=== PATIENT | male | born 1955 | race Caucasian/White ===

== ENCOUNTER 2022-10-25 23:47 | Emergency (ER) | payer OTHER, SELFPAY ==
[2022-10-25 23:49] VITALS: BP 166/94; PULSE 112; RESP 8; TEMP 36.4; O2SAT 92; BMI 21.1
--- NOTE | 2022-10-25 23:52 | XRR_ITS ---
PROCEDURE INFORMATION: Exam: XR Left Shoulder Exam date and time: 10/26/2022 12:02 AM Age: 66 years old Clinical indication: Injury or trauma; Fall; Blunt trauma (contusions or hematomas); Shoulder; Left; Additional info: Fall shoulder pain and deform TECHNIQUE: Imaging protocol: Radiologic exam of the Left shoulder. Views: 2 or more views. COMPARISON: No relevant prior studies available. FINDINGS: Bones/joints: Anterior left shoulder dislocation with the humeral head below the glenoid. Soft tissues: Normal. XR/XR shoulder LT min 2V* [id number] IMPRESSION: Anterior left shoulder dislocation with the humeral head below the glenoid.
[2022-10-25] MEDS: fentaNYL 50 mcg/mL INJ 2mL 100 MCG IVP (23:54)
[2022-10-26] MEDS: fentaNYL 50 mcg/mL INJ 2mL 100 MCG IVP (00:11)
--- NOTE | 2022-10-26 00:30 | W.ED.FALL ---
HPI - Fall General: Chief Complaint: Fall Stated Complaint: FALL Time Seen by Provider: 10/25/22 23:48 Source: patient History of Present Illness: 66-year-old male who slipped at home and fell striking his left shoulder. This happened about an hour prior to arrival. He complains of intense left shoulder pain, and has a deformity. He does have feeling to his hand. He denies any other injury. He did not hit his head. He does not appear to be on anticoagulants. Onset (ago): minute(s) Fall from: standing Fall witnessed: no Place fall occurred: home Loss of consciousness: None Prolonged down time: no Symptoms prior to fall: none Context: tripped/slipped Location of injury - extremities: Left: shoulder Quality: sharp and stabbing Associated symptoms-after fall: Denies abdominal pain, chest pain, confusion, difficulty walking, headache(s), lightheadedness, neck pain, short of breath or weakness Review of Systems Const: Denies: fever(s) Eyes: Denies: change in vision ENMT: Denies: throat pain Card: Denies: chest pain or lightheadedness Resp: Denies: dyspnea GI: Denies: abdominal pain Musc: Denies: neck pain Skin/Breast: Denies: rash Neuro: Denies: headache(s), difficulty walking or confusion PFSH ED PFSH: Social History Smoking and tobacco status: current every day smoker Physical Exam Const: GENERAL APPEARANCE: cooperative HENMT: COMMON NORMALS: normocephalic, atraumatic and Normal external nose present HEAD & SCALP: normocephalic and atraumatic FACE & SINUS: normal facial exam NOSE: Normal external nose present Eye: COMMON NORMALS: Equal, round and reactive pupils present and EOMs intact bilaterally PUPIL: Yes Equal, round and reactive pupils present Neck/C-Spine: CERVICAL SPINE: Yes cervical ROM normal, No pain with cervical ROM and No Cervical spine tenderness Chest: COMMONS NORMALS: normal inspection of the chest CHEST: Yes Symmetrical chest wall rise Resp: COMMON NORMALS: normal respiratory effort, No use of accessory muscles and clear to auscultation bilaterally AUSCULTATION: clear to auscultation bilaterally Cardio: COMMON NORMALS: regular rate and regular rhythm RATE: regular rate RHYTHM: regular rhythm GI: COMMON NORMALS: Normal to inspection, nondistended, normoactive bowel sounds present, Soft to palpation and non-tender PALPATION: Yes Soft to palpation Extremity: NARRATIVE EXTREMITY EXAM: Examination of the left upper extremity reveals a deformity to left shoulder. There is significant tenderness along left shoulder. No humeral tenderness. No elbow tenderness. Pulses slightly decreased distally. They are present Procedures Orthopedic Joint Reduction Joint #1: Time Out Performed: Yes Side: left Joint Reduction Location: shoulder Analgesia: procedural sedation Shoulder Technique Used (if applicable): scapula manipulation Post-reduction neuro exam: intact Post-reduction vascular: intact Post Reduction X-Ray Obtained: Yes Post Reduction X-Ray Results: reduced Splint Applied: Yes Patient Tolerated Procedure: well and no complications Procedural Sedation Indication: fracture/dislocation reduction ASA Class: II Preparation: threat monitoring analyst applied, pulse oximeter, supplemental O2 applied, reversal agents at bedside, suction/airway equipment at bedside and IV secured Ketamine: IV Ketamine dose (mg): 40 IV Propofol dose (mg): 20 Course Vital Signs: Vital signs: Vital Signs Temperature 97.5 F L 10/25/22 23:49 Pulse Rate 112 H 10/25/22 23:49 Respiratory Rate 17 10/26/22 02:43 Blood Pressure 145/78 10/26/22 02:43 Pulse Oximetry 97 10/26/22 02:43 Oxygen Delivery Me thod 10/25/22 23:49 MDM - Fall Medical Decision Making Shoulder reduction accomplished without complication. Patient was on oxygen prior to, and during, as he is on oxygen at home. X-ray reveals successful reduction. The patient does have some mild mental status changes, and may be intoxicated with alcohol. Because of this, and because of distracting injury, CTs of the head and C-spine are ordered. Labs are benign. CTs of the head and C-spine show no acute findings. He does have an alcohol level 72 which is likely responsible for his somewhat odd behavior. He will be discharged to the custody of a sober adult when 1 is available to get him. Lab Data 10/26/22 01:07 10/26/22 01:07 Radiology Impressions Shoulder X-Ray 10/26/22 00:42 IMPRESSION: Interval reduction of left shoulder dislocation. Cervical Spine CT 10/26/22 01:00 IMPRESSION: No acute findings. Head CT 10/26/22 01:00 IMPRESSION: Negative for acute intracranial abnormality. Laboratory Results WBC 12.0 10^3/uL (4.0-10.0) H 10/26/22 01:07 RBC 4.71 10^6/uL (4.1-5.3) 10/26/22 01:07 Hgb 15.2 g/dL (11.7-16.6) 10/26/22 01:07 Hct 45.7 % (42.0-52.0) 10/26/22 01:07 MCV 97.0 fl (80-94) H 10/26/22 01:07 MCH 32.3 pg (28.0-34.0) 10/26/22 01:07 MCHC 33.3 g/dL (30.0-36.0) 10/26/22 01:07 RDW 12.8 % (12.1-15.1) 10/26/22 01:07 Plt Count 351 10^3/cmm (130-400) 10/26/22 01:07 MPV 9.5 fL (7.4-10.4) 10/26/22 01:07 Neut % (Auto) 66.7 % 10/26/22 01:07 Lymph % (Auto) 24.6 % 10/26/22 01:07 Kingfisher % (Auto) 6.7 % 10/26/22 01:07 Eos % (Auto) 1.1 % 10/26/22 01:07 Baso % (Auto) 0.4 % 10/26/22 01:07 Neut # (Auto) 7.99 10^3/uL (1.8-7.7) H 10/26/22 01:07 Lymph # (Auto) 3.0 10^3/uL (0.8-4.8) 10/26/22 01:07 [place]isher # (Auto) 0.8 10^3/uL (0.2-0.9) 10/26/22 01:07 Eos # (Auto) 0.1 10^3/uL (0.0-0.8) 10/26/22 01:07 Baso # (Auto) 0.1 10^3/uL (0.0-0.1) 10/26/22 01:07 Nucleated RBC % (auto) 0 % 10/26/22 01:07 Nucleated RBCs # 0.0 /100WBC 10/26/22 01:07 PT 14.00 SECONDS (12.1-14.9) 10/26/22 01:07 INR 1.05 (0.8-1.2) 10/26/22 01:07 Sodium 135 mmol/L (136-145) L 10/26/22 01:07 Potassium 4.1 mmol/L (3.5-5.1) 10/26/22 01:07 Chloride 99 mmol/L (98-107) 10/26/22 01:07 Carbon Dioxide 27 mmol/L (22-29) 10/26/22 01:07 Anion Gap 13.1 (5-19) 10/26/22 01:07 BUN 12 mg/dL (8-23) 10/26/22 01:07 Creatinine 0.5 mg/dL (0.7-1.2) L 10/26/22 01:07 GFR Calculation 167.4 mL/min (90-130) H 10/26/22 01:07 Glucose 108 mg/dL (65-115) 10/26/22 01:07 Calculated Osmolality 280 mOsm/kg (285-295) L 10/26/22 01:07 Calcium 8.9 mg/dL (8.5-10.5) 10/26/22 01:07 Total Bilirubin 0.2 mg/dL (0.15-1.2) 10/26/22 01:07 AST 33 U/L (0-40) 10/26/22 01:07 ALT 26 U/L (0-41) 10/26/22 01:07 Alkaline Phosphatase 110 U/L (40-130) 10/26/22 01:07 Total Protein 7.0 g/dL (6.6-8.7) 10/26/22 01:07 Albumin 4.0 g/dL (3.5-5.2) 10/26/22 01:07 Globulin 3.0 g/dL (1.3-4.6) 10/26/22 01:07 Ethyl Alcohol 72 mg/dL (0-10) H 10/26/22 01:07 Discharge Plan Discharge Patient Disposition: Home Clinical Impression: Alcohol intoxication Dislocation of shoulder region Qualifiers: Encounter type: initial encounter Laterality: left Qualified Code(s): S43.005A - Unspecified dislocation of left shoulder joint, initial encounter Condition: Stable Prescriptions: New hydrocodone-acetaminophen 5-325 mg tablet 1 tab PO Q8H PRN (Reason: pain) Qty: 7 0RF No Action multivitamin [Multiple Vitamins] Tablet 1 tab PO DAILY Alison-Ariel 0.8 mg tablet 1 tab PO DAILY aspirin [Aspirin Childrens] 81 mg tablet,chewable 81 mg PO DAILY folic acid 1 mg tablet 1 mg PO DAILY cholecalciferol (vitamin D3) 50 mcg (2,000 unit) capsule 50 mcg PO DAILY Spiriva Respimat 2.5 mcg/actuation mist 2 puff inhalation DAILY loratadine [Claritin] 10 mg tablet 10 mg PO DAILY 90 Days Qty: 90 1RF ciprofloxacin HCl [Cipro] 500 mg tablet 500 mg PO BID 7 Days Qty: 14 0RF ketorolac 10 mg tablet 10 mg PO TID 5 Days Qty: 15 0RF tamsulosin 0.4 mg capsule 0.4 mg PO DAILY Qty: 90 0RF albuterol sulfate 90 mcg/actuation HFA aerosol inhaler 2 puff inhalation Q6H PRN (Reason: shortness of breath or wheezing) Qty: 8.5 1RF atorvastatin 10 mg tablet 10 mg PO BID Qty: 180 0RF duloxetine 60 mg capsule,delayed release(DR/EC) 60 mg PO DAILY Qty: 90 0RF fluticasone propionate [Flonase Allergy Relief] 50 mcg/actuation spray,suspension 1 spray intranasal BID Qty: 16 1RF Rx Instructions: administer into each nostril gabapentin 300 mg capsule 300 mg PO .COMPLEX Qty: 360 0RF Rx Instructions: 300 mg orally 2 IN AM, 2 AT NOON, 3 AT 6PM; levetiracetam 1,000 mg tablet 1,000 mg PO BID Qty: 180 0RF prazosin 2 mg capsule 2 mg PO DAILY Qty: 90 0RF phenytoin sodium extended 100 mg capsule 200 mg PO .HS Qty: 180 0RF lacosamide [Vimpat] 100 mg tablet 100 mg PO BID Qty: 180 0RF Discharge Orders: Discharge ED (Routine); Ordered 10/26/22 Ordered By: Bon Sanchez Referrals: Kourtney Almaguer MD [Primary Care Provider] - 4-7 days Patient Instructions: Opioid Safety, Pain Management Activity Restrictions/Additional Instructions: Sling your shoulder until seen by your doctor in follow-up. Ice can help with pain. Avoid alcohol use while on pain medication. Return for concerning symptoms. Coding Level of Care Code ED Motor Power Connector for Chava Cavanaugh Exam Comprehensive
--- NOTE | 2022-10-26 00:42 | XRR_ITS ---
PROCEDURE INFORMATION: Exam: XR Left Shoulder Exam date and time: 10/26/2022 12:47 AM Age: 66 years old Clinical indication: Injury or trauma; Fall; Blunt trauma (contusions or hematomas); Shoulder; Left; Injury details: Post reduction; Additional info: Dislocation TECHNIQUE: Imaging protocol: Radiologic exam of the Left shoulder. Views: 2 or more views. COMPARISON: CR (CHEST, ) 10/26/2022 12:02 AM FINDINGS: Bones/joints: Normal. Soft tissues: Normal. XR/XR shoulder LT min 2V* [id number] IMPRESSION: Interval reduction of left shoulder dislocation.
[2022-10-26] MEDS: propofol 10 mg/mL SDV 20 mL 100 MG IVP (00:57)
--- NOTE | 2022-10-26 01:00 | CTR_ITS ---
PROCEDURE INFORMATION: Exam: CT Cervical Spine Without Contrast Exam date and time: 10/26/2022 1:32 AM Age: 66 years old Clinical indication: Injury or trauma; Fall; Blunt trauma; Additional info: AMS fall TECHNIQUE: Imaging protocol: Computed tomography of the cervical spine without contrast. Radiation optimization: All CT scans at this facility use at least one of these dose optimization techniques: automated exposure control; mA and/or kV adjustment per patient size (includes targeted exams where dose is matched to clinical indication); or iterative reconstruction. COMPARISON: CT head wo con* [id number] 10/26/2022 1:29 AM RADIATION DOSE METRICS: Total DLP (mGy-cm): 175.17 FINDINGS: Bones/joints: No acute fracture. Normal alignment. No significant disc protrusion. No severe spinal canal stenosis. The cervical spine demonstrates marked degenerative changes at multiple levels. Lungs: Lung apices are normal. Soft tissues: Unremarkable. CT/CT cervical spin wo con* [id number] IMPRESSION: No acute findings.
--- NOTE | 2022-10-26 01:00 | CTR_ITS ---
PROCEDURE INFORMATION: Exam: CT Head Without Contrast Exam date and time: 10/26/2022 1:29 AM Age: 66 years old Clinical indication: Injury or trauma; Fall; Blunt trauma (contusions or hematomas); Altered mental status/memory loss; Additional info: AMS fall TECHNIQUE: Imaging protocol: Computed tomography of the head without contrast. Radiation optimization: All CT scans at this facility use at least one of these dose optimization techniques: automated exposure control; mA and/or kV adjustment per patient size (includes targeted exams where dose is matched to clinical indication); or iterative reconstruction. COMPARISON: No relevant prior studies available. RADIATION DOSE METRICS: Total DLP (mGy-cm): 1295.18 FINDINGS: Brain: There is moderate cerebral atrophy. No significant white matter disease. Negative for intracranial hemorrhage. Negative for mass effect on the brain. Negative for midline shift of the brain. Cerebral ventricles: No ventriculomegaly. Paranasal sinuses: Visualized sinuses are unremarkable. No fluid levels. Mastoid air cells: Visualized mastoid air cells are well aerated. Bones/joints: Unremarkable. No acute fracture. Soft tissues: Unremarkable. CT/CT head wo con* [id number] IMPRESSION: Negative for acute intracranial abnormality.
[2022-10-26 01:14] LABS: Basophils # 0.1 10^3/uL (0.0-0.1); Basophils % 0.4 %; Eosinophils # 0.1 10^3/uL (0.0-0.8); Eosinophils % 1.1 %; Hematocrit 45.7 % (42.0-52.0); Hemoglobin 15.2 g/dL (11.7-16.6); Lymphocytes % 24.6 %; Mean Corpuscular HGB Conc 33.3 g/dL (30.0-36.0); Mean Corpuscular Hemoglobin 32.3 pg (28.0-34.0); Mean Platelet Volume 9.5 fL (7.4-10.4); Monocytes # 0.8 10^3/uL (0.2-0.9); Monocytes % 6.7 %; Neutrophils # 7.99 10^3/uL (1.8-7.7); Neutrophils % 66.7 %; Nucleated Red Blood Cells % 0 %; Platelet Count 351 10^3/cmm (130-400); Red Blood Count 4.71 10^6/uL (4.1-5.3); Red Cell Distribution Width 12.8 % (12.1-15.1)
[2022-10-26 01:24] LABS: INR 1.05 (0.8-1.2)
[2022-10-26 01:30] LABS: Alanine Aminotransferase 26 U/L (0-41); Alcohol Level 72 mg/dL (0-10); Alkaline Phosphatase 110 U/L (40-130); Aspartate Amino Transferase 33 U/L (0-40); Blood Urea Nitrogen 12 mg/dL (8-23); Calcium 8.9 mg/dL (8.5-10.5); Carbon Dioxide 27 mmol/L (22-29); Chloride 99 mmol/L (98-107); Glomerular Filtration Rate 167.4 mL/min (90-130); Glucose 108 mg/dL (65-115); Osmolality Calculated 280 mOsm/kg (285-295); Sodium 135 mmol/L (136-145); Total Bilirubin 0.2 mg/dL (0.15-1.2)
[2022-10-26 01:41] LABS: Anion Gap 13.1 (5-19); Creatinine Clr Calc Pharmacy 148.7725; Potassium 4.1 mmol/L (3.5-5.1)
[2022-10-26] MEDS: morphine 4 mg/mL SDV 1 mL IVP (02:03)
[2022-10-26] MEDS: ondansetron 2 mg/ML SDV 2 mL 4 MG IVP (02:03)
--- NOTE | 2022-10-26 02:13 | ECG_ITS ---
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
[2022-10-26 02:43] VITALS: BP 145/78; RESP 17; O2SAT 97
[2022-10-26 03:14] LABS: Bilirubin Urine Neg (Negative); Blood Urine 2+ (Negative); Glucose Urine UA Norm (Normal); Ketones Urine Negative (Negative); Leukocyte Esterase Urine Negative (Negative); Nitrate Urine Negative (Negative); Protein Urine Neg (Negative); Urine Appearance Clear (CLEAR); Urine Color Yellow (Yellow); Urobilinogen Urine Neg (Negative); pH Urine 5 (5-7)
[2022-10-26 03:15] LABS: Add Urine Microscopic? YES
[2022-10-26 03:16] LABS: Add Urine Culture? No; WBC Urine 0-4 /hpf (0-5)
== END 2022-10-26 02:45 | disposition home or self-care (01) ==
PROVIDERS: Emergency Provider Emergency Medicine; PCP Family Medicine
DX: S43.005A Unspecified dislocation of left shoulder joint, initial encounter (principal); F10.129 Alcohol abuse with intoxication, unspecified; Y90.3 Blood alcohol level of 60-79 mg/100 ml; F17.210 Nicotine dependence, cigarettes, uncomplicated; W01.0XXA Fall on same level from slipping, tripping and stumbling without subsequent striking against object, initial encounter
CPT/HCPCS: 23650; 70450; 72125; 73030; 80053; 80307; 81001; 85025; 85610; 93005; 94762; 94799; 96374; 96375; 96376; 99285; J2270; J2405; J2704; J3010; J3490

== ENCOUNTER 2022-10-29 10:53 | Emergency (ER) | payer OTHER, SELFPAY ==
[2022-10-29] VITALS (10 sets, daily range): BP systolic 129–133; BP diastolic 74–83; PULSE 85–104; RESP 17; TEMP 36.7; O2SAT 92–97
--- NOTE | 2022-10-29 12:23 | ECG_ITS ---
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 Measurements Intervals [place] Rate: 101 P: 81 MA: 132 QRS: 73 QRSD: 87 T: 65 QT: 350 QTc: 455 Interpretive Statements SINUS TACHYCARDIA POSSIBLE RIGHT ATRIAL ENLARGEMENT Compared to ECG 10/26/2022 02:13:26 Sinus rhythm no longer present Electronically Signed On 10-30-2022 9:12:00 ECLECTIC DOCTOR by Ashlyn Dumont M.D. [id number]
--- NOTE | 2022-10-29 12:23 | XR_ITS ---
WS: [id number] Exam: XR chest 1V portable [id number] Date/Time of Exam: 10/29/2022 12:23 PM Reason For Exam: chest pain No priors. The lungs are clear and hyperinflated. Changes of bullous emphysema noted. Normal cardiomediastinal s ilhouette. Surgical sutures seen in the medial right pulmonary apex. Bony structures are intact. XR/XR chest 1V portable [id number] IMPRESSION: 1. Pulmonary hyperinflation with the changes of bullous emphysema. 2. No acute cardiopulmonary process.
--- NOTE | 2022-10-29 12:24 | ED_ITS ---
HPI - General Adult General: Chief complaint: General Medical Stated complaint: Rosina sent for possible blood clot in lung Time Seen by Provider: 10/29/22 12:12 Source: patient Mode of arrival: ambulatory Limitations: no limitations History of Present Illness: This patient called his physician this morning because he was concerned about fluctuating oxygen levels on a pulse oximetry at home. He was referred to the emergency department. He states that they told that he could have a blood clot and therefore he needed to be here. He denies any history of clotting disorders prior thromboembolic events etc. He did have a fall 3+ days ago and landed on his left shoulder resulting in a glenohumeral dislocation that was reduced in this emergency department. He states he still has soreness in his left chest. He does have a history of COPD and is currently a tobacco user. He states he has not had any fever chills productive cough etc. He denies any leg swelling leg pain. He does admit to having multiple pneumothorax in the past requiring chest tube thoracostomy. Does wear oxygen on an as-needed basis at home. Associated symptoms: Deny chest pain, headache(s), nausea, rash, palpitations or vomiting Review of Systems Const: Denies: fever(s) or chills Eyes: Denies: change in vision ENMT: Denies: throat pain, odynophagia, nasal discharge or nasal congestion Card: Denies: chest pain, palpitations, irregular heart rhythm or edema Resp: Reports: wheezing (Chronic); Denies: productive cough, non-productive cough or stridor GI: Denies: abdominal pain, nausea or vomiting : Denies: flank pain Musc: Reports: extremity pain (Left shoulder); Denies: neck pain, back pain or extremity swelling Skin/Breast: Denies: rash Neuro: Denies: headache(s), numbness in extremities or weakness in extremities Yariel/Lymph: Denies: easy bruising PFSH ED PFSH: Social History Smoking and tobacco status: current every day smoker Physical Exam Narrative: EXAM NARRATIVE: He appears to be in no acute distress. He makes good eye contact answers questions readily. He is sitting in a comfortable position. He has his left upper extremity in a sling. Const: COMMON NORMALS: no acute distress, average body habitus and patient oriented x3 GENERAL APPEARANCE: cooperative and comfortable ORIENTATION/CONSCIOUSNESS: Yes awake HENMT: COMMON NORMALS: normocephalic, atraumatic, Normal nasal mucous membranes and turbinates present, moist oral mucous membranes and oropharynx normal HEAD & SCALP: normocephalic and atraumatic NOSE: Normal nasal mucous membranes and turbinates present Eye: COMMON NORMALS: Equal, round and reactive pupils present and EOMs intact bilaterally PUPIL: Yes Equal, round and reactive pupils present Neck/C-Spine: COMMON NORMALS: full ROM and no lymphadenopathy CERVICAL SPINE: No pain with cervical ROM, No step off deformity and Yes Trapezius muscle tenderness left Chest: COMMONS NORMALS: normal inspection of the chest and normal palpation of entire chest wall CHEST: No crepitus, No localized rib tenderness with anteroposterior compression, No Ecchymosis present and Yes Surgical scars present (Chest) (Right lateral chest) Resp: COMMON NORMALS: normal respiratory effort, No retractions and No use of accessory muscles AUSCULTATION: rhonchi Cardio: COMMON NORMALS: regular rate, regular rhythm, No murmurs present (Cardio) and Peripheral pulses 2+ throughout RATE: regular rate RHYTHM: regular rhythm PERIPHERAL PULSES: Peripheral pulses 2+ throughout GI: COMMON NORMALS: Normal to inspection, nondistended, normoactive bowel sounds present and Soft to palpation PALPATION: Yes Soft to palpation : COMMON NORMALS: Yes no CVA tenderness BLADDER/KIDNEY EXAM: Yes no CVA tenderness Back/Pelvis: COMMON NORMALS: no CVA tenderness, thoracic and lumbar spine normal to inspection, no thoracic nor lumbar tenderness and thoraco-lumbar ROM normal Extremity: COMMON NORMALS: capillary refill normal, no calf tenderness and no pedal edema NARRATIVE EXTREMITY EXAM: Left upper extremity is held in a position of comfort in the sling. There is no deformity noted at this time. Has good capillary refill. Has normal range of motion at the wrist elbow. Limited range of motion due to guarding at the left shoulder. Neuro: COMMON NORMALS: patient oriented x3, moves all extremities, no focal motor deficits and no sensory deficits noted Psych: COMMON NORMALS: mental status grossly normal Skin: COMMON NORMALS: no rashes or lesions noted and turgor normal GENERAL SKIN EXAM: no rashes or lesions noted and turgor normal Course Reevaluation(s): Reevaluation #1: Stable at this time without any new or focal findings. He is suitable to be discharged without any evidence that suggest thromboembolic issues to include PE, pneumothorax, other concerning findings at this time. He did request a couple more days of pain medicine and muscle relaxant as he is not going to be seeing his doctor until next week. Time: 13:33 Vital Signs: Vital signs: Vital Signs Temperature 98.1 F 10/29/22 11:42 Pulse Rate 86 10/29/22 13:12 Respiratory Rate 17 10/29/22 11:42 Blood Pressure 129/74 10/29/22 13:12 Pulse Oximetry 93 10/29/22 13:12 Oxygen Delivery Me thod 10/29/22 11:42 MDM - General Adult Medical Decision Making Patient with known emphysema and COPD who is wears oxygen on a as needed basis at home is an active tobacco user was referred here because there was some concerns raised on a telephone call to his primary care office that he could have a pulmonary embolus. He has a history of pneumothoraxes in the past likely related to his bullous emphysema. He did have a fall 3 days ago with a dislocated shoulder and is still convalescing from that injury. His evaluation today did not reveal any clinical findings of concern his pulse oximetry on room air was in the 97% range during our evaluation interview. His D-dimer is below the previous Dmitriy use cutoff and well below age-related cutoff. His chest x-ray is reassuring without any evidence of rib fractures, pneumothorax etc. EKG is reassuring as well. He is clinically stable and suitable for continued outpatient management of his shoulder dislocation. We discussed all findings and their implications. He was appreciative of care and stable at this time. Turn precautions reviewed. Medical Records I reviewed the patient's medical records. Lab Data I reviewed the patient's lab results. Radiology Impressions Chest X-Ray 10/29/22 12:23 IMPRESSION: 1. Pulmonary hyperinflation with the changes of bullous emphysema. 2. No acute cardiopulmonary process. Laboratory Results D-Dimer 0.43 ug/mIFEU (0-0.59) 10/29/22 12:50 EKG Data EKG 1: I personally reviewed and interpreted this EKG as follows: Interpretation: Contemporaneous review of the EKG revealed a ventricular rate of 101 bpm. System with borderline sinus tachycardia. ME interval, QRS duration, QTc interval are normal. Normal axes. No acute ST-T wave changes noted. Does have findings suggesting of right atrial enlargement with a prolonged P wave in limb lead II Computer generated interpretation: Chest X-Ray 10/29/22 12:23 IMPRESSION: 1. Pulmonary hyperinflation with the changes of bullous emphysema. 2. No acute cardiopulmonary process. Discharge Plan Discharge Patient Disposition: Home Clinical Impression: COPD (chronic obstructive pulmonary disease), Left shoulder pain, Tobacco use Condition: Stable Prescriptions: New hydrocodone-acetaminophen 5-325 mg tablet 1 tab PO BID PRN (Reason: pain) Qty: 7 0RF Soma 350 mg tablet 350 mg PO BID PRN (Reason: muscle pain) Qty: 10 0RF No Action multivitamin [Multiple Vitamins] Tablet 1 tab PO DAILY Alison-Ariel 0.8 mg tablet 1 tab PO DAILY aspirin [Aspirin Childrens] 81 mg tablet,chewable 81 mg PO DAILY folic acid 1 mg tablet 1 mg PO DAILY cholecalciferol (vitamin D3) 50 mcg (2,000 unit) capsule 50 mcg PO DAILY Spiriva Respimat 2.5 mcg/actuation mist 2 puff inhalation DAILY loratadine [Claritin] 10 mg tablet 10 mg PO DAILY 90 Days Qty: 90 1RF ciprofloxacin HCl [Cipro] 500 mg tablet 500 mg PO BID 7 Days Qty: 14 0RF ketorolac 10 mg tablet 10 mg PO TID 5 Days Qty: 15 0RF tamsulosin 0.4 mg capsule 0.4 mg PO DAILY Qty: 90 0RF albuterol sulfate 90 mcg/actuation HFA aerosol inhaler 2 puff inhalation Q6H PRN (Reason: shortness of breath or wheezing) Qty: 8.5 1RF atorvastatin 10 mg tablet 10 mg PO BID Qty: 180 0RF duloxetine 60 mg capsule,delayed release(DR/EC) 60 mg PO DAILY Qty: 90 0RF fluticasone propionate [Flonase Allergy Relief] 50 mcg/actuation spray,suspension 1 spray intranasal BID Qty: 16 1RF Rx Instructions: administer into each nostril gabapentin 300 mg capsule 300 mg PO .COMPLEX Qty: 360 0RF Rx Instructions: 300 mg orally 2 IN AM, 2 AT NOON, 3 AT 6PM; levetiracetam 1,000 mg tablet 1,000 mg PO BID Qty: 180 0RF prazosin 2 mg capsule 2 mg PO DAILY Qty: 90 0RF phenytoin sodium extended 100 mg capsule 200 mg PO .HS Qty: 180 0RF lacosamide [Vimpat] 100 mg tablet 100 mg PO BID Qty: 180 0RF hydrocodone-acetaminophen 5-325 mg tablet 1 tab PO Q8H PRN (Reason: pain) Qty: 7 0RF Discharge Orders: Discharge ED (Routine); Ordered 10/29/22 Ordered By: Rubén Garcias Referrals: Kourtney Almaguer MD [Primary Care Provider] - Discharge Diet: Usual diet Discharge Activity: Resume usual activity Patient Instructions: Opioid Safety, Pain Management Activity Restrictions/Additional Instructions: Do not smoke cigarettes. Continue all your usual medications. We have provided some additional medication to help with your shoulder pain and muscle spasm. Continue to use your sling for comfort and remove your arm out of the sling 2-3 times daily and do gentle range of motion exercises. See your regular physician this coming week for reevaluation and additional treatment as indicated. If you develop any new or worsening symptoms return to this or the nearest emergency department. Coding Level of Care Code ED Guest Relations Receptionist for Chava Cavanaugh Exam Comprehensive
[2022-10-29 13:20] LABS: D Dimer 0.43 ug/mIFEU (0-0.59)
== END 2022-10-29 14:05 | disposition home or self-care (01) ==
PROVIDERS: Emergency Provider Emergency Medicine; PCP Family Medicine
DX: J44.9 Chronic obstructive pulmonary disease, unspecified (principal); M25.512 Pain in left shoulder; Z79.82 Long term (current) use of aspirin; F17.210 Nicotine dependence, cigarettes, uncomplicated
CPT/HCPCS: 71045; 85378; 93005; 99284

== ENCOUNTER 2022-11-16 19:55 | Emergency (ER) | payer OTHER, SELFPAY ==
[2022-11-16 19:57] VITALS: BP 148/81; PULSE 86; RESP 16; TEMP 36.4; O2SAT 96
--- NOTE | 2022-11-16 20:22 | XRR_ITS ---
PROCEDURE INFORMATION: Exam: XR Chest Exam date and time: 11/16/2022 9:44 PM Age: 66 years old Clinical indication: Pain; Chest pressure; Additional info: Chest pain TECHNIQUE: Imaging protocol: Radiologic exam of the chest. Views: 1 view. COMPARISON: CR XR chest 1V portable [id number] 10/29/2022 12:28 PM FINDINGS: Lungs: There is a background of emphysema and pulmonary fibrosis. There is some pleural thickening present in the right hemithorax that appears stable compared with 10/29/2022. Pleural spaces: See Lungs finding. Heart/Mediastinum: Unremarkable. No cardiomegaly. Bones/joints: Unremarkable. XR/XR chest 1V portable [id number] IMPRESSION: 1. Stable findings of emphysema and pulmonary fibrosis. 2. Mild pleural thickening seen in the right hemithorax.
[2022-11-17 00:18] LABS: Basophils # 0.1 10^3/uL (0.0-0.1); Basophils % 0.7 %; Eosinophils # 0.4 10^3/uL (0.0-0.8); Eosinophils % 3.3 %; Hematocrit 48.6 % (42.0-52.0); Lymphocytes # 3.9 10^3/uL (0.8-4.8); Lymphocytes % 37.6 %; Mean Corpuscular HGB Conc 32.9 g/dL (30.0-36.0); Mean Corpuscular Hemoglobin 33.2 pg (28.0-34.0); Mean Corpuscular Volume 100.8 fl (80-94); Mean Platelet Volume 9.4 fL (7.4-10.4); Monocytes # 0.8 10^3/uL (0.2-0.9); Monocytes % 7.9 %; Neutrophils # 5.25 10^3/uL (1.8-7.7); Neutrophils % 50.1 %; Nucleated Red Blood Cells % 0 %; Platelet Count 383 10^3/cmm (130-400); Red Blood Count 4.82 10^6/uL (4.1-5.3); Red Cell Distribution Width 14.5 % (12.1-15.1); White Blood Count 10.5 10^3/uL (4.0-10.0)
[2022-11-17 00:44] LABS: Alanine Aminotransferase 39 U/L (0-41); Albumin Level 4.3 g/dL (3.5-5.2); Alkaline Phosphatase 96 U/L (40-130); Anion Gap 14.4 (5-19); Aspartate Amino Transferase 39 U/L (0-40); Blood Urea Nitrogen 5 mg/dL (8-23); Calcium 8.9 mg/dL (8.5-10.5); Carbon Dioxide 28 mmol/L (22-29); Chloride 101 mmol/L (98-107); Glomerular Filtration Rate 167.4 mL/min (90-130); Glucose 97 mg/dL (65-115); Osmolality Calculated 285 mOsm/kg (285-295); Potassium 4.4 mmol/L (3.5-5.1); Sodium 139 mmol/L (136-145); Total Bilirubin 0.2 mg/dL (0.15-1.2); Total Protein 7.3 g/dL (6.6-8.7)
[2022-11-17 00:46] LABS: Troponin(5th) Baseline 15 ng/L (0-15)
[2022-11-17 02:29] VITALS: BP 150/84; PULSE 63; RESP 20; O2SAT 96
[2022-11-17 02:51] LABS: Troponin 5 2HR 14.15 ng/L (0-15)
[2022-11-17 02:52] LABS: Troponin 5 2HR Delta -0.85 ABS# (0-10)
--- NOTE | 2022-11-17 03:01 | CTR_ITS ---
PROCEDURE INFORMATION: Exam: CT Head Without Contrast Exam date and time: 11/17/2022 3:12 AM Age: 66 years old Clinical indication: Dizziness and walking, difficulty and weakness, extremity; Right; Additional info: Dizzy, right leg weakness TECHNIQUE: Imaging protocol: Computed tomography of the head without contrast. Radiation optimization: All CT scans at this facility use at least one of these dose optimization techniques: automated exposure control; mA and/or kV adjustment per patient size (includes targeted exams where dose is matched to clinical indication); or iterative reconstruction. COMPARISON: CT head wo con* [id number] 10/26/2022 1:29 AM RADIATION DOSE METRICS: Total DLP (mGy-cm): 909.08 FINDINGS: Brain: There is mild diffuse cerebral atrophy. Patchy areas of hypoattenuation are seen in the deep white matter of the cerebral hemispheres bilaterally compatible with mild deep white matter microvascular disease. Punctate hyperdensity seen at the apex of the right basal ganglia likely representing a vascular calcification. Cerebral ventricles: No ventriculomegaly. Paranasal sinuses: Visualized sinuses are unremarkable. No fluid levels. Mastoid air cells: Visualized mastoid air cells are well aerated. Bones/joints: Unremarkable. No acute fracture. Soft tissues: Unremarkable. CT/CT head wo con* [id number] IMPRESSION: There are no acute intracranial findings.
[2022-11-17 03:54] VITALS: BP 139/73; PULSE 68; RESP 22; O2SAT 94
[2022-11-17 04:21] LABS: Add Urine Culture? Yes; Add Urine Microscopic? YES; Bacteria Urine 1+ /hpf; Bilirubin Urine Neg (Negative); Blood Urine 2+ (Negative); Glucose Urine UA Norm (Normal); Ketones Urine 1+ (Negative); Leukocyte Esterase Urine 2+ (Negative); Nitrate Urine Negative (Negative); Protein Urine Trace (Negative); RBC Urine 0-4 /hpf (0-2); Specific Gravity, Urine 1.015 (1.005-1.030); Squamous Epithelial Cell Urine 0-4 /hpf (0-5); Urine Appearance SL Hazy (CLEAR); Urine Color Yellow (Yellow); Urobilinogen Urine Norm (Negative); WBC Urine 25-40 /hpf (0-5); pH Urine 5 (5-7)
[2022-11-17] MEDS: cefTRIAXone 1,000 MG in sodium chloride 0.9% (plus) 50 ML 100 MG IV (04:47)
[2022-11-17 05:22] VITALS: BP 143/79; PULSE 62; RESP 18; O2SAT 96
[2022-11-17 05:42] VITALS: BP 134/76; PULSE 61; RESP 16; O2SAT 97
--- NOTE | 2022-11-18 12:02 | W.ED.CHESTPA ---
HPI - Chest Pain General: Chief Complaint: Chest Pain Stated Complaint: CHEST PAIN Time Seen by Provider: 11/17/22 02:23 Source: patient History of Present Illness: 66 year old gentleman with no prior history of coronary disease presents with chest discomfort. He also now is complaining of generalized weakness. He had a stroke previously he says, and was left with some residual weakness to the right side of his body. He has been generally weak today, most of the day. He complaints of dizziness as well. It is not a vertiginous type dizziness. He has not vomited. He is not short of breath. He notes feeling tired. The chest discomfort is now gone. It started last evening. MD complaint: chest pain Pertinent past history: other Onset (ago): hour(s) Timing of current episode: now resolved Prior episodes: Yes Pain location: substernal Pain radiation: none Severity: mild Quality: aching Relieving factors: nothing Exacerbating factors: nothing Associated symptoms: Deny abdominal pain, diaphoresis, dyspnea, fever(s), palpitations, syncope or vomiting Review of Systems Const: Denies: fever(s) or diaphoresis Eyes: Denies: change in vision Card: Denies: palpitations or syncope Resp: Denies: dyspnea GI: Denies: abdominal pain or vomiting Skin/Breast: Denies: rash Neuro: Reports: weakness in extremities (right lower greater than left); Denies: headache(s), dizziness or confusion PFS ED PFSH: Social History Smoking and tobacco status: current every day smoker Physical Exam Const: COMMON NORMALS: no acute distress and alert GENERAL APPEARANCE: cooperative; not ill appearing and not frail appearing HENMT: COMMON NORMALS: normocephalic, atraumatic and Normal external nose present HEAD & SCALP: normocephalic and atraumatic FACE & SINUS: normal facial exam and face symmetric NOSE: Normal external nose present Eye: COMMON NORMALS: Equal, round and reactive pupils present and EOMs intact bilaterally PUPIL: Yes Equal, round and reactive pupils present Neck/C-Spine: GENERAL: Yes trachea midline Chest: CHEST: Yes Symmetrical chest wall rise Resp: COMMON NORMALS: normal respiratory effort, No retractions, No use of accessory muscles and clear to auscultation bilaterally AUSCULTATION: clear to auscultation bilaterally Cardio: COMMON NORMALS: regular rate and regular rhythm RATE: regular rate RHYTHM: regular rhythm GI: COMMON NORMALS: Normal to inspection, nondistended, normoactive bowel sounds present Extremity: COMMON NORMALS: no pedal edema Neuro: NAVEEN COMA SCALE: document GCS findings Naveen coma scale eye opening: Spontaneous Naveen coma scale verbal response: Orientated [place] coma scale motor response: Obey commands Naveen coma scale total score: 15 SENSORIUM/ORIENTATION: Yes alert CRANIAL NERVES: Yes CN normal except as noted COORDINATION/BALANCE: [id number] test normal SPEECH: speech normal SENSORY EXAM: Yes extremities (intact) MOTOR EXAM: Pronator motor function not present COORDINATION: [id number] test normal Psych: COMMON NORMALS: speech normal SPEECH: Yes normal speech Skin: COMMON NORMALS: no rashes or lesions noted GENERAL SKIN EXAM: no rashes or lesions noted Course Vital Signs: Vital signs: Vital Signs Temperature 97.5 F L 11/16/22 19:57 Pulse Rate 61 11/17/22 05:42 Respiratory Rate 16 11/17/22 05:42 Blood Pressure 134/76 11/17/22 05:42 Pulse Oximetry 97 11/17/22 05:42 Oxygen Delivery Me thod 11/17/22 05:22 MDM - Chest Pain Medical Decision Making The patient's chest discomfort has resolved. His EKG shows a sinus rhythm without acute St wave changes. His laboratory is not remarkable including troponins that remained normal at two hours with no delta. He does have a significant urinary tract infection, for which he was given IV antibiotics. Chest X-ray shows pulmonary fibrosis with some pleural thickening on the right. As for the weakness, the right lower extremity is mildly greater on the left, but this is his only neurologic finding. There are no changes in sensation, no language problems, vision problems, mental status problems, etcetera. The uti maybe a source of his weakness. You'll be given antibiotics, and allowed discharge. Lab Data 11/16/22 00:02 11/16/22 00:02 Radiology Impressions Chest X-Ray 11/16/22 20:22 IMPRESSION: 1. Stable findings of emphysema and pulmonary fibrosis. 2. Mild pleural thickening seen in the right hemithorax. Head CT 11/17/22 03:01 IMPRESSION: There are no acute intracranial findings. Laboratory Results WBC 10.5 10^3/uL (4.0-10.0) H 11/16/22 00:02 RBC 4.82 10^6/uL (4.1-5.3) 11/16/22 00:02 Hgb 16.0 g/dL (11.7-16.6) 11/16/22 00:02 Hct 48.6 % (42.0-52.0) 11/16/22 00:02 MCV 100.8 fl (80-94) H 11/16/22 00:02 MCH 33.2 pg (28.0-34.0) 11/16/22 00:02 MCHC 32.9 g/dL (30.0-36.0) 11/16/22 00:02 RDW 14.5 % (12.1-15.1) 11/16/22 00:02 Plt Count 383 10^3/cmm (130-400) 11/16/22 00:02 MPV 9.4 fL (7.4-10.4) 11/16/22 00:02 Neut % (Auto) 50.1 % 11/16/22 00:02 Lymph % (Auto) 37.6 % 11/16/22 00:02 [place] % (Auto) 7.9 % 11/16/22 00:02 Eos % (Auto) 3.3 % 11/16/22 00:02 Baso % (Auto) 0.7 % 11/16/22 00:02 Neut # (Auto) 5.25 10^3/uL (1.8-7.7) 11/16/22 00:02 Lymph # (Auto) 3.9 10^3/uL (0.8-4.8) 11/16/22 00:02 [place] # (Auto) 0.8 10^3/uL (0.2-0.9) 11/16/22 00:02 Eos # (Auto) 0.4 10^3/uL (0.0-0.8) 11/16/22 00:02 Baso # (Auto) 0.1 10^3/uL (0.0-0.1) 11/16/22 00:02 Nucleated RBC % (auto) 0 % 11/16/22 00:02 Nucleated RBCs # 0.0 /100WBC 11/16/22 00:02 Sodium 139 mmol/L (136-145) 11/16/22 00:02 Potassium 4.4 mmol/L (3.5-5.1) 11/16/22 00:02 Chloride 101 mmol/L (98-107) 11/16/22 00:02 Carbon Dioxide 28 mmol/L (22-29) 11/16/22 00:02 Anion Gap 14.4 (5-19) 11/16/22 00:02 BUN 5 mg/dL (8-23) L 11/16/22 00:02 Creatinine 0.5 mg/dL (0.7-1.2) L 11/16/22 00:02 GFR Calculation 167.4 mL/min (90-130) H 11/16/22 00:02 Glucose 97 mg/dL (65-115) 11/16/22 00:02 Calculated Osmolality 285 mOsm/kg (285-295) 11/16/22 00:02 Calcium 8.9 mg/dL (8.5-10.5) 11/16/22 00:02 Total Bilirubin 0.2 mg/dL (0.15-1.2) 11/16/22 00:02 AST 39 U/L (0-40) 11/16/22 00:02 ALT 39 U/L (0-41) 11/16/22 00:02 Alkaline Phosphatase 96 U/L (40-130) 11/16/22 00:02 Troponin T Baseline 15 ng/L (0-15) 11/16/22 00:02 Troponin T 120 Minute 14.15 ng/L (0-15) 11/17/22 02:27 Delta Troponin T -0.85 ABS# (0-10) L 11/17/22 02:27 Total Protein 7.3 g/dL (6.6-8.7) 11/16/22 00:02 Albumin 4.3 g/dL (3.5-5.2) 11/16/22 00:02 Globulin 3.0 g/dL (1.3-4.6) 11/16/22 00:02 Urine Color Yellow (Yellow) 11/17/22 03:40 Urine Appearance Sl hazy (CLEAR) A 11/17/22 03:40 Urine pH 5 (5-7) 11/17/22 03:40 Ur Specific [place] 1.015 (1.005-1.030) 11/17/22 03:40 Urine Protein Trace (Negative) 11/17/22 03:40 Urine Glucose (UA) Norm (Normal) 11/17/22 03:40 Urine Ketones 1+ (Negative) H 11/17/22 03:40 Urine Blood 2+ (Negative) H 11/17/22 03:40 Urine Nitrate Negative (Negative) 11/17/22 03:40 Urine Bilirubin Neg (Negative) 11/17/22 03:40 Urine Urobilinogen Norm mg/dL (Negative) 11/17/22 03:40 Ur Leukocyte Esterase 2+ (Negative) H 11/17/22 03:40 Urine RBC 0-4 /hpf (0-2) H 11/17/22 03:40 Urine WBC 25-40 /hpf (0-5) H 11/17/22 03:40 Ur Squamous Epith Cells 0-4 /hpf (0-5) H 11/17/22 03:40 Amorphous Sediment Not Reportable 11/17/22 03:40 Urine Bacteria 1+ /hpf (NONE) H 11/17/22 03:40 Discharge Plan Discharge Patient Disposition: Home Clinical Impression: Dizziness, Urinary tract infection, Weakness Condition: Stable Prescriptions: New cefdinir 300 mg capsule 300 mg PO BID 10 Days Qty: 20 0RF No Action multivitamin [Multiple Vitamins] Tablet 1 tab PO DAILY Alison-Ariel 0.8 mg tablet 1 tab PO DAILY aspirin [Aspirin Childrens] 81 mg tablet,chewable 81 mg PO DAILY folic acid 1 mg tablet 1 mg PO DAILY cholecalciferol (vitamin D3) 50 mcg (2,000 unit) capsule 50 mcg PO DAILY Spiriva Respimat 2.5 mcg/actuation mist 2 puff inhalation DAILY loratadine [Claritin] 10 mg tablet 10 mg PO DAILY 90 Days Qty: 90 1RF ciprofloxacin HCl [Cipro] 500 mg tablet 500 mg PO BID 7 Days Qty: 14 0RF ketorolac 10 mg tablet 10 mg PO TID 5 Days Qty: 15 0RF tamsulosin 0.4 mg capsule 0.4 mg PO DAILY Qty: 90 0RF albuterol sulfate 90 mcg/actuation HFA aerosol inhaler 2 puff inhalation Q6H PRN (Reason: shortness of breath or wheezing) Qty: 8.5 1RF atorvastatin 10 mg tablet 10 mg PO BID Qty: 180 0RF duloxetine 60 mg capsule,delayed release(DR/EC) 60 mg PO DAILY Qty: 90 0RF fluticasone propionate [Flonase Allergy Relief] 50 mcg/actuation spray,suspension 1 spray intranasal BID Qty: 16 1RF Rx Instructions: administer into each nostril gabapentin 300 mg capsule 300 mg PO .COMPLEX Qty: 360 0RF Rx Instructions: 300 mg orally 2 IN AM, 2 AT NOON, 3 AT 6PM; levetiracetam 1,000 mg tablet 1,000 mg PO BID Qty: 180 0RF prazosin 2 mg capsule 2 mg PO DAILY Qty: 90 0RF phenytoin sodium extended 100 mg capsule 200 mg PO .HS Qty: 180 0RF lacosamide [Vimpat] 100 mg tablet 100 mg PO BID Qty: 180 0RF hydrocodone-acetaminophen 5-325 mg tablet 1 tab PO Q8H PRN (Reason: pain) Qty: 7 0RF hydrocodone-acetaminophen 5-325 mg tablet 1 tab PO BID PRN (Reason: pain) Qty: 7 0RF Soma 350 mg tablet 350 mg PO BID PRN (Reason: muscle pain) Qty: 10 0RF Discharge Orders: Discharge ED (Routine); Ordered 11/17/22 Ordered By: Bon Sanchez Referrals: Kourtney Almaguer MD [Primary Care Provider] - Patient Instructions: Urinary Tract Infection in Older Adults (ED) Activity Restrictions/Additional Instructions: Laboratory testing shows that you have a significant urinary tract infection, which is likely worsening your baseline weakness. It did not show evidence of heart attack or stroke. Return for worsening weakness despite treatment, fever, worsening mental status, any other concerning symptoms. Coding Level of Care Code ED Architecture Internship for Chava Cavanaugh
== END 2022-11-17 05:51 | disposition home or self-care (01) ==
PROVIDERS: Physician Assistant; Emergency Provider Emergency Medicine; PCP Family Medicine
DX: N39.0 Urinary tract infection, site not specified (principal); R53.1 Weakness; R42 Dizziness and giddiness; Z79.82 Long term (current) use of aspirin; F17.210 Nicotine dependence, cigarettes, uncomplicated
CPT/HCPCS: 36415; 70450; 71045; 80053; 81001; 84484; 85025; 87086; 96365; 99285; J0696

== ENCOUNTER 2022-11-20 18:41 | Emergency (ER) | payer OTHER, SELFPAY ==
--- NOTE | 2022-11-20 18:48 | ECG_ITS ---
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 Measurements Intervals [place] Rate: 90 P: 81 WA: 147 QRS: 83 QRSD: 77 T: 81 QT: 349 QTc: 428 Interpretive Statements SINUS RHYTHM Compared to ECG 10/29/2022 12:40:26 Sinus tachycardia no longer present Electronically Signed On 11-21-2022 16:48:53 HANDLE TURNER by Ashlyn Dumont M.D. [id number] f
[2022-11-20 18:49] VITALS: BP 145/80; PULSE 91; RESP 16; TEMP 37.1; O2SAT 93
--- NOTE | 2022-11-20 19:00 | ECG_ITS ---
[facility] Test Date: 2022-11-20 Pat Name: Wang Tate Department: Room: Gender: Male Meal Attendant: : 1955 Requested By: Keegan Davis Order Number: [id number] Juan MD: Ara Walsh M.D. Measurements Intervals [place] Rate: 90 P: 81 IA: 147 QRS: 83 QRSD: 77 T: 81 QT: 349 QTc: 428 Interpretive Statements SINUS RHYTHM Compared to ECG 10/29/2022 12:40:26 Sinus tachycardia no longer present Electronically Signed On 11-20-2022 20:47:41 SUPERVISOR MILL by Ara Walsh M.D. [id number]
--- NOTE | 2022-11-20 19:00 | XRR_ITS ---
PROCEDURE INFORMATION: Exam: XR Chest Exam date and time: 11/20/2022 7:17 PM Age: 66 years old Clinical indication: Angina; Additional info: Cp TECHNIQUE: Imaging protocol: Radiologic exam of the chest. Views: 1 view. COMPARISON: CR (CHEST, ) 11/16/2022 9:44 PM FINDINGS: Lungs: Stable mild hyperinflation of the lungs. There is linear scarring in the right lower lobe. No focal consolidation. No pulmonary edema. Pleural spaces: No pleural effusion. No pneumothorax. Heart/Mediastinum: The cardiac silhouette and mediastinal contours are unremarkable. Vasculature: Stable vascular calcifications in the aorta. Bones/joints: Unremarkable for age. XR/XR chest 1V portable [id number] IMPRESSION: 1. No acute cardiopulmonary process. 2. Incidental/nonacute findings are listed in the report.
--- NOTE | 2022-11-20 19:09 | ED_ITS ---
HPI - Chest Pain General: Chief Complaint: Chest Pain Stated Complaint: CHEST PAIN Time Seen by Provider: 11/20/22 18:52 History of Present Illness: Mr. Tate is a 66-year-old gentleman with history of tobaccoism, seizure disorder, dyslipidemia presenting to the emergency department due to chest discomfort. Onset of symptoms was shortly before calling 911 and presented to the emergency department. Describes a tight band radiating from the left anterior chest across the chest and also some tingling sensation in the left arm. Moderate in intensity and was improved with nitrogl ycerin though currently is recurring. Denies associated infectious symptoms. Denies frequent similar episodes in the past. No other specific changes in health, exacerbating, or alleviating factors identified. Onset (ago): hour(s) Timing of current episode: constant Prior episodes: No Onset: during rest Pain location: substernal, left chest and right chest Pain radiation: left arm Severity: moderate Quality: tightness Relieving factors: nitroglycerin Exacerbating factors: nothing Context: recent illness Associated symptoms: Reports diaphoresis Review of Systems General: Reports: 10 or more systems reviewed and unremarkable except in HPI and below Const: Reports: diaphoresis [facility] ED PFSH: Medical History (Updated 11/28/22 @ 00:00 by DIPTI Conrad) Dyslipidemia Seizure disorder Social History Smoking and tobacco status: current every day smoker Physical Exam Const: COMMON NORMALS: alert GENERAL APPEARANCE: cooperative and well developed HENMT: COMMON NORMALS: normocephalic and atraumatic HEAD & SCALP: no rmocephalic and atraumatic Eye: COMMON NORMALS: conjunctivae normal CONJUNCTIVA: Yes conjunctivae normal SCLERA: sclerae normal Neck/C-Spine: COMMON NORMALS: supple GENERAL: Yes trachea midline Resp: EFFORT & INSPECTION: Yes able to speak in complete sentences AUSCULTATION: diminished lung sounds Cardio: COMMON NORMALS: regular rate and regular rhythm RATE: regular rate RHYTHM: regular rhythm GI: COMMON NORMALS: Soft to palpation PALPATION: Yes Soft to palpation and No Tenderness to palpation present (GI) PERCUSSION: normal to percussion Extremity: GENERAL: Yes normal exam except as noted and No edema Neuro: COMMON NORMALS: moves all extremities SENSORIUM/ORIENTATION: Yes alert and No Orientation impaired Psych: COMMON NORMALS: mental status grossly normal and Normal thought process present THOUGHT PROCESS: Normal thought process present Course Vital Signs: Vital signs: Vital Signs Temperature 98.7 F 11/20/22 18:49 Pulse Rate 85 11/20/22 21:42 Respiratory Rate 17 11/20/22 21:42 Blood Pressure 164/80 11/20/22 21:42 Pulse Oximetry 95 11/20/22 21:42 Oxygen Delivery Ut thod 11/20/22 20:30 Oxygen Flow Rate 3 11/20/22 20:30 MDM - Chest Pain Medical Decision Making - Patient was seen and evaluated by me at bedside - Patient placed on cardiac monitors, IV access obtained - Initial evaluation notable for exam as above - Labs and xrays personally interpreted by me - During ED course patient treated with treatment for COPD exacerbation including antibiotic, steroid, RT treatment. He received aspirin prior to arrival. - Labs interpreted by me and notable for no leukocytosis, normal hemoglobin, mild thrombocytosis on hematologic panel. Metabolic panel without significant derangement requiring intervention. Negative range 2-hour delta troponin. D- dimer is normal. Rapid viral testing is negative. - Imaging interpreted by me notable for no pneumothorax, no lobar consolidation. Confirmed by radiology read. - Upon serial reexamination after treatment the patient was improved - Based on patient history, evaluation, and testing as interpreted the most likely cause of the patient's condition is chest pain and exacerbation of COPD - I personally reviewed prior chest x-rays and recent CT imaging. I reviewed and interpreted multiple recent laboratory studies. I reviewed recent prior ED visit notes. - I consider disposition options. I discussed these options with the patient and recommended the safest option of admission for further cardiac testing as t he patient is not low risk by heart score. - The results of ED evaluation were discussed with the patient including possible disposition options. I discussed risk stratification by heart score and estimated risk of major adverse cardiac events. The patient wishes to proceed with outpatient management. I discussed prescriptions and/or symptomatic cares (if applicable) including appropriate and responsible use, followup plan, and return precautions. I will plan to treat for COPD exacerbation with instructions for more frequent use of albuterol, antibiotics, and steroid course. Plan to refer for outpatient cardiac testing. The patient verbalized understanding and felt safe for discharge. - Patient discharged in satisfactory condition. - A broad range of differentials were considered in this case and ED evaluation tailored to likely and clinically significant etiologies as appropriate. - Medical complexity is increased by patient's significant pertinent comorbidities including COPD, hyperlipidemia. - Based on my interaction with the patient and their medical understanding/literacy I believe that the presentation to the emergency department is reasonable as they could not differentiate and/or assess for potentially emergent conditions without my evaluation. Medical Records I reviewed the patient's medical records. Lab Data I reviewed the patient's lab results. 11/20/22 19:29 11/20/22 19: Radiology Impressions Chest X-Ray 11/20/22 19:00 IMPRESSION: 1. No acute cardiopulmonary process. 2. Incidental/nonacute findings are listed in the report. Laboratory Results WBC 9.8 10^3/uL (4.0-10.0) 11/20/22 19: RBC 4.77 10^6/uL (4.1-5.3) 11/20/22: Hgb 15.7 g/dL (11.7-16.6) 11/20/22: Hct 47.5 % (42.0-52.0) 11/20/22: MCV 99.6 fl (80-94) H 11/20/22 19: MCH 32.9 pg (28.0-34.0) 11/20/22: MCHC 33.1 g/dL (30.0-36.0) 11/20/22 19: RDW 14.3 % (12.1-15.1) 11/20/22: Plt Count 411 10^3/cmm (130-400) H 11/20/22: MPV 9.5 fL (7.4-10.4) 11/20/22: Neut % (Auto) 57.6 % 11/20/22: Lymph % (Auto) 32.1 % 11/20/22: Stearns % (Auto) 7.2 % 11/20/22: Eos % (Auto) 2.3 % 11/20/22 19: Baso % (Auto) 0.5 % 11/20/22: Neut # (Auto) 5.63 10^3/uL (1.8-7.7) 11/20/22: Lymph # (Auto) 3.1 10^3/uL (0.8-4.8) 11/20/22 19: Stearns # (Auto) 0.7 10^3/uL (0.2-0.9) 11/20/22 19: Eos # (Auto) 0.2 10^3/uL (0.0-0.8) 11/20/22 19: Baso # (Auto) 0.1 10^3/uL (0.0-0.1) 11/20/22: Nucleated RBC % (auto) 0 % 11/20/22 Nucleated RBCs # 0.0 /100WBC 11/20/22: D-Dimer 0.38 ug/mIFEU (0-0.59) 11/20/22 19: Sodium 136 mmol/L (136-145) 11/20/22 19: Potassium 4.2 mmol/L (3.5-5.1) 11/20/22: Chloride 99 mmol/L (98-107) 11/20/22: Carbon Dioxide 29 mmol/L (22-29) 11/20/22: Anion Gap 12.2 (5-19) 11/20/22 19: BUN 11 mg/dL (8-23) 11/20/22 19: Creatinine 0.5 mg/dL (0.7-1.2) L 11/20/22 19: GFR Calculation 167.4 mL/min (90-130) H 11/20/22: Glucose 109 mg/dL (65-115) 11/20/22: Calculated Osmolality 282 mOsm/kg (285-295) L 11/20/22 19: Calcium 9.0 mg/dL (8.5-10.5) 11/20/22: Total Bilirubin 0.2 mg/dL (0.15-1.2) 11/20/22 19: AST 38 U/L (0-40) 11/20/22 19: ALT 39 U/L (0-41) 11/20/22 19: Alkaline Phosphatase 91 U/L (40-130) 11/20/22 19: Troponin T Baseline 18 ng/L (0-15) H 01/12/23 19:29 Troponin T 120 Minute 17.69 ng/L (0-15) H 11/20/22 20:46 Delta Troponin T -0.31 ABS# (0-10) L 11/20/22 20:46 NT-Pro-B Natriuret Pep 28 pg/mL (0-125) 11/20/22 19:29 Total Protein 6.8 g/dL (6.6-8.7) 11/20/22 19:29 Albumin 4.0 g/dL (3.5-5.2) 11/20/22 19:29 Globulin 2.8 g/dL (1.3-4.6) 11/20/22 19:29 Lipase 25 U/L (13-60) 11/20/22 19:29 Influenza Type A Ag negative (Negative) 11/20/22 19:12 Influenza Type B Ag negative (Negative) 11/20/22 19:12 SARS-CoV-2 Ag (Rapid) negative (Negative) 11/20/22 19:12 Discharge Plan Discharge Patient Disposition: Home Clinical Impression: Chest pain, Acute exacerbation of chronic obstructive pulmonary disease Condition: Stable Prescriptions: New albuterol sulfate 90 mcg/actuation HFA aerosol inhaler 2 inh inhalation Q4H PRN (Reason: shortness of breath or wheezing) Qty: 8.5 2RF Rx Instructions: until breathing returns to target peak flow/parameters No Action multivitamin [Multiple Vitamins] Tablet 1 tab PO DAILY Alison-Ariel 0.8 mg tablet 1 tab PO DAILY aspirin [Aspirin Childrens] 81 mg tablet,chewable 81 mg PO DAILY folic acid 1 mg tablet 1 mg PO DAILY cholecalciferol (vitamin D3) 50 mcg (2,000 unit) capsule 50 mcg PO DAILY Spiriva Respimat 2.5 mcg/actuation mist 2 puff inhalation DAILY loratadine [Claritin] 10 mg tablet 10 mg PO DAILY 90 Days Qty: 90 1RF ciprofloxacin HCl [Cipro] 500 mg tablet 500 mg PO BID 7 Days Qty: 14 0RF ketorolac 10 mg tablet 10 mg PO TID 5 Days Qty: 15 0RF tamsulosin 0.4 mg capsule 0.4 mg PO DAILY Qty: 90 0RF albuterol sulfate 90 mcg/actuation HFA aerosol inhaler 2 puff inhalation Q6H PRN (Reason: shortness of breath or wheezing) Qty: 8.5 1RF atorvastatin 10 mg tablet 10 mg PO BID Qty: 180 0RF duloxetine 60 mg capsule,delayed release(DR/EC) 60 mg PO DAILY Qty: 90 0RF fluticasone propionate [Flonase Allergy Relief] 50 mcg/actuation spray,suspension 1 spray intranasal BID Qty: 16 1RF Rx Instructions: administer into each nostril gabapentin 300 mg capsule 300 mg PO .COMPLEX Qty: 360 0RF Rx Instructions: 300 mg orally 2 IN AM, 2 AT NOON, 3 AT 6PM; levetiracetam 1,000 mg tablet 1,000 mg PO BID Qty: 180 0RF prazosin 2 mg capsule 2 mg PO DAILY Qty: 90 0RF phenytoin sodium extended 100 mg capsule 200 mg PO .HS Qty: 180 0RF lacosamide [Vimpat] 100 mg tablet 100 mg PO BID Qty: 180 0RF hydrocodone-acetaminophen 5-325 mg tablet 1 tab PO Q8H PRN (Reason: pain) Qty: 7 0RF hydrocodone-acetaminophen 5-325 mg tablet 1 tab PO BID PRN (Reason: pain) Qty: 7 0RF Soma 350 mg tablet 350 mg PO BID PRN (Reason: muscle pain) Qty: 10 0RF Discharge Orders: Discharge ED (Routine); Ordered 11/20/22 Ordered By: Jewel Crawford Referrals: Kourtney Almaguer MD [Primary Care Provider] - Discharge Diet: Usual diet Discharge Activity: Increase activity as tolerated Patient Instructions: Chest Pain (ED), COPD (Chronic Obstructive Pulmonary Disease) (ED) Activity Restrictions/Additional Instructions: Thank you for visiting the emergency department. You were seen and evaluated for chest pain. The exact cause of your chest pain is unclear however does require further evaluation. You are electing to have this done in the outpatient setting. I will message case management for cardiology follow-up. Please also follow-up with your primary care provider. Some of your symptoms may be related to exacerbation of underlying lung disease. I will prescribe steroids and antibiotics. Please also use your albuterol metered-dose inhaler 2 puffs every 4 hours for 24 hours followed by 2 puffs every 6 hours for 24 hours followed by 2 puffs every 8 hours for 24 hours and then return to the normal schedule. Return to the emergency department for anything that you are concerned about a feel needs emergency department evaluation. Coding Level of Care Code ED Air Quality Chemist for Chg Fwd Exam Comprehensive
[2022-11-20 19:22] VITALS: BP 138/81; PULSE 88; RESP 17; O2SAT 91
[2022-11-20 19:41] LABS: Influenza A by IFA negative (Negative); Influenza B by IFA negative (Negative); SARS Covid-2 Antigen negative (Negative)
[2022-11-20 20:11] LABS: Basophils # 0.1 10^3/uL (0.0-0.1); Basophils % 0.5 %; Eosinophils # 0.2 10^3/uL (0.0-0.8); Eosinophils % 2.3 %; Hematocrit 47.5 % (42.0-52.0); Hemoglobin 15.7 g/dL (11.7-16.6); Lymphocytes # 3.1 10^3/uL (0.8-4.8); Lymphocytes % 32.1 %; Mean Corpuscular HGB Conc 33.1 g/dL (30.0-36.0); Mean Corpuscular Hemoglobin 32.9 pg (28.0-34.0); Mean Corpuscular Volume 99.6 fl (80-94); Mean Platelet Volume 9.5 fL (7.4-10.4); Monocytes # 0.7 10^3/uL (0.2-0.9); Monocytes % 7.2 %; Neutrophils # 5.63 10^3/uL (1.8-7.7); Neutrophils % 57.6 %; Nucleated Red Blood Cells % 0 %; Platelet Count 411 10^3/cmm (130-400); Red Blood Count 4.77 10^6/uL (4.1-5.3); Red Cell Distribution Width 14.3 % (12.1-15.1); White Blood Count 9.8 10^3/uL (4.0-10.0)
[2022-11-20 20:19] LABS: D Dimer 0.38 ug/mIFEU (0-0.59)
[2022-11-20] MEDS: ipratropium-albuterol 3 mL Neb INHALATION (20:24)
[2022-11-20 20:26] LABS: Troponin(5th) Baseline 18 ng/L (0-15)
[2022-11-20 20:28] VITALS: PULSE 84; RESP 20; O2SAT 92
[2022-11-20 20:30] VITALS: BP 134/78; PULSE 86; RESP 17; O2SAT 89
[2022-11-20 20:33] LABS: Alanine Aminotransferase 39 U/L (0-41); Alkaline Phosphatase 91 U/L (40-130); Anion Gap 12.2 (5-19); Aspartate Amino Transferase 38 U/L (0-40); Blood Urea Nitrogen 11 mg/dL (8-23); Carbon Dioxide 29 mmol/L (22-29); Chloride 99 mmol/L (98-107); Globulin 2.8 g/dL (1.3-4.6); Glomerular Filtration Rate 167.4 mL/min (90-130); Glucose 109 mg/dL (65-115); Lipase 25 U/L (13-60); NT Pro B Type Natriuretic Pept 28 pg/mL (0-125); Osmolality Calculated 282 mOsm/kg (285-295); Potassium 4.2 mmol/L (3.5-5.1); Sodium 136 mmol/L (136-145); Total Bilirubin 0.2 mg/dL (0.15-1.2); Total Protein 6.8 g/dL (6.6-8.7)
[2022-11-20 21:00] VITALS: BP 155/84; PULSE 89; RESP 20; O2SAT 95
[2022-11-20 21:17] LABS: Troponin 5 2HR 17.69 ng/L (0-15)
[2022-11-20 21:21] LABS: Troponin 5 2HR Delta -0.31 ABS# (0-10)
[2022-11-20 21:42] VITALS: BP 164/80; PULSE 85; RESP 17; O2SAT 95
== END 2022-11-20 21:47 | disposition home or self-care (01) ==
PROVIDERS: Family Medicine; Emergency Provider Emergency Medicine; PCP Family Medicine
DX: R07.9 Chest pain, unspecified (principal); J44.1 Chronic obstructive pulmonary disease with (acute) exacerbation; Z79.82 Long term (current) use of aspirin; Z20.822 Contact with and (suspected) exposure to COVID-19; E78.5 Hyperlipidemia, unspecified; F17.210 Nicotine dependence, cigarettes, uncomplicated
CPT/HCPCS: 71045; 80053; 83690; 83880; 84484; 85025; 85378; 87426; 87804; 93005; 94640; 99283

== ENCOUNTER 2023-01-13 15:50 | Emergency (ER) | payer OTHER, SELFPAY ==
[2023-01-13 15:59] VITALS: BP 177/103; PULSE 105; RESP 22; TEMP 37.4; O2SAT 98; BMI 21.1
[2023-01-13 16:06] VITALS: O2SAT 97
--- NOTE | 2023-01-13 16:29 | XRR_ITS ---
PROCEDURE INFORMATION: Exam: XR Chest Exam date and time: 01/13/2023 4:33 PM Age: 67 years old Clinical indication: Cough and dyspnea; Additional info: Dyspnea/cough TECHNIQUE: Imaging protocol: Radiologic exam of the chest. Views: 1 view. COMPARISON: CR XR chest 1V portable [id number] 11/20/2022 7:17 PM FINDINGS: Lungs: Hyperinflation or COPD change with mild chronic lung markings noted with prior exam, including linear scarring right lower lung. No focal infiltrate or consolidation. Pleural spaces: No pneumothorax or significant pleural effusion. Heart/Mediastinum: Unremarkable. No cardiomegaly. Vasculature: Mild arteriosclerosis of the thoracic aorta. Bones/joints: Unremarkable. XR/XR chest 1V portable [id number] IMPRESSION: Hyperinflation or COPD with mild chronic lung markings, particularly right lung base, with prior exam. No interval new acute findings.
--- NOTE | 2023-01-13 16:39 | W.ED.COVID ---
HPI - COVID General: Chief Complaint: COVID symptoms Stated Complaint: covid +, cough, SOB Time Seen by Provider: 01/13/23 16:29 Source: patient Mode of arrival: ambulatory Triage information: Has fever, cough or shortness of breath. Exposure to COVID + person last 14 days History of Present Illness: 67-year-old male presents to the emergency room with complaint of shortness of breath and cough. This been going on for the last week and seems to be getting progressively worse. Patient has a history of COPD he is on Advair and Spiriva. He uses albuterol as needed had a moderately productive cough low-grade fever no diarrhea no anosmia complaint: has COVID symptoms Prior covid testing: no COVID 19 common symptoms: positive fever(s), chills, cough, productive cough, dyspnea, fatigue and body aches; negative throat pain, nasal congestion, nausea, vomiting or diarrhea COVID 19 other sytmptoms: negative chest pain or requiring oxygen Onset (ago): week(s) (1) Severity: moderate Treatment prior to arrival: none COVID Results: SARS-CoV-2 Antigen (Rapid) negative (Negative) 11/20/22 19:12 SARS-CoV-2 (PCR) Not detected (NOT DETECT) 01/13/23 16:40 Coronavirus Type 229E (PCR) Not detected (NOT DETECT) 01/13/23 16:40 Review of Systems Const: Reports: fever(s), chills, body aches and fatigue ENMT: Denies: throat pain, ear or mastoid pain, nasal discharge or nasal congestion Card: Denies: chest pain, palpitations, irregular heart rhythm, edema, dyspnea on exertion or orthopnea Resp: Reports: dyspnea, productive cough and wheezing GI: Denies: abdominal pain, nausea, vomiting, hematemesis, coffee ground emesis, diarrhea, constipation, bloating, hematochezia or melena : Denies: flank pain, dysuria, urinary frequency or urinary urgency Skin/Breast: Denies: rash or pruritus PFS ED PFSH: Medical History (Updated 01/13/23 @ 17:05 by Keegan Solis DO) BPH (benign prostatic hyperplasia) COPD (chronic obstructive pulmonary disease) Dyslipidemia Seizure disorder Social History Smoking and tobacco status: current every day smoker Physical Exam Const: COMMON NORMALS: no acute distress GENERAL APPEARANCE: cooperative and comfortable ORIENTATION/CONSCIOUSNESS: Yes awake, Yes oriented to person, Yes oriented to place and Yes oriented to time HENMT: COMMON NORMALS: normocephalic, atraumatic and hearing grossly normal bilaterally HEAD & SCALP: normocephalic and atraumatic Resp: COMMON NORMALS: normal respiratory effort, No retractions and No use of accessory muscles AUSCULTATION: rhonchi and wheezes Cardio: COMMON NORMALS: regular rate, regular rhythm and No murmurs present (Cardio) RATE: regular rate RHYTHM: regular rhythm GI: COMMON NORMALS: Soft to palpation and No hepatosplenomegaly present AUSCULTATION: Yes normoactive bowel sounds PALPATION: Yes Soft to palpation, No Tenderness to palpation present (GI), No Guarding due to palpation present (GI) and Yes No hepatosplenomegaly present Extremity: COMMON NORMALS: normal to inspection, capillary refill normal, no clubbing, cyanosis or edema, no calf tenderness and no pedal edema Neuro: SENSORIUM/ORIENTATION: Yes oriented to person, Yes oriented to place and Yes oriented to time Skin: COMMON NORMALS: no rashes or lesions noted GENERAL SKIN EXAM: no rashes or lesions noted Course Vital Signs: Vital signs: Vital Signs Temperature 99.4 F 01/13/23 15:59 Pulse Rate 94 01/13/23 19:11 Respiratory Rate 16 01/13/23 19:11 Blood Pressure 179/95 01/13/23 17:29 Pulse Oximetry 91 01/13/23 19:11 Oxygen Delivery Me thod 01/13/23 19:11 Oxygen Flow Rate 2 01/13/23 17:15 MDM - COVID Medical Decision Making Chest x-ray unremarkable. Suspect patient may have COVID he has several other people that he was around that have all been sick with similar symptoms has been progressively worse for a week now. Chest x-ray does not show any infiltrates pneumothorax widening mediastinum or effusions. His oxygen sats are stable. Discharge patient home on steroid taper aggressive use of albuterol he was swabbed for COVID we will contact him with the result Medical Records I reviewed the patient's medical records. Lab Data I reviewed the patient's lab results. Radiology Impressions Chest X-Ray 01/13/23 16:29 IMPRESSION: Hyperinflation or COPD with mild chronic lung markings, particularly right lung base, with prior exam. No interval new acute findings. Laboratory Results Coronavirus 229E (PCR) Not detected (NOT DETECT) 01/13/23 16:40 Influenza Type A Ag negative (Negative) 01/13/23 16:40 Influenza Type B Ag negative (Negative) 01/13/23 16:40 SARS-CoV-2 (PCR) Not detected (NOT DETECT) 01/13/23 16:40 SARS-CoV-2 Antigen (Rapid) negative (Negative) 11/20/22 19:12 SARS-CoV-2 (PCR) Not detected (NOT DETECT) 01/13/23 16:40 Coronavirus Type 229E (PCR) Not detected (NOT DETECT) 01/13/23 16:40 Discharge Plan Discharge Patient Disposition: Home Clinical Impression: Viral URI with cough, Acute exacerbation of chronic obstructive pulmonary disease Condition: Stable Prescriptions: New prednisone 20 mg tablet 20 mg PO TID Qty: 15 0RF Rx Instructions: 1 p.o. 3 times daily x3 days, 1 p.o. twice daily x2 days, 1 p.o. daily x2 days albuterol sulfate 90 mcg/actuation HFA aerosol inhaler 2 inh INHALATION Q4H PRN (Reason: shortness of breath or wheezing) Qty: 18 0RF No Action multivitamin [Multiple Vitamins] Tablet 1 tab PO DAILY Alison-Ariel 0.8 mg tablet 1 tab PO DAILY aspirin [Aspirin Childrens] 81 mg tablet,chewable 81 mg PO DAILY folic acid 1 mg tablet 1 mg PO DAILY cholecalciferol (vitamin D3) 50 mcg (2,000 unit) capsule 50 mcg PO DAILY Spiriva Respimat 2.5 mcg/actuation mist 2 puff inhalation DAILY loratadine [Claritin] 10 mg tablet 10 mg PO DAILY 90 Days Qty: 90 1RF ciprofloxacin HCl [Cipro] 500 mg tablet 500 mg PO BID 7 Days Qty: 14 0RF ketorolac 10 mg tablet 10 mg PO TID 5 Days Qty: 15 0RF tamsulosin 0.4 mg capsule 0.4 mg PO DAILY Qty: 90 0RF albuterol sulfate 90 mcg/actuation HFA aerosol inhaler 2 puff inhalation Q6H PRN (Reason: shortness of breath or wheezing) Qty: 8.5 1RF atorvastatin 10 mg tablet 10 mg PO BID Qty: 180 0RF duloxetine 60 mg capsule,delayed release(DR/EC) 60 mg PO DAILY Qty: 90 0RF fluticasone propionate [Flonase Allergy Relief] 50 mcg/actuation spray,suspension 1 spray intranasal BID Qty: 16 1RF Rx Instructions: administer into each nostril gabapentin 300 mg capsule 300 mg PO .COMPLEX Qty: 360 0RF Rx Instructions: 300 mg orally 2 IN AM, 2 AT NOON, 3 AT 6PM; levetiracetam 1,000 mg tablet 1,000 mg PO BID Qty: 180 0RF prazosin 2 mg capsule 2 mg PO DAILY Qty: 90 0RF phenytoin sodium extended 100 mg capsule 200 mg PO .HS Qty: 180 0RF lacosamide [Vimpat] 100 mg tablet 100 mg PO BID Qty: 180 0RF hydrocodone-acetaminophen 5-325 mg tablet 1 tab PO Q8H PRN (Reason: pain) Qty: 7 0RF hydrocodone-acetaminophen 5-325 mg tablet 1 tab PO BID PRN (Reason: pain) Qty: 7 0RF Soma 350 mg tablet 350 mg PO BID PRN (Reason: muscle pain) Qty: 10 0RF albuterol sulfate 90 mcg/actuation HFA aerosol inhaler 2 inh inhalation Q4H PRN (Reason: shortness of breath or wheezing) Qty: 8.5 2RF Rx Instructions: until breathing returns to target peak flow/parameters Discharge Orders: Discharge ED (Routine); Ordered 01/13/23 Ordered By: Keegan Solis Other Ambulatory Orders: DME: Oxygen (Order) Location: None Selected Ordered By: Keegan Solis Referrals: Kourtney Almaguer MD [Primary Care Provider] - Discharge Diet: Usual diet Discharge Activity: Increase activity as tolerated Patient Instructions: Opioid Safety, Pain Management Activity Restrictions/Additional Instructions: You were seen today for cough. Suspect you may have COVID. You were tested for COVID and we will contact you with results when they become available. Recommend that you start the prednisone taper tonight and also use albuterol every 4 hours while awake. You did qualify for home oxygen. Recommend that you follow-up with your doctor within the next week. Coding Level of Care Code ED Returned Materials Inspector for Chava Cavanaugh
[2023-01-13 16:59] VITALS: BP 162/90; PULSE 90; O2SAT 94
[2023-01-13 17:15] VITALS: O2SAT 87; O2SAT 93
[2023-01-13] MEDS: dexamethasone 10 mg/mL INJ IM (17:28)
[2023-01-13 17:29] VITALS: BP 179/95; PULSE 86; RESP 16; O2SAT 97
[2023-01-13 17:34] LABS: Influenza A by IFA negative (Negative); Influenza B by IFA negative (Negative)
--- NOTE | 2023-01-13 18:52 | DCPLANNER ---
[facility]. Each time I call I get hung up on.
--- NOTE | 2023-01-13 18:58 | DCPLANNER ---
I called [facility] [phone]. still unable to talk to a customer response representative.Got placed on hold and then it clicked off.
[2023-01-13 19:11] VITALS: PULSE 94; RESP 16; O2SAT 91
[2023-01-13 19:14] LABS: Adenovirus Not Detected (NOT DETECT); Chlamydia Pneumoniae Not Detected (NOT DETECT); Coronavirus 229E,HKU1,NL63,OC4 Not Detected (NOT DETECT); Human Metapneumovirus Not Detected (NOT DETECT); Human Rhinovirus/Enterovirus Not Detected (NOT DETECT); Influenza A Not Detected (NOT DETECT); Influenza A H1 Not Detected (NOT DETECT); Influenza A H1-2009 Not Detected (NOT DETECT); Influenza A H3 Not Detected (NOT DETECT); Influenza B Not Detected (NOT DETECT); Mycoplasma Pneumoniae Not Detected (NOT DETECT); Parainfluenza Virus Type 1 Not Detected (NOT DETECT); Parainfluenza Virus Type 2 Not Detected (NOT DETECT); Parainfluenza Virus Type 3 Not Detected (NOT DETECT); Parainfluenza Virus Type 4 Not Detected (NOT DETECT); Respiratory Syncytial Virus A Not Detected (NOT DETECT); Respiratory Syncytial Virus B Not Detected (NOT DETECT); SARS-COV-2 Not Detected (NOT DETECT)
--- NOTE | 2023-01-13 20:06 | PC.NURSE ---
SPOKE WITH PROVIDER ABOUT HOME O2 AND RE[facility]ING OUT TO [facility]. PROVIDER STATED THAT IT WAS OK TO DISCHARGE PATIENT IF HE WAS GOING TO CALL [facility] IN THE MORNING TO SET UP APPOINTMENT. SPOKE TO PATIENT IN REGARDS TO HOME OXYGEN. NURSE TOLD PATIENT PROVIDER INSTRUCTIONS AND VERBALIZED UNDERSTANDING. PATIENT DISCHARGED WITHOUT HOME O2.
== END 2023-01-13 20:13 | disposition home or self-care (01) ==
PROVIDERS: Emergency Provider Family Medicine; PCP Family Medicine
DX: J06.9 Acute upper respiratory infection, unspecified (principal); J44.1 Chronic obstructive pulmonary disease with (acute) exacerbation; Z20.822 Contact with and (suspected) exposure to COVID-19; Z79.82 Long term (current) use of aspirin; E78.5 Hyperlipidemia, unspecified; F17.210 Nicotine dependence, cigarettes, uncomplicated
CPT/HCPCS: 71045; 87635; 87804; 96372; 99284; J1100

== ENCOUNTER 2023-01-22 13:28 | Emergency (ER) | payer OTHER, SELFPAY ==
[2023-01-22 13:32] VITALS: BP 132/74; PULSE 107; RESP 15; TEMP 36.9; O2SAT 93
--- NOTE | 2023-01-22 13:38 | ECG_ITS ---
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
--- NOTE | 2023-01-22 13:38 | XRR_ITS ---
PROCEDURE INFORMATION: Exam: XR Chest Exam date and time: 01/22/2023 1:55 PM Age: 67 years old Clinical indication: Other: Chest pain. TECHNIQUE: Imaging protocol: Radiologic exam of the chest. Views: 1 view. COMPARISON: CR XR chest 1V portable [id number] 01/13/2023 4:33 PM FINDINGS: Lungs: The lungs are diffusely hyperlucent with relatively prominent interstitial markings in the central lower lungs. There is a 10 mm nodule projecting over the left lung apex. Pleural spaces: There is no pneumothorax. The right lateral costophrenic sulcus is blunted. Heart/Mediastinum: Cardiomediastinal contours are unremarkable. Bones/joints: Bones are unremarkable. XR/XR chest 1V portable [id number] IMPRESSION: 1. No acute findings. 2. Emphysema. 3. 10 mm left apical pulmonary nodule was not visible on the prior chest radiograph. Recommend nonemergent chest CT without contrast. 4. Blunted right lateral costophrenic sulcus suggests pleuroparenchymal scarring and is stable since 11/16/2022.
--- NOTE | 2023-01-22 13:38 | ED_ITS ---
HPI - Chest Pain General: Chief Complaint: Chest Pain Stated Complaint: CHEST PAIN Time Seen by Provider: 01/22/23 13:32 Source: patient Mode of arrival: EMS History of Present Illness: 67-year-old male presents to the emergency room with complaint of chest pain. He had chest discomfort and what he reported as a episode of bradycardia at home he was walking back from his porch to the bathroom he got lightheaded dizzy felt weak he sat down the symptoms had completely resolved by the time he arrived here he is not on any beta-blockers. He denies any known history of coronary artery disease. MD complaint: chest pain Onset (ago): minute(s) Timing of current episode: episodic Prior episodes: No Pain location: left chest Pain radiation: none Severity: mild Relieving factors: nothing Exacerbating factors: nothing Associated symptoms: Deny abdominal pain, dyspnea, fever(s), nausea or vomiting Review of Systems Const: Denies: fever(s), chills, body aches, change in appetite, fatigue or malaise ENMT: Denies: throat pain, ear or mastoid pain, nasal discharge or nasal congestion Card: Denies: chest pain, edema, dyspnea on exertion or orthopnea Resp: Denies: dyspnea, productive cough or non-productive cough GI: Denies: abdominal pain, nausea, vomiting, hematemesis, coffee ground emesis, diarrhea, constipation, bloating, hematochezia or melena : Denies: flank pain, dysuria, urinary frequency or urinary urgency Skin/Breast: Denies: rash or pruritus [facility] ED PFSH: Medical History BPH (benign prostatic hyperplasia) COPD (chronic obstructive pulmonary disease) Dyslipidemia Seizure disorder Social History Smoking and tobacco status: current every day smoker Physical Exam Const: COMMON NORMALS: no acute distress GENERAL APPEARANCE: cooperative and comfortable ORIENTATION/CONSCIOUSNESS: Yes awake, Yes oriented to person, Yes oriented to place and Yes oriented to time HENMT: COMMON NORMALS: normocephalic, atraumatic and hearing grossly normal bilaterally HEAD & SCALP: normocephalic and atraumatic Resp: COMMON NORMALS: normal respiratory effort, No retractions, No use of accessory muscles and clear to auscultation bilaterally AUSCULTATION: clear to auscultation bilaterally Cardio: COMMON NORMALS: regular rate, regular rhythm and No murmurs present (Cardio) RATE: regular rate RHYTHM: regular rhythm GI: COMMON NORMALS: Soft to palpation and No hepatosplenomegaly present AUSCULTATION: Yes normoactive bowel sounds PALPATION: Yes Soft to palpation, No Tenderness to palpation present (GI), No Guarding due to palpation present (GI) and Yes No hepatosplenomegaly present Extremity: COMMON NORMALS: normal to inspection, capillary refill normal, no clubbing, cyanosis or edema, no calf tenderness and no pedal edema Neuro: SENSORIUM/ORIENTATION: Yes oriented to person, Yes oriented to place and Yes oriented to time Skin: COMMON NORMALS: no rashes or lesions noted GENERAL SKIN EXAM: no rashes or lesions noted Course Vital Signs: Vital signs: Vital Signs Temperature 98.4 F 01/22/23 13:32 Pulse Rate 107 H 01/22/23 13:32 Respiratory Rate 15 01/22/23 13:32 Blood Pressure 132/74 01/22/23 13:32 Pulse Oximetry 93 01/22/23 13:32 Oxygen Delivery Me thod 01/22/23 13:32 MDM - Chest Pain Medical Decision Making Patient had episode of chest pain as well as bradycardia. EKG and cardiac enzymes were negative. We will set the patient up for outpatient 48-hour Holter monitor as well as Lexiscan sestamibi stress test. Patient has severe COPD and is chronically on oxygen will not be able to participate in a graded exercise stress test. Medical Records I reviewed the patient's medical records. Lab Data I reviewed the patient's lab results. 01/22/23 13:36 01/22/23 13:36 Radiology Impressions Chest X-Ray 01/22/23 13:38 IMPRESSION: 1. No acute findings. 2. Emphysema. 3. 10 mm left apical pulmonary nodule was not visible on the prior chest radiograph. Recommend nonemergent chest CT without contrast. 4. Blunted right lateral costophrenic sulcus suggests pleuroparenchymal scarring and is stable since 11/16/2022. Laboratory Results WBC 16.4 10^3/uL (4.0-10.0) H 01/22/23 13:36 RBC 4.90 10^6/uL (4.1-5.3) 01/22/23 13:36 Hgb 15.8 g/dL (11.7-16.6) 01/22/23 13:36 Hct 48.0 % (42.0-52.0) 01/22/23 13:36 MCV 98.0 fl (80-94) H 01/22/23 13:36 MCH 32.2 pg (28.0-34.0) 01/22/23 13:36 MCHC 32.9 g/dL (30.0-36.0) 01/22/23 13:36 RDW 12.5 % (12.1-15.1) 01/22/23 13:36 Plt Count 464 10^3/cmm (130-400) H 01/22/23 13:36 MPV 9.4 fL (7.4-10.4) 01/22/23 13:36 Neut % (Auto) 75.4 % 01/22/23 13:36 Lymph % (Auto) 17.2 % 01/22/23 13:36 [place] % (Auto) 5.4 % 01/22/23 13:36 Eos % (Auto) 1.1 % 01/22/23 13:36 Baso % (Auto) 0.4 % 01/22/23 13:36 Neut # (Auto) 12.33 10^3/uL (1.8-7.7) H 01/22/23 13:36 Lymph # (Auto) 2.8 10^3/uL (0.8-4.8) 01/22/23 13:36 [place] # (Auto) 0.9 10^3/uL (0.2-0.9) 01/22/23 13:36 Eos # (Auto) 0.2 10^3/uL (0.0-0.8) 01/22/23 13:36 Baso # (Auto) 0.1 10^3/uL (0.0-0.1) 01/22/23 13:36 Nucleated RBC % (auto) 0 % 01/22/23 13:36 Nucleated RBCs # 0.0 /100WBC 01/22/23 13:36 Sodium 140 mmol/L (136-145) 01/22/23 13:36 Potassium 4.0 mmol/L (3.5-5.1) 01/22/23 13:36 Chloride 97 mmol/L (98-107) L 01/22/23 13:36 Carbon Dioxide 29 mmol/L (22-29) 01/22/23 13:36 Anion Gap 18.0 (5-19) 01/22/23 13:36 BUN 10 mg/dL (8-23) 01/22/23 13:36 Creatinine 0.8 mg/dL (0.7-1.2) 01/22/23 13:36 GFR Calculation 97.0 mL/min (90-130) 01/22/23 13:36 Glucose 71 mg/dL (65-115) 01/22/23 13:36 Calculated Osmolality 288 mOsm/kg (285-295) 01/22/23 13:36 Calcium 9.6 mg/dL (8.5-10.5) 01/22/23 13:36 Total Bilirubin 0.2 mg/dL (0.15-1.2) 01/22/23 13:36 AST 20 U/L (0-40) 01/22/23 13:36 ALT 17 U/L (0-41) 01/22/23 13:36 Alkaline Phosphatase 113 U/L (40-130) 01/22/23 13:36 Troponin T Baseline 16 ng/L (0-15) H 01/22/23 13:36 Troponin T 120 Minute 13.97 ng/L (0-15) 01/22/23 15:26 Delta Troponin T -2.03 ABS# (0-10) L 01/22/23 15:26 Total Protein 7.9 g/dL (6.6-8.7) 01/22/23 13:36 Albumin 4.4 g/dL (3.5-5.2) 01/22/23 13:36 Globulin 3.5 g/dL (1.3-4.6) 01/22/23 13:36 Phenytoin 3.1 ug/mL (10-20) L 01/22/23 13:36 Discharge Plan Discharge Patient Disposition: Home Clinical Impression: Chest pain, Bradycardia Condition: Stable Prescriptions: No Action multivitamin [Multiple Vitamins] Tablet 1 tab PO DAILY aspirin [Aspirin Childrens] 81 mg tablet,chewable 81 mg PO DAILY folic acid 1 mg tablet 1 mg PO DAILY cholecalciferol (vitamin D3) 50 mcg (2,000 unit) capsule 50 mcg PO DAILY Spiriva Respimat 2.5 mcg/actuation mist 2 puff inhalation DAILY loratadine [Claritin] 10 mg tablet 10 mg PO DAILY 90 Days Qty: 90 1RF albuterol sulfate 90 mcg/actuation HFA aerosol inhaler 2 puff inhalation Q6H PRN (Reason: shortness of breath or wheezing) Qty: 8.5 1RF duloxetine 60 mg capsule,delayed release(DR/EC) 60 mg PO DAILY Qty: 90 0RF fluticasone propionate [Flonase Allergy Relief] 50 mcg/actuation spray,suspension 1 spray intranasal BID Qty: 16 1RF Rx Instructions: administer into each nostril gabapentin 300 mg capsule 300 mg PO .COMPLEX Qty: 360 0RF Rx Instructions: 300 mg orally 3 IN AM, 2 AT NOON, 3 AT 6PM; levetiracetam 1,000 mg tablet 1,000 mg PO BID Qty: 180 0RF lacosamide [Vimpat] 100 mg tablet 100 mg PO BID Qty: 180 0RF prednisone 20 mg tablet 20 mg PO TID Qty: 15 0RF Rx Instructions: 1 p.o. 3 times daily x3 days, 1 p.o. twice daily x2 days, 1 p.o. daily x2 days albuterol sulfate 90 mcg/actuation HFA aerosol inhaler 2 inh INHALATION Q4H PRN (Reason: shortness of breath or wheezing) Qty: 18 0RF albuterol sulfate 90 mcg/actuation HFA aerosol inhaler 2 inh inhalation Q4H PRN (Reason: shortness of breath or wheezing) Qty: 8.5 2RF Rx Instructions: until breathing returns to target peak flow/parameters atorvastatin 40 mg Tablet 20 mg PO QPM quetiapine 25 mg Tablet 12.5 mg PO BID fluticasone propion-salmeterol 250-50 mcg/dose Blister With Device 1 inh INHALATION BID phenytoin sodium extended 100 mg capsule 200 mg PO QPM tamsulosin 0.4 mg capsule 0.4 mg PO QPM prazosin 2 mg capsule 2 mg PO BEDTIME Discharge Orders: Discharge ED (Routine); Ordered 01/22/23 Ordered By: Keegan Solis Referrals: Kourtney Almaguer MD [Primary Care Provider] - Discharge Diet: Usual diet Discharge Activity: Limit activity as instructed Patient Instructions: Opioid Safety, Pain Management Activity Restrictions/Additional Instructions: You were seen today for chest pain. Your cardiac enzymes and EKG were unremarkable. Will be discharged home recommend you take a baby aspirin daily. We will set you up for an outpatient stress test and a 48-hour Holter monitor. Coding Level of Care Code ED Clinical Informatics Specialist for Chava Cavanaugh
--- NOTE | 2023-01-22 13:40 | NUR.SHIFT ---
PT PLACED ON CONTINUOUS SPO2, NIBP, AND CM.
[2023-01-22] MEDS: aspirin 81 mg Chew Tablet 324 MG PO (13:45)
[2023-01-22 13:50] LABS: Basophils # 0.1 10^3/uL (0.0-0.1); Basophils % 0.4 %; Eosinophils # 0.2 10^3/uL (0.0-0.8); Eosinophils % 1.1 %; Hemoglobin 15.8 g/dL (11.7-16.6); Lymphocytes # 2.8 10^3/uL (0.8-4.8); Lymphocytes % 17.2 %; Mean Corpuscular HGB Conc 32.9 g/dL (30.0-36.0); Mean Corpuscular Hemoglobin 32.2 pg (28.0-34.0); Mean Platelet Volume 9.4 fL (7.4-10.4); Monocytes # 0.9 10^3/uL (0.2-0.9); Monocytes % 5.4 %; Neutrophils # 12.33 10^3/uL (1.8-7.7); Neutrophils % 75.4 %; Nucleated Red Blood Cells % 0 %; Platelet Count 464 10^3/cmm (130-400); Red Cell Distribution Width 12.5 % (12.1-15.1); White Blood Count 16.4 10^3/uL (4.0-10.0)
[2023-01-22 14:09] LABS: Troponin(5th) Baseline 16 ng/L (0-15)
[2023-01-22 14:20] LABS: Alanine Aminotransferase 17 U/L (0-41); Albumin Level 4.4 g/dL (3.5-5.2); Alkaline Phosphatase 113 U/L (40-130); Aspartate Amino Transferase 20 U/L (0-40); Blood Urea Nitrogen 10 mg/dL (8-23); Calcium 9.6 mg/dL (8.5-10.5); Carbon Dioxide 29 mmol/L (22-29); Chloride 97 mmol/L (98-107); Globulin 3.5 g/dL (1.3-4.6); Glucose 71 mg/dL (65-115); Osmolality Calculated 288 mOsm/kg (285-295); Sodium 140 mmol/L (136-145); Total Bilirubin 0.2 mg/dL (0.15-1.2); Total Protein 7.9 g/dL (6.6-8.7)
[2023-01-22 15:01] LABS: Phenytoin Dilantin 3.1 ug/mL (10-20)
[2023-01-22 15:17] VITALS: BP 140/87; PULSE 89; RESP 15
[2023-01-22 15:30] VITALS: BP 140/87; PULSE 101; RESP 19; O2SAT 91
--- NOTE | 2023-01-22 15:38 | ECG_ITS ---
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
[2023-01-22 15:45] VITALS: BP 151/87; PULSE 82; RESP 14; O2SAT 93
[2023-01-22 16:00] VITALS: BP 151/87; PULSE 82; RESP 17; O2SAT 93
[2023-01-22 16:00] LABS: Troponin 5 2HR 13.97 ng/L (0-15)
[2023-01-22 16:09] LABS: Troponin 5 2HR Delta -2.03 ABS# (0-10)
[2023-01-22 16:15] VITALS: BP 121/72; PULSE 79; RESP 12; O2SAT 94
--- NOTE | 2023-01-22 17:01 | DCPLANNER ---
Addendum entered by Cookie John 02/03/23 07:47: Patient had a follow up appointment scheduled with [facility] - patient did attend appointment Addendum entered by Cookie John 01/27/23 07:51: Patient has a follow up appointment scheduled for Thursday, February 02, 2023 at 11:[address] Walsh at [facility]. Clinic will call patient with appointment information. Original Note: underwriting support manager had message to schedule an outpatient halter monitor and stress test for patient. The patient has [employer] insurance, patient was referred to cardiology. underwriting support manager sent patients information to the front office staff at [facility]. Patients information will be printed and reviewed. Clinic will call patient with appointment information.
== END 2023-01-22 16:30 | disposition home or self-care (01) ==
PROVIDERS: Emergency Provider Family Medicine; PCP Family Medicine
DX: R07.9 Chest pain, unspecified (principal); R00.0 Tachycardia, unspecified; Z79.82 Long term (current) use of aspirin; J44.9 Chronic obstructive pulmonary disease, unspecified; E78.5 Hyperlipidemia, unspecified; F17.210 Nicotine dependence, cigarettes, uncomplicated
CPT/HCPCS: 36415; 71045; 80053; 80185; 84484; 85025; 93005; 99285

== ENCOUNTER → 2023-02-02 10:53 | Outpatient (BNVA) | payer OTHER, SELFPAY | PROVIDERS: PCP Family Medicine; Visit Provider Internal Medicine Cardiovascular Disease | DX: R07.9 Chest pain, unspecified (principal); Z86.79 Personal history of other diseases of the circulatory system; I65.22 Occlusion and stenosis of left carotid artery; M79.604 Pain in right leg; J44.9 Chronic obstructive pulmonary disease, unspecified; E78.5 Hyperlipidemia, unspecified; Z95.828 Presence of other vascular implants and grafts; G40.909 Epilepsy, unspecified, not intractable, without status epilepticus; F17.200 Nicotine dependence, unspecified, uncomplicated | CPT/HCPCS: 99205 ==

== ENCOUNTER → 2023-02-02 10:54 | Outpatient (BNVA) | payer OTHER, SELFPAY | PROVIDERS: PCP Family Medicine; Visit Provider Internal Medicine Cardiovascular Disease | DX: R07.9 Chest pain, unspecified (principal); I49.1 Atrial premature depolarization; I49.3 Ventricular premature depolarization | CPT/HCPCS: 93225 ==

== ENCOUNTER 2023-02-14 13:24 | Inpatient (IN) | payer OTHER, SELFPAY ==
[2023-02-14] VITALS (8 sets, daily range): BP systolic 116–141; BP diastolic 71–78; PULSE 58–78; RESP 16–18; TEMP 36.6–36.9; O2SAT 90–99
--- NOTE | 2023-02-14 13:32 | ECG_ITS ---
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 Measurements Intervals [place] Rate: 62 P: 140 [place]: 159 QRS: 111 QRSD: 79 T: 132 QT: 392 QTc: 399 Interpretive Statements SINUS RHYTHM ARM LEADS REVERSED [INVERTED P AND QRS IN I] Possible left atrial enlargement Compared to ECG 01/22/2023 15:44:45 No significant changes Need to repeat the study Electronically Signed On 02-14-2023 21:45:24 CDT by Ara Walsh M.D. [id number]
[2023-02-14 13:45] LABS: Basophils # 0.1 10^3/uL (0.0-0.1); Basophils % 0.5 %; Eosinophils # 0.2 10^3/uL (0.0-0.8); Eosinophils % 2.4 %; Hematocrit 48.1 % (42.0-52.0); Hemoglobin 15.9 g/dL (11.7-16.6); Lymphocytes # 3.5 10^3/uL (0.8-4.8); Lymphocytes % 35.2 %; Mean Corpuscular HGB Conc 33.1 g/dL (30.0-36.0); Mean Corpuscular Hemoglobin 32.1 pg (28.0-34.0); Mean Corpuscular Volume 97.2 fl (80-94); Mean Platelet Volume 10.2 fL (7.4-10.4); Monocytes # 0.6 10^3/uL (0.2-0.9); Monocytes % 6.3 %; Neutrophils # 5.52 10^3/uL (1.8-7.7); Neutrophils % 55.5 %; Nucleated Red Blood Cells % 0 %; Platelet Count 294 10^3/cmm (130-400); Red Blood Count 4.95 10^6/uL (4.1-5.3); Red Cell Distribution Width 12.5 % (12.1-15.1)
--- NOTE | 2023-02-14 13:59 | CTR_ITS ---
PROCEDURE INFORMATION: Exam: CTA Head With Contrast, Arteriography Exam date and time: 02/14/2023 2:14 PM Age: 67 years old Clinical indication: Stroke-like symptoms; Dizziness/giddiness; Lt upper extremity weakness; Additional info: CVA TECHNIQUE: Imaging protocol: Computed tomographic angiography of the head with contrast. Exam focused on the arteries. 3D rendering (Not supervised by radiologist): MIP and/or 3D reconstructed images were created by the technologist. Radiation optimization: All CT scans at this facility use at least one of these dose optimization techniques: automated exposure control; mA and/or kV adjustment per patient size (includes targeted exams where dose is matched to clinical indication); or iterative reconstruction. Contrast material: OMNI 350; Contrast volume: 100 ml; Contrast route: INTRAVENOUS (IV); REPORTING DATA: Count of CT and Cardiac NM exams in prior 12 months: This patient has received 3 known CTs and 0 known cardiac nuclear medicine studies in the 12 months prior to the current study. COMPARISON: CT head wo con* [id number] 11/17/2022 3:12 AM RADIATION DOSE METRICS: Total DLP (mGy-cm): 1111.12 FINDINGS: ANTERIOR CIRCULATION: Right internal carotid artery: There is calcified plaque in the right carotid siphon. No stenosis. No aneurysm. Right middle cerebral artery: No occlusion or significant stenosis. No aneurysm. Right anterior cerebral artery: No occlusion or significant stenosis. No aneurysm. Left internal carotid artery: There is calcified plaque in the left carotid siphon. No significant stenosis. No aneurysm. Left middle cerebral artery: No occlusion or significant stenosis. No aneurysm. Left anterior cerebral artery: No occlusion or significant stenosis. No aneurysm. POSTERIOR CIRCULATION: Right vertebral artery: No occlusion or significant stenosis. No aneurysm. Left vertebral artery: No occlusion or significant stenosis. No aneurysm. Basilar artery: No occlusion or significant stenosis. No aneurysm. Right posterior cerebral artery: No occlusion or significant stenosis. No aneurysm. Left posterior cerebral artery: No occlusion or significant stenosis. No aneurysm. Brain: There is volume loss. There are small old cerebellar infarcts bilaterally. No acute infarct is identified. There is no hemorrhage or extra-axial collection. There is no mass. Cerebral ventricles: There is no hydrocephalus. Bones/joints: Unremarkable. No acute fracture. Soft tissues: Unremarkable. PROCEDURE INFORMATION: Exam: CTA Neck With Contrast Exam date and time: 02/14/2023 2:14 PM Age: 67 years old Clinical indication: Stroke-like symptoms; Dizziness/giddiness; Lt upper extremity weakness; Additional info: CVA TECHNIQUE: Imaging protocol: Computed tomographic angiography of the neck with contrast. 3D rendering (Not supervised by radiologist): MIP and/or 3D reconstructed images were created by the technologist. Radiation optimization: All CT scans at this facility use at least one of these dose optimization techniques: automated exposure control; mA and/or kV adjustment per patient size (includes targeted exams where dose is matched to clinical indication); or iterative reconstruction. Contrast material: OMNI 350; Contrast volume: 100 ml; Contrast route: INTRAVENOUS (IV); REPORTING DATA: Count of CT and Cardiac NM exams in prior 12 months: This patient has received 3 known CTs and 0 known cardiac nuclear medicine studies in the 12 months prior to the current study. COMPARISON: CT cervical spin wo con* [id number] 10/26/2022 1:32 AM RADIATION DOSE METRICS: Total DLP (mGy-cm): 1111.12 FINDINGS: Right common carotid artery: No stenosis. No dissection or occlusion. Right internal carotid artery: There is mild calcified plaque in the distal extracranial right internal carotid artery. No significant stenosis. No dissection. Right external carotid artery: No occlusion or stenosis of the origin. Left common carotid artery: No stenosis. No dissection or occlusion. Left internal carotid artery: There is calcified plaque in the proximal left internal carotid artery without stenosis. Left external carotid artery: No occlusion or stenosis of the origin. Right vertebral artery: No stenosis. No dissection or occlusion. Left vertebral artery: Is calcified plaque in the V2 segment of the left vertebral artery. There is mild short segment stenosis. Soft tissues: Normal. No significant soft tissue swelling. Bones/joints: No acute fracture. Lungs: There is extensive centrilobular emphysema. CT/CT angio headneck* [id number] IMPRESSION: 1. 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 2. No acute intracranial lesion or injury. 3. No intracranial large vessel stenosis or occlusion IMPRESSION: 1. No carotid artery stenosis. 2. Mild left vertebral artery stenosis. No right vertebral artery stenosis. REFERENCES: NASCET CRITERIA. The degree of stenosis in the cervical segment of the internal carotid artery is based on NASCET criteria. Normal is no stenosis. Mild is less than 50% stenosis. Moderate is 50-69% stenosis. Severe is 70% to 99% stenosis. Total occlusion is no detectable patent lumen.
--- NOTE | 2023-02-14 14:00 | W.ED.GENADLT ---
HPI - General Adult General: Chief complaint: General Medical Stated complaint: Weakness/Dizzy Time Seen by Provider: 02/14/23 13:26 Source: patient Mode of arrival: EMS History of Present Illness: 67-year-old male presents emergency room with the patient he was complaining of dizziness. He had episode earlier in the week about 2 days ago he called the [place] [facility] where he is usually seen and they told him he should be seen for possibility of a stroke shortly after the phone call his symptoms completely resolved so he did not do anything with that. This morning he suddenly began having significant dizziness with nausea began suddenly around 9:30-10 AM while watching television it still persisting now. He states he has difficulty with vision he feels like everything moving. He describes things as everything is moving around me, accurately describing vertigo without any specific questioning. He has not had this previously no recent falls or injury or head injuries. In the nurses note it states he had an episode of chest pain however when I specifically asked him if he had been having any chest pain recently he denied twice. Patient does have a history of alcohol abuse, as well as COPD. He was seen last month for an episode of bradycardia. After read the nurses notes about the chest pain and went back to the room and asked the patient about what he had told the nurses he admitted he did have some chest pain this morning around 10:00 and now changed his report to that he was still having a little bit of chest pain he tells me he took a sublingual nitro this morning at 10 when he got the chest discomfort and after a few minutes it can had nearly completely resolved. He does not associate anything else besides the nitro was exacerbating or relieving chest discomfort. Onset (ago): hour(s) Severity: mild Relieving factors: none Exacerbating factors: none Associated symptoms: Reports chest pain; Deny confusion, cough, diaphoresis, decreased appetite, dyspnea, fevers/chills, headache(s), malaise, nausea, rash, palpitations, seizures, short of breath, syncope, vomiting or weakness Treatments prior to arrival: none Review of Systems Const: Denies: fever(s), chills, fatigue, malaise or diaphoresis Card: Reports: chest pain; Denies: palpitations or syncope Resp: Denies: dyspnea GI: Denies: abdominal pain, nausea or vomiting : Denies: dysuria, urinary frequency or urinary urgency Musc: Denies: neck pain or back pain Skin/Breast: Denies: rash Neuro: Denies: headache(s) or confusion PFSH ED PFSH: Medical History BPH (benign prostatic hyperplasia) COPD (chronic obstructive pulmonary disease) Dyslipidemia Seizure disorder Social History Smoking and tobacco status: current every day smoker Physical Exam Const: GENERAL APPEARANCE: cooperative and comfortable ORIENTATION/CONSCIOUSNESS: Yes awake, Yes oriented to person, Yes oriented to place and Yes oriented to time HENMT: COMMON NORMALS: normocephalic, atraumatic and hearing grossly normal bilaterally HEAD & SCALP: normocephalic and atraumatic Eye: COMMON NORMALS: Equal, round and reactive pupils present and EOMs intact bilaterally PUPIL: Yes Equal, round and reactive pupils present and Yes Pupil accommodation reflex normal EOM: Yes Nystagmus present Nystagmus Noted: positive rotary, positive with right lateral gaze and positive with left lateral gaze Resp: COMMON NORMALS: normal respiratory effort, No retractions, No use of accessory muscles and clear to auscultation bilaterally AUSCULTATION: clear to auscultation bilaterally Cardio: COMMON NORMALS: regular rate, regular rhythm and No murmurs present (Cardio) RATE: regular rate RHYTHM: regular rhythm GI: COMMON NORMALS: Soft to palpation and No hepatosplenomegaly present AUSCULTATION: Yes normoactive bowel sounds PALPATION: Yes Soft to palpation, No Tenderness to palpation present (GI), No Guarding due to palpation present (GI) and Yes No hepatosplenomegaly present Extremity: COMMON NORMALS: normal to inspection, capillary refill normal, no clubbing, cyanosis or edema, no calf tenderness and no pedal edema Neuro: SENSORIUM/ORIENTATION: Yes oriented to person, Yes oriented to place and Yes oriented to time Skin: COMMON NORMALS: no rashes or lesions noted GENERAL SKIN EXAM: no rashes or lesions noted Course Vital Signs: Vital signs: Vital Signs Temperature 98.0 F 02/16/23 11:55 Pulse Rate 61 02/16/23 11:55 Respiratory Rate 16 02/16/23 11:55 Blood Pressure 110/61 02/16/23 11:55 Pulse Oximetry 96 02/16/23 11:55 Oxygen Delivery Me thod 02/16/23 11:55 Oxygen Flow Rate 2 02/16/23 08:30 MDM - General Adult Medical Decision Making His initial complaint when he came with the nurse was complaining of lightheadedness and weakness dizziness and the chest pain when I went and seen the patient taking his history I became concerned for stroke his NIH score is 4. At the time of presentation he was already approximately 4 hours onto onset of symptoms I did not see the patient immediately upon arrival so he was outside of the window for tPA when I first encountered him. Interestingly his main complaint to the nurse was weakness dizziness and chest pain but when I came in to see him he gave me more of a history of the nausea headache and vertigo and actually skipped over the complaint of chest pain until I had seen in the nurses note and specifically asked him about it. Stroke alert was called once I had seen the patient and reviewed his chart his timeframe and the histories. Medical Records I reviewed the patient's medical records. Lab Data I reviewed the patient's lab results. 02/14/23 13:36 02/14/23 13:36 Radiology Impressions Head/Neck CTA 02/14/23 13:59 IMPRESSION: 1. 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 2. No acute intracranial lesion or injury. 3. No intracranial large vessel stenosis or occlusion IMPRESSION: 1. No carotid artery stenosis. 2. Mild left vertebral artery stenosis. No right vertebral artery stenosis. REFERENCES: NASCET CRITERIA. The degree of stenosis in the cervical segment of the internal carotid artery is based on NASCET criteria. Normal is no stenosis. Mild is less than 50% stenosis. Moderate is 50-69% stenosis. Severe is 70% to 99% stenosis. Total occlusion is no detectable patent lumen. Head MRI 02/16/23 17:07 IMPRESSION: 1. No acute infarct. No hemorrhage. 2. No prior infarct is identified. 3. Very minimal cerebral atrophy. 4. No masses or vascular malformations. Head MRA 02/16/23 17:12 IMPRESSION: 1. Small caliber posterior communicating arteries. Consistent with normal variation. 2. No cerebral artery stenosis or aneurysm. Neck MRA 02/16/23 17:12 IMPRESSION: 1. Limited evaluation of the carotid arteries. 2. There is no high-grade stenosis or occlusion identified. 3. Negative vertebral arteries. Laboratory Results WBC 10.0 10^3/uL (4.0-10.0) 02/14/23 13:36 RBC 4.95 10^6/uL (4.1-5.3) 02/14/23 13:36 Hgb 15.9 g/dL (11.7-16.6) 02/14/23 13:36 Hct 48.1 % (42.0-52.0) 02/14/23 13:36 MCV 97.2 fl (80-94) H 02/14/23 13:36 MCH 32.1 pg (28.0-34.0) 02/14/23 13:36 MCHC 33.1 g/dL (30.0-36.0) 02/14/23 13:36 RDW 12.5 % (12.1-15.1) 02/14/23 13:36 Plt Count 294 10^3/cmm (130-400) 02/14/23 13:36 MPV 10.2 fL (7.4-10.4) 02/14/23 13:36 Neut % (Auto) 55.5 % 02/14/23 13:36 Lymph % (Auto) 35.2 % 02/14/23 13:36 [place] % (Auto) 6.3 % 02/14/23 13:36 Eos % (Auto) 2.4 % 02/14/23 13:36 Baso % (Auto) 0.5 % 02/14/23 13:36 Neut # (Auto) 5.52 10^3/uL (1.8-7.7) 02/14/23 13:36 Lymph # (Auto) 3.5 10^3/uL (0.8-4.8) 02/14/23 13:36 [place] # (Auto) 0.6 10^3/uL (0.2-0.9) 02/14/23 13:36 Eos # (Auto) 0.2 10^3/uL (0.0-0.8) 02/14/23 13:36 Baso # (Auto) 0.1 10^3/uL (0.0-0.1) 02/14/23 13:36 Nucleated RBC % (auto) 0 % 02/14/23 13:36 Nucleated RBCs # 0.0 /100WBC 02/14/23 13:36 PT 13.50 SECONDS (12.1-14.9) 02/14/23 14:05 INR 1.00 (0.8-1.2) 02/14/23 14:05 Sodium 135 mmol/L (136-145) L 02/14/23 13:36 Potassium 4.5 mmol/L (3.5-5.1) 02/14/23 13:36 Chloride 98 mmol/L (98-107) 02/14/23 13:36 Carbon Dioxide 25 mmol/L (22-29) 02/14/23 13:36 Anion Gap 16.5 (5-19) 02/14/23 13:36 BUN 11 mg/dL (8-23) 02/14/23 13:36 Creatinine 0.7 mg/dL (0.7-1.2) 02/14/23 13:36 GFR Calculation 113.2 mL/min (90-130) 02/14/23 13:36 Glucose 93 mg/dL (65-115) 02/14/23 13:36 POC Glucose 104 mg/dL (70-110) 02/14/23 14:37 Calculated Osmolality 279 mOsm/kg (285-295) L 02/14/23 13:36 Calcium 9.1 mg/dL (8.5-10.5) 02/14/23 13:36 Total Bilirubin 0.4 mg/dL (0.15-1.2) 02/14/23 13:36 AST 24 U/L (0-40) 02/14/23 13:36 ALT 18 U/L (0-41) 02/14/23 13:36 Alkaline Phosphatase 73 U/L (40-130) 02/14/23 13:36 Troponin T Baseline 10 ng/L (0-15) 02/14/23 13:36 Troponin T 120 Minute 9.32 ng/L (0-15) 02/14/23 15:22 Delta Troponin T -0.68 ABS# (0-10) L 02/14/23 15:22 Total Protein 7.4 g/dL (6.6-8.7) 02/14/23 13:36 Albumin 4.2 g/dL (3.5-5.2) 02/14/23 13:36 Globulin 3.2 g/dL (1.3-4.6) 02/14/23 13:36 Urine Color Yellow (Yellow) 02/14/23 14:35 Urine Appearance Clear (CLEAR) 02/14/23 14:35 Urine pH 5 (5-7) 02/14/23 14:35 Ur Specific [place] 1.005 (1.005-1.030) 02/14/23 14:35 Urine Protein Neg (Negative) 02/14/23 14:35 Urine Glucose (UA) Norm (Normal) 02/14/23 14:35 Urine Ketones Negative (Negative) 02/14/23 14:35 Urine Blood 2+ (Negative) H 02/14/23 14:35 Urine Nitrate Negative (Negative) 02/14/23 14:35 Urine Bilirubin Neg (Negative) 02/14/23 14:35 Urine Urobilinogen Norm mg/dL (Negative) 02/14/23 14:35 Ur Leukocyte Esterase Negative (Negative) 02/14/23 14:35 Urine RBC 5-10 /hpf (0-2) H 02/14/23 14:35 Urine WBC None /hpf (0-5) 02/14/23 14:35 Ur Squamous Epith Cells None /hpf (0-5) 02/14/23 14:35 Amorphous Sediment Not Reportable 02/14/23 14:35 Urine Bacteria None /hpf (NONE) 02/14/23 14:35 Ethyl Alcohol < 10 mg/dL (0-10) 02/14/23 13:36 Discharge Plan Discharge Patient Disposition: Admitted As Inpatient Admit Provider: Dereje Casanova Clinical Impression: Stroke-like symptoms Condition: Stable Coding Level of Care Code 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
[2023-02-14 14:05] LABS: Alanine Aminotransferase 18 U/L (0-41); Albumin Level 4.2 g/dL (3.5-5.2); Alkaline Phosphatase 73 U/L (40-130); Blood Urea Nitrogen 11 mg/dL (8-23); Calcium 9.1 mg/dL (8.5-10.5); Carbon Dioxide 25 mmol/L (22-29); Chloride 98 mmol/L (98-107); Globulin 3.2 g/dL (1.3-4.6); Glomerular Filtration Rate 113.2 mL/min (90-130); Glucose 93 mg/dL (65-115); Osmolality Calculated 279 mOsm/kg (285-295); Sodium 135 mmol/L (136-145); Total Bilirubin 0.4 mg/dL (0.15-1.2); Total Protein 7.4 g/dL (6.6-8.7)
[2023-02-14 14:10] LABS: Anion Gap 16.5 (5-19); Aspartate Amino Transferase 24 U/L (0-40); Potassium 4.5 mmol/L (3.5-5.1)
[2023-02-14] MEDS: iohexol 350 mg/mL 500 mL Btl (per mL) IV (14:22)
[2023-02-14 14:32] LABS: Troponin(5th) Baseline 10 ng/L (0-15)
[2023-02-14 14:47] LABS: Alcohol Level < 10 mg/dL (0-10)
[2023-02-14 15:18] LABS: Add Urine Microscopic? YES; Bilirubin Urine Neg (Negative); Blood Urine 2+ (Negative); Glucose Urine UA Norm (Normal); Ketones Urine Negative (Negative); Leukocyte Esterase Urine Negative (Negative); Nitrate Urine Negative (Negative); Protein Urine Neg (Negative); Specific Gravity, Urine 1.005 (1.005-1.030); Urine Appearance Clear (CLEAR); Urine Color Yellow (Yellow); Urobilinogen Urine Norm (Negative); pH Urine 5 (5-7)
[2023-02-14 15:20] LABS: Add Urine Culture? No
[2023-02-14 15:53] LABS: Troponin 5 2HR 9.32 ng/L (0-15)
[2023-02-14 15:56] LABS: Troponin 5 2HR Delta -0.68 ABS# (0-10)
--- NOTE | 2023-02-14 16:00 | ECG_ITS ---
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 Measurements Intervals [place] Rate: 56 P: 76 OK: 159 QRS: 71 QRSD: 85 T: 76 QT: 406 QTc: 395 Interpretive Statements SINUS BRADYCARDIA Compared to ECG 02/14/2023 13:41:49 Sinus rhythm no longer present Electronically Signed On 02-14-2023 21:48:49 CDT by Ara Walsh M.D. [id number]
--- NOTE | 2023-02-14 17:38 | PC.NURSE ---
ATTEMPTED REPORT NURSE REFUSED.
--- NOTE | 2023-02-14 18:24 | PC.NURSE ---
WHILE AT BEDSIDE PT IS IN NAD. PT DENIES ANY NEEDS.
--- NOTE | 2023-02-14 18:32 | PC.NURSE ---
ATTEMPTED REPORT NURSE REFUSED REPORT.
[2023-02-14 18:34] LABS: Glucose Point of Care 104 mg/dL (70-110)
--- NOTE | 2023-02-14 18:57 | PC.NURSE ---
REPORT GIVEN TO CM RN ASSUMED CARE.
[2023-02-14 19:52] LABS: Troponin 5 6HR 9.47 ng/L (0-15)
[2023-02-14 19:59] LABS: Troponin 5 6HR Delta -0.53 ng/L (0-12)
--- NOTE | 2023-02-14 20:00 | ECG_ITS ---
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 Measurements Intervals [place] Rate: 55 P: 47 W[place]: 145 QRS: 74 QRSD: 86 T: 8 QT: 424 QTc: 406 Interpretive Statements SINUS BRADYCARDIA LOW QRS VOLTAGE IN EXTREMITY LEADS [QRS DEFLECTION < 0.5 mV IN LIMB LEADS] Compared to ECG 02/15/2023 00:34:36 Atrial fibrillation no longer present Electronically Signed On 02-15-2023 22:14:48 CDT by Ara Walsh M.D. [email or web address]/store/[id number]
[2023-02-14] MEDS: atorvastatin 40 mg Tablet PO (20:15)
[2023-02-14] MEDS: sodium chloride 0.9% 1,000 ML 100 ML IV (20:15)
--- NOTE | 2023-02-14 21:38 | P.HP_ITS ---
Providers/Chief Complaint Admitting Physician: Dereje Casanova DO Primary Care Provider: Kourtney Almaguer MD Chief Complaint: Weakness/Dizzy History of Present Illness Wang Castellon is a 67 year old male with a past medical history of CVA, PVD, COPD, dyslipidemia, epilepsy, who presented to the ER for left lower extremity weakness and loss of balance. Patient reports that on 2 prior occasions earlier this week he had episodes of weakness, loss of balance and visual deficits. St ates that this morning he woke up and was having left upper and lower extremity weakness as well as complaints of vertigo. He does endorse a history of CVA a few years ago. Says that he has been taking all of his medications as they are prescribed. He denies any chest pain recent illness, fever, chills. He does endorse using alcohol 2-3 times a week and he uses cigarettes, approximately 12- 14 a day. This is down from his normal use which was a pack and a half daily. He does say that he has been trying to quit. In the ER, NIHSS scoring was 4. His pressures were little bit elevated, but stable with systolics into the 160-70 range. His labs were unremarkable. Troponins were negative. Alcohol level was drawn and was negative. CTA of the head and neck was performed which did show small, old bilateral cerebellar infarcts with no acute lesions or injuries. EKG showed sinus rhythm. He was not a candidate for tPA as he had exceeded the window. He was admitted for further work-up and monitoring. Review of Systems General: Reports: 10 or more systems reviewed and unremarkable except in HPI and below Const: Denies: fever(s), chills or body aches Eyes: Reports: change in vision ENMT: Denies: throat pain Card: Denies: chest pain or palpitations Resp: Denies: dyspnea GI: Reports: nausea and vomiting; Denies: abdominal pain : Denies: flank pain Musc: Denies: neck pain Skin/Breast: Denies: rash or pruritus Neuro: Reports: weakness in extremities, lack of coordination, difficulty walking, dizziness and vertigo; Denies: headache(s) Psych: Denies: anxiety Medications/Allergies Home Medications Medication Instructions Recorded Confirmed Last Taken Type aspirin 81 mg chewable tablet 81 mg PO DAILY 09/02/22 02/14/23 02/14/23 History (Aspirin Childrens) cholecalciferol (vitamin D3) 50 50 mcg PO DAILY 09/02/22 02/14/23 02/14/23 History mcg (2,000 unit) capsule folic acid 1 mg tablet 1 mg PO DAILY 09/02/22 02/14/23 02/14/23 History loratadine 10 mg tablet (Claritin) 10 mg PO DAILY 90 days #90 tabs 09/02/22 02/14/23 02/14/23 Rx multivitamin (Multiple Vitamins 1 tab PO DAILY 09/02/22 02/14/23 02/14/23 History tablet) tiotropium bromide 2.5 2 puff inhalation DAILY 09/02/22 02/14/23 02/14/23 History mcg/actuation mist for inhalation (Spiriva Respimat) duloxetine 60 mg capsule,delayed 60 mg PO DAILY #90 caps 09/11/22 02/14/23 02/14/23 Rx release fluticasone propionate 50 1 spray intranasal BID #16 grams 09/11/22 02/14/23 01/22/23 Rx mcg/actuation nasal spray,suspension (Flonase Allergy Relief) gabapentin 300 mg capsule 300 mg PO .COMPLEX #360 caps 09/11/22 02/14/23 02/14/23 Rx lacosamide 100 mg tablet (Vimpat) 100 mg PO BID #180 tabs 09/11/22 02/14/23 02/14/23 Rx levetiracetam 1,000 mg tablet 1,000 mg PO BID #180 tabs 09/11/22 02/14/23 02/14/23 Rx albuterol sulfate 90 mcg/actuation 2 inh inhalation Q4H PRN shortness 01/13/23 02/14/23 Unknown Rx aerosol inhaler of breath or wheezing #18 grams atorvastatin 40 mg tablet 20 mg PO QPM 01/22/23 02/14/23 02/13/23 History fluticasone 250 mcg-salmeterol 50 1 inh inhalation BID 01/22/23 02/14/23 02/14/23 History mcg/dose blistr powdr for inhalation phenytoin sodium extended 100 mg 200 mg PO QPM 01/22/23 02/14/23 02/13/23 History capsule prazosin 2 mg capsule 2 mg PO BEDTIME 01/22/23 02/14/2302/13/23 History quetiapine 25 mg tablet 12.5 mg PO BID 01/22/23 02/14/23 02/14/23 History tamsulosin 0.4 mg capsule 0.4 mg PO QPM 01/22/23 02/14/23 02/13/23 History metoprolol tartrate 25 mg tablet 25 mg PO BID #180 tabs 02/04/23 02/14/23 02/14/23 Rx nitroglycerin 0.4 mg sublingual 0.4 mg sublingual Q5M PRN chest 02/04/23 0 02/14/23 Unknown Rx tablet pain #25 tabs Allergies Allergy/AdvReac Type Severity Reaction Status Date / Time adhesive tape Allergy Unknown Verified 02/14/23 13:34 PFSH Acute PFSH: Medical History BPH (benign prostatic hyperplasia) COPD (chronic obstructive pulmonary disease) Dyslipidemia Seizure disorder Social History Smoking and tobacco status: current every day smoker Vitals/I&O/Wt Last Vital Signs Temp 97.8 F 02/14/23 20:27 Pulse 72 02/14/23 20:27 Resp 16 02/14/23 20:27 BP 133/75 02/14/23 20:27 Pulse Ox 90 02/14/23 20:27 O2 Del Method 02/14/23 20:27 Weight last 48 hrs Weight 150 lb Physical Exam Narrative: General: Cooperative patient in no apparent distress. Well developed. HEENT: PERRLA, EOMI. No nystagmus. Normocephalic, Atraumatic. External ears normal. Nasal passages patent without drainage. MMM. Heart: RRR. Resp: LCTA. No respiratory distress, no use of accessory muscles. Abd: Soft, non-tender. Non-distended. Extremities: No edema. Skin: No rash or lesions on exposed areas. Neuro: CN II-XII intact. No focal motor or sensory deficits noted. Reflexes 2/4 patellar. Data 02/14/23 13:36 02/14/23 13:36 A&P Assessment and plan (1) Stroke-like symptoms: (2) S/P AAA repair using bifurcation graft: (3) Left arm weakness: (4) BPPV (benign paroxysmal positional vertigo): (5) Seizure disorder: (6) Dyslipidemia: (7) BPH (benign prostatic hyperplasia): (8) COPD (chronic obstructive pulmonary disease): Plan 67-year-old male admitted for strokelike symptoms. Admit for close inpatient monitoring CTA demonstrated old cerebellar infarcts. No acute infarcts were noted. No other lesions were noted. Plan to obtain MRI of the head, MRA of the head and neck. Phenytoin level was negative. UDS negative for alcohol. Other labs were unremarkable. Patient has not had a previous echocardiogram and we will complete this during the stay. He did have CTA of the neck, doubt ultrasound would be of much benefit at this point. He did have mild left vertebral artery stenosis. No carotid artery stenosis was noted. Check a.m. labs, will include B12, folate, magnesium. PT/OT/INVENTORY SPECIALIST to evaluate and treat. We will continue every 4 vitals, NIHSS scoring. Continue aspirin and statin. Can consult neurology if needed. Cardiac work-up has been negative so far.. Code Status: Full IVF: None DVT PPx: SCDs GI PPx: None ABx: None Diet: Dysphagia diet Discharge plan: Home Attestations Medical Necessity Statement*: Need for hospitalization to continue stroke work-up, neuroimaging, laboratory studies, medication management. Coding Level of Care Code Acute Code for Chg Fwd Moderate MDM includes number and complexity of problems actively addressed during encounter, amount and/or complexity of data reviewed/ordered and described risk of complication, morbidity or mortality of management as documented Diagnoses Stroke-like symptoms R29.90 S/P AAA repair using bifurcation graft Z95.828; Z86.79 Left arm weakness R29.898 BPPV (benign paroxysmal positional vertigo) H81.10 Seizure disorder G40.909 Dyslipidemia E78.5 BPH (benign prostatic hyperplasia) N40.0 COPD (chronic obstructive pulmonary disease) J44.9
[2023-02-14] MEDS: acetaminophen 325 mg Tablet 650 MG PO (23:46)
[2023-02-15] VITALS (10 sets, daily range): BP systolic 105–147; BP diastolic 64–80; PULSE 57–90; RESP 16–18; TEMP 36.5–37; O2SAT 90–98
[2023-02-15 04:01] LABS: Basophils # 0.1 10^3/uL (0.0-0.1); Basophils % 0.6 %; Eosinophils # 0.4 10^3/uL (0.0-0.8); Eosinophils % 3.5 %; Hematocrit 46.4 % (42.0-52.0); Hemoglobin 15.1 g/dL (11.7-16.6); Lymphocytes # 3.5 10^3/uL (0.8-4.8); Lymphocytes % 35.2 %; Mean Corpuscular HGB Conc 32.5 g/dL (30.0-36.0); Mean Corpuscular Hemoglobin 32.3 pg (28.0-34.0); Mean Corpuscular Volume 99.1 fl (80-94); Mean Platelet Volume 9.9 fL (7.4-10.4); Monocytes # 0.8 10^3/uL (0.2-0.9); Monocytes % 8.2 %; Neutrophils # 5.23 10^3/uL (1.8-7.7); Neutrophils % 52.2 %; Nucleated Red Blood Cells % 0 %; Platelet Count 287 10^3/cmm (130-400); Red Blood Count 4.68 10^6/uL (4.1-5.3); Red Cell Distribution Width 12.6 % (12.1-15.1)
[2023-02-15 04:39] LABS: Alanine Aminotransferase 15 U/L (0-41); Albumin Level 3.9 g/dL (3.5-5.2); Alkaline Phosphatase 75 U/L (40-130); Anion Gap 8.8 (5-19); Aspartate Amino Transferase 14 U/L (0-40); Blood Urea Nitrogen 9 mg/dL (8-23); Carbon Dioxide 29 mmol/L (22-29); Chloride 99 mmol/L (98-107); Chol HDL Ratio 2.98 mg/dL (1.0-5.00); Cholesterol 185 mg/dL (0-200); Globulin 2.5 g/dL (1.3-4.6); Glomerular Filtration Rate 113.2 mL/min (90-130); Glucose 91 mg/dL (65-115); HDL Cholesterol 62 mg/dL (60-100); LDL Cholesterol Calculated 79 mg/dL (50-129); LDL HDL Ratio 1.27 RATIO (0.00-3.22); Magnesium 1.7 mg/dL (1.7-2.3); Osmolality Calculated 274 mOsm/kg (285-295); Potassium 3.8 mmol/L (3.5-5.1); Sodium 133 mmol/L (136-145); Thyroid Stimulating Hormone 2.08 uIU/mL (0.27-4.20); Total Bilirubin 0.2 mg/dL (0.15-1.2); Total Protein 6.4 g/dL (6.6-8.7); Triglycerides 221 mg/dL (0-150); Vitamin B12 677 pg/mL (232-1245)
[2023-02-15 04:46] LABS: Estmated Average Glucose 105; Hemoglobin A1C 5.3 % (4.0-6.0)
[2023-02-15] MEDS: sodium chloride 0.9% 1,000 ML 100 ML IV ×2 (05:05→17:09)
[2023-02-15 05:18] LABS: Folate Level > 20.0 ng/mL (4.5-32.2)
[2023-02-15] MEDS: acetaminophen 325 mg Tablet 650 MG PO ×2 (05:54→17:13)
--- NOTE | 2023-02-15 06:00 | USCV_ITS ---
Wang Castellon Age: 67 Gender: M : 1955 Exam Date: 02/15/2023 12:30 Ordering Phys: Dereje Casanova DO Technologist: BERNARD Exam Location: [facility] Indication: cva BP: / HR: 67 Rhythm: Sinus Technical Quality: Adequate MEASUREMENTS (Male / Female) Normal Values 2D ECHO LV Diastolic Diameter PLAX 4.7 cm 4.2 - 5.9 / 3.9 - 5.3 cm LV Systolic Diameter PLAX 3.9 cm IVS Diastolic Thickness 0.8 cm 0.6 - 1.0 / 0.6 - 0.9 cm IVS Systolic Thickness 0.9 cm LVPW Diastolic Thickness 0.7 cm 0.6 - 1.0 / 0.6 - 0.9 cm LVPW Systolic Thickness 1.0 cm LVOT Diameter 2.2 cm LV Ejection Fraction 2D Teich 38.1 % LV Ejection Fraction MOD 2C 47.6 % LV Ejection Fraction 2C AL 47.3 % LA Diameter 2.7 cm IVC Diameter 0.9 cm M-MODE Aortic Annulus Diameter 3.4 cm LA Ao Ratio MM 0.8 MV E Point Septal Separation 0.7 cm DOPPLER AV Peak Velocity 93.0 cm/s LVOT Peak Velocity 94.0 cm/s AV Area Cont Eq vti 3.8 cm squared AV Area Cont Eq pk 3.7 cm squared MV Area PHT 2.8 cm squared Mitral E to A Ratio 0.8 MV E' Velocity 35.5 cm/s Mitral E to MV E' Ratio 8.3 Mitral E to LV E' Lateral Ratio 9.0 Mitral E to LV E' Septal Ratio 7.8 TR Peak Velocity 154.0 cm/s TR Peak Gradient 9.5 mmHg TV Peak E Velocity 49.0 cm/s Right Atrial Pressure 3.0 mmHg Pulmonary Artery Systolic Pressu 12.5 mmHg PV Peak Velocity 72.0 cm/s FINDINGS Left Ventricle Normal left ventricular size and systolic function, EF 55 %. No regional wall motion abnormalities. Grade I/IV diastolic dysfunction (abnormal relaxation filling pattern), normal to mildly elevated filling pressures. Right Ventricle The right ventricle is normal in size and function. Right Atrium The right atrium is normal in size. Left Atrium The left atrium is normal in size. Mitral Valve No gross abnormalities noted Aortic Valve No gross abnormalities noted Tricuspid Valve No gross abnormalities noted Pulmonic Valve Pulmonic valve not well visualized. Pericardium Normal pericardium without effusion. Aorta Normal aortic annulus size. IVC The inferior vena cava appears normal. CONCLUSIONS Normal left ventricular size and systolic function, EF 55 %. No regional wall motion abnormalities. Normal cardiac chamber sizes. No gross valvular abnormalities. There is no pericardial effusion. Technically difficult study because of the poor ultrasonic window. Dr Ara Walsh MD FACC (Electronically Signed) Final Date: 15 February 2023 17:59 S
[2023-02-15] MEDS: ondansetron 2 mg/ML SDV 2 mL 4 MG IVP (07:04)
[2023-02-15] MEDS: lacosamide 50 mg Tablet 100 MG PO ×2 (08:29→17:10)
[2023-02-15] MEDS: cholecalciferol (vitamin D3) 1,000 unit Tablet 2000 UNIT PO (08:29)
[2023-02-15] MEDS: levETIRAcetam 500 mg Tablet 1000 MG PO ×2 (08:29→17:11)
[2023-02-15] MEDS: quetiapine 25 mg Tablet 12.5 MG PO ×2 (08:30→17:10)
[2023-02-15] MEDS: duloxetine 60 mg Capsule PO (08:30)
[2023-02-15] MEDS: metoprolol tartrate 25 mg Tablet PO ×2 (08:30→17:11)
[2023-02-15] MEDS: folic acid 1 mg Tablet PO (08:30)
[2023-02-15] MEDS: aspirin 81 mg EC Tablet PO (08:30)
--- NOTE | 2023-02-15 09:37 | PM.PN ---
Subjective Subjective: States that he had another episode this morning. Reports that the majority of his episodes occur first thing in the morning, after awakening. He says the episode lasted approximately 30 minutes this morning, he did not have any headache or other symptoms. Vitals/I&O/Wt Last Vital Signs Temp 97.7 F 02/15/23 03:57 Pulse 59 L 02/15/23 05:30 Resp 16 02/15/23 03:57 BP 116/64 02/15/23 03:57 Pulse Ox 97 02/15/23 03:57 O2 Del Method 02/15/23 03:57 O2 Flow Rate 2 02/14/23 20:00 02/14/23 02/15/23 02/15/23 22:59 06:59 14:59 Intake Total 600 / 600 883.333 / 1483.333 Output Total 1425 / 1425 200 / 200 Balance 600 / 600 -541.667 / 58.333 -200 / -200 Weight last 48 hrs Weight 150 lb Physical Exam Narrative: General: Cooperative patient in no apparent distress. Well developed. HEENT: PERRLA, EOMI. No nystagmus. Normocephalic, Atraumatic. External ears normal. Nasal passages patent without drainage. MMM. Heart: RRR. Resp: LCTA. No respiratory distress, no use of accessory muscles. Abd: Soft, non-tender. Non-distended. Extremities: No edema. Skin: No rash or lesions on exposed areas. Neuro: CN II-XII intact. No focal motor or sensory deficits noted. Reflexes 2/4 patellar. Data 02/15/23 03:15 02/15/23 03:15 A&P Assessment and plan (1) Stroke-like symptoms: (2) S/P AAA repair using bifurcation graft: (3) Left arm weakness: (4) BPPV (benign paroxysmal positional vertigo): (5) Seizure disorder: (6) Dyslipidemia: (7) BPH (benign prostatic hyperplasia): (8) COPD (chronic obstructive pulmonary disease): Plan 67-year-old male admitted for strokelike symptoms. 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 No acute infarcts were noted. No other lesions were noted. Plan to obtain MRI of the head, MRA of the head and neck. We will order not Will order overnight oximetry testing. Phenytoin level was negative. UDS negative for alcohol. Other labs were unremarkable. Patient has not had a previous echocardiogram and we will complete this during the stay. He did have CTA of the neck, doubt ultrasound would be of much benefit at this point. He did have mild left vertebral artery stenosis. No carotid artery stenosis was noted. Recheck a.m. labs. Today's labs were unremarkable. PT/OT/EMERGENCY TELECOMMUNICATIONS DISPATCHER to evaluate and treat. We will continue every 4 vitals, NIHSS scoring. NIHSS scoring has been negative so far. Continue aspirin and statin. Cardiac work-up negative. Code Status: Full IVF: None DVT PPx: SCDs GI PPx: None ABx: None Diet: Dysphagia diet Discharge plan: Home Attestations Medical Necessity Statement*: Need for hospitalization to continue stroke work-up, neuroimaging, laboratory studies, medication management. Coding Level of Care Code Acute Code for Chg Fwd Moderate MDM includes number and complexity of problems actively addressed during encounter, amount and/or complexity of data reviewed/ordered and described risk of complication, morbidity or mortality of management as documented Diagnoses Stroke-like symptoms R29.90 S/P AAA repair using bifurcation graft Z95.828; Z86.79 Left arm weakness R29.898 BPPV (benign paroxysmal positional vertigo) H81.10 Seizure disorder G40.909 Dyslipidemia E78.5 BPH (benign prostatic hyperplasia) N40.0 COPD (chronic obstructive pulmonary disease) J44.9
[2023-02-15] MEDS: ipratropium-albuterol 3 mL Neb INHALATION ×2 (11:21→19:39)
[2023-02-15] MEDS: gabapentin 300 mg Capsule 600 MG PO (13:49)
--- NOTE | 2023-02-15 14:57 | PC.OT ---
Patient refused OT evaluation this date. Stated, I did not sleep at all last night. I am too exhausted. Can we do this tomorrow? To attempt OT eval on a later date.
[2023-02-15] MEDS: phenytoin ER 100 mg Capsule 200 MG PO (17:10)
[2023-02-15] MEDS: tamsulosin 0.4 mg Capsule PO (17:10)
[2023-02-15] MEDS: gabapentin 300 mg Capsule 900 MG PO (17:14)
[2023-02-15] MEDS: budesonide 0.5 mg/2 mL Neb INHALATION (19:39)
[2023-02-15] MEDS: prazosin 1 mg Capsule 2 MG PO (20:00)
[2023-02-15] MEDS: atorvastatin 40 mg Tablet PO (20:00)
[2023-02-16] VITALS (8 sets, daily range): BP systolic 89–110; BP diastolic 56–62; PULSE 61–67; RESP 16–18; TEMP 36.5–36.8; O2SAT 91–98
[2023-02-16] MEDS: sodium chloride 0.9% 1,000 ML 100 ML IV (01:38)
[2023-02-16 05:14] LABS: Alanine Aminotransferase 12 U/L (0-41); Albumin Level 3.4 g/dL (3.5-5.2); Alkaline Phosphatase 57 U/L (40-130); Blood Urea Nitrogen 8 mg/dL (8-23); Calcium 8.3 mg/dL (8.5-10.5); Carbon Dioxide 26 mmol/L (22-29); Chloride 108 mmol/L (98-107); Globulin 2.6 g/dL (1.3-4.6); Glomerular Filtration Rate 113.2 mL/min (90-130); Glucose 104 mg/dL (65-115); Osmolality Calculated 291 mOsm/kg (285-295); Sodium 141 mmol/L (136-145); Total Bilirubin 0.2 mg/dL (0.15-1.2)
[2023-02-16 05:17] LABS: Anion Gap 11.5 (5-19); Aspartate Amino Transferase 17 U/L (0-40); Potassium 4.5 mmol/L (3.5-5.1)
--- NOTE | 2023-02-16 07:05 | PC.NURSE ---
Bedside report received from Cynthia WILKES at this time.
[2023-02-16] MEDS: budesonide 0.5 mg/2 mL Neb INHALATION (08:01)
[2023-02-16] MEDS: ipratropium-albuterol 3 mL Neb INHALATION ×2 (08:01→11:38)
[2023-02-16] MEDS: gabapentin 300 mg Capsule 900 MG PO (08:32)
[2023-02-16] MEDS: levETIRAcetam 500 mg Tablet 1000 MG PO (08:33)
[2023-02-16] MEDS: cholecalciferol (vitamin D3) 1,000 unit Tablet 2000 UNIT PO (08:33)
[2023-02-16] MEDS: folic acid 1 mg Tablet PO (08:33)
[2023-02-16] MEDS: metoprolol tartrate 25 mg Tablet PO (08:33)
[2023-02-16] MEDS: quetiapine 25 mg Tablet 12.5 MG PO (08:33)
[2023-02-16] MEDS: duloxetine 60 mg Capsule PO (08:33)
[2023-02-16] MEDS: aspirin 81 mg EC Tablet PO (08:33)
[2023-02-16] MEDS: lacosamide 50 mg Tablet 100 MG PO (08:43)
[2023-02-16] MEDS: acetaminophen 325 mg Tablet 650 MG PO (08:43)
--- NOTE | 2023-02-16 10:31 | PC.CHAP ---
Pastoral Care Encounter/Spiritual Assessment Type of Contact [] Declined watch manufacturing supervisor visit [] Patient/Family/Request visit [] Outpatient visit [] Follow-up visit [] Physician referral [] Code/Alert [x] Routine visit [] Staff referral [] Actively dying [] Patient sleeping [] Family support [] [] Out of room [] Palliative care [] [x] Receiving care in room [] Pre-surgical visit [] Trauma [] Long length of stay [] ICU visit [] Other: Relational/Emotional Strength [] Patient feels connected with others/family/visitors/staff [] Distress [] Loneliness/isolation [] Abandonment Spirituality of Patient [] Person of [place] [] Attends Restorationism of their [place] [] Believes in Prayer [] Reads Bible or Quaker materials [] There are Spiritual issues to be addressed Exchange Administrator Interventions [x] Prayer [] Active listening [] Non-anxious presence [] Spiritual/emotional support [] Crisis/trauma care [] Spiritual counseling [] Bereavement support [] Provided bereavement packet [] Provided Bible/devotional materials [] Provided toy/stuffed animal, coloring book to patient or family member [] Provided Communion [] Anointing/[place] [] Salvation [] Completed spiritual assessment [] Other: Impact on Illness or Injury [] Angry [] Fearful [] Anxious [] Often cries [] Exhaustion [] Unable to work [] Unable to attend nondenominational [] Unable to walk/stand [] Unable to read [] Unable to drive [] Unable to eat/drink [] Unable to sleep [] Unable to be with family [] Patient intubated [] Other: Summary Time spent with patient
[2023-02-16] MEDS: gadobenate dimeglumine 20 mL vial IV (11:11)
[2023-02-16] MEDS: gabapentin 300 mg Capsule 600 MG PO (11:55)
--- NOTE | 2023-02-16 12:21 | P.DS_ITS ---
Discharge Providers Date of Admission: 02/14/23 17:37 Date of Discharge: February 16, 2023 Attending Provider at Admission: Dereje Casanova DO Attending Provider at Discharge: Flako Roach MD Primary Care Provider: Kourtney Almaguer MD Diagnoses at Discharge Discharge Diagnosis (1) Stroke-like symptoms: Status: Acute (2) S/P AAA repair using bifurcation graft: Status: Acute (3) Left arm weakness: Status: Acute (4) BPPV (benign paroxysmal positional vertigo): Status: Acute (5) Seizure disorder: Status: Acute (6) Dyslipidemia: Status: Acute (7) BPH (benign prostatic hyperplasia): Status: Acute (8) COPD (chronic obstructive pulmonary disease): Status: Acute Reason for Visit Reason for Visit: Weakness/Dizzy Hospital Course Hospital Course HPI: Dereje Casanova DO Wang Castellon is a 67 year old male with a past medical history of CVA, PVD, COPD, dyslipidemia, epilepsy, who presented to the ER for left lower extremity weakness and loss of balance.? Patient reports that on 2 prior occasions earlier this week he had episodes of weakness, loss of balance and visual deficits.? States that this morning he woke up and was having left upper and lower extremity weakness as well as complaints of vertigo.? He does endorse a history of CVA a few years ago.? Says that he has been taking all of his medications as they are prescribed.? He denies any chest pain recent illness, fever, chills.? He does endorse using alcohol 2-3 times a week and he uses cigarettes, approximately 12-14 a day.? This is down from his normal use which was a pack and a half daily.? ? He does say that he has been trying to quit. In the ER, NIHSS scoring was 4.? His pressures were little bit elevated, but stable with systolics into the 160-70 range.? His labs were unremarkable.? Troponins were negative.? Alcohol level was drawn and was negative.? CTA of the head and neck was performed which did show small, old bilateral cerebellar infarcts with no acute lesions or injuries. EKG showed sinus rhythm.? He was not a candidate for tPA as he had exceeded the window.? He was admitted for further work-up and monitoring. Patient was initially admitted for the management of strokelike symptoms: Underwent 2D echo as well as: MR head wo/w con,?MR angio head wo con?,MR angio neck wo con, in addition to CT head without contrast as well as CTA head and neck: Imaging studies were unremarkable. 2D echo showed: Normal left ventricular size and systolic function, EF 55 %.No regional wall motion abnormalities.Normal cardiac chamber sizes.No gross valvular abnormalities.There is no pericardial effusion. Patient was complaining of what appears to be possible BPPV, he was started on as needed meclizine. At the time of discharge patient had no similar symptoms, no weakness in any body part, worked well with physical therapy, speech and occupational therapy. He was discharged in stable condition to home. Physical Exam Const: COMMON NORMALS: patient oriented x3 HENMT: COMMON NORMALS: normocephalic and atraumatic HEAD & SCALP: normocephalic and atraumatic Resp: COMMON NORMALS: clear to auscultation bilaterally AUSCULTATION: clear to auscultation bilaterally Cardio: COMMON NORMALS: regular rate, regular rhythm, S1 normal heart sound present, S2 normal heart sound present, No gallops present (Cardio), No murmurs present (Cardio), No rub (Cardio) and Peripheral pulses 2+ throughout RATE: regular rate RHYTHM: regular rhythm HEART SOUNDS: S1 normal heart sound present and S2 normal heart sound present PERIPHERAL PULSES: Peripheral pulses 2+ throughout GI: COMMON NORMALS: Normal to inspection, nondistended, normoactive bowel sounds present, Soft to palpation, non-tender, No hepatosplenomegaly present and no masses AUSCULTATION: Yes normoactive bowel sounds PALPATION: Yes Soft to palpation and Yes No hepatosplenomegaly present RECTAL EXAM: Yes deferred Extremity: COMMON NORMALS: no clubbing, cyanosis or edema and no pedal edema Neuro: COMMON NORMALS: patient oriented x3 Discharge Data Studies Completed and Pending Completed Studies During Hospitalization Category Date Time Status CT angio headneck* [id number] Stat Cat Scan 02/14/23 13:59 Completed MR angio neck wo con [id number] Routine MRI 02/16/23 17:12 Completed MR head wo/w con [id number] Routine MRI 02/16/23 17:07 Completed CV. echo complete* [id number] Routine Ultrasound 02/15/23 06:00 Completed Pending at discharge Category Date Time Status MR angio head wo con [id number] Routine MRI 02/16/23 17:12 Taken Radiology Impressions Head/Neck CTA 02/14/23 13:59 IMPRESSION: 1. 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 2. No acute intracranial lesion or injury. 3. No intracranial large vessel stenosis or occlusion IMPRESSION: 1. No carotid artery stenosis. 2. Mild left vertebral artery stenosis. No right vertebral artery stenosis. REFERENCES: NASCET CRITERIA. The degree of stenosis in the cervical segment of the internal carotid artery is based on NASCET criteria. Normal is no stenosis. Mild is less than 50% stenosis. Moderate is 50-69% stenosis. Severe is 70% to 99% stenosis. Total occlusion is no detectable patent lumen. Head MRI 02/16/23 17:07 IMPRESSION: 1. No acute infarct. No hemorrhage. 2. No prior infarct is identified. 3. Very minimal cerebral atrophy. 4. No masses or vascular malformations. Neck MRA 02/16/23 17:12 IMPRESSION: 1. Limited evaluation of the carotid arteries. 2. There is no high-grade stenosis or occlusion identified. 3. Negative vertebral arteries. Laboratory Results WBC 10.0 10^3/uL (4.0-10.0) 02/15/23 03:15 RBC 4.68 10^6/uL (4.1-5.3) 02/15/23 03:15 Hgb 15.1 g/dL (11.7-16.6) 02/15/23 03:15 Hct 46.4 % (42.0-52.0) 02/15/23 03:15 MCV 99.1 fl (80-94) H 02/15/23 03:15 MCH 32.3 pg (28.0-34.0) 02/15/23 03:15 MCHC 32.5 g/dL (30.0-36.0) 02/15/23 03:15 RDW 12.6 % (12.1-15.1) 02/15/23 03:15 Plt Count 287 10^3/cmm (130-400) 02/15/23 03:15 MPV 9.9 fL (7.4-10.4) 02/15/23 03:15 Neut % (Auto) 52.2 % 02/15/23 03:15 Lymph % (Auto) 35.2 % 02/15/23 03:15 [place] % (Auto) 8.2 % 02/15/23 03:15 Eos % (Auto) 3.5 % 02/15/23 03:15 Baso % (Auto) 0.6 % 02/15/23 03:15 Neut # (Auto) 5.23 10^3/uL (1.8-7.7) 02/15/23 03:15 Lymph # (Auto) 3.5 10^3/uL (0.8-4.8) 02/15/23 03:15 [place] # (Auto) 0.8 10^3/uL (0.2-0.9) 02/15/23 03:15 Eos # (Auto) 0.4 10^3/uL (0.0-0.8) 02/15/23 03:15 Baso # (Auto) 0.1 10^3/uL (0.0-0.1) 02/15/23 03:15 Nucleated RBC % (auto) 0 % 02/15/23 03:15 Nucleated RBCs # 0.0 /100WBC 02/15/23 03:15 PT 13.50 SECONDS (12.1-14.9) 02/14/23 14:05 INR 1.00 (0.8-1.2) 02/14/23 14:05 Sodium 141 mmol/L (136-145) 02/16/23 04:31 Potassium 4.5 mmol/L (3.5-5.1) 02/16/23 04:31 Chloride 108 mmol/L (98-107) H 02/16/23 04:31 Carbon Dioxide 26 mmol/L (22-29) 02/16/23 04:31 Anion Gap 11.5 (5-19) 02/16/23 04:31 BUN 8 mg/dL (8-23) 02/16/23 04:31 Creatinine 0.7 mg/dL (0.7-1.2) 02/16/23 04:31 GFR Calculation 113.2 mL/min (90-130) 02/16/23 04:31 Glucose 104 mg/dL (65-115) 02/16/23 04:31 POC Glucose 104 mg/dL (70-110) 02/14/23 14:37 Estimat Average Glucose 105 04/09/23 03:15 Hemoglobin A1c 5.3 % (4.0-6.0) 02/15/23 03:15 Calculated Osmolality 291 mOsm/kg (285-295) 02/16/23 04:31 Calcium 8.3 mg/dL (8.5-10.5) L 02/16/23 04:31 Magnesium 1.7 mg/dL (1.7-2.3) 02/15/23 03:15 Total Bilirubin 0.2 mg/dL (0.15-1.2) 02/16/23 04:31 AST 17 U/L (0-40) 02/16/23 04:31 ALT 12 U/L (0-41) 02/16/23 04:31 Alkaline Phosphatase 57 U/L (40-130) 02/16/23 04:31 Troponin T Baseline 10 ng/L (0-15) 02/14/23 13:36 Troponin T 120 Minute 9.32 ng/L (0-15) 02/14/23 15:22 Delta Troponin T -0.68 ABS# (0-10) L 02/14/23 15:22 Troponin T Hi Sens 6Hr 9.47 ng/L (0-15) 02/14/23 19:19 Troponin T Hi Sens 6Hr Delta -0.53 ng/L (0-12) L 02/14/23 19:19 C-Reactive Protein 3.0 mg/L (0.0-4.9) 02/15/23 03:15 Total Protein 6.0 g/dL (6.6-8.7) L 02/16/23 04:31 Albumin 3.4 g/dL (3.5-5.2) L 02/16/23 04:31 Globulin 2.6 g/dL (1.3-4.6) 02/16/23 04:31 Triglycerides 221 mg/dL (0-150) H 02/15/23 03:15 Cholesterol 185 mg/dL (0-200) 02/15/23 03:15 LDL Cholesterol, Calc 79 mg/dL (50-129) 02/15/23 03:15 HDL Cholesterol 62 mg/dL (60-100) 02/15/23 03:15 LDL/HDL Ratio 1.27 RATIO (0.00-3.22) 02/15/23 03:15 Cholesterol/HDL Ratio 2.98 mg/dL (1.0-5.00) 02/15/23 03:15 Vitamin B12 677 pg/mL (232-1245) 02/15/23 03:15 Folate > 20.0 ng/mL (4.5-32.2) 02/15/23 03:15 TSH 2.08 uIU/mL (0.27-4.20) 02/15/23 03:15 Urine Color Yellow (Yellow) 02/14/23 14:35 Urine Appearance Clear (CLEAR) 02/14/23 14:35 Urine pH 5 (5-7) 02/14/23 14:35 Ur Specific [place] 1.005 (1.005-1.030) 02/14/23 14:35 Urine Protein Neg (Negative) 02/14/23 14:35 Urine Glucose (UA) Norm (Normal) 02/14/23 14:35 Urine Ketones Negative (Negative) 02/14/23 14:35 Urine Blood 2+ (Negative) H 02/14/23 14:35 Urine Nitrate Negative (Negative) 02/14/23 14:35 Urine Bilirubin Neg (Negative) 02/14/23 14:35 Urine Urobilinogen Norm mg/dL (Negative) 02/14/23 14:35 Ur Leukocyte Esterase Negative (Negative) 02/14/23 14:35 Urine RBC 5-10 /hpf (0-2) H 02/14/23 14:35 Urine WBC None /hpf (0-5) 02/14/23 14:35 Ur Squamous Epith Cells None /hpf (0-5) 02/14/23 14:35 Amorphous Sediment Not Reportable 02/14/23 14:35 Urine Bacteria None /hpf (NONE) 02/14/23 14:35 Ethyl Alcohol < 10 mg/dL (0-10) 02/14/23 13:36 Vitals Last Vital Signs Temp 98.0 F 02/16/23 11:55 Pulse 61 02/16/23 11:55 Resp 16 02/16/23 11:55 BP 110/61 02/16/23 11:55 Pulse Ox 96 02/16/23 11:55 O2 Del Method 02/16/23 11:55 O2 Flow Rate 2 02/16/23 08:30 Discharge Plan Discharge Patient Disposition: Home Condition: Stable Prescriptions: New meclizine 25 mg tablet 25 mg PO BID PRN (Reason: dizziness) Qty: 14 0RF Continued multivitamin [Multiple Vitamins] Tablet 1 tab PO DAILY aspirin [Aspirin Childrens] 81 mg tablet,chewable 81 mg PO DAILY folic acid 1 mg tablet 1 mg PO DAILY cholecalciferol (vitamin D3) 50 mcg (2,000 unit) capsule 50 mcg PO DAILY Spiriva Respimat 2.5 mcg/actuation mist 2 puff inhalation DAILY loratadine [Claritin] 10 mg tablet 10 mg PO DAILY 90 Days Qty: 90 1RF duloxetine 60 mg capsule,delayed release(DR/EC) 60 mg PO DAILY Qty: 90 0RF fluticasone propionate [Flonase Allergy Relief] 50 mcg/actuation spray,suspension 1 spray intranasal BID Qty: 16 1RF Rx Instructions: administer into each nostril gabapentin 300 mg capsule 300 mg PO .COMPLEX Qty: 360 0RF Rx Instructions: 900 mg orally in AM, 600 mg AT NOON, 900 mg AT 6PM; levetiracetam 1,000 mg tablet 1,000 mg PO BID Qty: 180 0RF lacosamide [Vimpat] 100 mg tablet 100 mg PO BID Qty: 180 0RF nitroglycerin 0.4 mg tablet, sublingual 0.4 mg sublingual Q5M PRN (Reason: chest pain) Qty: 25 6RF Rx Instructions: until response; do not exceed 3 doses per episode metoprolol tartrate 25 mg tablet 25 mg PO BID Qty: 180 3RF albuterol sulfate 90 mcg/actuation HFA aerosol inhaler 2 inh INHALATION Q4H PRN (Reason: shortness of breath or wheezing) Qty: 18 0RF atorvastatin 40 mg Tablet 20 mg PO QPM quetiapine 25 mg Tablet 12.5 mg PO BID fluticasone propion-salmeterol 250-50 mcg/dose Blister With Device 1 inh INHALATION BID phenytoin sodium extended 100 mg capsule 200 mg PO QPM tamsulosin 0.4 mg capsule 0.4 mg PO QPM prazosin 2 mg capsule 2 mg PO BEDTIME Discharge Orders: Discharge Order (Routine); Ordered 02/16/23 Ordered By: Flako Roach Referrals: Kourtney Almaguer MD [Primary Care Provider] - 1 week ([facility] for 1 week from today. ) Patient Instructions: Meclizine (By mouth), Benign Paroxysmal Positional Vertigo (DC), Opioid Safety Discharge Attestations Time Spent in Discharge Care*: less than 30 min Quality Metrics Clinical Quality Measures [ No reported AMI, CVA or VTE this stay] Coding Level of Care Code Acute Code for Chg Fwd Diagnoses Stroke-like symptoms R29.90 S/P AAA repair using bifurcation graft Z95.828; Z86.79 Left arm weakness R29.898 BPPV (benign paroxysmal positional vertigo) H81.10 Seizure disorder G40.909 Dyslipidemia E78.5 BPH (benign prostatic hyperplasia) N40.0 COPD (chronic obstructive pulmonary disease) J44.9
--- NOTE | 2023-02-16 13:00 | PC.NURSE ---
Patient refused to put Telemetry box back on and requested is IV be taken out at this time as he believes her will be discharged.
--- NOTE | 2023-02-16 16:00 | PC.NURSE ---
Patient is A&Ox3. Respirations even and non-labored on room air. Reviewed discharge instructions with patient at this time. Patient verbalized understanding of discharge instructions. Patient verbalized the need to call the [facility] to schedule [facility]. Patient wheel chaired to private car.
--- NOTE | 2023-02-16 16:09 | PC.SOCIAL ---
[facility]axed the [facility] updated notes on pt.
--- NOTE | 2023-02-16 16:23 | PC.OT ---
OT Eval Not Completed - Patient discharged on this day before time of evaluation.
--- NOTE | 2023-02-16 17:07 | MR_ITS ---
WS: [id number] MRI BRAIN WITH AND WITHOUT CONTRAST HISTORY: CVA COMPARISON: CT head 10/26/2022 TECHNIQUE: Multiplanar imaging performed through the brain with MultiHance 15 ml's IV. No acute infarcts are seen. Glover-white matter differentiation is well preserved. No prior infarct. No significant small vessel ischemic change. There is only very minimal atrophy. No susceptibility artifacts or prior lacunar infarcts. Ventricles and extra-axial spaces are normal. Clivus and pituitary gland are normal. Visualized posterior fossa and brainstem are also normal. Postcontrast images are negative for masses or vascular malformations. Dural venous sinuses are normal. Paranasal sinuses: Well aerated with no significant disease. Mastoid air cells: Normal. Calvarium and scalp: Normal. MR/MR head wo/w con [id number] IMPRESSION: 1. No acute infarct. No hemorrhage. 2. No prior infarct is identified. 3. Very minimal cerebral atrophy. 4. No masses or vascular malformations.
--- NOTE | 2023-02-16 17:12 | MR_ITS ---
WS: [email or web address] MRA CAROTID ARTERIES HISTORY: CVA COMPARISON: None available. TECHNIQUE: MRA carotid arteries, noncontrast. Very limited and nearly nondiagnostic evaluation of the carotid arteries. No occlusions are identifie d. Bilateral defects in the cervical carotid arteries are artifacts. The 2-D axial [id number] megan ging demonstrates no areas of occlusion or significant stenosis. Bifurcations are intact. No beading or thrombus is identified. Vertebral arteries are also contiguous to the skull base. MR/MR angio neck wo con [id number] IMPRESSION: 1. Limited evaluation of the carotid arteries. 2. There is no high-grade stenosis or occlusion identified. 3. Negative vertebral arteries.
--- NOTE | 2023-02-16 17:12 | MR_ITS ---
WS: [email or web address] MRA ANGIOGRAPHY [place] OF [place] HISTORY: CVA COMPARISON: None available. TECHNIQUE: 3-D MR angiography is performed of the [place] of [place]. All images are reviewed including source images. Distal vertebral and basilar arteries are intact with no significant stenosis or plaque. Posterior ce rebral arteries are normal course and caliber. Posterior communicating arteries are small caliber. LE FT may be absent. RIGHT is hypoplastic. Intracranial portion of the internal carotid arteries are normal course and caliber. No significant a therosclerosis, stenosis or aneurysm identified. Middle and anterior cerebral arteries are both paten t with no significant disease. Anterior communicating artery is also normal. MR/MR angio head wo con [id number] IMPRESSION: 1. Small caliber posterior communicating arteries. Consistent with normal vari ation. 2. No cerebral artery stenosis or aneurysm.
== END 2023-02-16 16:18 | disposition home or self-care (01) | DRG 149 ==
LOC: ER 14:06 → MEDSURG 17:37
PROVIDERS: Admitting Provider Family Medicine; Emergency Provider Family Medicine; PCP Family Medicine; Visit Provider Internal Medicine
DX: H81.10 Benign paroxysmal vertigo, unspecified ear (principal); Z86.73 Personal history of transient ischemic attack (TIA), and cerebral infarction without residual deficits; I73.9 Peripheral vascular disease, unspecified; J44.9 Chronic obstructive pulmonary disease, unspecified; E78.5 Hyperlipidemia, unspecified; G40.909 Epilepsy, unspecified, not intractable, without status epilepticus; F17.210 Nicotine dependence, cigarettes, uncomplicated; F10.10 Alcohol abuse, uncomplicated; Z79.82 Long term (current) use of aspirin; Z79.51 Long term (current) use of inhaled steroids; R29.90 Unspecified symptoms and signs involving the nervous system; R53.1 Weakness
CPT/HCPCS: 36415; 36416; 70496; 70498; 70544; 70547; 70553; 80053; 80061; 80307; 81001; 82607; 82746; 82962; 83036; 83735; 84443; 84484; 85025; 85610; 86140; 92523; 92610; 93005; 93306; 94640; 97161; 99285; A9577; J2405; J7030; J7626; Q9967

== ENCOUNTER 2023-02-25 09:45 | Emergency (ER) | payer OTHER, SELFPAY ==
--- NOTE | 2023-02-25 10:03 | XR_ITS ---
WS: [email or web address] Portable AP upright chest, 02/25/2023 Clinical Data: dyspnea/cough Comparison: Portable chest, 01/22/2023 Findings: No nodules, masses or effusions are seen. The heart is normal. The pulmonary vascularity is not increased. No pneumonia or pneumothorax is seen. There are small sutures in the medial apex of t he right lung. There is scarring of the lateral aspect of the right diaphragm. The diaphragms are fla ttened. The aortic arch and descending thoracic aorta show calcification and tortuosity. There are mo nitor leads on the chest wall. XR/XR chest 1V portable [id number] Impression: Atherosclerosis and hyperinflation.
[2023-02-25 10:07] VITALS: BP 115/67; PULSE 65; RESP 19; O2SAT 90
--- NOTE | 2023-02-25 10:15 | ECG_ITS ---
[facility] Test Date: 2023-02-25 Pat Name: Wang Casteloln Department: Room: Gender: Male All Source Intelligence: : 1955 Requested By: Keegan Davis Order Number: [id number] Reading MD: Shyam Chaidez M.D. Measurements Intervals [place] Rate: 63 P: 73 TX: 168 QRS: 70 QRSD: 86 T: 72 QT: 411 QTc: 424 Interpretive Statements SINUS RHYTHM Compared to ECG 02/15/2023 00:35:17 Sinus bradycardia no longer present Electronically Signed On 02-25-2023 14:48:12 CDT by Shyam Chaidez M.D. [id number]
[2023-02-25 10:23] LABS: Basophils # 0.1 10^3/uL (0.0-0.1); Basophils % 0.7 %; Eosinophils # 0.2 10^3/uL (0.0-0.8); Eosinophils % 3.3 %; Hematocrit 46.1 % (42.0-52.0); Hemoglobin 15.3 g/dL (11.7-16.6); Lymphocytes # 1.8 10^3/uL (0.8-4.8); Lymphocytes % 25.6 %; Mean Corpuscular HGB Conc 33.2 g/dL (30.0-36.0); Mean Corpuscular Hemoglobin 32.1 pg (28.0-34.0); Mean Corpuscular Volume 96.6 fl (80-94); Mean Platelet Volume 9.7 fL (7.4-10.4); Monocytes # 0.8 10^3/uL (0.2-0.9); Neutrophils # 4.07 10^3/uL (1.8-7.7); Neutrophils % 58.1 %; Nucleated Red Blood Cells % 0 %; Platelet Count 321 10^3/cmm (130-400); Red Blood Count 4.77 10^6/uL (4.1-5.3); Red Cell Distribution Width 12.7 % (12.1-15.1)
--- NOTE | 2023-02-25 10:37 | W.ED.WEAKNES ---
HPI - Weakness General: Chief complaint: Weakness Stated complaint: Weakness Time Seen by Provider: 02/25/23 10:02 Source: patient Mode of arrival: EMS History of Present Illness: 67-year-old male presents emergency room complaining of generalized weakness. He was seen last week and admitted to the hospital for possible posterior stroke had an extensive work-up including MRI of the head and MRA of the head and neck all of which were negative. He does mention that at times he gets very dizzy he also has some tinnitus and mild hearing loss this has been going on for some time. He denies any chest pain or shortness of breath he has noticed sometimes he has a little discomfort when he takes a deep breath. No hemoptysis. MD Complaint: generalized weakness Onset (ago): hour(s) Duration: constant Location: generalized Relieving factors: none Exacerbating factors: none Associated symptoms: Denies chest pain, chills, confusion, melena, decreased appetite, diaphoresis, dysuria, easy bruising, fever(s), headache(s), myalgias, nausea, rash, short of breath, syncope or vomiting Review of Systems Const: Denies: fever(s), chills, fatigue, malaise or diaphoresis ENMT: Denies: throat pain, ear or mastoid pain, nasal discharge or nasal congestion Card: Denies: chest pain or syncope Resp: Denies: dyspnea, productive cough or non-productive cough GI: Reports: abdominal pain; Denies: nausea, vomiting or melena : Denies: dysuria, urinary frequency or urinary urgency Skin/Breast: Denies: rash or pruritus Neuro: Denies: headache(s) or confusion Yariel/Lymph: Denies: easy bruising PFSH ED PFSH: Medical History BPH (benign prostatic hyperplasia) BPPV (benign paroxysmal positional vertigo) COPD (chronic obstructive pulmonary disease) Dyslipidemia Left arm weakness Seizure disorder Stroke-like symptoms Surgical History S/P AAA repair using bifurcation graft Social History Smoking and tobacco status: current every day smoker Physical Exam Const: GENERAL APPEARANCE: cooperative and comfortable ORIENTATION/CONSCIOUSNESS: Yes awake, Yes oriented to person, Yes oriented to place and Yes oriented to time HENMT: COMMON NORMALS: normocephalic, atraumatic and hearing grossly normal bilaterally HEAD & SCALP: normocephalic and atraumatic Resp: COMMON NORMALS: normal respiratory effort, No retractions, No use of accessory muscles and clear to auscultation bilaterally AUSCULTATION: clear to auscultation bilaterally Cardio: COMMON NORMALS: regular rate, regular rhythm and No murmurs present (Cardio) RATE: regular rate RHYTHM: regular rhythm GI: COMMON NORMALS: Soft to palpation and No hepatosplenomegaly present AUSCULTATION: Yes normoactive bowel sounds PALPATION: Yes Soft to palpation, No Tenderness to palpation present (GI), No Guarding due to palpation present (GI) and Yes No hepatosplenomegaly present Extremity: COMMON NORMALS: normal to inspection, capillary refill normal, no clubbing, cyanosis or edema, no calf tenderness and no pedal edema Neuro: SENSORIUM/ORIENTATION: Yes oriented to person, Yes oriented to place and Yes oriented to time OTHER: Neurologically intact no focal neurologic deficits noted. Skin: COMMON NORMALS: no rashes or lesions noted GENERAL SKIN EXAM: no rashes or lesions noted Course Vital Signs: Vital signs: Vital Signs Pulse Rate 68 02/25/23 13:25 Respiratory Rate 19 H 02/25/23 10:07 Blood Pressure 124/75 02/25/23 13:25 Pulse Oximetry 92 02/25/23 13:25 Oxygen Delivery Me thod Nasal Cannula 02/25/23 10:07 Oxygen Flow Rate 2 02/25/23 10:07 MDM - Weakness Medical Decision Making Labs and imaging reviewed with the patient. He has no focal neurologic deficits at this time. We will discharge patient home and set him up to see ENT suspect he may have M?ni?re's. If they do not have any findings there recommend to him that he follow-up with his primary care doctor he may need to see neurology, he has had complaints of tremor in the past. Medical Records I reviewed the patient's medical records. Lab Data I reviewed the patient's lab results. 02/25/23 10:15 02/25/23 10:15 Radiology Impressions Chest X-Ray 02/25/23 10:03 Impression: Atherosclerosis and hyperinflation. Laboratory Results WBC 7.0 10^3/uL (4.0-10.0) 02/25/23 10:15 RBC 4.77 10^6/uL (4.1-5.3) 02/25/23 10:15 Hgb 15.3 g/dL (11.7-16.6) 02/25/23 10:15 Hct 46.1 % (42.0-52.0) 02/25/23 10:15 MCV 96.6 fl (80-94) H 02/25/23 10:15 MCH 32.1 pg (28.0-34.0) 02/25/23 10:15 MCHC 33.2 g/dL (30.0-36.0) 02/25/23 10:15 RDW 12.7 % (12.1-15.1) 02/25/23 10:15 Plt Count 321 10^3/cmm (130-400) 02/25/23 10:15 MPV 9.7 fL (7.4-10.4) 02/25/23 10:15 Neut % (Auto) 58.1 % 02/25/23 10:15 Lymph % (Auto) 25.6 % 02/25/23 10:15 Lipscomb % (Auto) 12.0 % 02/25/23 10:15 Eos % (Auto) 3.3 % 02/25/23 10:15 Baso % (Auto) 0.7 % 02/25/23 10:15 Neut # (Auto) 4.07 10^3/uL (1.8-7.7) 02/25/23 10:15 Lymph # (Auto) 1.8 10^3/uL (0.8-4.8) 02/25/23 10:15 Lipscomb # (Auto) 0.8 10^3/uL (0.2-0.9) 02/25/23 10:15 Eos # (Auto) 0.2 10^3/uL (0.0-0.8) 02/25/23 10:15 Baso # (Auto) 0.1 10^3/uL (0.0-0.1) 02/25/23 10:15 Nucleated RBC % (auto) 0 % 02/25/23 10:15 Nucleated RBCs # 0.0 /100WBC 02/25/23 10:15 Sodium 138 mmol/L (136-145) 02/25/23 10:15 Potassium 3.9 mmol/L (3.5-5.1) 02/25/23 10:15 Chloride 100 mmol/L (98-107) 02/25/23 10:15 Carbon Dioxide 26 mmol/L (22-29) 02/25/23 10:15 Anion Gap 15.9 (5-19) 02/25/23 10:15 BUN 10 mg/dL (8-23) 02/25/23 10:15 Creatinine 0.8 mg/dL (0.7-1.2) 02/25/23 10:15 GFR Calculation 97.0 mL/min (90-130) 02/25/23 10:15 Glucose 112 mg/dL (65-115) 02/25/23 10:15 Calculated Osmolality 286 mOsm/kg (285-295) 02/25/23 10:15 Calcium 8.9 mg/dL (8.5-10.5) 02/25/23 10:15 Total Bilirubin 0.2 mg/dL (0.15-1.2) 02/25/23 10:15 AST 23 U/L (0-40) 02/25/23 10:15 ALT 19 U/L (0-41) 02/25/23 10:15 Alkaline Phosphatase 94 U/L (40-130) 02/25/23 10:15 Total Protein 7.2 g/dL (6.6-8.7) 02/25/23 10:15 Albumin 4.3 g/dL (3.5-5.2) 02/25/23 10:15 Globulin 2.9 g/dL (1.3-4.6) 02/25/23 10:15 Discharge Plan Discharge Patient Disposition: Home Clinical Impression: Weakness, Tremor Condition: Stable Prescriptions: Changed metoprolol tartrate 25 mg tablet 12.5 mg PO BID Qty: 180 3RF No Action multivitamin [Multiple Vitamins] Tablet 1 tab PO DAILY aspirin [Aspirin Childrens] 81 mg tablet,chewable 81 mg PO DAILY folic acid 1 mg tablet 1 mg PO DAILY cholecalciferol (vitamin D3) 50 mcg (2,000 unit) capsule 50 mcg PO DAILY Spiriva Respimat 2.5 mcg/actuation mist 2 puff inhalation DAILY loratadine [Claritin] 10 mg tablet 10 mg PO DAILY 90 Days Qty: 90 1RF duloxetine 60 mg capsule,delayed release(DR/EC) 60 mg PO DAILY Qty: 90 0RF fluticasone propionate [Flonase Allergy Relief] 50 mcg/actuation spray,suspension 1 spray intranasal BID Qty: 16 1RF Rx Instructions: administer into each nostril gabapentin 300 mg capsule 300 mg PO .COMPLEX Qty: 360 0RF Rx Instructions: 900 mg orally in AM, 600 mg AT NOON, 900 mg AT 6PM; levetiracetam 1,000 mg tablet 1,000 mg PO BID Qty: 180 0RF lacosamide [Vimpat] 100 mg tablet 100 mg PO BID Qty: 180 0RF nitroglycerin 0.4 mg tablet, sublingual 0.4 mg sublingual Q5M PRN (Reason: chest pain) Qty: 25 6RF Rx Instructions: until response; do not exceed 3 doses per episode albuterol sulfate 90 mcg/actuation HFA aerosol inhaler 2 inh INHALATION Q4H PRN (Reason: shortness of breath or wheezing) Qty: 18 0RF meclizine 25 mg tablet 25 mg PO BID PRN (Reason: dizziness) Qty: 14 0RF atorvastatin 40 mg Tablet 20 mg PO QPM quetiapine 25 mg Tablet 12.5 mg PO BID fluticasone propion-salmeterol 250-50 mcg/dose Blister With Device 1 inh INHALATION BID phenytoin sodium extended 100 mg capsule 200 mg PO QPM tamsulosin 0.4 mg capsule 0.4 mg PO QPM prazosin 2 mg capsule 2 mg PO BEDTIME Discharge Orders: Discharge ED (Routine); Ordered 02/25/23 Ordered By: Keegan Solis Referrals: Kourtney Almaguer MD [Primary Care Provider] - Discharge Diet: Usual diet Discharge Activity: Increase activity as tolerated Patient Instructions: Opioid Safety, Pain Management Activity Restrictions/Additional Instructions: You are seen today for generalized weakness your labs are unremarkable. Suspect you may have some M?ni?re's disease based on your symptoms of dizziness tinnitus and hearing loss. We will refer you to ENT. Additionally we will recommend that you decrease your metoprolol to 12 and half milligrams twice daily. 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
[2023-02-25 10:39] VITALS: BP 122/69; PULSE 63; O2SAT 93
[2023-02-25 10:45] LABS: Alanine Aminotransferase 19 U/L (0-41); Albumin Level 4.3 g/dL (3.5-5.2); Alkaline Phosphatase 94 U/L (40-130); Anion Gap 15.9 (5-19); Aspartate Amino Transferase 23 U/L (0-40); Blood Urea Nitrogen 10 mg/dL (8-23); Calcium 8.9 mg/dL (8.5-10.5); Carbon Dioxide 26 mmol/L (22-29); Chloride 100 mmol/L (98-107); Globulin 2.9 g/dL (1.3-4.6); Glucose 112 mg/dL (65-115); Osmolality Calculated 286 mOsm/kg (285-295); Potassium 3.9 mmol/L (3.5-5.1); Sodium 138 mmol/L (136-145); Total Bilirubin 0.2 mg/dL (0.15-1.2); Total Protein 7.2 g/dL (6.6-8.7)
[2023-02-25 12:08] VITALS: BP 117/68; PULSE 61; O2SAT 93
[2023-02-25 13:01] VITALS: BP 124/72; PULSE 61; O2SAT 90
[2023-02-25 13:25] VITALS: BP 124/75; PULSE 68; O2SAT 92
== END 2023-02-25 13:26 | disposition home or self-care (01) ==
PROVIDERS: Emergency Provider Family Medicine; PCP Family Medicine
DX: R53.1 Weakness (principal); R25.1 Tremor, unspecified; Z79.82 Long term (current) use of aspirin; J44.9 Chronic obstructive pulmonary disease, unspecified; E78.5 Hyperlipidemia, unspecified; F17.210 Nicotine dependence, cigarettes, uncomplicated
CPT/HCPCS: 71045; 80053; 85025; 93005; 99285

== ENCOUNTER 2023-03-04 08:19 | Outpatient (CLI) | payer OTHER, SELFPAY ==
--- NOTE | 2023-03-04 08:48 | ECG_ITS ---
[facility] Test Date: 2023-03-04 Pat Name: Wang Castellon Department: Room: Gender: Male [employer] Instructor: Grace Leonard : 1955 Requested By: Ara Walsh Order Number: [id number] Juan MD: Ara Walsh M.D. Interpretive Statements NAME OF STUDY: LEXISCAN SESTAMIBI STRESS TEST INDICATION: Chest Pain, PROCEDURE: At the baseline, the EKG revealed normal sinus rhythm with a normal ST Ts. The baseline heart was 70 bpm with a blood pressue of 122/70 mm of Hg Lexiscan was infused over a period of 20 seconds. A total of 0.4 milligrams of Lexiscan was infused. The stress phase was continued for a total of 5 minutes. Heart rate at the end of the stress phase was 86 bpm with a blood pressure 104/57 mm of Hg. The EKG at the peak infusion revealed no significant changes. Sestamibi was injected 20 seconds after the Lexiscan infusion. Heart rate at the end of the recovery phase was 83 bpm with a blood pressure of 107/62 mm of Hg. CONCLUSION: 1. No significant EKG changes with the LexiScan infusion 2. No LexiScan induced chest pain or cardiac arrhythmia 3. Normal blood pressure and heart rate response 4. Sestamibi/sestamibi perfusion scan pending; see separate report. Electronically Signed On 03-08-2023 22:53:27 CDT by Ara Walsh M.D. [id number]
--- NOTE | 2023-03-04 08:49 | NMCV_ITS ---
NM anup perf SPECT r/s* [id number] Wang Castellon Age: 67 Gender: M : 1955 Exam Date: 03/04/2023 10:05 Ordering Phys: Ara Walhs MD ([email or web address]) Technologist: PAUL Yap Exam Location: [facility] Indications: CORONARY ANGIOPLASTY STATUS STRESS TEST [facility] IMAGE PROTOCOL Rest/Stress 1 Lexiscan Day Radiopharmaceutical Dose (mCi) Administration Site Administered by Rest: Tc-99m 10.6 IV PAUL Kessler Sestamibi Stress:Tc-99m 32.9 IV PAUL Kessler Sestamibi Rest: 04-Mar-2023 60 Discovery 630 Stress: 04-Mar-2023 30 Discovery 630 0.4mg Lexiscan. Images obtained in supine and prone position. SPECT RESULTS Technical Quality: Excellent Raw Data Analysis: Normal Image Corrections: No attenuation or motion correction applied Summed Stress Score: 2 Summed Rest Score: 1 Summed Difference Score: 1 PERFUSION FINDINGS Small area of moderately decreased tracer uptake was noted in the mid inferoseptal region. Some reversibility was noted in this region with the supine imaging. However the prone imaging, no significant perfusion normalities were noted. FUNCTIONAL RESULTS (calculated via Gated SPECT) Stress Image LV EF (%): 61 Stress EDV (mL):84 TID: 1.33 Stress ESV (mL):33 FUNCTIONAL FINDINGS: Segmental wall motion analysis revealing no gross wall motion abnormalities IMPRESSIONS 1. Myocardial perfusion imaging revealing small area of moderately decreased BERTA uptake in the inferoseptal region with some reversibility suggesting myocardial scarring with ischemia in the distribution of the right coronary artery. However because of the inconsistency, the reliability is questionable 2. Normal LV ejection fraction 61%. 3. LV wall motion analysis revealing no gross wall motion abnormalities. 4. Normal LV volume No similar previous studies are available for comparison Dr Ara Walsh MD FAC (Electronically Signed) Final Date: 04 March 2023 14:26 S
[2023-03-04 09:29] VITALS: BMI 21.5
[2023-03-04] MEDS: regadenoson 0.4 Mg/5 ml Syringe IVP (10:35)
[2023-03-04 10:45] VITALS: BP 107/62; PULSE 83
== END 2023-03-04 08:20 | disposition home or self-care (01) ==
LOC: RAD 08:20 → CDL 08:57
PROVIDERS: PCP Family Medicine; Visit Provider Internal Medicine Cardiovascular Disease
DX: R07.9 Chest pain, unspecified (principal); Z98.62 Peripheral vascular angioplasty status
CPT/HCPCS: 36415; 78452; 93017; 96374; A9500; J2785

== ENCOUNTER → 2023-03-09 15:07 | Outpatient (BNVA) | payer OTHER, SELFPAY | PROVIDERS: PCP Family Medicine; Referring Provider Family Medicine; Visit Provider Specialist | DX: G62.9 Polyneuropathy, unspecified (principal); R56.9 Unspecified convulsions; F17.200 Nicotine dependence, unspecified, uncomplicated; H81.10 Benign paroxysmal vertigo, unspecified ear; R26.81 Unsteadiness on feet | CPT/HCPCS: 99205 ==

== ENCOUNTER 2023-03-14 17:43 | Emergency (ER) | payer OTHER, SELFPAY ==
--- NOTE | 2023-03-14 17:46 | ECG_ITS ---
[facility] Test Date: 2023-03-14 Pat Name: Wang Castellon Department: Room: Gender: Male Service [employer] Developer: : 1955 Requested By: Keegan Davis Order Number: [id number] Juan MD: Shyam Chaidez M.D. Measurements Intervals Gonzales Rate: 81 P: 72 AK: 147 QRS: 75 QRSD: 86 T: 76 QT: 363 QTc: 423 Interpretive Statements SINUS RHYTHM Compared to ECG 02/25/2023 10:15:32 No significant changes Electronically Signed On 03-15-2023 10:19:57 CDT by Shyam Chaidez M.D. [id number]
--- NOTE | 2023-03-14 17:51 | XRR_ITS ---
PROCEDURE INFORMATION: Exam: XR Chest Exam date and time: 03/14/2023 6:00 PM Age: 67 years old Clinical indication: Cough and dyspnea; Prior surgery; Surgery type: Part of right lower lung resection; Additional info: Dyspnea/cough TECHNIQUE: Imaging protocol: Radiologic exam of the chest. Views: 1 view. COMPARISON: CR XR chest 1V portable [id number] 02/25/2023 10:19 AM FINDINGS: Tubes, catheters and devices: Right neck sutures/clips. Lungs: Mild COPD. Mild areas of lung scarring again noted, especially in right base. No consolidation. Pleural spaces: Unremarkable. No pleural effusion. No pneumothorax. Heart/Mediastinum: Unremarkable. No cardiomegaly. Vasculature: Advanced diffuse vascular calcification noted. Bones/joints: Unremarkable. XR/XR chest 1V portable [id number] IMPRESSION: No acute findings.
[2023-03-14 17:53] VITALS: BP 96/60; PULSE 91; RESP 20; TEMP 36.9; O2SAT 98; BMI 21.5
--- NOTE | 2023-03-14 17:53 | ED_ITS ---
Documented by User: Keegan Solis DO 03/16/23 11:13 HPI - General Adult General: Chief complaint: Dizziness Stated complaint: DIZZY; HYPOTENSION Time Seen by Provider: 03/14/23 17:46 Source: patient Mode of arrival: ambulatory History of Present Illness: 67-year-old male presents emergency complaining dizziness hypotension tachycardia and hypoxia. On arrival here he is on 2 L by nasal cannula and satting at 96% he is mildly hypotension but he is not tachycardic. No fever sweats or chills he has been short of breath. He did take his antihypertensives earlier this afternoon which seem to exacerbate things. He denies any chest pain. Onset (ago): minute(s) Severity: mild Relieving factors: none Exacerbating factors: none Associated symptoms: Deny chest pain, confusion, cough, diaphoresis, decreased appetite, dyspnea, fevers/chills, headache(s), malaise, nausea, rash, palpitations, seizures, short of breath, syncope, vomiting or weakness Review of Systems Const: Denies: malaise or diaphoresis ENMT: Denies: throat pain, ear or mastoid pain, nasal discharge or nasal congestion Card: Denies: chest pain, palpitations or syncope Resp: Denies: dyspnea GI: Denies: nausea or vomiting : Denies: flank pain, dysuria, urinary frequency or urinary urgency Skin/Breast: Denies: rash Neuro: Denies: headache(s) or confusion [facility] ED PFSH: Medical History BPH (benign prostatic hyperplasia) BPPV (benign paroxysmal positional vertigo) COPD (chronic obstructive pulmonary disease) Dyslipidemia Left arm weakness Seizure disorder Stroke-like symptoms Surgical History S/P AAA repair using bifurcation graft Social History Smoking and tobacco status: current every day smoker Alcohol intake: never Substance/Drug Use: never Physical Exam Const: GENERAL APPEARANCE: cooperative and comfortable ORIENTATION/CONSCIOUSNESS: Yes awake, Yes oriented to person, Yes oriented to place and Yes oriented to time HENMT: COMMON NORMALS: normocephalic, atraumatic and hearing grossly normal bilaterally HEAD & SCALP: normocephalic and atraumatic Resp: AUSCULTATION: rhonchi and wheezes Cardio: COMMON NORMALS: regular rate, regular rhythm and No murmurs present (Cardio) RATE: regular rate RHYTHM: regular rhythm GI: COMMON NORMALS: Soft to palpation and No hepatosplenomegaly present AUSCULTATION: Yes normoactive bowel sounds PALPATION: Yes Soft to palpation, No Tenderness to palpation present (GI), No Guarding due to palpation present (G I) and Yes No hepatosplenomegaly present Extremity: COMMON NORMALS: normal to inspection, capillary refill normal, no clubbing, cyanosis or edema, no calf tenderness and no pedal edema Neuro: SENSORIUM/ORIENTATION: Yes oriented to person, Yes oriented to place and Yes oriented to time Skin: COMMON NORMALS: no rashes or lesions noted GENERAL SKIN EXAM: no rashes or lesions noted Course Vital Signs: Vital signs: Vital Signs Temperature 98.5 F 03/14/23 17:53 Pulse Rate 91 03/14/23 17:53 Respiratory Rate 20 H 03/14/23 17:53 Blood Pressure 96/60 03/14/23 17:53 Pulse Oximetry 98 03/14/23 17:53 Oxygen Delivery Me thod Nasal Cannula 03/14/23 17:53 Oxygen Flow Rate 2 03/14/23 17:53 [facility] - General Adult Medical Decision Making Care signed out to Dr. Sanchez at change of shift. See final notes for diagnosis and disposition. 67-year-old male checked out to me by the previous physician at shift change. This gentleman is feeling dizzy and weak at home. He had a low blood pressure. He had taken his antihypertensives as well. Infusion of a liter bolus of fluid, and improvement in his blood pressure, he feels much better. He wishes to go home. CBC is not remarkable. BMP is not remarkable. Chest x-ray is negative. Urinalysis is not remarkable. Troponin did not rise at [address] changes on EKG. BUN and creatinine are normal. He was encouraged not to take his lisinopril or his prazosin for the next 24 hours, and to check his blood pressure often. He will return to his blood pressure medicine should his blood pressure increase. Close outpatient follow-up. Return for any worsening or new symptoms. Lab Data 03/14/23 17:11 03/14/23 17:11 Radiology Impressions Chest X-Ray 03/14/23 17:51 IMPRESSION: No acute findings. Laboratory Results WBC 7.7 10^3/uL (4.0-10.0) 03/14/23 17:11 RBC 4.83 10^6/uL (4.1-5.3) 03/14/23 17:11 Hgb 15.3 g/dL (11.7-16.6) 03/14/23 17:11 Hct 47.1 % (42.0-52.0) 03/14/23 17:11 MCV 97.5 fl (80-94) H 03/14/23 17:11 MCH 31.7 pg (28.0-34.0) 03/14/23 17:11 MCHC 32.5 g/dL (30.0-36.0) 03/14/23 17:11 RDW 12.8 % (12.1-15.1) 03/14/23 17:11 Plt Count 307 10^3/cmm (130-400) 03/14/23 17:11 MPV 9.7 fL (7.4-10.4) 03/14/23 17:11 Neut % (Auto) 61.8 % 03/14/23 17:11 Lymph % (Auto) 28.5 % 03/14/23 17:11 Emmons % (Auto) 7.8 % 03/14/23 17:11 Eos % (Auto) 1.4 % 03/14/23 17:11 Baso % (Auto) 0.4 % 03/14/23 17:11 Neut # (Auto) 4.74 10^3/uL (1.8-7.7) 03/14/23 17:11 Lymph # (Auto) 2.2 10^3/uL (0.8-4.8) 03/14/23 17:11 Emmons # (Auto) 0.6 10^3/uL (0.2-0.9) 03/14/23 17:11 Eos # (Auto) 0.1 10^3/uL (0.0-0.8) 03/14/23 17:11 Baso # (Auto) 0.0 10^3/uL (0.0-0.1) 03/14/23 17:11 Nucleated RBC % (auto) 0 % 03/14/23 17:11 Nucleated RBCs # 0.0 /100WBC 03/14/23 17:11 Sodium 139 mmol/L (136-145) 03/14/23 17:11 Potassium 3.8 mmol/L (3.5-5.1) 03/14/23 17:11 Chloride 99 mmol/L (98-107) 03/14/23 17:11 Carbon Dioxide 24 mmol/L (22-29) 03/14/23 17:11 Anion Gap 19.8 (5-19) H 03/14/23 17:11 BUN 10 mg/dL (8-23) 03/14/23 17:11 Creatinine 0.8 mg/dL (0.7-1.2) 03/14/23 17:11 GFR Calculation 97.0 mL/min (90-130) 03/14/23 17:11 Glucose 134 mg/dL (65-115) H 03/14/23 17:11 Calculated Osmolality 289 mOsm/kg (285-295) 03/14/23 17:11 Calcium 8.8 mg/dL (8.5-10.5) 03/14/23 17:11 Total Bilirubin 0.2 mg/dL (0.15-1.2) 03/14/23 17:11 AST 20 U/L (0-40) 03/14/23 17:11 ALT 23 U/L (0-41) 03/14/23 17:11 Alkaline Phosphatase 92 U/L (40-130) 03/14/23 17:11 Troponin T Baseline 11 ng/L (0-15) 03/14/23 17:51 Troponin T 120 Minute 9.16 ng/L (0-15) 03/14/23 20:30 Delta Troponin T -1.84 ABS# (0-10) L 03/14/23 20:30 Total Protein 6.9 g/dL (6.6-8.7) 03/14/23 17:11 Albumin 4.2 g/dL (3.5-5.2) 03/14/23 17:11 Globulin 2.7 g/dL (1.3-4.6) 03/14/23 17:11 Urine Color Straw (Yellow) 03/14/23 18:25 Urine Appearance Clear (CLEAR) 03/14/23 18:25 Urine pH 7 (5-7) 03/14/23 18:25 Ur Specific Clemons 1.005 (1.005-1.030) 03/14/23 18:25 Urine Protein Neg (Negative) 03/14/23 18:25 Urine Glucose (UA) Norm (Normal) 03/14/23 18:25 Urine Ketones Negative (Negative) 03/14/23 18:25 Urine Blood 2+ (Negative) H 03/14/23 18:25 Urine Nitrate Negative (Negative) 03/14/23 18:25 Urine Bilirubin Neg (Negative) 03/14/23 18:25 Urine Urobilinogen Norm mg/dL (Negative) 03/14/23 18:25 Ur Leukocyte Esterase Negative (Negative) 03/14/23 18:25 Urine RBC 5-10 /hpf (0-2) H 03/14/23 18:25 Urine WBC None /hpf (0-5) 03/14/23 18:25 Ur Squamous Epith Cells None /hpf (0-5) 03/14/23 18:25 Amorphous Sediment Not Reportable 03/14/23 18:25 Urine Bacteria None /hpf (NONE) 03/14/23 18:25 Discharge Plan Discharge Patient Disposition: Home Clinical Impression: Acute dehydration, Hypotension Condition: Stable Prescriptions: No Action multivitamin [Multiple Vitamins] Tablet 1 tab PO DAILY aspirin [Aspirin Childrens] 81 mg tablet,chewable 81 mg PO DAILY folic acid 1 mg tablet 1 mg PO DAILY cholecalciferol (vitamin D3) 50 mcg (2,000 unit) capsule 50 mcg PO DAILY Spiriva Respimat 2.5 mcg/actuation mist 2 puff inhalation DAILY loratadine [Claritin] 10 mg tablet 10 mg PO DAILY 90 Days Qty: 90 1RF lisinopril 30 mg tablet 30 mg PO DAILY Qty: 30 1RF duloxetine 60 mg capsule,delayed release(DR/EC) 60 mg PO DAILY Qty: 90 0RF fluticasone propionate [Flonase Allergy Relief] 50 mcg/actuation spray,suspension 1 spray intranasal BID Qty: 16 1RF Rx Instructions: administer into each nostril gabapentin 300 mg capsule 300 mg PO .COMPLEX Qty: 360 0RF Rx Instructions: 900 mg orally in AM, 600 mg AT NOON, 900 mg AT 6PM; levetiracetam 1,000 mg tablet 1,000 mg PO BID Qty: 180 0RF lacosamide [Vimpat] 100 mg tablet 100 mg PO BID Qty: 180 0RF nitroglycerin 0.4 mg tablet, sublingual 0.4 mg sublingual Q5M PRN (Reason: chest pain) Qty: 25 6RF Rx Instructions: until response; do not exceed 3 doses per episode albuterol sulfate 90 mcg/actuation HFA aerosol inhaler 2 inh INHALATION Q4H PRN (Reason: shortness of breath or wheezing) Qty: 18 0RF meclizine 25 mg tablet 25 mg PO BID PRN (Reason: dizziness) Qty: 14 0RF atorvastatin 40 mg Tablet 20 mg PO QPM quetiapine 25 mg Tablet 12.5 mg PO BID fluticasone propion-salmeterol 250-50 mcg/dose Blister With Device 1 inh INHALATION BID phenytoin sodium extended 100 mg capsule 200 mg PO QPM tamsulosin 0.4 mg capsule 0.4 mg PO QPM prazosin 2 mg capsule 2 mg PO BEDTIME metoprolol tartrate 25 mg tablet 12.5 mg PO BID Qty: 180 3RF Discharge Orders: Discharge ED (Routine); Ordered 03/14/23 Ordered By: Bon Sanchez Referrals: Kourtney Almaguer MD [Primary Care Provider] - 1-3 days Patient Instructions: Dehydration (ED), Hypotension (ED) Activity Restrictions/Additional Instructions: Hold your lisinopril, and consider holding your prazosin for the next 24 hours. Check your blood pressure often. If blood pressure rises, you may resume these. Drink plenty of liquids for the next 48 hours. See your doctor early this week. Return for any chest discomfort, dizziness, syncope or passing out, mental status changes, any other concerning symptoms. Coding Level of Care Code ED Varnishing Unit Operator for Chg Fwd Documented by User: Bon Sanchez DO 03/15/23 05:19 HPI - General Adult General: Chief complaint: Dizziness Stated complaint: DIZZY; HYPOTENSION Time Seen by Provider: 03/14/23 17:46 [facility] PFSH: Medical History BPH (benign prostatic hyperplasia) BPPV (benign paroxysmal positional vertigo) COPD (chronic obstructive pulmonary disease) Dyslipidemia Left arm weakness Seizure disorder Stroke-like symptoms Surgical History S/P AAA repair using bifurcation graft Social History Smoking and tobacco status: current every day smoker Alcohol intake: never Substance/Drug Use: never Course Vital Signs: Vital signs: Vital Signs Temperature 98.5 F 03/14/23 17:53 Pulse Rate 91 03/14/23 17:53 Respiratory Rate 20 H 03/14/23 17:53 Blood Pressure 96/60 03/14/23 17:53 Pulse Oximetry 98 03/14/23 17:53 Oxygen Delivery Me thod Nasal Cannula 03/14/23 17:53 Oxygen Flow Rate 2 03/14/23 17:53 [facility] - General Adult Medical Decision Making 67-year-old male checked out to me by the previous physician at shift change. This gentleman is feeling dizzy and weak at home. He had a low blood pressure. He had taken his antihypertensives as well. Dr. Infusion of a liter bolus of fluid, and improvement in his blood pressure, he feels much better. He wishes to go home. CBC is not remarkable. BMP is not remarkable. Chest x-ray is negative. Urinalysis is not remarkable. Troponin did not rise at [address] changes on EKG. BUN and creatinine are normal. He was encouraged not to take his lisinopril or his prazosin for the next 24 hours, and to check his blood pressure often. He will return to his blood pressure medicine should his blood pressure increase. Close outpatient follow-up. Return for any worsening or new symptoms. Lab Data 03/14/23 17:11 03/14/23 17:11 Radiology Impressions Chest X-Ray 03/14/23 17:51 IMPRESSION: No acute findings. Laboratory Results WBC 7.7 10^3/uL (4.0-10.0) 03/14/23 17:11 RBC 4.83 10^6/uL (4.1-5.3) 03/14/23 17:11 Hgb 15.3 g/dL (11.7-16.6) 03/14/23 17:11 Hct 47.1 % (42.0-52.0) 03/14/23 17:11 MCV 97.5 fl (80-94) H 03/14/23 17:11 MCH 31.7 pg (28.0-34.0) 03/14/23 17:11 MCHC 32.5 g/dL (30.0-36.0) 03/14/23 17:11 RDW 12.8 % (12.1-15.1) 03/14/23 17:11 Plt Count 307 10^3/cmm (130-400) 03/14/23 17:11 MPV 9.7 fL (7.4-10.4) 03/14/23 17:11 Neut % (Auto) 61.8 % 03/14/23 17:11 Lymph % (Auto) 28.5 % 03/14/23 17:11 Emmons % (Auto) 7.8 % 03/14/23 17:11 Eos % (Auto) 1.4 % 03/14/23 17:11 Baso % (Auto) 0.4 % 03/14/23 17:11 Neut # (Auto) 4.74 10^3/uL (1.8-7.7) 03/14/23 17:11 Lymph # (Auto) 2.2 10^3/uL (0.8-4.8) 03/14/23 17:11 Emmons # (Auto) 0.6 10^3/uL (0.2-0.9) 03/14/23 17:11 Eos # (Auto) 0.1 10^3/uL (0.0-0.8) 03/14/23 17:11 Baso # (Auto) 0.0 10^3/uL (0.0-0.1) 03/14/23 17:11 Nucleated RBC % (auto) 0 % 03/14/23 17:11 Nucleated RBCs # 0.0 /100WBC 03/14/23 17:11 Sodium 139 mmol/L (136-145) 03/14/23 17:11 Potassium 3.8 mmol/L (3.5-5.1) 03/14/23 17:11 Chloride 99 mmol/L (98-107) 03/14/23 17:11 Carbon Dioxide 24 mmol/L (22-29) 03/14/23 17:11 Anion Gap 19.8 (5-19) H 03/14/23 17:11 BUN 10 mg/dL (8-23) 03/14/23 17:11 Creatinine 0.8 mg/dL (0.7-1.2) 03/14/23 17:11 GFR Calculation 97.0 mL/min (90-130) 03/14/23 17:11 Glucose 134 mg/dL (65-115) H 03/14/23 17:11 Calculated Osmolality 289 mOsm/kg (285-295) 03/14/23 17:11 Calcium 8.8 mg/dL (8.5-10.5) 03/14/23 17:11 Total Bilirubin 0.2 mg/dL (0.15-1.2) 03/14/23 17:11 AST 20 U/L (0-40) 03/14/23 17:11 ALT 23 U/L (0-41) 03/14/23 17:11 Alkaline Phosphatase 92 U/L (40-130) 03/14/23 17:11 Troponin T Baseline 11 ng/L (0-15) 03/14/23 17:51 Troponin T 120 Minute 9.16 ng/L (0-15) 03/14/23 20:30 Delta Troponin T -1.84 ABS# (0-10) L 03/14/23 20:30 Total Protein 6.9 g/dL (6.6-8.7) 03/14/23 17:11 Albumin 4.2 g/dL (3.5-5.2) 03/14/23 17:11 Globulin 2.7 g/dL (1.3-4.6) 03/14/23 17:11 Urine Color Straw (Yellow) 03/14/23 18:25 Urine Appearance Clear (CLEAR) 03/14/23 18:25 Urine pH 7 (5-7) 03/14/23 18:25 Ur Specific Clemons 1.005 (1.005-1.030) 03/14/23 18:25 Urine Protein Neg (Negative) 03/14/23 18:25 Urine Glucose (UA) Norm (Normal) 03/14/23 18:25 Urine Ketones Negative (Negative) 03/14/23 18:25 Urine Blood 2+ (Negative) H 03/14/23 18:25 Urine Nitrate Negative (Negative) 03/14/23 18:25 Urine Bilirubin Neg (Negative) 03/14/23 18:25 Urine Urobilinogen Norm mg/dL (Negative) 03/14/23 18:25 Ur Leukocyte Esterase Negative (Negative) 03/14/23 18:25 Urine RBC 5-10 /hpf (0-2) H 03/14/23 18:25 Urine WBC None /hpf (0-5) 03/14/23 18:25 Ur Squamous Epith Cells None /hpf (0-5) 03/14/23 18:25 Amorphous Sediment Not Reportable 03/14/23 18:25 Urine Bacteria None /hpf (NONE) 03/14/23 18:25 Discharge Plan Discharge Patient Disposition: Home Clinical Impression: Acute dehydration, Hypotension Condition: Stable Prescriptions: No Action multivitamin [Multiple Vitamins] Tablet 1 tab PO DAILY aspirin [Aspirin Childrens] 81 mg tablet,chewable 81 mg PO DAILY folic acid 1 mg tablet 1 mg PO DAILY cholecalciferol (vitamin D3) 50 mcg (2,000 unit) capsule 50 mcg PO DAILY Spiriva Respimat 2.5 mcg/actuation mist 2 puff inhalation DAILY loratadine [Claritin] 10 mg tablet 10 mg PO DAILY 90 Days Qty: 90 1RF lisinopril 30 mg tablet 30 mg PO DAILY Qty: 30 1RF duloxetine 60 mg capsule,delayed release(DR/EC) 60 mg PO DAILY Qty: 90 0RF fluticasone propionate [Flonase Allergy Relief] 50 mcg/actuation spray,suspension 1 spray intranasal BID Qty: 16 1RF Rx Instructions: administer into each nostril gabapentin 300 mg capsule 300 mg PO .COMPLEX Qty: 360 0RF Rx Instructions: 900 mg orally in AM, 600 mg AT NOON, 900 mg AT 6PM; levetiracetam 1,000 mg tablet 1,000 mg PO BID Qty: 180 0RF lacosamide [Vimpat] 100 mg tablet 100 mg PO BID Qty: 180 0RF nitroglycerin 0.4 mg tablet, sublingual 0.4 mg sublingual Q5M PRN (Reason: chest pain) Qty: 25 6RF Rx Instructions: until response; do not exceed 3 doses per episode albuterol sulfate 90 mcg/actuation HFA aerosol inhaler 2 inh INHALATION Q4H PRN (Reason: shortness of breath or wheezing) Qty: 18 0R F meclizine 25 mg tablet 25 mg PO BID PRN (Reason: dizziness) Qty: 14 0RF atorvastatin 40 mg Tablet 20 mg PO QPM quetiapine 25 mg Tablet 12.5 mg PO BID fluticasone propion-salmeterol 250-50 mcg/dose Blister With Device 1 inh INHALATION BID phenytoin sodium extended 100 mg capsule 200 mg PO QPM tamsulosin 0.4 mg capsule 0.4 mg PO QPM prazosin 2 mg capsule 2 mg PO BEDTIME metoprolol tartrate 25 mg tablet 12.5 mg PO BID Qty: 180 3RF Discharge Orders: Discharge ED (Routine); Ordered 03/14/23 Ordered By: Bon Sanchez Referrals: Kourtney Almaguer MD [Primary Care Provider] - 1-3 days Patient Instructions: Dehydration (ED), Hypotension (ED) Activity Restrictions/Additional Instructions: Hold your lisinopril, and consider holding your prazosin for the next 24 hours. Check your blood pressure often. If blood pressure rises, you may resume these. Drink plenty of liquids for the next 48 hours. See your doctor early this week. Return for any chest discomfort, dizziness, syncope or passing out, mental status changes, any other concerning symptoms. Coding Level of Care Code ED Varnishing Unit Operator for Chava Cavanaugh
[2023-03-14 18:00] LABS: Basophils % 0.4 %; Eosinophils # 0.1 10^3/uL (0.0-0.8); Eosinophils % 1.4 %; Hematocrit 47.1 % (42.0-52.0); Hemoglobin 15.3 g/dL (11.7-16.6); Lymphocytes # 2.2 10^3/uL (0.8-4.8); Lymphocytes % 28.5 %; Mean Corpuscular HGB Conc 32.5 g/dL (30.0-36.0); Mean Corpuscular Hemoglobin 31.7 pg (28.0-34.0); Mean Corpuscular Volume 97.5 fl (80-94); Mean Platelet Volume 9.7 fL (7.4-10.4); Monocytes # 0.6 10^3/uL (0.2-0.9); Monocytes % 7.8 %; Neutrophils # 4.74 10^3/uL (1.8-7.7); Neutrophils % 61.8 %; Nucleated Red Blood Cells % 0 %; Platelet Count 307 10^3/cmm (130-400); Red Blood Count 4.83 10^6/uL (4.1-5.3); Red Cell Distribution Width 12.8 % (12.1-15.1); White Blood Count 7.7 10^3/uL (4.0-10.0)
[2023-03-14 18:15] LABS: Alanine Aminotransferase 23 U/L (0-41); Albumin Level 4.2 g/dL (3.5-5.2); Alkaline Phosphatase 92 U/L (40-130); Anion Gap 19.8 (5-19); Aspartate Amino Transferase 20 U/L (0-40); Blood Urea Nitrogen 10 mg/dL (8-23); Calcium 8.8 mg/dL (8.5-10.5); Carbon Dioxide 24 mmol/L (22-29); Chloride 99 mmol/L (98-107); Globulin 2.7 g/dL (1.3-4.6); Glucose 134 mg/dL (65-115); Osmolality Calculated 289 mOsm/kg (285-295); Potassium 3.8 mmol/L (3.5-5.1); Sodium 139 mmol/L (136-145); Total Bilirubin 0.2 mg/dL (0.15-1.2); Total Protein 6.9 g/dL (6.6-8.7)
[2023-03-14 18:37] LABS: Troponin(5th) Baseline 11 ng/L (0-15)
[2023-03-14] MEDS: sodium chloride 0.9% 1,000 ML 999 ML IV (18:43)
[2023-03-14 18:50] LABS: Add Urine Microscopic? YES; Bilirubin Urine Neg (Negative); Blood Urine 2+ (Negative); Glucose Urine UA Norm (Normal); Ketones Urine Negative (Negative); Leukocyte Esterase Urine Negative (Negative); Nitrate Urine Negative (Negative); Protein Urine Neg (Negative); Specific Gravity, Urine 1.005 (1.005-1.030); Urine Appearance Clear (CLEAR); Urine Color Straw (Yellow); Urobilinogen Urine Norm (Negative); pH Urine 7 (5-7)
[2023-03-14 18:53] LABS: Add Urine Culture? No
[2023-03-14 21:06] LABS: Troponin 5 2HR 9.16 ng/L (0-15)
[2023-03-14 21:21] LABS: Troponin 5 2HR Delta -1.84 ABS# (0-10)
== END 2023-03-14 22:00 | disposition home or self-care (01) ==
PROVIDERS: Family Medicine; Emergency Provider Emergency Medicine; PCP Family Medicine
DX: I95.9 Hypotension, unspecified (principal); E86.0 Dehydration; Z79.82 Long term (current) use of aspirin; J44.9 Chronic obstructive pulmonary disease, unspecified; E78.5 Hyperlipidemia, unspecified; F17.210 Nicotine dependence, cigarettes, uncomplicated
CPT/HCPCS: 71045; 80053; 81001; 84484; 85025; 93005; 99285; J7030

== ENCOUNTER → 2023-03-18 12:17 | Outpatient (BNVA) | payer OTHER, SELFPAY | PROVIDERS: PCP Family Medicine; Referring Provider Family Medicine; Visit Provider Orthopaedic Surgery | DX: M25.512 Pain in left shoulder (principal) | CPT/HCPCS: 99203 ==

== ENCOUNTER → 2023-03-18 12:56 | Outpatient (BNVA) | payer OTHER, SELFPAY | PROVIDERS: PCP Family Medicine; Referring Provider Family Medicine; Visit Provider Orthopaedic Surgery | DX: M25.512 Pain in left shoulder (principal) | CPT/HCPCS: 73030 ==

== ENCOUNTER 2023-04-07 14:28 | Outpatient (CLI) | payer OTHER, SELFPAY ==
--- NOTE | 2023-04-07 14:30 | MR_ITS ---
WS: [id number] MRI LEFT SHOULDER NONCONTRAST TECHNIQUE: Sagittal T2, coronal T1, T2 and proton density imaging. Axial gradient PDE imaging. CLINICAL INFORMATION: pain COMPARISON: None. FINDINGS: Moderate degenerative arthritis AC joint. Mild downsloping acromion. Slight subacromial spurring. Rajinder rowing of the subacromial space. Impingement on the distal supraspinatus with small insertional tear. Tendinopathy in the distal supraspinatus. Tiny insertional tear at the distal infraspinatus with tendinopathy. Mild chronic thinning of the sup raspinatus and infraspinatus. Teres minor appears intact. Normal subscapularis. Biceps tendon appears intact within the bicipital groove. Suspected SLAP tear anterior superior labrum. Intra-articular bi ceps tendon appears intact. Normal bone marrow signal in the glenoid. No significant Hill-Sachs defor mity. Moderate degenerative narrowing at the glenohumeral joint. IMPRESSION: 1. Moderate degenerative arthritis AC joint with narrowing of the subacromial space. 2. Small insertional tears supraspinatus and infraspinatus with tendinopathy and chronic thinning. 3. Rotator cuff is otherwise intact. 4. Normal biceps tendon in the bicipital groove. 5. Irregularity at the anterior superior labrum suspicious for SLAP tear. 6. No other acute findings.
== END 2023-04-07 14:29 | disposition home or self-care (01) ==
PROVIDERS: PCP Family Medicine; Visit Provider Orthopaedic Surgery
DX: M19.012 Primary osteoarthritis, left shoulder (principal); M75.102 Unspecified rotator cuff tear or rupture of left shoulder, not specified as traumatic
CPT/HCPCS: 73221

== ENCOUNTER → 2023-04-13 14:16 | Outpatient (BNVA) | payer OTHER, SELFPAY | PROVIDERS: PCP Family Medicine; Visit Provider Nurse Practitioner Family | DX: I65.22 Occlusion and stenosis of left carotid artery (principal); R07.9 Chest pain, unspecified; F17.200 Nicotine dependence, unspecified, uncomplicated | CPT/HCPCS: 99213 ==

== ENCOUNTER 2023-04-29 15:22 | Outpatient (CLI) | payer OTHER, SELFPAY ==
--- NOTE | 2023-04-29 15:15 | USCV_ITS ---
Kelseyfrannysiena Wang Age: 67 Gender: M : 1955 Exam Date: 04/29/2023 16:14 Ordering Phys: Ara Walsh MD ([email or web address]) Technologist: CT Exam Location: [facility] [place] Indication: sob BP: 120 / 80 HR: 81 Rhythm: Sinus Technical Quality: Adequate MEASUREMENTS (Male / Female) Normal Values 2D ECHO LV Diastolic Diameter PLAX 4.3 cm 4.2 - 5.9 / 3.9 - 5.3 cm LV Systolic Diameter PLAX 2.4 cm IVS Diastolic Thickness 1.0 cm 0.6 - 1.0 / 0.6 - 0.9 cm IVS Systolic Thickness 1.3 cm LVPW Diastolic Thickness 1.0 cm 0.6 - 1.0 / 0.6 - 0.9 cm LVPW Systolic Thickness 1.4 cm LVOT Diameter 2.0 cm LV Ejection Fraction 2D Teich 68.7 % LV Ejection Fraction MOD 2C 67.2 % LV Ejection Fraction 2C AL 67.2 % LA Diameter 3.5 cm Aorta at Sinotubular Diameter 3.1 cm IVC Diameter 1.3 cm M-MODE Aortic Annulus Diameter 3.7 cm LA Ao Ratio MM 0.9 MV E Point Septal Separation 0.7 cm DOPPLER AV Peak Velocity 113.0 cm/s LVOT Peak Velocity 87.0 cm/s AV Area Cont Eq vti 2.5 cm squared AV Area Cont Eq pk 2.5 cm squared MV Peak Velocity 69.0 cm/s MV Area PHT 3.6 cm squared Mitral E to A Ratio 0.8 MV E' Velocity 34.0 cm/s Mitral E to MV E' Ratio 9.1 Mitral E to LV E' Lateral Ratio 10.1 Mitral E to LV E' Septal Ratio 8.3 Right Atrial Pressure 3.0 mmHg PV Peak Velocity 72.0 cm/s RV Acceleration Time 0.1 s FINDINGS Left Ventricle Normal left ventricular size and systolic function, EF 61 %. No regional wall motion abnormalities. Grade I/IV diastolic dysfunction (abnormal relaxation filling pattern), normal to mildly elevated filling pressures. Right Ventricle The right ventricle is normal in size and function. Right Atrium The right atrium is normal in size. Left Atrium The left atrium is normal in size. Mitral Valve No gross abnormalities noted Aortic Valve No gross abnormalities noted Tricuspid Valve No gross abnormalities noted Pulmonic Valve Pulmonic valve not well visualized. Pericardium Normal pericardium without effusion. Aorta Normal ascending aorta dimension. IVC Normal inferior vena cava. CONCLUSIONS Normal left ventricular size and systolic function, EF 61 %. No regional wall motion abnormalities. Grade I/IV diastolic dysfunction (abnormal relaxation filling pattern), normal to mildly elevated filling pressures. Normal cardiac chamber sizes. No significant stenotic or relative lesions. There is no pericardial effusion. There are no intracardiac masses. No similar previous studies are available for comparison Dr Ara Walsh MD [facility] (Electronically Signed) Final Date: 08 May 2023 08:49 S
== END 2023-04-29 15:23 | disposition home or self-care (01) ==
LOC: RAD 15:23
PROVIDERS: Visit Provider Internal Medicine Cardiovascular Disease
DX: R06.09 Other forms of dyspnea (principal)
CPT/HCPCS: 93306; 99205

== ENCOUNTER 2023-05-06 09:28 | Outpatient (CLI) | payer OTHER, SELFPAY ==
--- NOTE | 2023-05-06 09:39 | USCV_ITS ---
Wang Castellon Age: 67 Gender: M : 1955 Exam Date: 05/06/2023 10:10 Ordering Phys: Ara Walsh MD ([email or web address]) Technologist: Andrews Freed Exam Location: [facility] [place] Indication: Right leg pain HISTORY: Diameter (cm) AP x Transverse x Length Velocity (cm/s) Waveform Prox Aorta: 1.71 x 1.64 x 73.50 Mid Aorta: 2.16 x 2.48 x 32.20 Distal Aorta: 2.22 x 2.15 x 50.40 Right Iliac Prox: 0.60 x 1.16 x 31.70 Left Iliac Prox: 0.68 x 1.09 x 75.20 Stent Prox Landing x x Aneurysmal Sac Max x x Lt Lat Sac Dim Rt Lat Sac Dim Stent Dist Landing 2.01 1.36 x x Right Iliac Stent 0.65 x 1.06 x Left Iliac Stent 0.75 x 1.06 x Right Renal Art Left Renal Art FINDINGS: The aortic aneurysm sac measured 2.5 cm at its maximum width. The aorta stent graft measured 1.13 cm in diameter. . Distally landing measure 2.01 x 1.36. Proximal landing could not be identified The iliac limbs of the stent grafts were found to be patent and measuring 0.65 x 1.06 on the right and 0.75 x 1.76 on the left CONCLUSIONS 1. Patent aortic and iliac stent grafts 2. Maximum width of the aneurysm sac was measured to be 2.5 cm 3. Proximal stent graft landing was not identified well. Technically somewhat difficult study Dr Ara Walsh MD [facility] (Electronically Signed) Final Date: 08 May 2023 15:32 S
--- NOTE | 2023-05-06 09:40 | USCV_ITS ---
Kelseyfrannysiena Wang Age: 67 Gender: M : 1955 Exam Date: 05/06/2023 10:41 Ordering Phys: Ara Walsh MD ([email or web address]) Technologist: INDIRA [place]am [place] [facility] [place] Indication: PVD Risk Factors: Previous Vascular Surgery: RIGHT LEFT BP: 153.0 / 77.00 BP: 137.0/ 73.00 0 0 Waveform Velocity (cm/s) Velocity (cm/s) Waveform Monophasic 57.5 Iliac Prox 104.8 Triphasic Monophasic 57.5 Iliac Mid 167.9 Triphasic Monophasic 50.5 Iliac Distal 159.2 Triphasic Monophasic 51.3 CUPOLA HOIST OPERATOR 162.9 Triphasic Monophasic 47.4 SFA Prox 90.6 Biphasic Monophasic 47.4 SFA Mid 89.7 Biphasic Monophasic 41.2 SFA Dist 125.7 Biphasic Monophasic 26.1 POP 63.9 Biphasic Monophasic 9.8 SCIENTIFIC DATABASE CURATOR 43.0 Biphasic Monophasic 15.2 DPA 41.4 Biphasic 0.4 HUGO 0.8 FINDINGS Right BP 153/77 RT DPA 66 RT PT 42 Left BP 137/73 Left DP 112 Left PT 130 Moderate diffuse plaques in the iliac and femoral artery on the right side. Relatively low velocity monophasic and continuous waveforms in the iliac, femoral and popliteal arteries. Mild diffuse plaque in the left iliac and femoral artery Triphasic/biphasic waveforms with normal velocities on the left side Rest during HUGO of 0.4 on the right and 0.8 on the left CONCLUSIONS 1. Abnormal resting HUGO on the right side suggestive of severe peripheral artery disease. 2. Features of collateral filling in the iliac, femoral and popliteal arteries. Possible high-grade lesions in the infrapopliteal vessels. 2. Features of mild peripheral artery disease on the left side Dr Ara Walsh MD [facility] (Electronically Signed) Final Date: 08 May 2023 14:16 S
== END 2023-05-06 09:29 | disposition home or self-care (01) ==
LOC: RAD 09:29
PROVIDERS: PCP Family Medicine; Visit Provider Internal Medicine Cardiovascular Disease
DX: I73.9 Peripheral vascular disease, unspecified (principal); I72.4 Aneurysm of artery of lower extremity; Z95.820 Peripheral vascular angioplasty status with implants and grafts
CPT/HCPCS: 93925; 93978

== ENCOUNTER → 2023-05-11 10:36 | Outpatient (BNVA) | payer OTHER, SELFPAY | PROVIDERS: PCP Family Medicine; Visit Provider Internal Medicine Cardiovascular Disease | DX: I71.40 Abdominal aortic aneurysm, without rupture, unspecified (principal); I73.9 Peripheral vascular disease, unspecified; E78.5 Hyperlipidemia, unspecified; F17.200 Nicotine dependence, unspecified, uncomplicated | CPT/HCPCS: 99214 ==

== ENCOUNTER 2023-05-20 15:21 | Outpatient (CLI) | payer OTHER, SELFPAY ==
--- NOTE | 2023-05-20 15:30 | CTR_ITS ---
PROCEDURE INFORMATION: Exam: CTA Abdominal Aorta and Bilateral Lower Extremities (Run-off) With Contrast Exam date and time: 05/20/2023 3:57 PM Age: 67 years old Clinical indication: Condition or disease; Arterial aneurysm and other: Pad; Without rupture; Abdominal; Prior surgery; Surgery date: 6+ months; Surgery type: Aaa, RT lung, urolift; Additional info: Aaa and pad TECHNIQUE: Imaging protocol: Computed tomographic angiography of the of the abdominal aorta, pelvis and bilateral lower extremities with contrast. 3D rendering (Not supervised by radiologist): MIP and/or 3D reconstructed images were created by the technologist. Radiation optimization: All CT scans at this facility use at least one of these dose optimization techniques: automated exposure control; mA and/or kV adjustment per patient size (includes targeted exams where dose is matched to clinical indication); or iterative reconstruction. Contrast material: OMNI 350; Contrast volume: 95 ml; Contrast route: INTRAVENOUS (IV); REPORTING DATA: Count of CT and Cardiac NM exams in prior 12 months: This patient has received 5 known CTs and 0 known cardiac nuclear medicine studies in the 12 months prior to the current study. COMPARISON: CR (CHEST, ) 03/14/2023 6:00 PM RADIATION DOSE METRICS: Total DLP (mGy-cm): 1212.03 FINDINGS: Aorta: There is fusiform enlargement of the infrarenal abdominal aorta with a transverse diameter up to 3.5 cm. 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 The left limb is widely patent but the right limb is occluded. There is mural thrombus calcification but no evidence of an endoleak. Celiac trunk and mesenteric arteries: The celiac axis and SMA are widely patent. The inferior mesenteric artery is occluded at its origin but reconstitutes. Renal arteries: No occlusion or significant stenosis. Right iliac arteries: The right common iliac artery incorporates the occluded distal right limb of the endograft. There is reconstitution of the right external and internal iliac arteries though small in caliber. No aneurysm. Right femoral/popliteal arteries: No occlusion or significant stenosis. No aneurysm. Right infrapopliteal arteries: No occlusion or significant stenosis. Left iliac arteries: The left common iliac artery incorporates the widely patent distal left limb of the endograft. The external and internal iliac arteries are patent without significant stenosis. No aneurysm. Left femoral/popliteal arteries: No occlusion or significant stenosis. No aneurysm. Left infrapopliteal arteries: No occlusion or significant stenosis. Veins: The mesenteric, splenic, portal, hepatic and renal veins are patent. The inferior vena cava and iliofemoral veins are patent and have normal calibers. Lungs: Bibasilar emphysema. Coronary arteries: Calcified coronary artery atherosclerotic plaque visualized. Liver: The liver is homogeneous and is not enlarged. Gallbladder and bile ducts: No calcified gallstones, gallbladder wall thickening, or pericholecystic inflammation. No biliary ductal dilation. Pancreas: No pancreatic mass. No peripancreatic inflammation. No pancreatic ductal dilation. Spleen: The spleen is homogeneous and is not enlarged. Adrenal glands: No adrenal mass. Kidneys and ureters: There is left nephrolithiasis. No hydronephrosis. No renal mass. Stomach and bowel: No bowel obstruction or diverticulitis. Appendix: The appendix has a normal caliber. There is gas in the lumen. No appendiceal wall thickening or periappendiceal inflammation. Urinary bladder: The bladder is not distended. No bladder calculus. Reproductive: The prostate is enlarged. Surgical clips at/near the junction of the prostate in the bladder. Intraperitoneal space: No ascites or pneumoperitoneum. Lymph nodes: No lymphadenopathy. Bones/joints: No acute osseous abnormality. Soft tissues: No acute soft tissue abnormality. CT/CT angio abd aorta runof [id number] IMPRESSION: 1. 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 2. Occluded right limb of the endograft. Widely patent left limb. 3. No infra-inguinal arterial occlusion or significant stenosis. 4. No iliac, femoral or popliteal artery aneurysm.
[2023-05-20 15:57] LABS: Blood Urea Nitrogen 9 mg/dL (8-23); Glomerular Filtration Rate 84.7 mL/min (90-130)
[2023-05-20] MEDS: iohexol 350 mg/mL 500 mL Btl (per mL) IV (16:19)
== END 2023-05-20 15:22 | disposition home or self-care (01) ==
LOC: RAD 15:22
PROVIDERS: PCP Family Medicine; Visit Provider Internal Medicine Cardiovascular Disease
DX: I71.43 Infrarenal abdominal aortic aneurysm, without rupture (principal); T82.390A Other mechanical complication of aortic (bifurcation) graft (replacement), initial encounter; Y71.1 Therapeutic (nonsurgical) and rehabilitative cardiovascular devices associated with adverse incidents; I70.0 Atherosclerosis of aorta
CPT/HCPCS: 75635; 82565; 84520; Q9967

== ENCOUNTER → 2023-06-10 14:26 | Outpatient (BNVA) | payer OTHER, SELFPAY | PROVIDERS: PCP Family Medicine; Visit Provider Specialist | DX: G62.9 Polyneuropathy, unspecified (principal); G40.909 Epilepsy, unspecified, not intractable, without status epilepticus; I65.22 Occlusion and stenosis of left carotid artery; F17.200 Nicotine dependence, unspecified, uncomplicated; F10.91 Alcohol use, unspecified, in remission | CPT/HCPCS: 95816; 99214 ==

== ENCOUNTER → 2023-07-01 12:32 | Outpatient (BNVA) | payer OTHER, SELFPAY | PROVIDERS: PCP Family Medicine; Visit Provider Internal Medicine | DX: I73.9 Peripheral vascular disease, unspecified (principal); E78.5 Hyperlipidemia, unspecified; F17.210 Nicotine dependence, cigarettes, uncomplicated; Z79.82 Long term (current) use of aspirin | CPT/HCPCS: 99214 ==

== ENCOUNTER → 2023-08-11 14:29 | Outpatient (BNVA) | payer OTHER, SELFPAY | PROVIDERS: PCP Family Medicine; Referring Provider Specialist; Visit Provider Specialist | DX: R29.90 Unspecified symptoms and signs involving the nervous system (principal); G40.909 Epilepsy, unspecified, not intractable, without status epilepticus | CPT/HCPCS: 95816 ==

== ENCOUNTER → 2023-08-17 14:57 | Outpatient (BNVA) | payer OTHER, SELFPAY | PROVIDERS: PCP Family Medicine; Referring Provider Family Medicine; Visit Provider Specialist | DX: M19.012 Primary osteoarthritis, left shoulder; M62.838 Other muscle spasm | CPT/HCPCS: 20610; 73030; 99214; J1100; J2795; J3301 ==

== ENCOUNTER → 2023-10-14 13:19 | Outpatient (BNVA) | payer OTHER, SELFPAY | PROVIDERS: PCP Family Medicine; Visit Provider Internal Medicine Cardiovascular Disease | DX: R00.2 Palpitations (principal); I73.9 Peripheral vascular disease, unspecified; E78.5 Hyperlipidemia, unspecified; I71.40 Abdominal aortic aneurysm, without rupture, unspecified; F17.200 Nicotine dependence, unspecified, uncomplicated; I65.22 Occlusion and stenosis of left carotid artery | CPT/HCPCS: 99214 ==

== ENCOUNTER 2023-10-20 20:00 | Outpatient (CLI) | payer OTHER, SELFPAY | END 2023-10-20 20:01 | disposition home or self-care (01) | LOC: SLEEP 10-21 06:03 | PROVIDERS: PCP Family Medicine; Visit Provider Family Medicine | DX: G47.36 Sleep related hypoventilation in conditions classified elsewhere (principal); J43.9 Emphysema, unspecified; R53.83 Other fatigue; F43.10 Post-traumatic stress disorder, unspecified; I71.40 Abdominal aortic aneurysm, without rupture, unspecified | CPT/HCPCS: 95810 ==

== ENCOUNTER 2023-10-26 14:08 | Emergency (ER) | payer OTHER, SELFPAY ==
[2023-10-26 14:36] VITALS: BP 131/78; PULSE 104; RESP 16; TEMP 36.9; O2SAT 98; BMI 21.8
[2023-10-26 15:02] VITALS: PULSE 103; O2SAT 98
--- NOTE | 2023-10-26 15:04 | PC.NURSE ---
this nurse completed triage note and assessment note
--- NOTE | 2023-10-26 15:07 | XR_ITS ---
WS: [id number] Left knee, 3 views, 10/26/2023 Clinical Data: trauma Comparison: None. Findings: No fractures or dislocations are seen. There is minimal medial joint compartment narrowing. The downs la is intact. The soft tissues are unremarkable. There are vascular calcifications. Impression: Minimal osteoarthritis of the left knee Kellgren-Luis Classification: grade 1 (doubtful): doubtful joint space narrowing and possible ost eophytic lipping
--- NOTE | 2023-10-26 15:07 | CTR_ITS ---
PROCEDURE INFORMATION: Exam: CT Head Without Contrast Exam date and time: 10/26/2023 3:14 PM Age: 67 years old Clinical indication: Injury or trauma; Fall; Blunt trauma (contusions or hematomas); Consciousness not specified TECHNIQUE: Imaging protocol: Computed tomography of the head without contrast. Radiation optimization: All CT scans at this facility use at least one of these dose optimization techniques: automated exposure control; mA and/or kV adjustment per patient size (includes targeted exams where dose is matched to clinical indication); or iterative reconstruction. REPORTING DATA: Count of CT and Cardiac NM exams in prior 12 months: This patient has received 4 known CTs and 0 known cardiac nuclear medicine studies in the 12 months prior to the current study. COMPARISON: MR head wo/w con [id number] 02/16/2023 10:52 AM RADIATION DOSE METRICS: Total DLP (mGy-cm): 949.4 FINDINGS: Brain: Mild parenchymal volume loss. No midline shift. No mass, acute infarct, hemorrhage, or extra-axial fluid collection. Cerebral ventricles: No ventriculomegaly. Paranasal sinuses: Visualized sinuses are unremarkable. No fluid levels. Mastoid air cells: Visualized mastoid air cells are well aerated. Bones/joints: Unremarkable. No acute fracture. Soft tissues: Unremarkable. CT/CT head wo con* [id number] IMPRESSION: No acute intracranial abnormality.
--- NOTE | 2023-10-26 15:07 | CTR_ITS ---
PROCEDURE INFORMATION: Exam: CT Maxillofacial Without Contrast Exam date and time: 10/26/2023 3:14 PM Age: 67 years old Clinical indication: Injury or trauma; Fall; Blunt trauma (contusions or hematomas); Cheek bone; Left TECHNIQUE: Imaging protocol: Computed tomography of the face without contrast. Radiation optimization: All CT scans at this facility use at least one of these dose optimization techniques: automated exposure control; mA and/or kV adjustment per patient size (includes targeted exams where dose is matched to clinical indication); or iterative reconstruction. REPORTING DATA: Count of CT and Cardiac NM exams in prior 12 months: This patient has received 4 known CTs and 0 known cardiac nuclear medicine studies in the 12 months prior to the current study. COMPARISON: CT head wo con* [id number] 10/26/2023 3:14 PM RADIATION DOSE METRICS: Total DLP (mGy-cm): 572 FINDINGS: Orbital cavities: Orbits are normal. Globes are unremarkable. Bones/joints: No fracture seen. Paranasal sinuses: Minor mucosal thickening ethmoid sinuses. No air-fluid levels. Soft tissues: Left-sided facial swelling. Soft tissue injury with tiny amount of subcutaneous emphysema. Dental: Note is made of lucency surrounding the root of the posterior most left mandibular molar. CT/CT facial bones wo con* [id number] IMPRESSION: No acute bony abnormality.
--- NOTE | 2023-10-26 15:08 | W.ED.FALL ---
HPI - Fall General: Chief Complaint: Wound/Laceration Stated Complaint: needs face lac and knee looked at Time Seen by Provider: 10/26/23 14:22 Source: patient Mode of arrival: ambulatory Limitations: no limitations History of Present Illness: Patient is a nice 67-year-old male who presents to ED today for evaluation following a fall that occurred 2 days ago after he accidentally tripped and fell over an extension cord. Patient states he injured his left knee as well as his left face/orbit. He was instructed to come to the ED by his primary care provider. Since the fall patient has been ambulating with the help of a crutch but states he continues to have quite a bit of pain around the knee. He has not had any headache, altered mental status, or repetitive episodes of vomiting. He feels like the bruising around his eye has improved with the ice he has been using. MD complaint: fall Onset (ago): day(s) Fall from: standing Fall witnessed: yes, by family Place fall occurred: home Loss of consciousness: None Prolonged down time: no Symptoms prior to fall: none Context: tripped/slipped Location of injury: head and face Location of injury - extremities: Left: knee Severity: moderate Associated symptoms-after fall: Reports difficulty walking (secondary to knee pain); Denies abdominal pain, chest pain, headache(s), hematuria, lightheadedness or neck pain Review of Systems Eyes: Reports: other (swelling/bruising around L orbit); Denies: change in vision, blurry vision, photophobia, eye discharge, floaters or seeing flashes ENMT: Denies: throat pain, odynophagia, ear or mastoid pain, ear discharge, nasal discharge, epistaxis or sinus pain Card: Denies: chest pain, palpitations, lightheadedness, syncope or pre-syncope Resp: Denies: dyspnea or pain on inspiration GI: Denies: abdominal pain : Denies: flank pain or hematuria Musc: Reports: joint pain (L knee); Denies: neck pain, back pain, extremity pain, extremity swelling, joint swelling, joint redness or joint warmth Neuro: Reports: difficulty walking (secondary to knee pain); Denies: headache(s), numbness in extremities, weakness in extremities or sensory changes PFS ED PFSH: Medical History Palpitations BPPV (benign paroxysmal positional vertigo) Left arm weakness Stroke-like symptoms COPD (chronic obstructive pulmonary disease) Dyslipidemia BPH (benign prostatic hyperplasia) Seizure disorder Surgical History S/P AAA repair using bifurcation graft Social History Smoking and tobacco/nicotine status: current every day tobacco/nicotine user Alcohol intake: never Substance/Drug Use: never Physical Exam Const: COMMON NORMALS: no acute distress, average body habitus, patient oriented x3, no limitations, healthy appearing, alert and well nourished GENERAL APPEARANCE: cooperative ORIENTATION/CONSCIOUSNESS: Yes awake, Yes oriented to person, Yes oriented to place and Yes oriented to time HENMT: COMMON NORMALS: normocephalic, atraumatic, external ears normal, TM's normal bilaterally and Normal external nose present HEAD & SCALP: normal to inspection, normocephalic and atraumatic; no Malone's sign, no hematoma and no raccoon eyes FACE & SINUS: other (healing superficial lacerations/linear abrasions L cheek) NOSE: Normal external nose present EXTERNAL EAR: Yes external ears normal TYMPANIC MEMBRANE: TM's normal bilaterally MOUTH: Normal oral and palatal mucosa present, lip normal and other (no intraoral injuries noted) TEETH & GINGIVA: Yes poor dentition THROAT: posterior oropharynx normal and tonsils normal Eye: COMMON NORMALS: Equal, round and reactive pupils present, EOMs intact bilaterally and conjunctivae normal GENERAL EYE: normal light reflex VISUAL ACUITY: Yes acuity normal ALIGNMENT: Yes alignment normal PERIORBITAL: periorbital findings abnormal positive left periorbital ecchymosis CONJUNCTIVA: Yes conjunctivae normal SCLERA: sclerae normal CORNEA: Yes corneas normal PUPIL: Yes Equal, round and reactive pupils present DIRECT OPHTHALMOSCOPY: Yes normal light reflex Neck/C-Spine: COMMON NORMALS: full ROM GENERAL: Yes normal visual inspection CERVICAL SPINE: Yes cervical ROM normal, No pain with cervical ROM, No Cervical spine tenderness, No step off deformity and No Paracervical muscle tenderness Chest: COMMONS NORMALS: normal inspection of the chest and normal palpation of entire chest wall Resp: COMMON NORMALS: normal respiratory effort and clear to auscultation bilaterally AUSCULTATION: clear to auscultation bilaterally Cardio: COMMON NORMALS: regular rate and regular rhythm RATE: regular rate RHYTHM: regular rhythm GI: COMMON NORMALS: Normal to inspection, nondistended, normoactive bowel sounds present, Soft to palpation, non-tender, No hepatosplenomegaly present and no masses INSPECTION: Yes normal to inspection and No abdominal wall ecchymosis AUSCULTATION: Yes normoactive bowel sounds PALPATION: Yes Soft to palpation and Yes No hepatosplenomegaly present Back/Pelvis: COMMON NORMALS: thoracic and lumbar spine normal to inspection, no thoracic nor lumbar tenderness and thoraco-lumbar ROM normal Extremity: COMMON NORMALS: normal to inspection, capillary refill normal, no joint enlargement, no clubbing, cyanosis or edema, no calf tenderness and no pedal edema GENERAL: Yes normal exam except as noted LEFT LOWER EXTREMITY: Yes knee joint (TTP/swelling throughout L knee joint; abrasion anteriorly) Left knee: Yes ROM (fairly good ROM although tender with attempted full flexion/extension) and Yes neurovascular exam (normal) Neuro: NAVEEN COMA SCALE: document GCS findings [place] coma scale eye opening: Spontaneous Naveen coma scale verbal response: Orientated [place] coma scale motor response: Obey commands Naveen coma scale total score: 15 COMMON NORMALS: patient oriented x3, CN's II-XII intact bilaterally, moves all extremities, no focal motor deficits, no sensory deficits noted and gait normal SENSORIUM/ORIENTATION: Yes alert, Yes oriented to person, Yes oriented to place and Yes oriented to time SPEECH: speech normal GAIT: Yes Normal gait present Skin: NARRATIVE SKIN EXAM: see above for pertinent skin findings TRAUMA: no lacerations Course Vital Signs: Vital signs: Vital Signs Temperature 98.4 F 10/26/23 14:36 Pulse Rate 103 H 10/26/23 15:02 Respiratory Rate 15 10/26/23 15:31 Blood Pressure 131/78 10/26/23 14:36 Pulse Oximetry 98 10/26/23 15:31 Oxygen Delivery Me thod Room Air 10/26/23 14:36 MDM - Fall Medical Decision Making XR of the knee and CT scans of his head and facial bones are unremarkable. Patient is stable for discharge at this time. Return to ED precautions given. Medical Records I reviewed the patient's medical records. Lab Data Radiology Impressions Face CT 10/26/23 15:07 IMPRESSION: No acute bony abnormality. Head CT 10/26/23 15:07 IMPRESSION: No acute intracranial abnormality. All radiology interpretation(s) finalized by discharge Discharge Plan Discharge Patient Disposition: Home Clinical Impression: Fall on same level from tripping Contusion of face Qualifiers: Encounter type: initial encounter Qualified Code(s): S00.83XA - Contusion of other part of head, initial encounter Contusion of knee Qualifiers: Encounter type: initial encounter Laterality: left Qualified Code(s): S80.02XA - Contusion of left knee, initial encounter Condition: Stable Prescriptions: No Action multivitamin [Multiple Vitamins] Tablet 1 tab PO DAILY aspirin [Aspirin Childrens] 81 mg tablet,chewable 81 mg PO DAILY folic acid 1 mg tablet 1 mg PO DAILY cholecalciferol (vitamin D3) 50 mcg (2,000 unit) capsule 50 mcg PO DAILY Spiriva Respimat 2.5 mcg/actuation mist 2 puff inhalation DAILY vitamin A 2,400 mcg capsule 2,400 mcg PO DAILY ascorbic acid (vitamin C) 1,000 mg capsule 1 g PO DAILY cilostazol 100 mg tablet 100 mg PO BID Qty: 28 0RF quetiapine 25 mg tablet 12.5 mg PO DAILY citalopram 40 mg tablet 40 mg PO DAILY gabapentin 300 mg capsule 300 mg PO DAILY Rx Instructions: 900mg AM 900 MG PM duloxetine 60 mg capsule,delayed release(DR/EC) 60 mg PO DAILY Qty: 90 0RF fluticasone propionate [Flonase Allergy Relief] 50 mcg/actuation spray,suspension 1 spray intranasal BID Qty: 16 1RF Rx Instructions: administer into each nostril levetiracetam 1,000 mg tablet 1,000 mg PO BID Qty: 180 0RF lacosamide [Vimpat] 100 mg tablet 100 mg PO BID Qty: 180 0RF nitroglycerin 0.4 mg tablet, sublingual 0.4 mg sublingual Q5M PRN (Reason: chest pain) Qty: 25 6RF Rx Instructions: until response; do not exceed 3 doses per episode meclizine 25 mg tablet 25 mg PO BID PRN (Reason: dizziness) Qty: 14 0RF atorvastatin 40 mg Tablet 20 mg PO QPM fluticasone propion-salmeterol 250-50 mcg/dose Blister With Device 1 inh INHALATION BID phenytoin sodium extended 100 mg capsule 200 mg PO QPM tamsulosin 0.4 mg capsule 0.4 mg PO QPM prazosin 2 mg capsule 2 mg PO DIRECTED Rx Instructions: 1 in AM 2 in PM Discharge Orders: Discharge ED (Routine); Ordered 10/26/23 Ordered By: Marianne Henriquez Referrals: Kourtney Almaguer MD [Primary Care Provider] - Coding Level of Care Code ED Manager Operations Research for Chava Cavanaugh
[2023-10-26 15:31] VITALS: RESP 15; O2SAT 98
[2023-10-26] MEDS: morphine 4 mg/mL SDV 1 mL IM (15:31)
[2023-10-26 16:06] VITALS: RESP 15; O2SAT 98
== END 2023-10-26 16:08 | disposition home or self-care (01) ==
PROVIDERS: Emergency Provider Physician Assistant; PCP Family Medicine
DX: S00.83XA Contusion of other part of head, initial encounter (principal); S80.02XA Contusion of left knee, initial encounter; Z79.82 Long term (current) use of aspirin; S01.412A Laceration without foreign body of left cheek and temporomandibular area, initial encounter; J44.9 Chronic obstructive pulmonary disease, unspecified; E78.5 Hyperlipidemia, unspecified; Z72.0 Tobacco use; W18.09XA Striking against other object with subsequent fall, initial encounter
CPT/HCPCS: 70450; 70486; 73562; 96372; 99284; J2270

== ENCOUNTER 2023-11-06 12:30 | Emergency (ER) | payer OTHER, SELFPAY ==
[2023-11-06 12:30] VITALS: BP 178/90; PULSE 101; RESP 18; TEMP 36.6; O2SAT 91; BMI 25.8
[2023-11-06 12:33] VITALS: BP 144/81; PULSE 98; RESP 22; O2SAT 93
--- NOTE | 2023-11-06 12:36 | ED_ITS ---
HPI - Chest Pain 2 General: Chief Complaint: Chest Pain Stated Complaint: stemi Time Seen by Provider: 11/06/23 12:36 History of Present Illness: Patient presents to the ER with complaints of left-sided chest pain for the last hour. EMS gave the patient 3 baby aspirin's to go along with his 1 aspirin at home. Patient rates the pain currently about a 4 out of 10. Pain is reproducible with palpation of the left chest. Patient has seen Dr. Walsh and Dr. Taylor in the past but is not on for sure why. Patient states pains is pressure. Nothing relieves the pain but palpation makes it worse. Patient does have a history of abdominal aortic aneurysm, claudication, left carotid artery to exclude occlusion, peripheral vascular disease, seizures, palpitations, Review of Systems 2 General: Reports: 10 or more systems reviewed and unremarkable except in HPI and below PFSH ED 2 PFSH: Medical History Palpitations BPPV (benign paroxysmal positional vertigo) Left arm weakness Stroke-like symptoms COPD (chronic obstructive pulmonary disease) Dyslipidemia BPH (benign prostatic hyperplasia) Seizure disorder Surgical History S/P AAA repair using bifurcation graft Social History Smoking and tobacco/nicotine status: current every day tobacco/nicotine user Alcohol intake: never Substance/Drug Use: never Physical Exam 2 Const: COMMON NORMALS: no acute distress, average body habitus, patient oriented x3, no limitations, healthy appearing, alert and well nourished HENMT: COMMON NORMALS: normocephalic, atraumatic, hearing grossly normal bilaterally, external ears normal, Normal external nose present, moist oral mucous membranes and oropharynx normal HEAD & SCALP: normocephalic and atraumatic NOSE: Normal external nose present EXTERNAL EAR: Yes external ears normal Eye: COMMON NORMALS: Equal, round and reactive pupils present, EOMs intact bilaterally, conjunctivae normal and no scleral icterus CONJUNCTIVA: Yes conjunctivae normal PUPIL: Yes Equal, round and reactive pupils present Neck/C-Spine: COMMON NORMALS: no JVD Chest: COMMONS NORMALS: normal inspection of the chest; negative for normal palpation of entire chest wall (Palpation over left lateral chest reproduces pain.) Resp: COMMON NORMALS: normal respiratory effort, No retractions, No use of accessory muscles and clear to auscultation bilaterally AUSCULTATION: clear to auscultation bilaterally Cardio: COMMON NORMALS: no JVD, regular rate, regular rhythm, S1 normal heart sound present, S2 normal heart sound present, No gallops present (Cardio), No clicks present (Cardio), No murmurs present (Cardio) and No rub (Cardio) R ATE: regular rate RHYTHM: regular rhythm HEART SOUNDS: S1 normal heart sound present and S2 normal heart sound present GI: COMMON NORMALS: Normal to inspection, nondistended, normoactive bowel sounds present, Soft to palpation, non-tender, No hepatosplenomegaly present and no masses PALPATION: Yes Soft to palpation and Yes No hepatosplenomegaly present Neuro: COMMON NORMALS: patient oriented x3 SENSORIUM/ORIENTATION: Yes alert Course 2 Vital Signs: Vital signs: Vital Signs Temperature 97.8 F 11/06/23 12:30 Pulse Rate 86 11/06/23 14:55 Respiratory Rate 16 11/06/23 14:55 Blood Pressure 145/92 11/06/23 14:55 Pulse Oximetry 94 11/06/23 14:55 Oxygen Delivery Me thod Room Air 11/06/23 13:03 MDM - Chest Pain Medical Decision Making Dr. Leon reviewed the EKG performed in the ER says not a STEMI we can work him up at normal cardiac fashion. Patient was worked up in normal cardiac fashion with serial EKGs and serial enzymes and chest x-ray. All of which was essentially benign. Pointing toward noncardiac cause of the patient's chest pain. Patient be discharged home to follow-up with his PCP the next 7 days for further evaluation and treatment. Differential Diagnosis Unlikely acute massive pulmonary embolism, acute respiratory failure, acute myocardial infarction, cardiac arrest or sudden cardiac Medical Records I reviewed the patient's medical records. Lab Data I reviewed the patient's lab results. 11/06/23 12:30 11/06/23 12:30 Radiology Impressions Chest X-Ray 11/06/23 12:37 IMPRESSION: There is chronic air trapping with no lobar consolidation appreciated.No interval acute cardiopulmonary changes are appreciated. Laboratory Results WBC 10.86 10^3/uL (3.29-11.43) 11/06/23 12:30 RBC 4.97 10^6/uL (3.85-5.65) 11/06/23 12:30 Hgb 16.60 g/dL (11.27-16.99) 11/06/23 12:30 Hct 48.5 % (37-53) 11/06/23 12:30 MCV 97.6 fl (82-101) 11/06/23 12:30 MCH 33.4 pg (27-33) H 11/06/23 12:30 MCHC 34.2 g/dL (30-55) 11/06/23 12:30 RDW 13.7 % (12.1-15.1) 11/06/23 12:30 Plt Count 383 10^3/cmm (157-399) 11/06/23 12:30 MPV 9.3 fL (7.4-10.4) 11/06/23 12:30 Neut % (Auto) 60.8 % 11/06/23 12:30 Lymph % (Auto) 29.7 % 11/06/23 12:30 Bent % (Auto) 6.8 % 11/06/23 12:30 Eos % (Auto) 1.7 % 11/06/23 12:30 Baso % (Auto) 0.6 % 11/06/23 12:30 Neut # (Auto) 6.60 10^3/uL (1.8-7.7) 11/06/23 12:30 Lymph # (Auto) 3.2 10^3/uL (0.8-4.8) 11/06/23 12:30 Bent # (Auto) 0.7 10^3/uL (0.2-0.9) 11/06/23 12:30 Eos # (Auto) 0.2 10^3/uL (0.0-0.8) 11/06/23 12:30 Baso # (Auto) 0.1 10^3/uL (0.0-0.1) 11/06/23 12:30 Nucleated RBC % (auto) 0 % 11/06/23 12:30 Nucleated RBCs # 0.0 /100WBC 11/06/23 12:30 PT 13.60 SECONDS (12.1-14.9) 11/06/23 12:30 INR 1.01 (0.8-1.2) 11/06/23 12:30 Sodium 135 mmol/L (136-145) L 11/06/23 12:30 Potassium 3.9 mmol/L (3.5-5.1) 11/06/23 12:30 Chloride 95 mmol/L (98-107) L 11/06/23 12:30 Carbon Dioxide 28 mmol/L (22-29) 11/06/23 12:30 Anion Gap 15.9 (5-19) 11/06/23 12:30 BUN 13 mg/dL (8-23) 11/06/23 12:30 Creatinine 0.7 mg/dL (0.7-1.2) 11/06/23 12:30 GFR Calculation 113.2 mL/min (90-130) 11/06/23 12:30 Glucose 108 mg/dL (65-115) 11/06/23 12:30 Calculated Osmolality 281 mOsm/kg (285-295) L 11/06/23 12:30 Calcium 9.3 mg/dL (8.5-10.5) 11/06/23 12:30 Total Bilirubin 0.3 mg/dL (0.15-1.2) 11/06/23 12:30 AST 45 U/L (0-40) H 11/06/23 12:30 ALT 41 U/L (0-41) 11/06/23 12:30 Alkaline Phosphatase 114 U/L (40-130) 11/06/23 12:30 Troponin T Baseline 12 ng/L (0-15) 11/06/23 12:37 Troponin T 120 Minute 10.68 ng/L (0-15) 11/06/23 14:33 Delta Troponin T -1.32 ABS# (0-10) L 11/06/23 14:33 Total Protein 7.3 g/dL (6.6-8.7) 11/06/23 12:30 Albumin 4.3 g/dL (3.5-5.2) 11/06/23 12:30 Globulin 3.0 g/dL (1.3-4.6) 11/06/23 12:30 All radiology interpretation(s) finalized by discharge EKG Data EKG 1: I personally reviewed and interpreted this EKG as follows: EKG interpretation date: 11/06/23 EKG interpretation time: 12:32 Prior EKG tracings: not available for review Interpretation: EKG showed ventricular rate 104 bpm, ID interval 143, QRS duration 79, QTc of 408, sinus tachycardia, no ST-T wave changes EKG 2: I personally reviewed and interpreted this EKG as follows: EKG interpretation date: 11/06/23 EKG interpretation time: 14:27 Prior EKG tracings: available for review Interpretation: EKG showed ventricular rate 83 beats minute, ID interval 118, QRS duration 77, QTc of 391, sinus rhythm with sinus arrhythmia with short ID interval Discharge Plan Discharge Patient Disposition: Home Clinical Impression: Non-cardiac chest pain, Hypertension Condition: Stable Prescriptions: No Action aspirin [Aspirin Childrens] 81 mg tablet,chewable 81 mg PO DAILY folic acid 1 mg tablet 1 mg PO DAILY cholecalciferol (vitamin D3) 50 mcg (2,000 unit) capsule 50 mcg PO DAILY Spiriva Respimat 2.5 mcg/actuation mist 2 puff inhalation DAILY ascorbic acid (vitamin C) 1,000 mg capsule 1 g PO DAILY cilostazol 100 mg tablet 100 mg PO BID Qty: 28 0RF quetiapine 25 mg tablet 12.5 mg PO BID citalopram 40 mg tablet 40 mg PO DAILY gabapentin 300 mg capsule 900 mg PO TID duloxetine 60 mg capsule,delayed release(DR/EC) 60 mg PO DAILY Qty: 90 0RF fluticasone propionate [Flonase Allergy Relief] 50 mcg/actuation spray,suspension 1 spray intranasal BID Qty: 16 1RF Rx Instructions: administer into each nostril levetiracetam 1,000 mg tablet 1,000 mg PO BID Qty: 180 0RF nitroglycerin 0.4 mg tablet, sublingual 0.4 mg sublingual Q5M PRN (Reason: chest pain) Qty: 25 6RF Rx Instructions: until response; do not exceed 3 doses per episode meclizine 25 mg tablet 25 mg PO BID PRN (Reason: dizziness) Qty: 14 0RF albuterol sulfate 90 mcg/actuation HFA aerosol inhaler 2 puff INHALATION Q4H PRN (Reason: Shortness Of Breath Or Wheezing) loratadine 10 mg Tablet 10 mg PO DAILY vitamin A 2,400 mcg Capsule 2,400 mcg PO DAILY atorvastatin 40 mg Tablet 20 mg PO QPM fluticasone propion-salmeterol 250-50 mcg/dose Blister With Device 1 inh INHALATION BID phenytoin sodium extended 100 mg capsule 100 mg PO BID tamsulosin 0.4 mg capsule 0.4 mg PO QPM prazosin 2 mg capsule 2 mg PO BEDTIME Discharge Orders: Discharge ED (Routine); Ordered 11/06/23 Ordered By: Kelvin Pinto Referrals: Kourtney Almaguer MD [Primary Care Provider] - 1 week Patient Instructions: Noncardiac Chest Pain (ED), Hypertension Activity Restrictions/Additional Instructions: Your lab work does not point toward a cardiac cause of your chest pain. It is felt that is noncardiac in nature. Please follow-up with your family practice physician within the next 7 to 10 days. Please keep a blood pressure log of all your blood pressures as you may benefit from going on blood pressure medicine. If your chest pain worsens or returns please return to the ER for further evaluation. Coding Level of Care Code ED Automotive Parts Counter Associate for Chava Cavanaugh
--- NOTE | 2023-11-06 12:37 | XRR_ITS ---
PROCEDURE INFORMATION: Exam: XR Chest Exam date and time: 11/06/2023 12:41 PM Age: 67 years old Clinical indication: Pain; Angina pectoris; Additional info: Chest pain. No history of trauma or recent surgery is provided. TECHNIQUE: Imaging protocol: Radiologic exam of the chest. 1image(s) are provided. Views: 1 view. COMPARISON: 1. CR (CHEST, ) 03/14/2023 6:00 PM 2. CR XR chest 1V portable [id number] 02/25/2023 10:19 AM FINDINGS: Lungs: The lung volumes are slightly increased overall with chronic air trapping scarring appearance similar.No lobar consolidation is appreciated. Pleural spaces: There is minimal costophrenic angle blunting. No pneumothorax is appreciated. Heart/Mediastinum: The cardiomediastinal silhouette is upper normal. No cardiac decompensation is appreciated. Diaphragm: The hemidiaphragms are symmetric. Bones/joints: Osseous alignment is maintained.No interval displaced fracture or dislocation is appreciated. There are some chronic appearing rib deformities present. Soft tissues: No radiopaque foreign body or subcutaneous emphysema is appreciated. Other findings: There are some interventional type changes overlying the right medial apex level. No other significant interval changes are appreciated. XR/XR chest 1V portable [id number] IMPRESSION: There is chronic air trapping with no lobar consolidation appreciated.No interval acute cardiopulmonary changes are appreciated.
--- NOTE | 2023-11-06 12:38 | ECG_ITS ---
[facility] Test Date: 2023-11-06 Pat Name: Wang Castellon Department: Room: Gender: Male Motor Vehicle Dispatcher: : 1955 Requested By: Kelvin Pinto Order Number: [id number] Juan MD: Reilly Taylor M.D. Measurements Intervals [place] Rate: 104 P: 80 OK: 143 QRS: 73 QRSD: 79 T: 77 QT: 347 QTc: 458 Interpretive Statements SINUS TACHYCARDIA Compared to ECG 03/14/2023 17:53:50 Sinus rhythm no longer present Electronically Signed On 11-06-2023 14:55:27 TRAVEL COUNSELOR AUTOMOBILE [employer]UB by Reilly Taylor M.D. [email or web address] memorial [email or web address] wert county [email or web address] [email or web address]/[id number] f
[2023-11-06 13:00] LABS: Basophils # 0.1 10^3/uL (0.0-0.1); Basophils % 0.6 %; Eosinophils # 0.2 10^3/uL (0.0-0.8); Eosinophils % 1.7 %; Hematocrit 48.5 % (37-53); Lymphocytes # 3.2 10^3/uL (0.8-4.8); Lymphocytes % 29.7 %; Mean Corpuscular HGB Conc 34.2 g/dL (30-55); Mean Corpuscular Hemoglobin 33.4 pg (27-33); Mean Corpuscular Volume 97.6 fl (82-101); Mean Platelet Volume 9.3 fL (7.4-10.4); Monocytes # 0.7 10^3/uL (0.2-0.9); Monocytes % 6.8 %; Neutrophils % 60.8 %; Nucleated Red Blood Cells % 0 %; Platelet Count 383 10^3/cmm (157-399); Red Blood Count 4.97 10^6/uL (3.85-5.65); Red Cell Distribution Width 13.7 % (12.1-15.1); White Blood Count 10.86 10^3/uL (3.29-11.43)
[2023-11-06 13:03] VITALS: BP 167/91; PULSE 95; RESP 17; O2SAT 91
[2023-11-06 13:09] LABS: INR 1.01 (0.8-1.2)
[2023-11-06 13:17] LABS: Alanine Aminotransferase 41 U/L (0-41); Albumin Level 4.3 g/dL (3.5-5.2); Alkaline Phosphatase 114 U/L (40-130); Anion Gap 15.9 (5-19); Aspartate Amino Transferase 45 U/L (0-40); Blood Urea Nitrogen 13 mg/dL (8-23); Calcium 9.3 mg/dL (8.5-10.5); Carbon Dioxide 28 mmol/L (22-29); Chloride 95 mmol/L (98-107); Creatinine Clr Calc Pharmacy 99.5557; Glomerular Filtration Rate 113.2 mL/min (90-130); Glucose 108 mg/dL (65-115); Osmolality Calculated 281 mOsm/kg (285-295); Potassium 3.9 mmol/L (3.5-5.1); Sodium 135 mmol/L (136-145); Total Bilirubin 0.3 mg/dL (0.15-1.2); Total Protein 7.3 g/dL (6.6-8.7)
[2023-11-06 13:23] LABS: Troponin(5th) Baseline 12 ng/L (0-15)
[2023-11-06 14:12] VITALS: BP 126/84; PULSE 94; RESP 16; O2SAT 90
--- NOTE | 2023-11-06 14:38 | ECG_ITS ---
[facility] Test Date: 2023-11-06 Pat Name: Wang Castellon Department: Room: Gender: Male Spoon Maker: : 1955 Requested By: Kelvin Pinto Order Number: [id number] Juan MD: Reilly Taylor M.D. Measurements Intervals [place] Rate: 83 P: -14 CA: 118 QRS: -2 QRSD: 77 T: -12 QT: 351 QTc: 414 Interpretive Statements SINUS RHYTHM WITH SINUS ARRHYTHMIA WITH SHORT CA INTERVAL Compared to ECG 11/06/2023 12:32:34 Short CA interval now present Sinus tachycardia no longer present Electronically Signed On 11-06-2023 14:56:30 WELL LOGGER by Reilly Taylor M.D. [email or web address] [id number]
[2023-11-06 14:55] VITALS: BP 145/92; PULSE 86; RESP 16; O2SAT 94
[2023-11-06 14:58] LABS: Troponin 5 2HR 10.68 ng/L (0-15); Troponin 5 2HR Delta -1.32 ABS# (0-10)
[2023-11-06 15:21] VITALS: BP 145/92; PULSE 86; RESP 16; TEMP 36.6; O2SAT 94
== END 2023-11-06 15:22 | disposition home or self-care (01) ==
PROVIDERS: Emergency Provider Emergency Medicine; PCP Family Medicine
DX: R07.89 Other chest pain (principal); I10 Essential (primary) hypertension; Z79.82 Long term (current) use of aspirin; J44.9 Chronic obstructive pulmonary disease, unspecified; E78.5 Hyperlipidemia, unspecified; Z72.0 Tobacco use
CPT/HCPCS: 36415; 71045; 80053; 84484; 85025; 85610; 93005; 99285

== ENCOUNTER → 2023-11-18 15:53 | Outpatient (BNVA) | payer OTHER, SELFPAY | PROVIDERS: PCP Family Medicine; Visit Provider Internal Medicine Cardiovascular Disease | DX: R07.9 Chest pain, unspecified (principal); R00.0 Tachycardia, unspecified; R93.1 Abnormal findings on diagnostic imaging of heart and coronary circulation; M19.012 Primary osteoarthritis, left shoulder; M62.838 Other muscle spasm; R94.31 Abnormal electrocardiogram [ECG] [EKG]; E78.5 Hyperlipidemia, unspecified; I65.22 Occlusion and stenosis of left carotid artery; I71.43 Infrarenal abdominal aortic aneurysm, without rupture; I73.9 Peripheral vascular disease, unspecified; F17.200 Nicotine dependence, unspecified, uncomplicated | CPT/HCPCS: 93005; 99214 ==

== ENCOUNTER → 2023-12-08 10:13 | Outpatient (BNVA) | payer OTHER, SELFPAY | PROVIDERS: PCP Family Medicine; Referring Provider Family Medicine; Visit Provider Surgery | DX: I10 Essential (primary) hypertension (principal); Z12.11 Encounter for screening for malignant neoplasm of colon | CPT/HCPCS: 99203 ==

== ENCOUNTER 2023-12-08 11:46 | Emergency (ER) | payer OTHER, SELFPAY ==
[2023-12-08 11:57] VITALS: BP 107/74; PULSE 91; RESP 16; TEMP 36.6; O2SAT 97; BMI 21.4
--- NOTE | 2023-12-08 12:05 | PC.PHAR ---
faxed co for med list
--- NOTE | 2023-12-08 12:06 | XRR_ITS ---
PROCEDURE INFORMATION: Exam: XR Left Foot Exam date and time: 12/08/2023 12:23 PM Age: 67 years old Clinical indication: Pain; Foot; Right; Additional info: Injury, not specified TECHNIQUE: Imaging protocol: Radiologic exam of the left foot. Views: 3 or more views. COMPARISON: CR XR knee LT 3V* [id number] 10/26/2023 3:20 PM FINDINGS: Bones/joints: Osteopenia. Mild degenerative changes throughout the forefoot and midfoot.No acute fracture or dislocation. Soft tissues: Normal. XR/XR foot LT min 3V* [id number] IMPRESSION: No acute bony pathology.
--- NOTE | 2023-12-08 12:06 | CT_ITS ---
WS: [id number] CT HEAD NONCONTRAST HISTORY: dizzy TECHNIQUE: Contiguous axial imaging performed through the brain in 2.5 mm imaging. Bone and soft tiss ue windows. Sagittal and coronal reformats reviewed. All CT scans at [facility] use at least one of these dose optimization techniques: automated exposure control; mA and/or kV adjustment per pa tient size (includes targeted exams where dose is matched to clinical indication); or iterative recon struction. DLP: 1110.60 mGy.cm COMPARISON: 10/26/2023 No acute intracranial hemorrhage, midline shift or mass effect. Mild bilateral volume loss and small vessel ischemic disease. No interval change. Ventricles: Normal size with no hydrocephalus. No inferior displacement of the cerebellar tonsils. Paranasal sinuses: As visualized are clear. Mastoid air cells: Well pneumatized. Calvarium and scalp: Skull is intact with no soft tissue edema or swelling. IMPRESSION: 1. No acute intracranial hemorrhage or edema. 2. Mild bilateral cerebral volume loss is symmetric and unchanged.
--- NOTE | 2023-12-08 12:07 | ECG_ITS ---
[facility] Test Date: 2023-12-08 Pat Name: Wang Castellon Department: Room: Gender: Male Senior Care Specialist: : 1955 Requested By: Mariano Madrigal Order Number: [id number] Juan MD: Reilly Taylor M.D. Measurements Intervals [place] Rate: 77 P: 67 SD: 132 QRS: 67 QRSD: 75 T: 72 QT: 367 QTc: 417 Interpretive Statements SINUS RHYTHM Compared to ECG 11/18/2023 15:56:47 Sinus tachycardia no longer present T-wave abnormality no longer present Possible ischemia no longer present Electronically Signed On 12-08-2023 18:29:49 TYPING OFFICE WORKER by Reilly Taylor M.D. [id number]
--- NOTE | 2023-12-08 12:09 | W.ED.EXTPRO ---
HPI - Extremity Problem General: Chief complaint: Extremity Injury, Lower Stated complaint: dr trent, confusion, fell hurt left foot Time Seen by Provider: 12/08/23 11:49 Source: patient Mode of arrival: ambulatory Limitations: no limitations History of Present Illness: 67-year-old male states that last night he is feeling dizzy at times states he fell he has had a hard time walking and did fall he states he injured his left fourth toe when he fell. He states that he had pain in that toe today states he still has some slight dizziness she denies any headache he has no focal deficits here. Associated symptoms: Deny chest pain, fever(s) or rash Review of Systems Const: Denies: fever(s), chills, body aches or change in appetite ENMT: Denies: throat pain or dental pain Card: Denies: chest pain Resp: Denies: dyspnea GI: Denies: abdominal pain, nausea, vomiting or diarrhea Musc: Denies: neck pain or back pain Skin/Breast: Denies: rash Neuro: Reports: difficulty walking; Denies: headache(s) PFS ED PFSH: Medical History Palpitations BPPV (benign paroxysmal positional vertigo) Left arm weakness Stroke-like symptoms COPD (chronic obstructive pulmonary disease) Dyslipidemia BPH (benign prostatic hyperplasia) Seizure disorder Surgical History S/P AAA repair using bifurcation graft Social History Smoking and tobacco/nicotine status: current every day tobacco/nicotine user Alcohol intake: never Substance/Drug Use: never Physical Exam Const: COMMON NORMALS: no acute distress, patient oriented x3 and healthy appearing HENMT: COMMON NORMALS: normocephalic and atraumatic HEAD & SCALP: normocephalic and atraumatic Eye: COMMON NORMALS: Equal, round and reactive pupils present and EOMs intact bilaterally PUPIL: Yes Equal, round and reactive pupils present Neck/C-Spine: COMMON NORMALS: full ROM and supple Chest: COMMONS NORMALS: normal inspection of the chest Resp: COMMON NORMALS: normal respiratory effort Cardio: COMMON NORMALS: regular rate, regular rhythm and No murmurs present (Cardio) RATE: regular rate RHYTHM: regular rhythm Extremity: COMMON NORMALS: normal to inspection and full ROM NARRATIVE EXTREMITY EXAM: Tenderness over left toe Neuro: COMMON NORMALS: patient oriented x3, moves all extremities and no focal motor deficits Psych: COMMON NORMALS: mental status grossly normal, Normal thought process present and cooperative THOUGHT PROCESS: Normal thought process present Skin: COMMON NORMALS: no rashes or lesions noted and no wounds GENERAL SKIN EXAM: no rashes or lesions noted Course Vital Signs: Vital signs: Vital Signs Temperature 97.9 F 12/08/23 11:57 Pulse Rate 91 12/08/23 11:57 Respiratory Rate 16 12/08/23 11:57 Blood Pressure 107/74 12/08/23 11:57 Pulse Oximetry 97 12/08/23 11:57 Oxygen Delivery Me thod Room Air 12/08/23 11:57 MDM - Extremity (Nontraumatic) Medical Decision Making Patient presents here with pelvic pain from a fall x-ray shows no abnormality states has been having these falls mainly to the left with weakness that is intermittent since 2021. He does see Dr. Larson head CT here is normal no signs of a stroke here he is able to ambulate without any difficulties no focal neurodeficits he is stable for discharge he is to follow back up with Dr. Rhodes. Medical Records I reviewed the patient's medical records. Lab Data I reviewed the patient's lab results. 12/08/23 12:31 12/08/23 12:31 Radiology Impressions Foot X-Ray 12/08/23 12:06 IMPRESSION: No acute bony pathology. ADDENDUM: 12/08/23 1304 plumbing service technician validated the order after question was made regarding discordance between the clinical history in the examined foot. Laboratory Results WBC 9.71 10^3/uL (3.29-11.43) 12/08/23 12:31 RBC 4.80 10^6/uL (3.85-5.65) 12/08/23 12:31 Hgb 16.40 g/dL (11.27-16.99) 12/08/23 12:31 Hct 48.5 % (37-53) 12/08/23 12:31 MCV 101.0 fl (82-101) 12/08/23 12:31 MCH 34.2 pg (27-33) H 12/08/23 12:31 MCHC 33.8 g/dL (30-55) 12/08/23 12:31 RDW 12.9 % (12.1-15.1) 12/08/23 12:31 Plt Count 298 10^3/cmm (157-399) 12/08/23 12:31 MPV 8.9 fL (7.4-10.4) 12/08/23 12:31 Neut % (Auto) 62.9 % 12/08/23 12:31 Lymph % (Auto) 26.1 % 12/08/23 12:31 [place] % (Auto) 8.3 % 12/08/23 12:31 Eos % (Auto) 1.6 % 12/08/23 12:31 Baso % (Auto) 0.6 % 12/08/23 12:31 Neut # (Auto) 6.10 10^3/uL (1.8-7.7) 12/08/23 12:31 Lymph # (Auto) 2.5 10^3/uL (0.8-4.8) 12/08/23 12:31 [place] # (Auto) 0.8 10^3/uL (0.2-0.9) 12/08/23 12:31 Eos # (Auto) 0.2 10^3/uL (0.0-0.8) 12/08/23 12:31 Baso # (Auto) 0.1 10^3/uL (0.0-0.1) 12/08/23 12:31 Nucleated RBC % (auto) 0 % 12/08/23 12:31 Nucleated RBCs # 0.0 /100WBC 12/08/23 12:31 Sodium 139 mmol/L (136-145) 12/08/23 12:31 Potassium 4.4 mmol/L (3.5-5.1) 12/08/23 12:31 Chloride 100 mmol/L (98-107) 12/08/23 12:31 Carbon Dioxide 25 mmol/L (22-29) 12/08/23 12:31 Anion Gap 18.4 (5-19) 12/08/23 12:31 BUN 10 mg/dL (8-23) 12/08/23 12:31 Creatinine 0.9 mg/dL (0.7-1.2) 01/30/24 12:31 GFR Calculation 84.7 mL/min (90-130) L 12/08/23 12:31 Glucose 104 mg/dL (65-115) 12/08/23 12:31 Calculated Osmolality 287 mOsm/kg (285-295) 12/08/23 12:31 Calcium 9.6 mg/dL (8.5-10.5) 12/08/23 12:31 Total Bilirubin 0.3 mg/dL (0.15-1.2) 12/08/23 12:31 AST 25 U/L (0-40) 12/08/23 12:31 ALT 26 U/L (0-41) 12/08/23 12:31 Alkaline Phosphatase 105 U/L (40-130) 12/08/23 12:31 Total Protein 7.1 g/dL (6.6-8.7) 12/08/23 12:31 Albumin 4.1 g/dL (3.5-5.2) 12/08/23 12:31 Globulin 3.0 g/dL (1.3-4.6) 12/08/23 12:31 All radiology interpretation(s) finalized by discharge EKG Data EKG 1: I personally reviewed and interpreted this EKG as follows: EKG interpretation date: 12/08/23 EKG interpretation time: 12:15 Interpretation: nsr hr [address] or t wave abnormalities qrs 75 qtc 399 Discharge Plan Discharge Patient Disposition: Home Clinical Impression: Injury of left toe, Fall Condition: Stable Prescriptions: No Action aspirin [Aspirin Childrens] 81 mg tablet,chewable 81 mg PO DAILY folic acid 1 mg tablet 1 mg PO DAILY cholecalciferol (vitamin D3) 50 mcg (2,000 unit) capsule 50 mcg PO DAILY Spiriva Respimat 2.5 mcg/actuation mist 2 puff inhalation DAILY ascorbic acid (vitamin C) 1,000 mg capsule 1 g PO DAILY cilostazol 100 mg tablet 100 mg PO BID Qty: 28 0RF quetiapine 25 mg tablet 12.5 mg PO BID citalopram 40 mg tablet 40 mg PO DAILY gabapentin 300 mg capsule 900 mg PO BID tramadol 50 mg tablet 50 mg PO TID PRN (Reason: pain) 7 Days Qty: 21 0RF metoprolol tartrate 25 mg tablet 25 mg PO ONCE duloxetine 60 mg capsule,delayed release(DR/EC) 60 mg PO DAILY Qty: 90 0RF fluticasone propionate [Flonase Allergy Relief] 50 mcg/actuation spray,suspension 1 spray intranasal BID Qty: 16 1RF Rx Instructions: administer into each nostril levetiracetam 1,000 mg tablet 1,000 mg PO BID Qty: 180 0RF nitroglycerin 0.4 mg tablet, sublingual 0.4 mg sublingual Q5M PRN (Reason: chest pain) Qty: 25 6RF Rx Instructions: until response; do not exceed 3 doses per episode chlorzoxazone 500 mg tablet 250 mg PO TID PRN (Reason: muscle spasm) 7 Days Qty: 21 0RF meclizine 25 mg tablet 25 mg PO BID PRN (Reason: dizziness) Qty: 14 0RF albuterol sulfate 90 mcg/actuation HFA aerosol inhaler 2 puff INHALATION Q4H PRN (Reason: Shortness Of Breath Or Wheezing) loratadine 10 mg Tablet 10 mg PO DAILY vitamin A 2,400 mcg Capsule 2,400 mcg PO DAILY atorvastatin 40 mg Tablet 20 mg PO QPM fluticasone propion-salmeterol 250-50 mcg/dose Blister With Device 1 inh INHALATION BID phenytoin sodium extended 100 mg capsule 100 mg PO BID tamsulosin 0.4 mg capsule 0.4 mg PO QPM prazosin 2 mg capsule 2 mg PO BEDTIME Discharge Orders: Discharge ED (Routine); Ordered 12/08/23 Ordered By: Mariano Madrigal Referrals: Kourtney Almaguer MD [Primary Care Provider] - 1-3 days Discharge Diet: Advance as tolerated Discharge Activity: Resume usual activity Patient Instructions: Foot Contusion (ED) Coding Level of Care Code ED Senior Product Marketing Manager for Chava Cavanaugh
[2023-12-08 12:36] LABS: Basophils # 0.1 10^3/uL (0.0-0.1); Basophils % 0.6 %; Eosinophils # 0.2 10^3/uL (0.0-0.8); Eosinophils % 1.6 %; Hematocrit 48.5 % (37-53); Lymphocytes # 2.5 10^3/uL (0.8-4.8); Lymphocytes % 26.1 %; Mean Corpuscular HGB Conc 33.8 g/dL (30-55); Mean Corpuscular Hemoglobin 34.2 pg (27-33); Mean Platelet Volume 8.9 fL (7.4-10.4); Monocytes # 0.8 10^3/uL (0.2-0.9); Monocytes % 8.3 %; Neutrophils % 62.9 %; Nucleated Red Blood Cells % 0 %; Platelet Count 298 10^3/cmm (157-399); Red Cell Distribution Width 12.9 % (12.1-15.1); White Blood Count 9.71 10^3/uL (3.29-11.43)
[2023-12-08 13:13] LABS: Alanine Aminotransferase 26 U/L (0-41); Albumin Level 4.1 g/dL (3.5-5.2); Alkaline Phosphatase 105 U/L (40-130); Anion Gap 18.4 (5-19); Aspartate Amino Transferase 25 U/L (0-40); Blood Urea Nitrogen 10 mg/dL (8-23); Calcium 9.6 mg/dL (8.5-10.5); Carbon Dioxide 25 mmol/L (22-29); Chloride 100 mmol/L (98-107); Glomerular Filtration Rate 84.7 mL/min (90-130); Glucose 104 mg/dL (65-115); Osmolality Calculated 287 mOsm/kg (285-295); Potassium 4.4 mmol/L (3.5-5.1); Sodium 139 mmol/L (136-145); Total Bilirubin 0.3 mg/dL (0.15-1.2); Total Protein 7.1 g/dL (6.6-8.7)
[2023-12-08 13:15] VITALS: BP 134/77; PULSE 80; RESP 16; O2SAT 97
[2023-12-08 13:48] VITALS: BP 128/77; PULSE 72; RESP 16; O2SAT 94
== END 2023-12-08 13:50 | disposition home or self-care (01) ==
PROVIDERS: Emergency Provider Emergency Medicine; PCP Family Medicine
DX: S99.922A Unspecified injury of left foot, initial encounter (principal); Z79.82 Long term (current) use of aspirin; J44.9 Chronic obstructive pulmonary disease, unspecified; E78.5 Hyperlipidemia, unspecified; Z72.0 Tobacco use; W01.0XXA Fall on same level from slipping, tripping and stumbling without subsequent striking against object, initial encounter
CPT/HCPCS: 36415; 70450; 73630; 80053; 85025; 93005; 99285

== ENCOUNTER → 2024-01-05 15:00 | Outpatient (BNVA) | payer OTHER, SELFPAY | PROVIDERS: PCP Family Medicine; Visit Provider Specialist | DX: G40.909 Epilepsy, unspecified, not intractable, without status epilepticus (principal); R27.0 Ataxia, unspecified; R29.90 Unspecified symptoms and signs involving the nervous system; G62.89 Other specified polyneuropathies; G62.9 Polyneuropathy, unspecified | CPT/HCPCS: 36415; 80185; 99215 ==

== ENCOUNTER 2024-01-15 10:17 | Outpatient (CLI) | payer OTHER, SELFPAY ==
[2024-01-15] VITALS (15 sets, daily range): BP systolic 104–137; BP diastolic 57–77; PULSE 69–81; RESP 11–22; TEMP 36.5–37; O2SAT 92–97; BMI 21.2
--- NOTE | 2024-01-15 11:03 | XACV_ITS ---
Exam Room: [facility] Ht: 178 cm Wt: 67 kg BSA: 1.82 m2 Gender: Male : 1955 Any Known Allergies: Other Exam Priority: Routine Procedure(s): Procedure Description: Diagnostic procedure Procedure Description: Left Heart Catheterization Procedure Description: Left ventriculography Procedure Description: Coronary Angiography Procedure Description: Pressure Wire Nico MILLER; Diagnostic Cath Status: Elective Diagnostic Findings * Left main is a medium caliber vessel with mild diffuse plaques.. Around 20% stenosis in the distal segment of the artery. * The left anterior descending artery is a medium caliber vessel which was found to be very tortuous at the mid segment. Mild diffuse plaques were noted in the proximal and mid segment of the artery. Right after the first septal underground roof bolter, the artery was found to have an area of filling defect. Moderate diffuse calcification also was noted in this region. The first diagonal branch appears to be of equal caliber with no significant stenotic lesions.. * The left circumflex artery is a medium caliber vessel which gives off a large obtuse marginal branch proximally. It appears to be trifurcating distally. Each of these branches were found to have mild diffuse intimal irregularities with no significant stenotic lesions. Near the ostium of the OM branch, there was a 40% tubular narrowing. No other significant stenotic lesions were noted.. * The right coronary artery is a medium to large caliber dominant vessel which was found to have around 30% diffuse irregular narrowing in the midsegment. The PLV branch was found to have around 40% narrowing at the mid segment. Mild diffuse intimal irregularities are noted in this vessel. No high-grade stenosis were noted. PCI Status: Elective Interventional Findings * IFR of the mid LAD is 0.95. Conclusions 1. This patient with history of abdominal aortic aneurysm repair, peripheral artery disease, smoking abuse, presents with complaints of chest pain and shortness of breath. Had a Myocardial perfusion imaging which revealed small area of reversible and reversible defect in the distribution of the right coronary artery. Because of his ongoing worsening of the symptoms, in order to further evaluate his coronary status, a cardiac catheterization was recommended. Patient underwent left heart catheterization with left and right coronary angiogram and LV angiogram today. The findings are as follows.. 2. Mild to moderate diffuse calcification in the proximal and mid segments of all the 3 coronary arteries. Moderate disease in the mid LAD with a filling defect suggesting focal calcification. Mild diffuse disease in the other vessels. Normal LV ejection fraction of 65%. LVEDP of 22 mmHg. In view of the patient's symptoms, it was thought to be appropriate to consider IFR of the mid LAD lesion. I reviewed and discussed the cardiac catheterization data with the Dr. Chaidez who concurred with this plan. Dr. Chaidez took over further management this patient at this point. Recommendations * The IFR was found to be 0.95. It was opted to treat this patient medically. Diagnostic RX Recommendation: other cardiac therapy w/o CABG/PCI Ventriculography Ejection Fraction: 65.0 % LV EDP: 22 mmHg Left Ventriculography Findings: * The LV gram was performed in the YUN projection. LV cavity was of normal size. LV ejection fraction was around 65%. No filling defects were noted. No significant mitral valve prolapse or any mitral regurgitation. Pressures Phase:Rest AO : 115 / 67 ( 87 ) @ 12:31:00 PM 101 / 67 ( 83 ) @ 12:34:00 PM 94 / 61 ( 78 ) @ 12:38:00 PM 120 / 61 ( 88 ) @ 12:43:00 PM 121 / 62 ( 89 ) @ 12:43:00 PM 111 / 59 ( 81 ) @ 1:03:00 PM 103 / 61 ( 78 ) @ 1:04:00 PM LV : 135 / -4 / 22 @ 12:42:00 PM 120 / 4 / 27 @ 12:43:00 PM 115 / 3 / 26 @ 12:43:00 PM Valves Phase:DefaultPhase AV : 0.0 @ 1:21:00 PM 0.0 @ 1:21:00 PM AV Mean Gradient: 0.0 @ 1:21:00 PM 0.0 @ 1:21:00 PM Clinical Evaluation EBL: 5mL-10mL Procedural Details Pre-Procedure Time Out. Identified patient by full name and date of as verbalized by the patient/guarantor. Does the consent match the physician's order: Yes. Accurate & Complete Informed Consent: Yes. Inpatient/Outpatient History & Physical on Chart: Yes. If H&P is completed, is and addenduem needed: No; If yes, is the addendum complete: N/A. Visualize and Verify Site with Patient/Guarantor: N/A. Relevant Radiology Images available: Yes. Pre-op teaching completed and patient verbalized understanding. The risks, benefits, and alternatives of sedation and/or procedure were discussed by physician. The patient agrees to continue. Procedure started. [facility] Clinical Fraility Score: 4: Vulnerable. Spring Maker Indications: Worsening Angina. Chest Pain Symptom Assessment: Atypical Angina. Correct patient, site and procedure confirmed by cath team. Current diagnosis: Chest Pain. PERRLA. Strong, equal hand consumer product advisor bilaterally. Lungs clear x 5 lobes. IV Site on Arrival: 20 gauge in the right anticubital. IV Fluids: 0.9% NaCl at KVO. 0 mL infused prior to laborer orchard. Pre Procedural Pulses: right dorsalis pedis was Doppled. Pre Procedural Pulses: left dorsalis pedis was 1+. Pre Procedural Pulses: right posterior tibial was Doppled. Pre Procedural Pulses: right posterior tibial was 1+. Pre Procedural Pulses: bilateral radial was 2+. Oxygen started at 2liters/min via nasal canula. left groin was prepped with chloroprep then draped in the usual sterile fashion. right radial was prepped with chloroprep then draped in the usual sterile fashion. Baseline sample Acquired. HR: 75 BPM. Physician arrived. Current Diagnosis : Chest Pain. Physician scrubbed in. Immediate Pre-Procedure Time Out. Correct Patient: Yes; Correct Procedure: Yes; Correct Site: Yes; Correct Patient Position: Yes; Correct Supplies: Yes; Dried Flammable Prep: Yes; Blood Products Available: N/A;. Lidocaine 1% infiltrated to the right radial. Arterial access obtained. A 5 bahamian Liam catheter in over wire. Multiple views taken of left coronary artery. Catheter redirected to the RCA. Dr. Chaidez called to review films. Catheter removed over the exchange wire. A 5 bahamian JR4 catheter in over wire. Multiple views taken of right coronary artery. Catheter removed over the exchange wire. A 5 bahamian Angled Pig catheter in over wire. EDP Sample taken: LV 135/-5,22; HR: 78 BPM; SpO2: 97%. LV gram performed in YUN @ 10 mL/second for a total of 30 mL. EDP Sample taken: LV 120/4,27; HR: 78 BPM; SpO2: 98%. Pullback taken: LV 115/3,26; AO 120/61(88); Mean: 0mmHg, Peak to Peak: 0mmHg, SEP: 7sec/min; HR: 79 BPM; SpO2: 98%. Catheter removed over the exchange wire. Physician scrubbed out. Dr. Chaidez arrived. The sheath flushed periodically with heparnized saline to maintain patency. Dr. Chaidez scrubbed in. 6 bahamian XB 3.5 guide catheter was inserted over the wire. FFR guidewire was advanced through the guide catheter to lesion in the mid LAD. IFR Results: 0.95. Wire out. Guide catheter out. Vital chart was stopped. A TR Band was successful obtaining hemostatsis at the Right Radial artery insertion site. Post Procedure: Pulses reassessed and unchanged. PERRLA. Strong, equal hand consumer product advisor bilaterally. No VTE prophylaxis required. Medication's Wasted: Other = Fentanyl 75 mg. Medication's Wasted: Nitro = 49.8 mg. Medication's Wasted: Heparin = 1000 units. Total IV fluids: 320 mL. Complications: None. Estimated blood loss: 5mL-10mL. Responsiveness - Normal response to verbal stimuli; alert and oriented, PERRLA. Airway - Unaffected, no intervention required; spontaneous ventilation. Circulation: W/N/L, pulses unchanged. Nausea/Vomiting: No. Procedure completed. Patient transferred by wheelchair to 1st floor. Access Site Site: Right Radial artery Sheath Size: 6 Fr Hemostasis Method: TR Band Hemostasis Success: Successful Procedure Medications Start: 12:04 PM Stop: 12:04 PM Medication: Versed Amount: 1 mg Route: I.V. Start: 12:06 PM Stop: 12:06 PM Medication: Fentanyl Amount: 25 mcg Route: I.V. Start: 12:15 PM Stop: 12:15 PM Medication: Versed Amount: 1 mg Route: I.V. Start: 12:18 PM Stop: 12:18 PM Medication: Fentanyl Amount: 25 mcg Route: I.V. Start: 12:25 PM Stop: 12:25 PM Medication: Fentanyl Amount: 50 mcg Route: I.V. Start: 12:27 PM Stop: 12:27 PM Medication: Nitrogylcerin Amount: 200 mcg Route: I.A. Start: 12:27 PM Stop: 12:27 PM Medication: Verapamil Amount: 5 mg Route: I.A. Start: 12:27 PM Stop: 12:27 PM Medication: 0.9% Saline Amount: 250 ml Route: I.V. bolus Start: 12:30 PM Stop: 12:30 PM Medication: Heparin Amount: 5000 units Route: I.V. Start: 12:55 PM Stop: 12:55 PM Medication: Versed Amount: 1 mg Route: I.V. Start: 1:09 PM Stop: 1:09 PM Medication: Fentanyl Amount: 25 mcg Route: I.V. I, the attending physician, have reviewed and verified all procedure medications. Yes, all medications given per verbal order History/Risk Factors Hypertension: Yes Dyslipidemia: Yes Peripheral Arterial Disease (PAD): Yes Myocardial Infarction (CO): No Obesity: No Renal Disease: No Prior Interventions PCI: No CABG: No Valve Surgery: No Report Signatures Diagnostic Workflow Finalized by Dr Ara Walsh MD [facility] on 01/15/2024 07:00 PM Interventional Workflow Finalized by Dr. Shyam Chaidez MD on 01/15/2024 01:26 PM
[2024-01-15 11:12] LABS: Basophils # 0.1 10^3/uL (0.0-0.1); Basophils % 0.6 %; Eosinophils # 0.3 10^3/uL (0.0-0.8); Eosinophils % 2.8 %; Hematocrit 47.4 % (37-53); Lymphocytes # 3.5 10^3/uL (0.8-4.8); Lymphocytes % 33.7 %; Mean Corpuscular Hemoglobin 33.5 pg (27-33); Mean Corpuscular Volume 98.5 fl (82-101); Mean Platelet Volume 9.9 fL (7.4-10.4); Monocytes # 0.9 10^3/uL (0.2-0.9); Monocytes % 8.1 %; Neutrophils # 5.68 10^3/uL (1.8-7.7); Neutrophils % 54.5 %; Nucleated Red Blood Cells % 0 %; Platelet Count 324 10^3/cmm (157-399); Red Blood Count 4.81 10^6/uL (3.85-5.65); Red Cell Distribution Width 12.4 % (12.1-15.1); White Blood Count 10.43 10^3/uL (3.29-11.43)
[2024-01-15 11:20] LABS: Blood Urea Nitrogen 14 mg/dL (8-23); Calcium 8.7 mg/dL (8.5-10.5); Carbon Dioxide 27 mmol/L (22-29); Chloride 101 mmol/L (98-107); Creatinine Clr Calc Pharmacy 90.7692; Glomerular Filtration Rate 96.7 mL/min (90-130); Glucose 90 mg/dL (65-115); Osmolality Calculated 286 mOsm/kg (285-295); Sodium 138 mmol/L (136-145)
--- NOTE | 2024-01-15 11:44 | P.HP_ITS ---
Providers/Chief Complaint 2 Admitting Physician: SUMA Walsh MD/cardiology Primary Care Provider: Kourtney Almaguer MD Chief Complaint: R94.39 History of Present Illness Wang Castellon is a 68 year old male with a history of abdominal aortic aneurysm status post aneurysm repair peripheral artery disease, history of CVA, seizure disorder, COPD is present with complaints of chest pain and shortness of breath. He had a Myocardial perfusion imaging in February 2023. He was found to have areas of fixed and reversible defect in the distribution of the right coronary artery. It was opted to treat him medically in the beginning. But because of his ongoing worsening of the symptoms and the multiple risk factors, in order to further evaluate his coronary status, a cardiac catheterization was recommended. He had a CTA of the abdominal aorta with runoff which revealed occlusion of the right iliac limb of the aortic stent graft. Collateral filling of the distal vessel., The left iliac limb of the stent that was found to be patent. Mild diffuse disease was noted in the iliac and the femoral arteries bilaterally. Patient was evaluated by Dr. Taylor and recommended vascular surgery consult. Patient apparently decided to hold off on this. He has chronic exertional claudication involving the right lower extremity. He had some recent medication changes for the seizure disorder. The most recent seizure was 3 weeks ago. He has a history of poor compliance to medications and follow-ups. Review of Systems 2 Narrative: CONSTITUTIONAL: No fever or chills. Has some feeling of weakness and dyspnea on exertion. EYES: No blurring of vision or other visual disturbances lately. ENT: No hoarseness of voice, auditory disturbances or sore throat. CARDIOVASCULAR: As mentioned above. RESPIRATORY: COPD/dyspnea on exertion. GASTROINTESTINAL: No hematemesis or melena. GENITOURINARY: No dysuria or hematuria. INTEGUMENTARY: No skin rashes or history of skin cancer. NEURO: History of seizure disorder and CVA PSYCHIATRIC: No history of psychosis or major depression. HEMATOLOGIC: No bleeding disorders or significant anemia. ENDOCRINE: No history of polyuria or polydipsia. MUSCULOSKELETAL: No recent joint pain or swelling. ALLERGY/IMMUNOLOGY: As mentioned above. Medications/Allergies Home Medications Medication Instructions Recorded Confirmed Last Taken Type aspirin 81 mg chewable tablet 81 mg PO DAILY 09/02/22 01/14/24 01/15/24 08:00 History (Aspirin Childrens) cholecalciferol (vitamin D3) 50 50 mcg PO DAILY 09/02/22 01/14/24 01/15/24 08:00 History mcg (2,000 unit) capsule folic acid 1 mg tablet 1 mg PO DAILY 09/02/22 01/14/24 01/15/24 08:00 History tiotropium bromide 2.5 2 puff inhalation DAILY 09/02/22 01/14/24 01/15/24 08:00 History mcg/actuation mist for inhalation (Spiriva Respimat) duloxetine 60 mg capsule,delayed 60 mg PO DAILY #90 caps 09/11/22 01/14/24 01/15/24 08:00 Rx release fluticasone propionate 50 1 spray intranasal BID #16 grams 09/11/22 01/14/24 01/15/24 08:00 Rx mcg/actuation nasal spray,suspension (Flonase Allergy Relief) atorvastatin 40 mg tablet 20 mg PO QPM 01/22/23 01/14/24 01/14/24 20:00 History fluticasone 250 mcg-salmeterol 50 1 inh inhalation BID 01/22/23 01/14/24 01/15/24 08:00 History mcg/dose blistr powdr for inhalation tamsulosin 0.4 mg capsule 0.4 mg PO QPM 01/22/23 01/14/24 01/14/24 20:00 History nitroglycerin 0.4 mg sublingual 0.4 mg sublingual Q5M PRN chest 02/04/23 01/14/24 Unknown Rx tablet pain #25 tabs meclizine 25 mg tablet 25 mg PO BID PRN dizziness #14 tabs 02/16/23 01/14/24 01/15/24 08:00 Rx ascorbic acid (vitamin C) 1,000 mg 1 g PO DAILY 04/13/23 01/14/24 01/15/24 08:00 History capsule prazosin 2 mg capsule 2 mg PO BEDTIME 04/13/23 01/14/24 01/14/24 20:00 History cilostazol 100 mg tablet 100 mg PO BID #28 tabs 07/01/23 01/14/24 01/15/24 08:00 Rx citalopram 40 mg tablet 40 mg PO DAILY 10/14/23 01/14/24 01/15/24 08:00 History quetiapine 25 mg tablet 12.5 mg PO BID 10/14/23 01/14/24 01/15/24 08:00 History albuterol sulfate 90 mcg/actuation 2 puff inhalation Q4H PRN 11/06/23 01/14/24 01/15/24 08:00 History aerosol inhaler Shortness Of Breath Or Wheezing loratadine 10 mg tablet 10 mg PO DAILY 11/06/23 01/14/24 01/15/24 08:00 History vitamin A 2,400 mcg capsule 2,400 mcg PO DAILY 11/06/23 01/14/24 01/15/24 08:00 History chlorzoxazone 500 mg tablet 250 mg (1/2 x 500 mg) PO TID PRN 11/10/23 01/14/24 01/15/24 08:00 Rx muscle spasm 7 days #21 tabs tramadol 50 mg tablet 50 mg PO TID PRN pain 7 days #21 11/18/23 01/14/24 01/15/24 08:00 Rx tabs gabapentin 300 mg capsule 900 mg PO BID 12/08/23 01/14/24 01/15/24 08:00 History metoprolol tartrate 25 mg tablet 25 mg PO ONCE 12/08/23 01/14/24 01/15/24 08:00 History lacosamide 100 mg tablet 100 mg PO BID #180 tabs 01/05/24 01/14/24 01/15/24 08:00 Rx levetiracetam 500 mg tablet 1,500 mg (3 x 500 mg) PO Q12H #360 01/05/24 01/14/24 01/15/24 08:00 Rx (Keppra) tabs phenytoin sodium extended 100 mg 100 mg PO BID #180 caps 01/05/24 01/14/24 01/15/24 08:00 Rx capsule Allergies Allergy/AdvReac Type Severity Reaction Status Date / Time adhesive tape Allergy Unknown Verified 01/15/24 11:12 lithium Allergy Unknown Verified 01/15/24 11:12 naproxen Allergy Unknown Verified 01/15/24 11:12 nefazodone Allergy Unknown Verified 01/15/24 11:12 PFSH Acute 2 PFSH: Medical History Palpitations BPPV (benign paroxysmal positional vertigo) Left arm weakness Stroke-like symptoms COPD (chronic obstructive pulmonary disease) Dyslipidemia BPH (benign prostatic hyperplasia) Seizure disorder Surgical History S/P AAA repair using bifurcation graft Social History Smoking and tobacco/nicotine status: current every day tobacco/nicotine user Alcohol intake: never Substance/Drug Use: never Vitals/I&O/Wt Last Vital Signs Temp 98.6 F 01/15/24 11:04 Pulse 79 01/15/24 11:04 Resp 16 01/15/24 11:04 BP 137/71 01/15/24 11:04 Pulse Ox 96 01/15/24 11:04 O2 Del Method Room Air 01/15/24 11:04 Weight last 48 hrs Weight 148 lb Physical Exam 2 Narrative: GENERAL: The patient is alert and oriented times three. Not in any acute distress. HEENT: No significant pallor, icterus or lymphadenopathy.Oral cavity: There are no mucous membrane lesions. NECK: Trachea appears to be central. No masses noted. No JVD or thyromegaly appreciated. RESPIRATORY: Chest is symmetrical. No intercostals muscle retraction or any accessory muscle activation. There is no chest wall tenderness. Breath sounds are heard bilaterally. No rales or rhonchi heard. No evidence of any consolidation. BREASTS: Deferred. HEART: The heart sounds are normal. No S3 or S4. No significant murmurs. No pericardial rub ABDOMEN: No vessel pulsations or distention. No tenderness. No organomegaly appreciated. Bowel sounds are normally heard. : Deferred. RECTAL: Deferred. LYMPHATIC: No lymphadenopathy noted in the neck. EXTREMITIES: The results present posttibial pulses on the right side is extremely weak. The right extremity is gradually cold. No cyanosis or ulcerations MUSCULOSKELETAL: No acute joint deformities or swelling SKIN: There are no significant rashes or ecchymosis NEUROPSYCHIATRIC: The patient is alert and oriented x3. Appears to be in a good mood. No tremors or rigidity noted. Data 01/15/24 09:45 01/15/24 09:45 Other Labs: Laboratory Last Values WBC 10.43 10^3/uL (3.29-11.43) 01/15/24 09:45 RBC 4.81 10^6/uL (3.85-5.65) 01/15/24 09:45 Hgb 16.10 g/dL (11.27-16.99) 01/15/24 09:45 Hct 47.4 % (37-53) 01/15/24 09:45 MCV 98.5 fl (82-101) 01/15/24 09:45 MCH 33.5 pg (27-33) H 01/15/24 09:45 MCHC 34.0 g/dL (30-55) 01/15/24 09:45 RDW 12.4 % (12.1-15.1) 01/15/24 09:45 Plt Count 324 10^3/cmm (157-399) 01/15/24 09:45 MPV 9.9 fL (7.4-10.4) 01/15/24 09:45 Neut % (Auto) 54.5 % 01/15/24 09:45 Lymph % (Auto) 33.7 % 01/15/24 09:45 Isabella % (Auto) 8.1 % 01/15/24 09:45 Eos % (Auto) 2.8 % 01/15/24 09:45 Baso % (Auto) 0.6 % 01/15/24 09:45 Neut # (Auto) 5.68 10^3/uL (1.8-7.7) 01/15/24 09:45 Lymph # (Auto) 3.5 10^3/uL (0.8-4.8) 01/15/24 09:45 Isabella # (Auto) 0.9 10^3/uL (0.2-0.9) 01/15/24 09:45 Eos # (Auto) 0.3 10^3/uL (0.0-0.8) 01/15/24 09:45 Baso # (Auto) 0.1 10^3/uL (0.0-0.1) 01/15/24 09:45 Nucleated RBC % (auto) 0 % 01/15/24 09:45 Nucleated RBCs # 0.0 /100WBC 01/15/24 09:45 Sodium 138 mmol/L (136-145) 01/15/24 09:45 Potassium 4.0 mmol/L (3.5-5.1) 01/15/24 09:45 Chloride 101 mmol/L (98-107) 01/15/24 09:45 Carbon Dioxide 27 mmol/L (22-29) 01/15/24 09:45 Anion Gap 14.0 (5-19) 01/15/24 09:45 BUN 14 mg/dL (8-23) 01/15/24 09:45 Creatinine 0.8 mg/dL (0.7-1.2) 01/15/24 09:45 GFR Calculation 96.7 mL/min (90-130) 01/15/24 09:45 Glucose 90 mg/dL (65-115) 01/15/24 09:45 Calculated Osmolality 286 mOsm/kg (285-295) 01/15/24 09:45 Calcium 8.7 mg/dL (8.5-10.5) 01/15/24 09:45 Other data: Myocardial perfusion imaging done on 03/04/2023 1. Myocardial perfusion imaging revealing small area of moderately decreased BRETA uptake in the inferoseptal region with some reversibility suggesting myocardial scarring with ischemia in the distribution of the right coronary artery. However because of the inconsistency, the reliability is questionable 2. Normal LV ejection fraction 61%. 3. LV wall motion analysis revealing no gross wall motion abnormalities. 4. Normal LV volume No similar previous studies are available for comparison Lower extremity arterial Doppler examination done on 04/28/2023 1. Abnormal resting HUGO on the right side suggestive of severe peripheral artery disease. 2. Features of collateral filling in the iliac, femoral and popliteal arteries. Possible high-grade lesions in the infrapopliteal vessels. 2. Features of mild peripheral artery disease on the left side Echocardiogram done on 04/28/2023 Normal left ventricular size and systolic function, EF 61 %. No regional wall motion abnormalities. Grade I/IV diastolic dysfunction (abnormal relaxation filling pattern), normal to mildly elevated filling pressures. Normal cardiac chamber sizes. No significant stenotic or relative lesions. There is no pericardial effusion. There are no intracardiac masses. No similar previous studies are available for comparison A&P Assessment and plan (1) Abnormal nuclear cardiac imaging test: Patient has ongoing chest pains and shortness of breath. The symptoms seems to be limiting his activities. The Myocardial perfusion imaging revealed a possible small area of ischemia in the distribution of the right coronary artery. Because of his multiple risk factors and the ongoing symptoms, in order to further evaluate his coronary status, a cardiac catheterization would be appropriate. The risk of bleeding, hematoma, vascular injury, myocardial infarction, myocardial perforation, malignant cardiac arrhythmias ,CVA, renal failure and other concomitant complications were explained in detail. Patient understood this well and consented to proceed (2) Peripheral arterial disease: Patient has an HUGO of 0.4 on the right side and 0.8 on the left side. He had CT evidence of occlusion of the iliac extension of the aortic stent graft. Patient did not want to undergo vascular surgery. (3) Hx of endovascular stent graft for abdominal aortic aneurysm: Aortic stent graft appears to be functioning okay. The left iliac extension of the stent graft also was found to be patent (4) Dyslipidemia: May continue on the current medications (5) Seizure disorder: Will continue on the current medications. Plan Based on the angiogram findings, further recommendations will be made. Attestations 2 Medical Necessity Statement*: The patient may require a midnight stay to further manage his condition Coding Level of Care Code 47611 Diagnoses Abnormal nuclear cardiac imaging test R93.1 Peripheral arterial disease I73.9 Hx of endovascular stent graft for abdominal aortic aneurysm Z95.828 Dyslipidemia E78.5 Seizure disorder G40.909
--- NOTE | 2024-01-15 11:56 | W.PM.OPSUD ---
Surgery/Procedure H&P Update DATE OF PROCEDURE: January 15, 2024 DATE H&P PERFORMED: 01/15/24 H&P UPDATE INFORMATION: I have reviewed H&P completed within last 30 days, I have examined patient prior to procedure and No changes to prior documentation PREOP DIAGNOSIS: Atherosclerotic heart disease PRIMARY INDICATION FOR PROCEDURE: Chest pain, abnormal Myocardial perfusion imaging, multiple risk factors for coronary artery disease PLANNED PROCEDURE: Operation Date: 01/15/24 07:00 Proposed Procedures p Left heart cath 02999,[R94.39](Left) - Ara Walsh MD PATIENT REASSESSED PRIOR TO SEDATION, WITH NO CHANGE NOTED: Yes PHYSICAL EXAM: alert, oriented x 3, clear to auscultation bilaterally and regular rate & rhythm AIRWAY EVAL/ANESTHESIA PLAN: normal airway, see other exam findings, ASA II, ASA III, Monitored Anesthesia, Local Anesthesia, Risks, benefits & alternatives of sedation and/or procedure discussed and Patient agrees to continue as planned
[2024-01-15] MEDS: metoprolol tartrate 25 mg Tablet PO (14:27)
--- NOTE | 2024-01-15 14:43 | PC.NURSE ---
received from cardiac receiver/laborer at 1325 via w/c.pt is alert and awake and oriented x 4.sr on monitor.denies pain at present.right wrist with tr band on and inflated.no hematoma noted.right hand is warm to touch and with brisk capillary refill.palpable radial pulse noted distal to tr band.instructed in activity restrictions s/p radial artery procedure..and instructed to notify staff for any bleeding,pain,numbness,or for any concerns at all.pt verb understanding of instructions.
[2024-01-15] MEDS: sodium chloride 0.9% 1,000 ML 100 ML IV (14:57)
--- NOTE | 2024-01-15 17:17 | PC.NURSE ---
tr band slowly deflated and eventually removed at 1630.dressed with 2x2 gauze and secured with biocclusive drsg.no hematoma noted.right hand remains warm to touch and with brisk capillary refill.palpable radial pulse noted.discharge instructions given and explained.pt verb understanding of instructions.discharged via wc to exit at this time.cab to drive pt home.
== END 2024-01-15 17:26 | disposition home or self-care (01) ==
LOC: CCL 10:17 → CSU 15:02
PROVIDERS: Internal Medicine Cardiovascular Disease; PCP Family Medicine; Visit Provider Internal Medicine Cardiovascular Disease
DX: I25.10 Atherosclerotic heart disease of native coronary artery without angina pectoris (principal); I73.9 Peripheral vascular disease, unspecified; Z95.828 Presence of other vascular implants and grafts; E78.5 Hyperlipidemia, unspecified; G40.909 Epilepsy, unspecified, not intractable, without status epilepticus; Z86.79 Personal history of other diseases of the circulatory system; I10 Essential (primary) hypertension; Z86.73 Personal history of transient ischemic attack (TIA), and cerebral infarction without residual deficits; J44.9 Chronic obstructive pulmonary disease, unspecified; Z91.199 Patient's noncompliance with other medical treatment and regimen due to unspecified reason; Z79.82 Long term (current) use of aspirin; N40.0 Benign prostatic hyperplasia without lower urinary tract symptoms; F17.200 Nicotine dependence, unspecified, uncomplicated
CPT/HCPCS: 36415; 80048; 85025; 93458; 93571; 96361; 96365; 99152; 99153; C1769; C1887; C1894; J1644; J2250; J3010; J3490; J7030; Q9967

== ENCOUNTER → 2024-04-20 14:54 | Outpatient (BNVA) | payer OTHER, SELFPAY | PROVIDERS: PCP Family Medicine; Visit Provider Specialist | DX: M19.012 Primary osteoarthritis, left shoulder (principal) | CPT/HCPCS: 73030; 99214 ==

== ENCOUNTER 2024-05-25 13:00 | Outpatient (CLI) | payer OTHER, SELFPAY ==
--- NOTE | 2024-05-25 12:59 | MR_ITS ---
WS: [id number] MRI LEFT SHOULDER ARTHROGRAM HISTORY: pain COMPARISON: 04/07/2023 TECHNIQUE: Pre and postcontrast imaging. Gadolinium mixture was injected under fluoroscopy. Coronal T 1 fat sat, sagittal T2 fat sat, coronal T2 fat sat, axial proton density, axial T1 nonfat saturation views are submitted. 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 Mild progression since 04/07/2023. 5 mm osteophyte from the distal clavicle with mild encroachment upon the myotendinous portion of the supraspinatus. There is a small amount of fluid in the subacromial bursa. Mild subacromial impingement. No os acromi on. Normal appearance of the biceps tendon. No muscle atrophy or edema. Oblique tear extends to the a rticular surface of the supraspinatus tendon. Tear has progressed since the prior study. Tear does a lso extend to the insertion site. Mild associated tendinopathy. There is increased T2 signal which is slightly irregular involving the anterior superior labrum. This will be evaluated further on the pos t arthrogram imaging for SLAP tear. Post arthrogram: No injected contrast extends into the subacromial or subdeltoid bursa. The injected contrast does extend into the oblique tear through the distal supraspinatus tendon. There is good dis tention of the joint with contrast. No loose bodies are identified. There is a tear involving the ant erior labrum. Very slightly lobular appearance of the anterior labrum. Very thin portion of the gila l tear extends superiorly. Main portion of the labral tear is along the anterior labrum. MR/MR shoulder LT wo/w con [id number] IMPRESSION: 1. Oblique tear distal supraspinatus tendon extends to the articular surface. Tear involves the insertion site. 2. Anterior labral tear is confirmed. The tear does extend superiorly include a portion of the superior labrum. Probably not progressed since the prior MRI o f 04/07/2023. 3. 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
--- NOTE | 2024-05-25 13:00 | IR_ITS ---
WS: [id number] LEFT SHOULDER ARTHROGRAM UNDER FLUOROSCOPY. PRIOR TO MRI EVALUATION. HISTORY: pain COMPARISON: None available. FLUOROSCOPY TIME: 1min [id number] # of spot films: 2 Procedure, risks and complications were explained to the patient. Consent has been obtained. Under fluoroscopic guidance the skin is marked over the medial superior third of the humeral head, cl eansed with ChloraPrep and anesthetized with lidocaine. 22-gauge spinal needle is inserted to the cor sushila of the humeral head. Test injection with Omnipaque reveals the needle is appropriately positioned in the joint. A mixture of 10 cc sterile saline, 5 cc Omnipaque and 0.1 mmol gadolinium are injected under fluoroscopic guidance. Patient tolerated the joint distention well. No complications. IR/IR arthrogram shoulderLT [id number] IMPRESSION: Uncomplicated shoulder joint injection prior to MRI.
[2024-05-25] MEDS: iohexol 240 mg/mL 50 mL Btl 20 ML INTRA-ARTI (14:23)
== END 2024-05-25 13:01 | disposition home or self-care (01) ==
PROVIDERS: PCP Family Medicine; Visit Provider Specialist
DX: M19.012 Primary osteoarthritis, left shoulder (principal); M25.712 Osteophyte, left shoulder; S46.012A Strain of muscle(s) and tendon(s) of the rotator cuff of left shoulder, initial encounter; S43.492A Other sprain of left shoulder joint, initial encounter; X58.XXXA Exposure to other specified factors, initial encounter; R29.90 Unspecified symptoms and signs involving the nervous system; G40.909 Epilepsy, unspecified, not intractable, without status epilepticus; R27.0 Ataxia, unspecified; G62.89 Other specified polyneuropathies; G25.81 Restless legs syndrome; I69.398 Other sequelae of cerebral infarction
CPT/HCPCS: 23350; 73223; 77002; 99213; 99214; Q9966

== ENCOUNTER → 2024-07-04 10:47 | Outpatient (BNVA) | payer OTHER, SELFPAY | PROVIDERS: PCP Family Medicine; Visit Provider Specialist | DX: M70.61 Trochanteric bursitis, right hip (principal); M54.50 Low back pain, unspecified; G89.29 Other chronic pain | CPT/HCPCS: 20610; 73502; 99204; J1100; J2795; J3301 ==

== ENCOUNTER → 2024-07-06 10:32 | Outpatient (BNVA) | payer OTHER, SELFPAY | PROVIDERS: PCP Family Medicine; Visit Provider Specialist | DX: M19.012 Primary osteoarthritis, left shoulder (principal); M75.112 Incomplete rotator cuff tear or rupture of left shoulder, not specified as traumatic; M25.812 Other specified joint disorders, left shoulder | CPT/HCPCS: 99214 ==

== ENCOUNTER → 2024-07-14 13:44 | Outpatient (BNVA) | payer OTHER, SELFPAY | PROVIDERS: PCP Family Medicine; Visit Provider Orthopaedic Surgery | DX: M54.50 Low back pain, unspecified (principal); G89.29 Other chronic pain | CPT/HCPCS: 72110; 99204 ==

== ENCOUNTER 2024-08-19 09:57 | Outpatient (CLI) | payer OTHER, SELFPAY ==
--- NOTE | 2024-08-19 10:05 | CTR_ITS ---
PROCEDURE INFORMATION: Exam: CTA Abdominal Aorta and Bilateral Lower Extremities (Run-off) With Contrast Exam date and time: 08/19/2024 10:33 AM Age: 68 years old Clinical indication: Condition or disease; Arterial aneurysm; Without rupture; Abdominal; Prior surgery; Surgery date: 6+ months; Surgery type: Vascular stents kylie groin area; Patient HX: Right leg pain, non healing wound right foot, HX of kylie groin stents, aaa TECHNIQUE: Imaging protocol: Computed tomographic angiography of the of the abdominal aorta, pelvis and bilateral lower extremities with contrast. 3D rendering (Not supervised by radiologist): MIP and/or 3D reconstructed images were created by the technologist. Radiation optimization: All CT scans at this facility use at least one of these dose optimization techniques: automated exposure control; mA and/or kV adjustment per patient size (includes targeted exams where dose is matched to clinical indication); or iterative reconstruction. Contrast material: OMNI 350; Contrast volume: 120 ml; Contrast route: INTRAVENOUS (IV); COMPARISON: CT angio abd aorta runof [id number] 05/20/2023 3:57 PM RADIATION DOSE METRICS: Total DLP (mGy-cm): 1436.24 FINDINGS: Pulmonary arteries: The aneurysm sac shows a maximum diameter of 2.8 cm. Aorta: An aortic stent graft is in good position. The right limb of the stent graft is thrombosed. The left limb is widely patent. Celiac trunk and mesenteric arteries: No occlusion or significant stenosis. Renal arteries: No occlusion or significant stenosis. Right iliac arteries: No occlusion or significant stenosis. Right femoral/popliteal arteries: No occlusion or significant stenosis. Right infrapopliteal arteries: No occlusion or significant stenosis. Left iliac arteries: No occlusion or significant stenosis. Left femoral/popliteal arteries: No occlusion or significant stenosis. Left infrapopliteal arteries: No occlusion or significant stenosis. Lungs: Both lung bases demonstrate severe emphysematous changes. Liver: No mass. Gallbladder and biliary ducts: Unremarkable. No calcified stones. No ductal dilation. Pancreas: Unremarkable. No mass. No ductal dilation. Spleen: Normal. No splenomegaly. Adrenal glands: Normal. No mass. Kidneys and ureters: Normal. No mass. Stomach and bowel: Unremarkable. No obstruction. No mucosal thickening. Appendix: No evidence of appendicitis. Urinary bladder: Unremarkable. No mass. Reproductive: The prostate gland is abnormally enlarged. Intraperitoneal space: Unremarkable. No free air. No significant fluid collection. Lymph nodes: No lymphadenopathy. Bones/joints: No acute fracture. No dislocation. Soft tissues: Unremarkable. CT/CT angio abd aorta runof [id number] IMPRESSION: 1. Stable aortic stent graft. Persistent right limb occlusion noted 2. Prostate enlargement 3. Emphysematous changes involving both lung bases
[2024-08-19 10:34] LABS: Blood Urea Nitrogen 10 mg/dL (8-23); Glomerular Filtration Rate 134.8 mL/min (90-130)
[2024-08-19] MEDS: iohexol 350 mg/mL 500 mL Btl (per mL) IV (10:53)
== END 2024-08-19 09:58 | disposition home or self-care (01) ==
LOC: RAD 09:59
PROVIDERS: PCP Family Medicine; Visit Provider Family Medicine
DX: T82.868A Thrombosis due to vascular prosthetic devices, implants and grafts, initial encounter (principal); N40.0 Benign prostatic hyperplasia without lower urinary tract symptoms; J43.9 Emphysema, unspecified; X58.XXXA Exposure to other specified factors, initial encounter
CPT/HCPCS: 75635; 82565; 84520

== ENCOUNTER → 2024-09-16 13:31 | Outpatient (BNVA) | payer OTHER, SELFPAY | PROVIDERS: PCP Family Medicine; Visit Provider Family Medicine | DX: Z01.818 Encounter for other preprocedural examination (principal) | CPT/HCPCS: 80053; 85025 ==

== ENCOUNTER 2024-09-20 10:54 | Day surgery (SDC) | payer OTHER, SELFPAY ==
[2024-09-20] VITALS (10 sets, daily range): BP systolic 134–177; BP diastolic 70–91; PULSE 75–93; RESP 12–26; TEMP 36.3–37.2; O2SAT 91–96; BMI 19.2
--- NOTE | 2024-09-20 11:28 | W.PM.OPSUD ---
Surgery/Procedure H&P Update DATE OF PROCEDURE: September 20, 2024 DATE H&P PERFORMED: 09/16/24 H&P UPDATE INFORMATION: I have reviewed H&P completed within last 30 days, I have examined patient prior to procedure, No changes to prior documentation and [place] [facility] [place] indicated PRIMARY INDICATION FOR PROCEDURE: Left shoulder pain with impingement, rotator cuff tear, and osteoarthritis of the glenohumeral and acromioclavicular joints. PLANNED PROCEDURE: Operation Date: 09/20/24 14:00 Proposed Procedures p Rotator Cuff Repair - Open(Left) - Kelly Vides MD s Acromioplasty(Left) - MD morenita Terrell Distal Clavicle Resection(Left) - Kelly Vides MD s Debridement Upper Extremity(Left) - Kelly Vides MD s Platelet-Rich Plasma Injection(Left) - Kelly Vides MD Related Problem List Diagnoses (1) Rotator cuff tear, left: Qualifiers: Rotator cuff tear extent: incomplete Rotator cuff tear trauma status: nontraumatic Qualified Code(s): M75.112 - Incomplete rotator cuff tear or rupture of left shoulder, not specified as traumatic (2) Impingement of left shoulder: (3) Primary osteoarthritis, left shoulder:
[2024-09-20] MEDS: sodium chloride 0.9% 1,000 ML 30 ML IV (11:51)
--- NOTE | 2024-09-20 13:40 | ANES.PROC ---
Anesthesia Procedures Procedure/Date: 09/20/24 Nerve Block ^: Nerve Block 1: Main Anesthesia: other (fentanyl 100mcg) Time Out Performed: Yes Consent: requested by attending/covering physician and from patient Nerve block location: interscalene Anesthesia monitors applied: pulse oximetry, EKG, BP cuff and oxygen Nerve block position: supine Anesthetic Used: ropivicaine 0.5% Amount of anesthesia used (mL): 25 Ultrasound used to: recognize landmarks Nerve Stimulator Used?: Yes Interscalene/Femoral BLK: other needle (pjunk) Injection: neg aspiration of heme Patient Tolerated Procedure: well Complications: none
--- NOTE | 2024-09-20 13:47 | P.ANESASSM_ITS ---
Pre-Anesthetic Assessment Height/Weight: Height 5 ft 10 in Weight 134 lb Temp Pulse Resp BP Pulse Ox O2 Del Method 97.3 F L 93 18 134/74 96 Room Air 09/20/24 11:20 09/20/24 11:20 09/20/24 11:20 09/20/24 11:20 09/20/24 11:20 09/20/24 11:21 Preop Diagnosis: Rotator cuff tear Operation Date: 09/20/24 14:00 Proposed Procedures p Rotator Cuff Repair - Open(Left) - Kelly Vides MD s Acromioplasty(Left) - Kelly Vides MD s Distal Clavicle Resection(Left) - Kelly Vides MD s Debridement Upper Extremity(Left) - Kelly Vides MD s Platelet-Rich Plasma Injection(Left) - Kelly Vides MD Was Beta Kristina taken within 24 hours: N/A Was Clonidine taken within 24 hours: N/A Last intake: Intake Last Liquid Date 09/19/24 Last Liquid Time 00:00 Last Solid Date 09/19/24 Last Solid Time 12:00 Social Tobacco and No alcohol Exam alert, oriented x 3 and regular rate & rhythm Diminished breath sounds bilaterally Airway Submandibular: within normal limits Cervical ROM: within normal limits Mallampati: Class III Dentition: full Comments: Comments: Multiple missing teeth Anesthetic Plan ASA status: 3 Anesthesia: General Other: No prior issues with anesthesia NPO since yesterday COPD, known controlled with inhalers. Uses oxygen only once every few months Hypertension on metoprolol Labs 09/16/2024 reviewed and acceptable for procedure EKG sinus rhythm Plan for general anesthesia with preop nerve block Medications/Allergies Home Medications Medication Instructions Recorded Confirmed Last Taken Type aspirin 81 mg chewable tablet 81 mg PO DAILY 09/02/22 09/20/24 09/16/24 History (Aspirin Childrens) cholecalciferol (vitamin D3) 50 50 mcg PO DAILY 09/02/22 09/20/24 09/20/24 History mcg (2,000 unit) capsule folic acid 1 mg tablet 1 mg PO DAILY 09/02/22 09/20/24 09/20/24 History tiotropium bromide 2.5 2 puff inhalation DAILY 09/02/22 09/20/24 09/20/24 History mcg/actuation mist for inhalation (Spiriva Respimat) duloxetine 60 mg capsule,delayed 60 mg PO DAILY #90 caps 09/11/22 09/20/24 09/20/24 Rx release fluticasone propionate 50 1 spray intranasal BID #16 grams 09/11/22 09/20/24 09/20/24 Rx mcg/actuation nasal spray,suspension (Flonase Allergy Relief) atorvastatin 40 mg tablet 20 mg PO QPM 01/22/23 09/20/24 09/19/24 History fluticasone 250 mcg-salmeterol 50 1 inh inhalation BID 01/22/23 09/20/24 09/20/24 History mcg/dose blistr powdr for inhalation tamsulosin 0.4 mg capsule 0.4 mg PO QPM 01/22/23 09/20/24 09/19/24 History nitroglycerin 0.4 mg sublingual 0.4 mg sublingual Q5M PRN chest 02/04/23 09/20/24 Unknown Rx tablet pain #25 tabs meclizine 25 mg tablet 25 mg PO BID PRN dizziness #14 tabs 02/16/23 09/20/24 01/15/24 08:00 Rx ascorbic acid (vitamin C) 1,000 mg 1 g PO DAILY 04/13/23 09/20/24 09/20/24 History capsule prazosin 2 mg capsule 2 mg PO BEDTIME 04/13/23 09/20/24 09/19/24 History citalopram 40 mg tablet 40 mg PO DAILY 10/14/23 09/20/24 09/20/24 History quetiapine 25 mg tablet 12.5 mg PO BID 10/14/23 09/20/24 09/20/24 History albuterol sulfate 90 mcg/actuation 2 puff inhalation Q4H PRN 11/06/23 09/20/24 01/15/24 08:00 History aerosol inhaler Shortness Of Breath Or Wheezing loratadine 10 mg tablet 10 mg PO DAILY 11/06/23 09/20/24 09/20/24 History vitamin A 2,400 mcg capsule 2,400 mcg PO DAILY 11/06/23 09/20/24 09/20/24 History chlorzoxazone 500 mg tablet 250 mg (1/2 x 500 mg) PO TID PRN 11/10/23 09/20/24 01/15/24 08:00 Rx muscle spasm 7 days #21 tabs gabapentin 300 mg capsule 900 mg PO BID 12/08/23 09/20/24 09/20/24 History lacosamide 100 mg tablet 100 mg PO BID #180 tabs 05/25/24 09/20/24 09/20/24 Rx levetiracetam 500 mg tablet 1,500 mg (3 x 500 mg) PO Q12H #360 05/25/24 09/20/24 09/20/24 Rx (Keppra) tabs phenytoin sodium extended 100 mg 100 mg PO BID #180 caps 05/25/24 09/20/24 09/20/24 Rx capsule ropinirole 0.5 mg tablet 0.5 mg PO TID #30 tabs 05/25/24 09/20/24 09/19/24 Rx cilostazol 100 mg tablet 100 mg PO BID #28 tabs 08/24/24 09/20/24 09/20/24 Rx dicyclomine 10 mg capsule 10 mg PO BID 09/16/24 09/20/24 09/20/24 History metoprolol tartrate 25 mg tablet 12.5 mg PO BID 09/20/24 09/20/24 09/20/24 History Allergies Allergy/AdvReac Type Severity Reaction Status Date / Time adhesive tape Allergy Unknown Verified 09/16/24 13:10 lithium Allergy Unknown Verified 09/16/24 13:10 naproxen Allergy Unknown Verified 09/16/24 13:10 nefazodone Allergy Unknown Verified 09/16/24 13:10 Current Medications Generic Name Dose Route Start Last Admin Trade Name Freq PRN Reason Stop Dose Admin Sodium Chloride 1,000 mls @ 30 mls/hr 09/20/24 11:15 09/20/24 11:51 Sodium Chloride 0.9% IV 09/21/24 11:14 30 mls/hr .Q24H SHARLENE Administration PFSH Anesthesia Medical History Atherosclerosis of [place] coronary artery without angina pectoris Palpitations BPPV (benign paroxysmal positional vertigo) Left arm weakness Stroke-like symptoms COPD (chronic obstructive pulmonary disease) Dyslipidemia BPH (benign prostatic hyperplasia) Seizure disorder Surgical History S/P AAA repair using bifurcation graft Social History Smoking and tobacco/nicotine status: current every day tobacco/nicotine user Alcohol intake: never Substance/Drug Use: never Data Anesthesia Cardiac Studies: Echocardiogram 04/29/23 Sestamibi Stress Test (Cardiology) 03/04 Cardiac Event Monitor 10/15/23 Holter Monitor 02/02/23
[2024-09-20] MEDS: ceFAZolin 2,000 mg SDV 2000 MG IVP (13:55)
[2024-09-20] MEDS: ceFAZolin 1,000 mg SDV 1000 MG IRRIGATION (14:48)
--- NOTE | 2024-09-20 16:26 | P.OP_ITS ---
Operative Report Date of procedure: September 20, 2024 Pre-op diagnosis: Left rotator cuff arthropathy with acromioclavicular joint and glenohumeral joint osteoarthritis, impingement, and possible rotator cuff tear Post-op diagnosis: Left rotator cuff arthropathy with acromioclavicular joint and glenohumeral joint osteoarthritis, impingement, and possible rotator cuff tear Post-op findings: Thinning of the rotator cuff as its attachment to the greater tuberosity within the supraspinatus, significant acromioclavicular joint degenerative osteoarthritis and significant impingement. Procedure done: Left rotator cuff repair utilizing PRP and primary repair, acromioplasty and distal clavicle resection. Implants: None Specimens removed/disposition: Bone, disposed of Surgeon: Kelly Vides MD Director Of Pediatric Rehabilitation: Maite Gracia, nurse practitioner, whose services were needed for positioning, retraction, and closure. Anesthesia: General (Intubated with left interscalene block, ASA 3) Estimated blood loss (mL): 10 IV fluids (mL): 600 Urine output (mL): 0 (No Lawrence) Complications: None Findings: Significant impingement with thinned supraspinatus tendon at its attachment. Condition: stable Disposition: PACU (Then return to same-day surgery for discharge to home) Brief History: This 68-year-old gentleman presented to the office complaining of left shoulder pain. The patient had a prior history of a fall. He had shoulder pain from that time. He had injection therapy as well as other nonoperative treatments which were not beneficial for him. On examination, he had significant tenderness over the AC joint and distal supraspinatus tendon. MRI demonstrated a tear of the supraspinatus tendon near its insertion. After discussion, the patient wished to proceed with operative intervention. Risks and complications were discussed with him. Consents were signed and questions were answered. The patient wished to proceed. Procedure: The patient was brought to the operating theater and underwent general intubated anesthesia, ASA 3. Preoperative interscalene block had also been placed. The patient was placed in a beachchair position and subsequently the right upper extremity was prepped and draped in the usual fashion utilizing DuraPrep. The arm was draped free. A surgical pause was performed prior to commencement of the surgical procedure. At the time of the surgical pause, we confirmed the site and side of surgery as well as administration of appropriate preoperative antibiotics Ancef 2 g. MRI was also reviewed at that time. Following the surgical pause, an incision was made at approximate level of the acromioclavicular joint extending across the anterolateral corner of the acromion and distally as necessary. Care was taken to avoid injury to the axillary nerve by limiting the distal extent of the incision. Dissection continued through skin and soft tissues using a scalpel. Hemostasis was obtained using electrocautery. Soft tissues were elevated off the acromion. Attention was directed to the acromioclavicular joint which was well exposed. A saw was then used to resect the distal clavicle without difficulty. The undersurface of the clavicle was palpated and was slightly further debrided. A power rasp was used to further smooth the area. When this was felt to be adequately resected, the wound was irrigated. An acromioplasty was then accomplished using a combination of a saw and a power rasp. With this, we were able to remove compression caused by the acromion. The rotator cuff was then evaluated to look for tears. Bursectomy was accomplished. Evaluation of the rotator cuff then demonstrated a small area of thinning at the insertion point of the distal supraspinatus onto the greater tuberosity of the humerus. This area was freshened, and a primary repair was accomplished utilizing 0 Ethibond. After the rotator cuff had been thus addressed, 0 Vicryl was utilized to smooth the edges at the level of the repair. The shoulder was placed through further range of motion to assure there was no further evidence of rotator cuff tear. Finding none, attention was then directed to closure. The wound was irrigated. PRP was then placed at the site of the rotator cuff repair, and closure was accomplished with 0 Vicryl in the capsular tissues overlying the acromioclavicular joint area as well as over the acromion and down into the deltoid muscle. 3-0 Monocryl was used to close the subcutaneous tissues followed by 4-0 Monocryl subcuticular closure. This was followed by Dermabond, Steri-Strips, and OpSite. An ABD was placed in the axill a. The patient was placed in a slingshot style sling and was returned to the recovery room in satisfactory condition. The patient will be discharged to home to follow-up in the office as scheduled. There were no complications and no specimens. Related Problem List Diagnoses (1) Rotator cuff tear, left: (2) Impingement of left shoulder: (3) Primary osteoarthritis, left shoulder:
[2024-09-20] MEDS: HYDROcodone-acetaminophen 5-325 mg Tablet 1 TAB PO (16:28)
--- NOTE | 2024-09-20 16:48 | ANE.PACU2 ---
Inpatient post-anesthesia follow up: Airway intact: Yes Vital signs: Temperature 98.9 F Pulse Rate 75 Respiratory Rate 17 Blood Pressure 173/91 Pulse Oximetry 92 Oxygen Delivery Me thod Room Air Oxygen Flow Rate Fraction of Inspir ed Oxygen Hydration adequate: Yes Nausea and vomiting: No Pain level: 1 Mental status: Baseline
== END 2024-09-20 16:38 | disposition home or self-care (01) ==
PROVIDERS: PCP Family Medicine; Visit Provider Specialist
PROC: (CPT 23412; principal; 2024-09-20 13:40)
PROC: (CPT 23130; 2024-09-20 13:40)
PROC: (CPT 23120; 2024-09-20 13:40)
PROC: (CPT 23412; 2024-09-20 13:40)
PROC: (CPT 0232T; 2024-09-20 13:40)
DX: M19.012 Primary osteoarthritis, left shoulder (principal); M25.812 Other specified joint disorders, left shoulder; M75.112 Incomplete rotator cuff tear or rupture of left shoulder, not specified as traumatic; J44.9 Chronic obstructive pulmonary disease, unspecified; I10 Essential (primary) hypertension; Z79.82 Long term (current) use of aspirin; I25.10 Atherosclerotic heart disease of native coronary artery without angina pectoris; E78.5 Hyperlipidemia, unspecified; N40.0 Benign prostatic hyperplasia without lower urinary tract symptoms; F17.200 Nicotine dependence, unspecified, uncomplicated
CPT/HCPCS: 23412; 23120; J0690; J1100; J2405; J2704; J3010; J3490; J7030

== ENCOUNTER 2025-06-07 19:04 | Inpatient (IN) | payer OTHER, SELFPAY ==
--- OUTSIDE RECORDS SUMMARY | 2024-07-22 10:27 | XMS_ITS ---
Author Name [facility] [place] [facility] Address [address] [place] [address] Care Team Providers Care Travel Guide Name Role Phone JR NAVARRO Primary Care Provider Solange e Insurance Providers: All historical and current Section Date Range: From patient's date of to the date document was created. This section includes the names of all active insurance providers for the patient. Insurance Provider Type of Coverage Plan Name Start of Policy Coverage End of Policy Coverage Group Number Member ID Insurance Provider's Telephone Number Policy [place]'s Name Patient's Relationship to Policy [place] MEDICARE (WNR) MEDICARE (M) PART A Nov 09, 2023 PART A [id number] [phone] RIGOBERTO STARR PATIENT Selected Encounter This section includes the information on record at [place] for the Encounter. Date/Time Encounter Type Encounter Description Reason Pro vider Source Jul 22, 2024 03:27 PM Outpatient Encounter ADMIN PAT ACTIVTIES (MASNONCT) IHE Encounter Template Text not used by [place] Plan of Treatment: Future Appointments (+ 6 months) and Future Tests (+/- 45 days) The Plan of Treatment section includes future care activities for the patient from all [facility] treatment[facility]ilities. This section includes future appointments and future orders which are active, pending or scheduled. Future Appointments This section includes appointments that were scheduled to occur 6 months from the date of the Encounter, up to a maximum of 20 appointments. The data comes from all [place] treatment facilities. Appointment Date/Time Appointment Type Appointme nt Facility Name Jul 25, 2024 01:00 PM AMBULATORY - MEDICINE [facility] Jul 28, 2024 01:00 PM AMBULATORY - MEDICINE [facility] Aug 19, 2024 10:00 AM AMBULATORY - MEDICINE [facility] Active, Pending, and Scheduled Orders This section includes a listing of several types of active, pending, and scheduled orders, including clinic medications orders, diagnostic test orders, procedure orders and consult orders; where the start date of the order is 45 days before the date of the Encounter or 45 days after the date of theEncounter. The data comes from all [place] treatment facilities. Test Date/Time Test Type Test Details Facility Name Aug 31, 2024 08:30 AM Consult Order [facility] [id number] Cons Wearing Apparel Shaker's Choice [facility] Lab Results: +/- 30 days of the encounter This section includes the Chemistry and Hematology Lab Results on record with [place] for the patient. Radiology Reports and Pathology Reports are provided separately, in subsequent sections. Lab Results This section contains the Chemistry/Hematology Results that were resulted 30 days before or 30 daysafter the date of the Encounter. Date/Time Source Result Type Result - Unit Interpretation Reference Range Specimen Type Comment Jul 25, 2024 01:26 PM [facility] BASIC METABOLIC PANEL PLASMA Specimen Type: PLASMA Comment: Re-order and Re-collection recommended. 2+ Hemolysis present. ~Potassium 4.8mmol/L Ordering Provider: JR NAVARRO Report Released Date/Time: Jul 25, 2024 01:19 PM Reporting Lab: [facility] [address] [facility] [id number] Performing Lab: [facility] [address] [facility] [id number] CREATININE 0.75 mg/dL 0.7-1.3 UREA NITROGEN 10 mg/dL 9-25 GLUCOSE 101 mg/dL H 72-99 SODIUM 136 meq/L 136-145 POTASSIUM comment meq/L 3.5-5 CHLORIDE 102 meq/L 98-107 CARBON DIOXIDE 22 meq/L 22-31 CALCIUM 9.0 mg/dL 8.4-10.4 EGFR (CKD-EPI 2020) 100 Social History: Smoking Status (Most current) and Tobacco Use (All prior to encounter date) This section includes the most current, and the historical, smoking and tobacco- related health factors from the [place] facility where the Encounter took place. Current Smoking Status This section includes the most current smoking, or tobacco-related health factor, from the [place] facility where the Encounter took place. Date/Time Current Smoking Status Comment Facil ity Jan 20, 2024 02:30 PM VA-TOBACCO USER EVERY DAY [facility] Tobacco Use History This section includes a history of the smoking, or tobacco-related health factors, that were collected on or before the date of the Encounter. The data comes from the [place] facility where the Encounter took place. 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 Jan 20, 2024 02:30 PM VA-TOBACCO USE MED NO 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 Sep 17, 2022 09:30 AM VA-TOBACCO USE MED NO [facility] Sep 17, 2022 09:30 AM VA-TOBACCO USE [place] 30 MIN OF WAKE UP [facility] Sep 17, 2022 09:30 AM VA-TOBACCO USER EVERY DAY [facility] Advance Directives: All historical and current Section Date Range: From patient's date of to the date document was created. This section includes ALL of a patient's completed or amended [place] Advance and Rescinded Directives. The entries below indicate that a directive exists for the patient, but an actual copy is not included with this document. The data comes from all [place] facilities. Date Advance Directives Provider Source Aug 24, 2017 ADVANCE DIRECTIVE DISCUSSION SHEKHAR MCCLAIN [facility] Encounter Notes: All associated encounter notes This section contains the clinical notes associated to the Encounter. Date/Time Encounter Note(s) Provider Source Jul 22, 2024 03:27 PM GENERAL MEDICINE N OTE: LOCAL TITLE: General Note PB STANDARD TITLE: GENERAL MEDICINE NOTE DATE OF NOTE: JUL 22, 2024@15:27 ENTRY DATE: JUL 22, 2024@15:27:53 AUTHOR: CHRISTINE SAHU EXP COSIGNER: URGENCY: STATUS: COMPLETED Eye Care At-Risk Screen : Patient identified to be at risk for the following eye condition(s): MACULAR DEGENERATION: Macular Degeneration Risk Factors Information: Reminder Term: VA-AMD RISK FACTORS Encounter Diagnosis: 09/23/2022@11:30 Z72.0 (ICD-10-CM) Tobacco use rank: SECONDARY Prov. Narr. - Tobacco use Action: No Referral Ordered: Eye exam completed elsewhere by an Fitness Teacher or Cloth Worker Exam Information: Date: November 11, 2023 Findings/Comment None [facility] Signed: 07/22/2024 15:37 CHRISTINE SAHU [facility]
--- OUTSIDE RECORDS SUMMARY | 2024-07-25 08:00 | XMS_ITS | Encounter Summary ---
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 Date/Time Encounter Type Encounter Description Reason Provider Source Jul 25, 2024 01:00 PM OFFICE O/P EST MOD 30 MIN PRIMARY CARE/MEDICINE ICD-10-CM B35.6 KOURTNEY Ureña Anibal Encounter Template Text not used by [place] Assessments - Encounter Diagnoses This section includes the primary and secondary diagnoses documented for the Encounter. Date/Time Primary/Secondary Diagnosis Diagnosis Name Provider Source Jul 25, 2024 01:29 PM PRIMARY KOURTNEY Ureña [facility] Jul 25, 2024 01:29 PM SECONDARY Abdominal aortic aneurysm, without rupture, unspecified KOURTNEY ALMAGUER [facility] Jul 25, 2024 01:29 PM SECONDARY Disorder of arteries and arterioles, unspecified KOURTNEY ALMAGUER [facility] Jul 25, 2024 01:29 PM SECONDARY Low back pain, unspecified KOURTNEY ALMAGUER [facility] Plan of Treatment: Future Appointments (+ 6 months) and Future Tests (+/- 45 days) The Plan of Treatment section includes future care activities for the patient from all [place] treatmentfacilities. This section includes future appointments and future orders which are active, pending or scheduled. Future Appointments This section includes appointments that were scheduled to occur 6 months from the date of the Encounter, up to a maximum of 20 appointments. The data comes from all [place] treatment facilities. Appointment Date/Time Appointment Type Appointme nt Facility Name Jul 28, 2024 01:00 PM AMBULATORY - MEDICINE [facility] Aug 19, 2024 10:00 AM AMBULATORY - MEDICINE [facility] Active, Pending, and Scheduled Orders This section includes a listing of several types of active, pending, and scheduled orders, including clinic medications orders, diagnostic test orders, procedure orders and consult orders; where the start date of the order is 45 days before the date of the Encounter or 45 days after the date of theEncounter. The data comes from all [place] treatment facilities. Test Date/Time Test Type Test Details Facility Name Aug 31, 2024 08:30 AM Consult Order [facility] [id number] Cons Icebox Man's Choice [facility] Lab Results: +/- 30 days of the encounter This section includes the Chemistry and Hematology Lab Results on record with [place] for the patient. Radiology Reports and Pathology Reports are provided separately, in subsequent sections. Lab Results This section contains the Chemistry/Hematology Results that were resulted 30 days before or 30 daysafter the date of the Encounter. Date/Time Source Result Type Result - Unit Interpretation Reference Range Specimen Type Comment Jul 25, 2024 01:26 PM [facility] BASIC METABOLIC PANEL PLASMA Specimen Type: PLASMA Comment: Re-order and Re-collection recommended. 2+ Hemolysis present. ~Potassium 4.8mmol/L Ordering Provider: KOURTNEY ALMAGUER Report Released Date/Time: Jul 25, 2024 01:19 PM Reporting Lab: [facility] [address] [facility] [place] [address] Performing Lab: [place] [facility] [address] [place] [address] CREATININE 0.75 mg/dL 0.7-1.3 UREA NITROGEN 10 mg/dL 9-25 GLUCOSE 101 mg/dL H 72-99 SODIUM 136 meq/L 136-145 POTASSIUM comment meq/L 3.5-5 CHLORIDE 102 meq/L 98-107 CARBON DIOXIDE 22 meq/L 22-31 CALCIUM 9.0 mg/dL 8.4-10.4 EGFR (CKD-EPI 2020) 100 Vital Signs: All taken on the encounter date This section contains inpatient and outpatient Vital Signs collected on the date of the Encounter. Date/Time Temperature Pulse Blood Pressure Respiratory Rate SP02 Pain Height Weight Body Mass Index Source Jul 25, 2024 01:09 PM 98.7 69 132/83 18 97 8 70.0 136.3 20 [facility] Social History: Smoking Status (Most current) and Tobacco Use (All prior to encounter date) This section includes the most current, and the historical, smoking and tobacco- related health factors from the [place] facility where the Encounter took place. Current Smoking Status This section includes the most current smoking, or tobacco-related health factor, from the [place] facility where the Encounter took place. Date/Time Current Smoking Status Comment Facil ity Jan 20, 2024 02:30 PM VA-TOBACCO USE WI 30 MIN OF WAKE UP [facility] Tobacco Use History This section includes a history of the smoking, or tobacco-related health factors, that were collected on or before the date of the Encounter. The data comes from the [place] facility where the Encounter took place. Date/Time Smoking Status/Tobacco Use Comment F acility Jan 20, 2024 02:30 PM [facility] Jan 20, 2024 02:30 PM VA-TOBACCO USE SUPPLY CHAIN DIRECTOR NO [facility] Jan 20, 2024 02:30 PM VA-TOBACCO USE MED NO [facility] Jan 20, 2024 02:30 PM VA-TOBACCO USE WI 30 MIN OF WAKE UP [facility] Jan 20, 2024 02:30 PM VA-TOBACCO USER EVERY DAY [facility] Sep 17, 2022 09:30 AM VA-TOBACCO USE 30 YEARS OR MORE [facility] Sep 17, 2022 09:30 AM VA-TOBACCO USE ADVICE [facility] Sep 17, 2022 09:30 AM VA-TOBACCO USE SUPPLY CHAIN DIRECTOR NO [facility] Sep 17, 2022 09:30 AM VA-TOBACCO USE MED NO [facility] Sep 17, 2022 09:30 AM VA-TOBACCO USE WI 30 MIN OF WAKE UP [facility] Sep 17, 2022 09:30 AM VA-TOBACCO USER EVERY DAY [facility] Advance Directives: All historical and current Section Date Range: From patient's date of to the date document was created. This section includes ALL of a patient's completed or amended VA Advance and Rescinded Directives. The entries below indicate that a directive exists for the patient, but an actual copy is not included with this document. The data comes from all [place] facilities. Date Advance Directives Provider Source Aug 24, 2017 ADVANCE DIRECTIVE DISCUSSION [facility] Encounter Notes: All associated encounter notes This section contains the clinical notes associated to the Encounter. Date/Time Encounter Note(s) Provider Source Aug 25, 2024 01:36 PM ADDENDUM: LOCAL TITLE: Addendum STANDARD TITLE: ADDENDUM DATE OF NOTE: AUG 25, 2024@13:36:05 ENTRY DATE: AUG 25, 2024@13:36:06 AUTHOR: KOURTNEY ALMAGUER EXP COSIGNER: URGENCY: STATUS: COMPLETED Notify patient his CTA performed on 08/19/2024 shows stable aortic stent graft with persistent right limb occlusion. His prostate is enlarged and he has emphysema of the lungs. Vascular surgery consult in [place] has been placed. /mamie/ Kourtney Almaguer MD [facility] Primary Care Signed: 08/25/2024 13:41 Receipt Acknowledged By: 08/31/2024 08:44 /mamie/ EDISON AVERY LPN [facility] --- Original Document --- 07/25/24 PRIMARY CARE CLINIC PROGRESS NOTE PB: CC: Rash in his groin area HPI: Patient reports currently not having the rash since is getting cooler bit when it is hot outside he gets a rash between his legs and the groin area he uses ocvb-gzn-opnffjw fungal creams that were not working but again its gone away now. He had a vascular consult placed last year to follow-up on his AAA but it got canceled because they can get a hold of him he would like to get that renewed. He is willing to see vascular in [place] he is due to have a CTA as well. He is no longer taking hydrocodone but has chronic back pain goes into his right hip. Non-VA PCP: No Specialist: Cadiology, Dr. Taylor Neurology, Dr. Rhodes Vascular, Dr. Darryl Lakhani, Dr. 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 lower Lobectomy Problem List: 1) Hyperlipidemia ([facility] [id number]) 2) GERD - Gastro-Esophageal Reflux Disease ([facility] [id number]) 3) Posttraumatic stress disorder 4) Benign prostatic hyperplasia 5) COPD - Chronic Obstructive Pulmonary Disease ([facility] [id number]) 6) Allergic Rhinitis ([facility] [id number]) 7) Vitamin D Deficiency ([facility] [id number]) 8) Cerebral infarction 9) Abdominal aortic aneurysm 10) Peripheral neuropathy 11) Low Back Pain ([facility] [id number]) 12) Polyp Colon ([facility] [id number]) 13) Bipolar disorder 14) Seizure disorder 15) Peripheral arterial occlusive disease 16) Degenerative joint disease of shoulder region Active Outpatient Medications (including Supplies): Active Outpatient Medications Status 1) CITALOPRAM HYDROBROMIDE 40MG TAB TAKE ONE TABLET BY ACTIVE MOUTH EVERY MORNING FOR ANXIETY 2) LACOSAMIDE 100MG TAB TAKE ONE TABLET BY MOUTH TWICE A ACTIVE DAY 3) LEVETIRACETAM 500MG TAB TAKE THREE TABLETS BY MOUTH ACTIVE TWICE A DAY SWALLOW WHOLE, DO NOT CRUSH OR CHEW. 4) LORATADINE 10MG TAB TAKE ONE TABLET BY MOUTH ONCE A ACTIVE DAY FOR ALLERGIC RHINITIS ON EMPTY STOMACH 5) METOPROLOL TARTRATE 25MG TAB TAKE ONE TABLET BY MOUTH ACTIVE TWICE A DAY FOR HIGH BLOOD PRESSURE TAKE WITH OR IMMEDIATELY FOLLOWING FOOD. 6) MULTIVITAMIN/MINERALS CAP/TAB TAKE 1 CAP/TAB BY MOUTH ACTIVE ONCE A DAY FOR SUPPLEMENTATION. 7) PHENYTOIN NA 100MG SA CAP TAKE ONE CAPSULE BY MOUTH ACTIVE TWICE A DAY (GENERIC SUBSTITUTION FOR DILANTIN) 8) ROPINIROLE HCL 0.5MG TAB TAKE ONE TABLET BY MOUTH ACTIVE ONCE A DAY NEEDED AND TAKE TWO TABLETS AT BEDTIME OTC aspirin 81mg daily OBJECTIVE: Vital Signs Temperature: 98.7 F [37.1 C] (07/25/2024 13:09) Respiratory Rate: 18 (07/25/2024 13:09) Pulse Rate: 69 (07/25/2024 13:09) Blood Pressure: 132/83 (07/25/2024 13:09) HT: 70.0 in [177.8 cm] (07/25/2024 13:09) WT: 136.3 lb [61.82 kg] (07/25/2024 13:09) BMI: 19.6 97% (07/25/2024 13:09) Physical Exam General: NAD noted, A&Ox3, pleasant, appears stated age HEENT: NCAT, TM's clear, nares and oropharynx clear Neck: Supple with normal active ROM, without any lymphadenopathy Heart: RRR, no murmur, clicks, or rub Resp: Lungs CTA bilaterally, respirations even and unlabored Abdomen: Soft, non-distended, non-tender Ext: No clubbing, cyanosis, edema or obvious deformity Neuro: Grossly intact Psych: Affect normal, answers questions appropriately throughout visit Assessment/Plan: 1) Tinea cruris-instructed on supportive care keeping clean and dry will try antifungal powders fzhj-fqn-oqxtvfq at next episode 2) AAA/PAD-will get him set up for a follow-up CTA as well as get him into see vascular in [place]; [facility] today 3) Chronic pain mainly low back-discussed BFA with patient today which she is willing to give a try Follow-up: As scheduled in October and/or as needed. Discussed with patient that in the event of community imaging / testing being ordered in the future, once the imaging / testing has been completed, please notify PACT of completion at outside facility if not called with results within 1 week by a [facility] PACT member; this is due to intermittent lapses in notification of imaging completion within CPRS. All questions answered; agrees to plan of care. Follow up as listed above, annually, and as needed. Keep all appointments. Medications Reconciled. See AVS given to . Time spent 30 minutes. /mamie/ Kourtney Almaguer MD [facility] Primary Care Signed: 07/25/2024 13:29 08/31/2024 ADDENDUM STATUS: UNSIGNED You may not VIEW this UNSIGNED Addendum. KOURTNEY ALMAGUER [facility] Jul 25, 2024 01:29 PM INTEGRATIVE HEALTH NOTE: LOCAL TITLE: [place] ACUPUNCTURE NOTE STANDARD TITLE: INTEGRATIVE HEALTH NOTE DATE OF NOTE: JUL 25, 2024@13:29 ENTRY DATE: JUL 25, 2024@13:29:40 AUTHOR: KOURTNEY ALMAGUER EXP COSIGNER: URGENCY: STATUS: COMPLETED Initial visit Osseo Acupuncture was the only treatment given. Patient was evaluated and agreed to receive [place]seo Acupuncture (BFA). Patient was evaluated and agreed to receive [place] Acupuncture Protocol (BFA) for the following pain condition(s): Comment: Chronic low back hip pain pre BFA Pain Numeric Rating Scale of site with highest pain: 8 The patient was asked the following questions: During the past 24 hours, how much has your pain interfered with your usual activity? 10 During the past 24 hours, how much has your pain interfered with your usual sleep? 10 During the past 24 hours, how much has the pain affected your usual mood? 10 During the past 24 hours, how much has pain contributed to your stress? 10 Oral informed consent obtained for BFA. Procedure: Ear was prepped with alcohol Needle type: Adhesive press tacks 0.9mm The following points were placed: All 10 points in both ears Complications: Patient tolerated well, without any complications. Post treatment Numeric Pain Rating Scale: To be determined standard [id number]-[id number] time for application of BFA protocol is 15 minutes. No electrical stimulation was used. The patient was provided with the following post BFA instructions: -Continue normal activities and avoid over exertion for the initial 6-12 hours after a treatment. Avoid alcohol for 12 hours after treatment. -You may bathe or shower with the needles in place, but be careful not to pull the needles when cleaning or drying the ear. -If you experience new or continued redness, swelling or pain, remove the needles or return to clinic for evaluation and/or needle removal. -You may experience drowsiness, lightheadedness, or euphoria during the treatment or within 30 minutes of treatment. -Do not have an MRI scan with the needles in place (If you need to have an MRI, please remove needles prior to scan). -Continue to take all prescription medication according to your provider's instructions. -After three days, remove all needles. You may have small stud needles (ASP needles) covered by an adhesive bandage, or needles that are attached to the adhesive bandage (press tack needles). ASP needles may be removed by gripping them with your fingernails or tweezers. Rock the needles back and forth to remove. Press tack needles may be removed by peeling off the tape that holds the needle in place. -[place] must be placed in a sharps container or household container that meets sharps disposal guidelines. Household container must be: a. made of a puncture-resistant material; b. able to close with a tight-fitting, puncture resistant lid, without sharps being able to come out; c. stand upright and be stable during use; d. leak-resistant; e. properly labeled (sharps - biohazard); and f. disposed of according to community guidelines, if available. -Please keep all regularly scheduled follow-up visits. Return sooner should your condition worsen. Future visit dates/details: cecilio /mamie/ MD [facility] Primary Care Signed: 07/25/2024 13:30 KOURTNEY ALMAGUER [facility] Jul 25, 2024 01:11 PM PRIMARY CARE PROGR ESS NOTE: LOCAL TITLE: PRIMARY CARE CLINIC PROGRESS NOTE PB STANDARD TITLE: PRIMARY CARE PROGRESS NOTE DATE OF NOTE: JUL 25, 2024@13:11 ENTRY DATE: JUL 25, 2024@13:12:01 AUTHOR: KOURTNEY ALMAGUER EXP COSIGNER: URGENCY: STATUS: COMPLETED PRIMARY CARE CLINIC PROGRESS NOTE PB Has ADDENDA CC: Rash in his groin area HPI: Patient reports currently not having the rash since is getting cooler bit when it is hot outside he gets a rash between his legs and the groin area he uses [id number] fungal creams that were not working but again its gone away now. He had a vascular consult placed last year to follow-up on his AAA but it got canceled because they can get a hold of him he would like to get that renewed. He is willing to see vascular in [place] he is due to have a CTA as well. He is no longer taking hydrocodone but has chronic back pain goes into his right hip. Non-VA PCP: No Specialist: Cadiology, Dr. Taylor Neurology, Dr. Rhodes Vascular, Dr. Darryl Lakhani, Dr. 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 lower Lobectomy Problem List: 1) Hyperlipidemia ([facility] [id number]) 2) GERD - Gastro-Esophageal Reflux Disease ([facility] 007084794) 3) Posttraumatic stress disorder 4) Benign prostatic hyperplasia 5) COPD - Chronic Obstructive Pulmonary Disease ([facility] 24944594) 6) Allergic Rhinitis ([facility] 25066269) 7) Vitamin D Deficiency ([facility] 4421464) 8) Cerebral infarction 9) Abdominal aortic aneurysm 10) Peripheral neuropathy 11) Low Back Pain ([facility] 405527815) 12) Polyp Colon ([facility] [id number]) 13) Bipolar disorder 14) Seizure disorder 15) Peripheral arterial occlusive disease 16) Degenerative joint disease of shoulder region Active Outpatient Medications (including Supplies): Active Outpatient Medications Status 1) CITALOPRAM HYDROBROMIDE 40MG TAB TAKE ONE TABLET BY ACTIVE MOUTH EVERY MORNING FOR ANXIETY 2) LACOSAMIDE 100MG TAB TAKE ONE TABLET BY MOUTH TWICE A ACTIVE DAY 3) LEVETIRACETAM 500MG TAB TAKE THREE TABLETS BY MOUTH ACTIVE TWICE A DAY SWALLOW WHOLE, DO NOT CRUSH OR CHEW. 4) LORATADINE 10MG TAB TAKE ONE TABLET BY MOUTH ONCE A ACTIVE DAY FOR ALLERGIC RHINITIS ON EMPTY STOMACH 5) METOPROLOL TARTRATE 25MG TAB TAKE ONE TABLET BY MOUTH ACTIVE TWICE A DAY FOR HIGH BLOOD PRESSURE TAKE WITH OR IMMEDIATELY FOLLOWING FOOD. 6) MULTIVITAMIN/MINERALS CAP/TAB TAKE 1 CAP/TAB BY MOUTH ACTIVE ONCE A DAY FOR SUPPLEMENTATION. 7) PHENYTOIN NA 100MG SA CAP TAKE ONE CAPSULE BY MOUTH ACTIVE TWICE A DAY (GENERIC SUBSTITUTION FOR DILANTIN) 8) ROPINIROLE HCL 0.5MG TAB TAKE ONE TABLET BY MOUTH ACTIVE ONCE A DAY NEEDED AND TAKE TWO TABLETS AT BEDTIME OTC aspirin 81mg daily OBJECTIVE: Vital Signs Temperature: 98.7 F [37.1 C] (07/25/2024 13:09) Respiratory Rate: 18 (07/25/2024 13:09) Pulse Rate: 69 (07/25/2024 13:09) Blood Pressure: 132/83 (07/25/2024 13:09) HT: 70.0 in [177.8 cm] (07/25/2024 13:09) WT: 136.3 lb [61.82 kg] (07/25/2024 13:09) BMI: 19.6 97% (07/25/2024 13:09) Physical Exam General: NAD noted, A&Ox3, pleasant, appears stated age HEENT: NCAT, TM's clear, nares and oropharynx clear Neck: Supple with normal active ROM, without any lymphadenopathy Heart: RRR, no murmur, clicks, or rub Resp: Lungs CTA bilaterally, respirations even and unlabored Abdomen: Soft, non-distended, non-tender Ext: No clubbing, cyanosis, edema or obvious deformity Neuro: Grossly intact Psych: Affect normal, answers questions appropriately throughout visit Assessment/Plan: 1) Tinea cruris-instructed on supportive care keeping clean and dry will try antifungal powders [id number]-[id number] at next episode 2) AAA/PAD-will get him set up for a follow-up CTA as well as get him into see vascular in [place]; BMP today 3) Chronic pain mainly low back-discussed BFA with patient today which she is willing to give a try Follow-up: As scheduled in October and/or as needed. Discussed with patient that in the event of community imaging / testing being ordered in the future, once the imaging / testing has been completed, please notify PACT of completion at outside facility if not called with results within 1 week by a [place] PACT member; this is due to intermittent lapses in notification of imaging completion within CPRS. All questions answered; agrees to plan of care. Follow up as listed above, annually, and as needed. Keep all appointments. Medications Reconciled. See AVS given to Sonoita. Time spent 30 minutes. /mamie/ Kourtney Almaguer MD [facility] Primary Care Signed: 07/25/2024 13:29 08/25/2024 ADDENDUM STATUS: COMPLETED Notify patient his CTA performed on 08/19/2024 shows stable aortic stent graft with persistent right limb occlusion. His prostate is enlarged and he has emphysema of the lungs. Vascular surgery consult in [place] has been placed. /mamie/ Kourtney Almaguer MD [facility] Primary Care Signed: 08/25/2024 13:41 Receipt Acknowledged By: 08/31/2024 08:44 /mamie/ EDISON AVERY LPN [facility] 08/31/2024 ADDENDUM STATUS: COMPLETED Called and spoke with Sonoita regarding the following: Notify patient his CTA performed on 08/19/2024 shows stable aortic stent graft with persistent right limb occlusion. His prostate is enlarged and he has emphysema of the lungs. Vascular surgery consult in [place] has been placed. /mamie/ Kourtney Almaguer MD [facility] Primary Care Signed: 08/25/2024 13:41 Sonoita voiced understanding of all, is aware [facility] will be contacting him for appt for vascular and then he can arrange transportation. advises he has the number so that he can arrange it. /mamie/ EDISON AVERY LPN [facility] Signed: 08/31/2024 08:45 KOURTNEY ALMAGUER [facility] Jul 25, 2024 01:01 PM PRIMARY CARE NURSI NG NOTE: LOCAL TITLE: PRIMARY CARE NURSING PROGRESS NOTE (TEXT) NURSING P STANDARD TITLE: PRIMARY CARE NURSING NOTE DATE OF NOTE: JUL 25, 2024@13:01 ENTRY DATE: JUL 25, 2024@13:01:57 AUTHOR: EDISON AVERY EXP COSIGNER: URGENCY: STATUS: COMPLETED Established Patient OLEKSANDR STRAR IS A 68 YEAR OLD MALE BEING SEEN IN CLINIC JUL 25, 2024. == == REASON FOR VISIT: Sonoita here for fungus on legs/groin, asking about seeing Vascular for f/u AAA and poss hip pain being related to occulded stent Are you receiving care any where other than the [facility]? No HEALTH AND SURGICAL HISTORY: Does patient report using home oxygen? Yes; Current Oxygen Flow Rate: 2l prn CURRENT ACTIVE MEDICATIONS FOR REVIEW: Allergies/ADRs (Tool #5) FACILITY ALLERGY/ADR -------- [facility] LITHIUM [facility] NAPROXEN [facility] NEFAZODONE [facility] OXYCODONE [facility] No Known Allergies Med. Reconciliation (Tool #1) INCLUDED IN THIS LIST: Alphabetical list of active outpatient prescriptions dispensed from this [place] (local) and dispensed from another [place] or [facility] facility (remote) as well as inpatient orders (local pending and active), local clinic medications, locally documented non-VA medications, and local prescriptions that have or been discontinued in the past 90 days. Non-VA Meds Last Documented On: Sep 17, 2022 NOTE The display of VA prescriptions dispensed from another [place] or [employer] facility (remote) is limited to active outpatient prescription entries matched to National Drug File at the originating site and may not include some items such as investigational drugs, compounds, etc. NOT INCLUDED IN THIS LIST: Medications self-entered by the patient into personal health records (i.e. [employer] are NOT included in this list. Non-VA medications documented outside this [place], remote inpatient orders (regardless of status) and remote clinic medications are NOT included in this list. The patient and provider must always discuss medications the patient is taking, regardless of where the medication was dispensed or obtained. OUTPT ATORVASTATIN CALCIUM 40MG TAB (Status = ) TAKE ONE-HALF TABLET BY MOUTH EVERY EVENING TO LOWER CHOLESTEROL Rx# [id number] Last Released: 06/02/24 Qty/Days Supply: Rx Expiration Date: 07/23/24 Refills Remainin OUTPT CHOLECALCIF 50MCG (D3-2,000UNIT) TAB (Status = ) TAKE ONE TABLET BY MOUTH ONCE A DAY FOR VITAMIN D DEFICIENCY. Rx# [id number] Last Released: 06/02/24 Qty/Days Supply: Rx Expiration Date: 07/23/24 Refills Remainin OUTPT CILOSTAZOL 100MG TAB (Status = ) TAKE ONE TABLET BY MOUTH TWICE A DAY TAKE 30 MINUTES BEFORE OR AT LEAST 2 HOURS AFTER FOOD. DO NOT TAKE WITH GRAPEFRUIT JUICE. Rx# [id number] Last Released: 06/07/24 Qty/Days Supply: 180 Rx Expiration Date: 07/01/24 Refills Remainin OUTPT CITALOPRAM HYDROBROMIDE 40MG TAB (Status = Active) TAKE ONE TABLET BY MOUTH EVERY MORNING FOR ANXIETY Rx# [id number] Last Released: 06/07/24 Qty/Days Supply: Rx Expiration Date: 04/20/25 Refills Remainin Indication: FOR ANXIETY OUTPT DULOXETINE HCL 60MG EC CAP (Status = ) TAKE ONE CAPSULE BY MOUTH ONCE A DAY DO NOT ABRUPTLY DISCONTINUE MEDICATION. Rx# [id number] Last Released: 06/07/24 Qty/Days Supply: Rx Expiration Date: 07/23/24 Refills Remainin OUTPT FLUTICAS 250/SALMETEROL 50 INHL DISK 60 (Status = ) INHALE 1 INHALATION BY ORAL INHALATION TWICE A DAY FOR BREATHING (OPEN DISKUS; CLICK ONLY ONCE; MAY INHALE TWICE TO COMPLETE DOSE; CLOSE WHEN FINISHED) RINSE MOUTH AND SPIT AFTER EACH USE. Rx# [id number] Last Released: 06/07/24 Qty/Days Supply: Rx Expiration Date: 07/23/24 Refills Remainin OUTPT FLUTICASONE PROP 50MCG 120D NASAL INHL (Status = ) INSTILL 2 SPRAYS IN NOSTRIL(S) ONCE A DAY FOR ALLERGIES (MUST BE USED DIRECTED FOR MINIMUM OF 21 DAYS TO PROVIDE ADEQUATE BENEFITS) Rx# [id number] Last Released: 06/07/24 Qty/Days Supply: Rx Expiration Date: 07/23/24 Refills Remainin OUTPT FOLIC ACID 1MG TAB (Status = ) TAKE ONE TABLET BY MOUTH ONCE A DAY Rx# [id number] Last Released: 06/07/24 Qty/Days Supply: Rx Expiration Date: 07/23/24 Refills Remainin OUTPT HYDROCODONE 7.5/ACETAMINOPHEN 325MG TAB (Status = ) TAKE 1 TABLET BY MOUTH EVERY 6 HOURS NEEDED FOR PAIN CAUTION: DO NOT EXCEED 4000MG PER DAY ACETAMINOPHEN (APAP) FROM ALL MEDS. Rx# [id number] Last Released: 04/07/24 Qty/Days Supply: Rx Expiration Date: 05/06/24 Refills Remainin Indication: FOR PAIN OUTPT LACOSAMIDE 100MG TAB (Status = Discontinued) TAKE ONE TABLET BY MOUTH TWICE A DAY FOR SEIZURES Rx# [id number] Last Released: 05/23/24 Qty/Days Supply: 60/30 Rx Expiration Date: 06/15/24 Refills Remainin Indication: FOR SEIZURES OUTPT LACOSAMIDE 100MG TAB (Status = Active) TAKE ONE TABLET BY MOUTH TWICE A DAY Rx# [id number] Last Released: 06/28/24 Qty/Days Supply: 60/30 Rx Expiration Date: 11/25/24 Refills Remainin OUTPT LEVETIRACETAM 500MG TAB (Status = Discontinued) TAKE THREE TABLETS BY MOUTH TWICE A DAY SWALLOW WHOLE, DO NOT CRUSH OR CHEW. Rx# [id number] Last Released: 05/25/24 Qty/Days Supply: 360/60 Rx Expiration Date: 02/15/25 Refills Remainin OUTPT LEVETIRACETAM 500MG TAB (Status = Active) TAKE THREE TABLETS BY MOUTH TWICE A DAY SWALLOW WHOLE, DO NOT CRUSH OR CHEW. Rx# [id number] Last Released: 07/05/24 Qty/Days Supply: 360/60 Rx Expiration Date: 05/26/25 Refills Remainin OUTPT LORATADINE 10MG TAB (Status = Active) TAKE ONE TABLET BY MOUTH ONCE A DAY FOR ALLERGIC RHINITIS ON EMPTY STOMACH Rx# [id number] Last Released: 06/07/24 Qty/Days Supply: 90/90 Rx Expiration Date: 03/26/25 Refills Remainin Indication: FOR ALLERGIC RHINITIS OUTPT METOPROLOL TARTRATE 25MG TAB (Status = Active) TAKE ONE TABLET BY MOUTH TWICE A DAY FOR HIGH BLOOD PRESSURE TAKE WITH OR IMMEDIATELY FOLLOWING FOOD. Rx# [id number] Last Released: 06/22/24 Qty/Days Supply: 180/90 Rx Expiration Date: 04/13/25 Refills Remainin Indication: FOR HIGH BLOOD PRESSURE OUTPT MULTIVITAMIN/MINERALS CAP/TAB (Status = Active) TAKE 1 CAP/TAB BY MOUTH ONCE A DAY FOR SUPPLEMENTATION. Rx# [id number] Last Released: 06/03/24 Qty/Days Supply: 130/90 Rx Expiration Date: 11/11/24 Refills Remainin OUTPT PHENYTOIN NA 100MG SA CAP (Status = Discontinued) TAKE ONE CAPSULE BY MOUTH TWICE A DAY FOR SEIZURES (GENERIC SUBSTITUTION FOR DILANTIN) Rx# [id number] Last Released: 03/28/24 Qty/Days Supply: 180 Rx Expiration Date: 10/21/24 Refills Remainin Indication: FOR SEIZURES OUTPT PHENYTOIN NA 100MG SA CAP (Status = Active) TAKE ONE CAPSULE BY MOUTH TWICE A DAY (GENERIC SUBSTITUTION FOR DILANTIN) Rx# [id number] Last Released: 06/02/24 Qty/Days Supply: 180 Rx Expiration Date: 05/26/25 Refills Remainin OUTPT PRAZOSIN HCL 2MG CAP (Status = ) TAKE ONE CAPSULE BY MOUTH AT BEDTIME MAY CAUSE DIZZINESS OR DROWSINESS. Rx# [id number] Last Released: 06/07/24 Qty/Days Supply: Rx Expiration Date: 07/23/24 Refills Remainin OUTPT QUETIAPINE FUMARATE 25MG TAB (Status = ) TAKE ONE-HALF TABLET BY MOUTH TWICE A DAY FOR MOOD Rx# [id number] Last Released: 06/03/24 Qty/Days Supply: Rx Expiration Date: 07/23/24 Refills Remainin OUTPT ROPINIROLE HCL 0.5MG TAB (Status = Active) TAKE ONE TABLET BY MOUTH ONCE A DAY NEEDED AND TAKE TWO TABLETS AT BEDTIME Rx# [id number] Last Released: 05/30/24 Qty/Days Supply: 270/90 Rx Expiration Date: 05/26/25 Refills Remainin OUTPT TAMSULOSIN HCL 0.4MG CAP (Status = ) TAKE ONE CAPSULE BY MOUTH EVERY EVENING APPROXIMATELY 30 MINUTES AFTER THE SAME MEAL EACH DAY (FOR PROSTATE) Rx# [id number] Last Released: 06/02/24 Qty/Days Supply: Rx Expiration Date: 07/23/24 Refills Remainin OUTPT TIOTROPIUM 2.5MCG/ACTUAT 60D ORAL INHL (Status = ) INHALE 2 INHALATIONS BY ORAL INHALATION ONCE A DAY (ADMINISTER AT SAME TIME EACH DAY) FOR BREATHING. Rx# [id number] Last Released: 06/07/24 Qty/Days Supply: Rx Expiration Date: 07/23/24 Refills Remainin SUPPLIES PHARMACY TERMS AND POSSIBLE PATIENT ACTIONS INPT = [place] inpatient order IV = [place] intravenous medication OUTPT = [place] outpatient prescription PHARMACY POSSIBLE PATIENT TERMS EXPLANATION ACTIONS -------- ----- ACTIVE A prescription that can be If you have refills, filled at the local [place] pharmacy. you may request a refill of this prescription from your [place] pharmacy. CLINIC A medication you received during If you have questions a visit to a [place] clinic or about this medication emergency department. contact your [place] healthcare team. DISCONTINUED A prescription your provider has Contact your [facility] stopped. It is no longer healthcare team if you available to be sent to you or need more of this picked up at the [place] pharmacy medication. window. A prescription which is too old Contact your [facility] to fill. This does not refer to healthcare team if you the expiration date of the need more of this medication in the container. medication. NON-VA A medication that came from If this medication someplace other than a VA information is pharmacy. This may be a incorrect or out of prescription from either the VA date, please tell your or non VA providers that was VA healthcare team. filled outside the VA. Or, it may be an plkh-[id number] (OTC), herbal, dietary supplements or sample medication. ON HOLD An active prescription that will Contact your [facility] not be filled until pharmacy pharmacy when you need resolves the issue. more of this medication. PARKED An active prescription that will Contact your [facility] not be filled until the patient pharmacy when you need requests it. this medication. PENDING This prescription order has been If you have been sent to the pharmacy for review instructed to start and is not ready yet. this medication now, contact your [facility] pharmacy. SUSPENDED An active prescription that is Contact your [place] not scheduled to be filled yet. pharmacy if you need You should receive it before this medication now. you run out. Patient reports taking medications as ordered. IS PATIENT TAKING ANY OVER THE COUNTER MEDICATIONS, SUCH VITAMINS OR HERBAL SUPPLEMENTS, INCLUDING ANY MEDICATIONS PRESCRIBED BY ANOTHER PHYSICIAN? No ALLERGIES/ADVERSE REACTIONS: Patient has answered NKA Does patient have any new allergies to report since last visit? NO VITALS: TEMPERATURE: 98.4 F [36.9 C] (01/20/2024 14:54) BP: 132/76 (02/25/2024 11:58) RESP: 19 (02/25/2024 11:58) PULSE: 81 (02/25/2024 11:58) HT: 70 in [177.8 cm] (02/25/2024 11:58) WT: 147.2 lb [66.77 kg] (02/25/2024 11:58) BMI: 21.2 PAIN ASSESSMENT: (Most Recent Pain Score in Vitals Package: 10 (02/25/2024 11:58) ) The patient indicated that they and their close contacts have not traveled outside of the [place] in the past 21 days. The patient reports the following symptoms: No symptoms present The patient is not immunocompromised. The patient does not report having a history of Multi Drug Resistant Organism (MDRO) within the last five years. The patient does not report having been exposed to measles, chickenpox, or zoster in last 30 days. STRESS: Thank you for your service. Now let us serve you. At the [facility], we strive to provide you with exceptional health care that improves your health and well-being. Are you feeling sad, empty, or depressed? Yes Do you need to talk about things in your life that worry you or cause you stress? No Do you need to talk about personal problems, family problems, alcohol use, drug use, or mental or emotional illness? No SUICIDE SCREENING: The patient was asked, Over the past two weeks, how often have you been bothered by thoughts that you would be better off or of hurting yourself in some way? Not At All SPIRITUAL ASSESSMENT: Are there methodist practices or spiritual concerns you want the flake or shred roll operator, your physician, and other health care team members to immediately know about? No Patient advised to call the clinic for any concerns, questions, or symptoms. Patient and/or caregiver verbalized understanding of plan of care. /mamie/ [place] [facility] Signed: 07/25/2024 13:11 EDISON AVERY ME CROW
[2025-06-07] VITALS (19 sets, daily range): BP systolic 83–118; BP diastolic 58–81; PULSE 104–124; RESP 16–24; TEMP 37.1; O2SAT 99–100
--- NOTE | 2025-06-07 19:14 | XRR_ITS ---
PROCEDURE INFORMATION: Exam: XR Chest Exam date and time: 06/07/2025 7:37 PM Age: 69 years old Clinical indication: Other: Weakness TECHNIQUE: Imaging protocol: Radiologic exam of the chest. Views: 1 view. COMPARISON: CR XR chest 1V portable [id number] 11/06/2023 12:41 PM FINDINGS: Lungs: Hyperinflation suggestive of emphysema. No acute consolidation. No overt pulmonary edema. Pleural spaces: Unremarkable. No pleural effusion. No pneumothorax. Heart/Mediastinum: Unremarkable. No cardiomegaly. Bones/joints: Unremarkable. XR/XR chest 1V portable [id number] IMPRESSION: No acute findings.
--- NOTE | 2025-06-07 19:15 | ECG_ITS ---
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 Measurements Intervals [place] Rate: 121 P: 86 DE: 136 QRS: 88 QRSD: 66 T: 91 QT: 338 QTc: 481 Interpretive Statements SINUS TACHYCARDIA WITH OCCASIONAL SUPRAVENTRICULAR PREMATURE COMPLEXES SEPTAL MYOCARDIAL INFARCTION , OF INDETERMINATE AGE [40+ ms Q WAVE IN V1/V2] Compared to ECG 12/08/2023 12:15:49 Myocardial infarct finding now present Sinus rhythm no longer present Electronically Signed On 06-08-2025 10:23:31 CDT by Reilly Taylor M.D. [email or web address] [id number]
[2025-06-07 20:20] LABS: Glucose Urine UA Negative (Normal); Nitrate Urine Negative (Negative); Specific Gravity, Urine 1.020 (1.005-1.030)
[2025-06-07 20:43] LABS: Hematocrit 32.5 % (37-53); Hemoglobin 11.50 g/dL (11.27-16.99); Mean Corpuscular HGB Conc 35.4 g/dL (30-55); Mean Corpuscular Hemoglobin 32.6 pg (27-33); Mean Corpuscular Volume 92.1 fl (82-101); Nucleated Red Blood Cells % 0 %; Platelet Count 220 10^3/cmm (157-399); Red Blood Count 3.53 10^6/uL (3.85-5.65); White Blood Count 14.26 10^3/uL (3.29-11.43)
[2025-06-07 20:57] LABS: Lactic Sepsis W/Reflex 1.2 mmol/L (0.5-2.2); Troponin(5th) Baseline 89 ng/L (0-15)
[2025-06-07 20:58] LABS: Alanine Aminotransferase 22 U/L (0-41); Albumin Level 2.2 g/dL (3.5-5.2); Alkaline Phosphatase 135 U/L (40-130); Anion Gap 34.3 (5-19); Aspartate Amino Transferase 29 U/L (0-40); Blood Urea Nitrogen 5 mg/dL (8-23); Calcium 7.3 mg/dL (8.5-10.5); Carbon Dioxide 19 mmol/L (22-29); Chloride 83 mmol/L (98-107); Creatinine Clr Calc Pharmacy 43.1144; Globulin 2.1 g/dL (1.3-4.6); Glucose 161 mg/dL (65-115); Osmolality Calculated 279 mOsm/kg (285-295); Sodium 134 mmol/L (136-145); Total Protein 4.3 g/dL (6.6-8.7)
[2025-06-07 21:05] LABS: Procalcitonin 0.13 ng/mL (0-0.5)
[2025-06-07 21:07] LABS: Potassium 2.3 mmol/L (3.5-5.1)
--- NOTE | 2025-06-07 21:13 | ECG_ITS ---
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 Measurements Intervals [place] Rate: 116 P: 85 NV: 116 QRS: 84 QRSD: 64 T: 91 QT: 341 QTc: 475 Interpretive Statements SINUS TACHYCARDIA WITH SHORT NV INTERVAL SEPTAL MYOCARDIAL INFARCTION , OF INDETERMINATE AGE [40+ ms Q WAVE IN V1/V2] Compared to ECG 06/07/2025 19:26:46 Short NV interval now present Myocardial infarct finding still present Electronically Signed On 06-08-2025 10:28:50 CDT by Reilly Taylor M.D. [id number] [id number]
--- NOTE | 2025-06-07 21:13 | W.ED.RECABL ---
HPI - Recheck/Abnormal Lab/Rx General: Chief Complaint: Recheck/Abnormal Lab/Rx Stated Complaint: Hypotensive Time Seen by Provider: 06/07/25 19:14 History of Present Illness: 69-year-old man with a history of coronary artery disease, vertigo, COPD, hyperlipidemia, BPH and seizure disorder who presents to the emergency room by ambulance with generalized weakness. It is unclear exactly how long this has been going on but according to EMS at least a month or 2 he has not been getting out of bed. His had called the ambulance. It is unclear what exactly prompted the visit today. He reports some chest discomfort. He is a fairly poor historian but does answer some questions appropriately. He moves all extremities with command. No dysarthria. No facial droop. No reports of fevers. He says he has not been eating but is not clear on why. He appears extremely cachectic. He weighs only 34 kg. EMS also reported bedbugs and that he was extremely hypotensive on presentation. Apparently he received some epinephrine prior to being taken to the decontamination room for cleaning prior to placement in a room. Related Data Home Medications ?Medication ?Instructions ?Recorded ?Confirmed aspirin 81 mg chewable tablet 81 mg PO DAILY 09/02/22 09/20/24 (Aspirin Childrens) cholecalciferol (vitamin D3) 50 50 mcg PO DAILY 09/02/22 09/20/24 mcg (2,000 unit) capsule folic acid 1 mg tablet 1 mg PO DAILY 09/02/22 09/20/24 tiotropium bromide 2.5 2 puff inhalation DAILY 09/02/22 09/20/24 mcg/actuation mist for inhalation (Spiriva Respimat) atorvastatin 40 mg tablet 20 mg PO QPM 01/22/23 09/20/24 fluticasone 250 mcg-salmeterol 50 1 inh inhalation BID 01/22/23 09/20/24 mcg/dose blistr powdr for inhalation tamsulosin 0.4 mg capsule 0.4 mg PO QPM 01/22/23 09/20/24 ascorbic acid (vitamin C) 1,000 mg 1 g PO DAILY 04/13/23 09/20/24 capsule prazosin 2 mg capsule 2 mg PO BEDTIME 04/13/23 09/20/24 citalopram 40 mg tablet 40 mg PO DAILY 10/14/23 09/20/24 quetiapine 25 mg tablet 12.5 mg PO BID 10/14/23 09/20/24 albuterol sulfate 90 mcg/actuation 2 puff inhalation Q4H PRN 11/06/23 09/20/24 aerosol inhaler Shortness Of Breath Or Wheezing loratadine 10 mg tablet 10 mg PO DAILY 11/06/23 09/20/24 vitamin A 2,400 mcg capsule 2,400 mcg PO DAILY 11/06/23 09/20/24 gabapentin 300 mg capsule 900 mg PO BID 12/08/23 09/20/24 dicyclomine 10 mg capsule 10 mg PO BID 09/16/24 09/20/24 metoprolol tartrate 25 mg tablet 12.5 mg PO BID 09/20/24 09/20/24 Previous Rx's ?Medication ?Instructions ?Recorded duloxetine 60 mg capsule,delayed 60 mg PO DAILY #90 caps 09/11/22 release fluticasone propionate 50 1 spray intranasal BID #16 grams 09/11/22 mcg/actuation nasal spray,suspension (Flonase Allergy Relief) nitroglycerin 0.4 mg sublingual 0.4 mg sublingual Q5M PRN chest 02/04/23 tablet pain #25 tabs meclizine 25 mg tablet 25 mg PO BID PRN dizziness #14 tabs 02/16/23 cilostazol 100 mg tablet 100 mg PO BID #28 tabs 08/24/24 chlorzoxazone 500 mg tablet 250 mg (1/2 x 500 mg) PO TID PRN 09/28/24 muscle spasm 7 days #21 tabs lacosamide 100 mg tablet 100 mg PO BID #180 tabs 12/06/24 levetiracetam 500 mg tablet 1,500 mg (3 x 500 mg) PO Q12H #360 12/06/24 (Keppra) tabs phenytoin sodium extended 100 mg 100 mg PO BID #180 caps 12/06/24 capsule ropinirole 0.5 mg tablet 0.5 mg PO TID #30 tabs 12/06/24 Allergies Allergy/AdvReac Type Severity Reaction Status Date / Time adhesive tape Allergy Unknown Verified 09/16/24 13:10 lithium Allergy Unknown Verified 09/16/24 13:10 naproxen Allergy Unknown Verified 09/16/24 13:10 nefazodone Allergy Unknown Verified 09/16/24 13:10 Review of Systems Narrative: Constitutional symptoms: Negative except as documented in HPI. Skin symptoms: Negative except as documented in HPI. Eye symptoms: Negative except as documented in HPI. ENMT symptoms: Negative except as documented in HPI. Respiratory symptoms: Negative except as documented in HPI. Cardiovascular symptoms: Negative except as documented in HPI. Gastrointestinal symptoms: Negative except as documented in HPI. Genitourinary symptoms: Negative except as documented in HPI. Musculoskeletal symptoms: Negative except as documented in HPI. Neurologic symptoms: Negative except as documented in HPI. Psychiatric symptoms: Negative except as documented in HPI. Endocrine symptoms: Negative except as documented in HPI. PFSH ED PFSH: Medical History (Updated 06/07/25 @ 21:21 by Yue Bal MD) Atherosclerosis of [place] coronary artery without angina pectoris Palpitations BPPV (benign paroxysmal positional vertigo) Left arm weakness Stroke-like symptoms COPD (chronic obstructive pulmonary disease) Dyslipidemia BPH (benign prostatic hyperplasia) Seizure disorder Surgical History (Updated 09/21/24 @ 00:00 by DIPTI Conrad) S/P AAA repair using bifurcation graft Social History Smoking and tobacco/nicotine status: current every day tobacco/nicotine user Alcohol intake: never Substance/Drug Use: never Physical Exam Narrative: EXAM NARRATIVE: General: Patient appears extremely cachectic Skin: Warm, dry. Head: Normocephalic, atraumatic. Neck: Supple, trachea midline. Eye: Extraocular movements are intact. Ears, nose, mouth and throat: mucosa moist. Cardiovascular: Regular, tachycardic, normal peripheral perfusion. Respiratory: Lungs are clear to auscultation, respirations are non-labored, breath sounds are equal, Symmetrical chest wall expansion. Gastrointestinal: Soft, Nontender, Non distended Musculoskeletal: Normal ROM, no deformity. Neurological: Alert, No focal neurological deficit observed. Psychiatric: Patient has an extremely flat affect and is unable to answer all questions. Course Vital Signs: Vital signs: Vital Signs Temperature 98.8 F 06/07/25 19:28 Pulse Rate 111 H 06/07/25 20:45 Respiratory Rate 22 H 06/07/25 20:45 Blood Pressure 115/79 06/07/25 20:45 Pulse Oximetry 100 06/07/25 20:45 Oxygen Delivery Me thod Room Air 06/07/25 19:28 MDM - Recheck/Abnormal Lab/Rx Medical Decision Making Medical decision making: Differential diagnosis for patient presenting with generalized weakness including but not limited to and based on the above HPI, review of systems and physical exam: Sepsis. Dehydration. Renal failure. Electrolyte abnormalities. Anemia. Congestive heart failure. Hypotension. Coronary syndrome. Hepatitis. Cirrhosis. Infections such as pneumonia, urinary tract infection, [place] illness, Cellulitis, Viral infections including influenza and Covid-19. Workup: labwork and lab/exam driven imaging ordered to evaluate, rule in and rule out above pathologies. EKG: Rate 116. Time 2112. Sinus tachycardia, nonspecific ST-T changes, no ectopy, normal NM & QRS intervals, This was reviewed and interpreted by myself the ER physician at 2116. Repeat EKG: Time 1925. Rate 121. Sinus tachycardia, nonspecific ST-T changes, no ectopy, normal NM & QRS intervals, This was reviewed and interpreted by myself the ER physician at 1929. No significant changes from EKG done previous in the emergency room today. Chest x-ray: Hyperexpansion/emphysematous changes. No acute process. No infiltrate. No pneumothorax. This was reviewed and interpreted by myself the emergency room physician. I also reviewed the radiology report. Lab Review: Laboratory results were reviewed and interpreted by myself the emergency room physician. Mild leukocytosis white count 14,000. No anemia. No renal failure. Potassium is quite low at 2.3. Initial troponin is mildly elevated at 90 and repeat has gone up 11 to 100. This delta is not significant. I reviewed the patient's medical record. Reexamination: Patient remains mildly tachycardic at around 112. No focal motor deficits. No increased work of breathing. No oxygen requirements. Nursing attempting to talk to about what prompted 911 call today. Consultation: I spoke with Dr. Duran who is on-call for the hospitalist service who agrees to admission Assessment and plan: Hypokalemia Dehydration Possible sepsis Chest pain Mildly elevated troponin ?1 L normal saline bolus for dehydration and possible sepsis. This is 30 mL/kg given his weight of 34 kg ?No obvious source. I think this is more related to chronic failure to thrive type situation but he has a white count of 14.3 and has been tachycardic and hypotensive so I am treating empirically for possible sepsis -1 L normal saline bolus. Fluid volumes based on 34 kg body weight -Broad-spectrum antibiotics were administered. Meropenem and Zyvox -Sepsis quality measures. -Lactic acid with a reflex was ordered. -Blood cultures were ordered. -80 mg equivalents IV potassium and 2 g of magnesium initiated in the emergency room ?324 chewable aspirin. Awaiting second troponin. -I discussed the patient with the hospitalist on-call who is admitting the patient. - Discussed findings and plan with patient. Answered any questions. - All laboratory values were reviewed and interpreted personally by myself, the ER physician - All imaging was reviewed and interpreted personally by myself, the ER physician. - Evaluation and treatment of this problem were appropriate in the emergency setting Critical Care: -I spent a total of >35 minutes of critical care time managing the patient, independent of any other practitioner. -The time involved in the performance of separately reportable procedures was not counted towards critical care time. Lab Data 06/07/25 20:34 06/07/25 20:34 Radiology Impressions Chest X-Ray 06/07/25 19:14 IMPRESSION: No acute findings. Laboratory Results WBC 14.26 10^3/uL (3.29-11.43) H 06/07/25 20:34 RBC 3.53 10^6/uL (3.85-5.65) L 06/07/25 20:34 Hgb 11.50 g/dL (11.27-16.99) 06/07/25 20:34 Hct 32.5 % (37-53) L 06/07/25 20:34 MCV 92.1 fl (82-101) 06/07/25 20:34 MCH 32.6 pg (27-33) 06/07/25 20:34 MCHC 35.4 g/dL (30-55) 06/07/25 20:34 RDW 14.5 % (12.1-15.1) 06/07/25 20:34 Plt Count 220 10^3/cmm (157-399) 06/07/25 20:34 MPV 8.8 fL (7.4-10.4) 06/07/25 20:34 Neut % (Auto) 88.2 % 06/07/25 20:34 Lymph % (Auto) 6.2 % 06/07/25 20:34 [place] % (Auto) 5.1 % 06/07/25 20:34 Eos % (Auto) 0.0 % 06/07/25 20:34 Baso % (Auto) 0.1 % 06/07/25 20:34 Neut # (Auto) 12.57 10^3/uL (1.8-7.7) H 06/07/25 20:34 Lymph # (Auto) 0.9 10^3/uL (0.8-4.8) 06/07/25 20:34 [place] # (Auto) 0.7 10^3/uL (0.2-0.9) 06/07/25 20:34 Eos # (Auto) 0.0 10^3/uL (0.0-0.8) 06/07/25: Baso # (Auto) 0.0 10^3/uL (0.0-0.1) 06/07/25 20:34 Nucleated RBC % (auto) 0 % 06/07/25: Nucleated RBCs # 0.0 /100WBC 06/07/25 20:34 Sodium 134 mmol/L (136-145) L 06/07/25 20:34 Potassium 2.3 mmol/L (3.5-5.1) L* 06/07/25: Chloride 83 mmol/L (98-107) L 06/07/25:34 Carbon Dioxide 19 mmol/L (22-29) L 06/07/25 20:34 Anion Gap 34.3 (5-19) H 06/07/25:34 BUN 5 mg/dL (8-23) L 06/07/25:34 Creatinine 0.7 mg/dL (0.7-1.2) 06/07/25 20:34 GFR Calculation 112.5 mL/min (90-130) 06/07/25:34 Glucose 161 mg/dL (65-115) H 06/07/25: Calculated Osmolality 279 mOsm/kg (285-295) L 06/07/25 20:34 Lactic Acid 1.2 mmol/L (0.5-2.2) 06/07/25:34 Calcium 7.3 mg/dL (8.5-10.5) L 07/30/25 20:34 Total Bilirubin 0.3 mg/dL (0.15-1.2) 06/07/25 20:34 AST 29 U/L (0-40) 06/07/25 20:34 ALT 22 U/L (0-41) 06/07/25 20:34 Alkaline Phosphatase 135 U/L (40-130) H 06/07/25 20:34 Troponin T Baseline 89 ng/L (0-15) H 06/07/25 20:34 Troponin T 120 Minute 101.3 ng/L (0-15) H 06/07/25 21:45 Delta Troponin T 12.3 ABS# (0-10) H* 06/07/25 21:45 Total Protein 4.3 g/dL (6.6-8.7) L 06/07/25 20: Albumin 2.2 g/dL (3.5-5.2) L 06/07/25 20: Globulin 2.1 g/dL (1.3-4.6) 06/07/25 20:34 Procalcitonin 0.13 ng/mL (0-0.5) 06/07/25 20:34 TSH 1.47 uIU/mL (0.27-4.20) 06/07/25 20:34 Urine Color Yellow (Yellow) 06/07/25 20:06 Urine Appearance Clear (CLEAR) 06/07/25 20:06 Urine pH 6.0 (5-7) 06/07/25 20:06 Ur Specific [place] 1.020 (1.005-1.030) 06/07/25 20:06 Urine Protein 1+ (Negative) A 06/07/25 20:06 Urine Glucose (UA) Negative (Normal) 06/07/25 20:06 Urine Ketones 4+ (Negative) 06/07/25 20: Urine Blood Negative (Negative) 06/07/25 20: Urine Nitrate Negative (Negative) 06/07/25 20: Urine Bilirubin Negative (Negative) 06/07/25 20: Urine Urobilinogen 1.0 mg/dL (Negative) 06/07/25 20:06 Ur Leukocyte Esterase Negative (Negative) 06/07/25 20:06 Urine RBC 11-20 /hpf (0-2) H 06/07/25 20:06 Urine WBC 0-5 /hpf (0-5) 06/07/25 20:06 Ur Squamous Epith Cells 6-10 /hpf (0-5) 06/07/25 20:06 Amorphous Sediment Not Reportable 06/07/25 20:06 Urine Bacteria None seen /hpf (NONE) 06/07/25 20:06 Hyaline Casts 39.29 /lpf 06/07/25 20:06 Urine Opiates Screen Negative ng/mL (Negative) 06/07/25 20:06 Ur Barbiturates Screen Positive ng/mL (Negative) H 06/07/25 20:06 Ur Phencyclidine Scrn Negative ng/mL (Negative) 06/07/25 20:06 Ur Amphetamines Screen Negative ng/mL (Negative) 06/07/25 20:06 U Benzodiazepines Scrn Negative ng/mL (Negative) 06/07/25 20:06 Urine Cocaine Screen Negative ng/mL (Negative) 06/07/25 20:06 U Marijuana (THC) Screen Negative ng/mL (Negative) 06/07/25 20:06 All radiology interpretation(s) finalized by discharge Discharge Plan Discharge Patient Disposition: Admitted As Inpatient Clinical Impression: Hypokalemia, Adult failure to thrive, Dehydration Condition: Stable Coding Level of Care Code ED Project Administrator for Chava Cavanaugh
[2025-06-07] MEDS: magnesium sulfate premix 2 GM/50 ML PIGGYBACK IV (21:29)
[2025-06-07 21:57] LABS: Thyroid Stimulating Hormone 1.47 uIU/mL (0.27-4.20)
[2025-06-07] MEDS: cefepime 2,000 mg SDV 2000 MG IVP (21:59)
[2025-06-07] MEDS: potassium chloride premix 100 ML 50 MEQ IV (21:59)
[2025-06-07 22:09] LABS: PCP Screen Urine Negative (Negative)
[2025-06-07 22:17] LABS: Troponin 5 2HR 101.3 ng/L (0-15); Troponin 5 2HR Delta 12.3 ABS# (0-10)
[2025-06-07] MEDS: linezolid premix 600 MG/300 ML PREMIX 300 MG IV (22:30)
--- NOTE | 2025-06-07 22:50 | PM.HP ---
Providers/Chief Complaint Admitting Physician: kain duran do Primary Care Provider: Kourtney Almaguer MD Chief Complaint: Hypotensive History of Present Illness Wang Castellon is a 69 year old male with medical history significant for hyperlipidemia anxiety disorder seizure disorder who presented to the emergency room via EMS after their had called 911 on the account that the who is the patient cannot get out of bed and cannot walk.. EMS stated that when they got to the patient's home everywhere was covered with filthy sense in the environment and the area bagged bugs everywhere. Patient lies in bed and does not get out of bed because of profound weakness cannot stand and has not walked for months. Patient said he had not worked for years. Upon further questioning, I gather that the patient has difficulty retrieving information he will say 'I am thinking' when I asked him if he is at home he answered no when asked why he said he does not eat because it hurts so much in the belly whenever he put anything in his mouth and for that reason he stopped eating. Who prepares a meal I asked patient said he does not know you live with your I asked patient said yes my does not leave the house. Had come I asked. Patient verbalized that that the is very paranoid about everything that he never leaves the house. Assisting Paula you I asked patient verbalized he does not know. This patient upon evaluation it was noted that the potassium was 2.3 and this was replaced with a total of 80 mEq by the ED attending. This patient is being admitted at this time for profound debility with myopathy ambulatory dysfunction lack of self-care and request for evaluation for placement and adult protective services consultation into the matter of this patient and living environment with the . customer services coordinator are consulted. No send I have I finished evaluating the patient and left the ED then the nurse called me that patient is throwing up blood patient blood pressure have been soft but it would mean greater or 65 this time systolic blood pressure still in the 80s diastolic 40s but mainly its about 65. With an active GI bleed with hematemesis patient bed status was changed from a MedSurg to ICU Review of Systems Narrative: System review upon 10 organ review were significant for myopathy, weakness in case in musculoskeletal system. Medications/Allergies Home Medications ?Medication ?Instructions ?Recorded ?Confirmed ?Last Taken ?Type aspirin 81 mg chewable tablet 81 mg PO DAILY 09/02/22 09/20/24 09/16/24 History (Aspirin Childrens) cholecalciferol (vitamin D3) 50 50 mcg PO DAILY 09/02/22 09/20/24 09/20/24 History mcg (2,000 unit) capsule folic acid 1 mg tablet 1 mg PO DAILY 09/02/22 09/20/24 09/20/24 History tiotropium bromide 2.5 2 puff inhalation DAILY 09/02/22 09/20/24 09/20/24 History mcg/actuation mist for inhalation (Spiriva Respimat) duloxetine 60 mg capsule,delayed 60 mg PO DAILY #90 caps 09/11/22 09/20/24 09/20/24 Rx release fluticasone propionate 50 1 spray intranasal BID #16 grams 09/11/22 09/20/24 09/20/24 Rx mcg/actuation nasal spray,suspension (Flonase Allergy Relief) atorvastatin 40 mg tablet 20 mg PO QPM 01/22/23 09/20/24 09/19/24 History fluticasone 250 mcg-salmeterol 50 1 inh inhalation BID 01/22/23 09/20/24 09/20/24 History mcg/dose blistr powdr for inhalation tamsulosin 0.4 mg capsule 0.4 mg PO QPM 01/22/23 09/20/24 09/19/24 History nitroglycerin 0.4 mg sublingual 0.4 mg sublingual Q5M PRN chest 02/04/23 09/20/24 Unknown Rx tablet pain #25 tabs meclizine 25 mg tablet 25 mg PO BID PRN dizziness #14 tabs 02/16/23 09/20/24 01/15/24 08:00 Rx ascorbic acid (vitamin C) 1,000 mg 1 g PO DAILY 04/13/23 09/20/24 09/20/24 History capsule prazosin 2 mg capsule 2 mg PO BEDTIME 04/13/23 09/20/24 09/19/24 History citalopram 40 mg tablet 40 mg PO DAILY 10/14/23 09/20/24 09/20/24 History quetiapine 25 mg tablet 12.5 mg PO BID 10/14/23 09/20/24 09/20/24 History albuterol sulfate 90 mcg/actuation 2 puff inhalation Q4H PRN 11/06/23 09/20/24 01/15/24 08:00 History aerosol inhaler Shortness Of Breath Or Wheezing loratadine 10 mg tablet 10 mg PO DAILY 11/06/23 09/20/24 09/20/24 History vitamin A 2,400 mcg capsule 2,400 mcg PO DAILY 11/06/23 09/20/24 09/20/24 History gabapentin 300 mg capsule 900 mg PO BID 12/08/23 09/20/24 09/20/24 History cilostazol 100 mg tablet 100 mg PO BID #28 tabs 08/24/24 09/20/24 09/20/24 Rx dicyclomine 10 mg capsule 10 mg PO BID 09/16/24 09/20/24 09/20/24 History metoprolol tartrate 25 mg tablet 12.5 mg PO BID 09/20/24 09/20/24 09/20/24 History chlorzoxazone 500 mg tablet 250 mg (1/2 x 500 mg) PO TID PRN 09/28/24 Unknown Rx muscle spasm 7 days #21 tabs lacosamide 100 mg tablet 100 mg PO BID #180 tabs 12/06/24 Unknown Rx levetiracetam 500 mg tablet 1,500 mg (3 x 500 mg) PO Q12H #360 12/06/24 Unknown Rx (Keppra) tabs phenytoin sodium extended 100 mg 100 mg PO BID #180 caps 12/06/24 Unknown Rx capsule ropinirole 0.5 mg tablet 0.5 mg PO TID #30 tabs 12/06/24 Unknown Rx Allergies Allergy/AdvReac Type Severity Reaction Status Date / Time adhesive tape Allergy Unknown Verified 09/16/24 13:10 lithium Allergy Unknown Verified 09/16/24 13:10 naproxen Allergy Unknown Verified 09/16/24 13:10 nefazodone Allergy Unknown Verified 09/16/24 13:10 PFSH Acute PFSH: Medical History (Updated 06/08/25 @ 05:21 by Kain Duran MD) Atherosclerosis of [place] coronary artery without angina pectoris Palpitations BPPV (benign paroxysmal positional vertigo) Left arm weakness Stroke-like symptoms COPD (chronic obstructive pulmonary disease) Dyslipidemia BPH (benign prostatic hyperplasia) Seizure disorder Surgical History (Updated 09/21/24 @ 00:00 by DIPTI Conrad) S/P AAA repair using bifurcation graft Social History Smoking and tobacco/nicotine status: current every day tobacco/nicotine user Alcohol intake: never Substance/Drug Use: never Vitals/I&O/Wt Last Vital Signs Temp 98.8 F 06/07/25 19:28 Pulse 108 H 06/07/25 22:30 Resp 16 06/07/25 22:30 BP 83/58 06/07/25 22:30 Pulse Ox 100 06/07/25 22:30 O2 Del Method Room Air 06/07/25 21:45 06/07/25 06/07/25 06/07/25 06:59 14:59 22:59 Intake Total 2049 Balance 2049 Weight last 48 hrs Weight 34.019 kg Physical Exam Narrative: Generally patient is very pale side all question that takes him time to retrieve information HEENT normocephalic atraumatic neck neck is supple cardiovascular heart rate is regular lungs are clear abdomen soft nontender nondistended unremarkable extremities intact no edema has good pulses neurology has no focality lab studies lab studies reviewed and noted. Data 06/07/25 20:34 06/07/25 20:34 Micro: Microbiology 06/07/25 21:11 Blood Culture - Preliminary Blood SPECIMEN COLLECTED 06/07/25 20:34 Blood Culture - Preliminary Blood SPECIMEN COLLECTED A&P Assessment and plan 1. Hematemesis: Patient vomited blood x 1 in the emergency room with more persistent hypotension from 90s to 80s with main at 65. Patient had received 2 L of fluid normal saline and had 1 going at 125 cc/h - Continue to send to ICU - Pressor initiated as blood pressure continues to stay in the 80s and then 70s - Patient on PPI - Initiated with Levophed and addition of vasopressin and addition of epi drip = Patient not improving - Culture consult had been - Anesthesia called to put a central line and most likely we can get a repeat lab - Lab could not be drawn even with an ultrasound - Patient looks like 1 with circulatory collapse - Will continue to monitor and optimize 2. Hypotension: IV given 2 L normal saline Supportive pressors with Levophed, vasopressin, AP, Patient with persistent hypotension Patient with leukocytosis of 14 otherwise no other supporting ITN for sepsis checks x-ray is clean Received Zyvox and cefepime and will continue empiric antibiotics 3. Dehydration: Patient had received at least 2 L of fluid along with now pressors 4. Hypokalemia: Potassium of 2.3 had been replaced with 80 mEq of potassium from the emergency room 5. Adult failure to thrive: Patient indeed is ill with failure to thrive had been in bed for years according to him upon questioning at his arrival to the emergency room. Patient tells me he does not eat when he eats it hurts his stomach PDMP PDMP Reviewed: Not Reviewed Attestations Medical Necessity Statement*: Patient is gravely sick and would deserve at least 2 midnights for optimization of care Coding Level of Care Code Acute Code for [facility] Diagnoses Hematemesis K92.0 Hypotension I95.9 Dehydration E86.0 Hypokalemia E87.6 Adult failure to thrive R62.7
[2025-06-08] VITALS (101 sets, daily range): BP systolic 65–142; BP diastolic 31–92; PULSE 93–139; RESP 14–38; TEMP 35.8–36.9; O2SAT 86–100; BMI 14.5
[2025-06-08] MEDS: potassium chloride premix 100 ML 50 MEQ IV ×3 (00:05→04:28)
[2025-06-08] MEDS: pantoprazole 40 mg SDV 80 MG IVP (00:41)
[2025-06-08] MEDS: ondansetron 2 mg/ML SDV 2 mL 4 MG IVP (00:41)
[2025-06-08 00:57] LABS: Cholesterol 224 mg/dL (0-200); HDL Cholesterol 104 mg/dL (60-100); Thyroid Stimulating Hormone 1.54 uIU/mL (0.27-4.20); Triglycerides 247 mg/dL (0-150)
--- NOTE | 2025-06-08 01:11 | PC.NURSE ---
this nurse was in pt room to start NS maintence fluids. Pt reported he needed to throw up. Pt given an emesis bag. pt had dark red emesis with metallic smell. this nurse notified hospitalist. Verbal orders for 4mg zofran IVP and 80mg protonix IVP.
--- NOTE | 2025-06-08 01:15 | ECG_ITS ---
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 Measurements Intervals [place] Rate: 107 P: 90 DC: 125 QRS: 84 QRSD: 69 T: 89 QT: 343 QTc: 459 Interpretive Statements SINUS TACHYCARDIA SEPTAL MYOCARDIAL INFARCTION , OF INDETERMINATE AGE [40+ ms Q WAVE IN V1/V2] Compared to ECG 06/07/2025 21:13:54 Short DC interval no longer present Myocardial infarct finding still present Electronically Signed On 06-08-2025 10:28:34 CDT by Reilly Taylor M.D. [email or web address]
[2025-06-08 01:37] LABS: Troponin 5 6HR 82.99 ng/L (0-15)
[2025-06-08 01:41] LABS: Troponin 5 6HR Delta -6.01 ng/L (0-12)
--- NOTE | 2025-06-08 02:25 | PC.NURSE ---
Physician Communication Patient's blood pressure currently 69/52 MAP 57. Additionally, 40 mg protonix ordered for now despite administration of 80 mg at 0038, Heparin 5000 units ordered subcut, no cbc ordered for morning labs, and transfusion order active with a comment to hold. Dr. Duran contacted for hypotension as well as clarification of orders. Orders received for levophed IV per protocol, retime protonix for in the morning and BID per pharmacy, obtain a type and screen, get 2 units of RBCs ready but hold for transfuse orders, discontinue the subcut heparin, and obtain a CBC with morning labs.
[2025-06-08] MEDS: norepinephrine 4 MG/250 ML BAG 7.5 MG IV (02:31)
--- NOTE | 2025-06-08 03:28 | PC.NURSE ---
Addendum entered by Stefanie Peraza RN 06/08/25 03:32: Additional order received for a picc line as soon as possible. Original Note: Vasopressin Dr. Duran notified of persisting hypotension despite increased levophed doses. Order received for vasopressin IV per protocol.
[2025-06-08] MEDS: vasopressin 40 UNIT/100 ML PREMIX 6 UNIT IV (04:08)
--- NOTE | 2025-06-08 04:50 | PC.NURSE ---
Blood Pressure Patient's blood pressure still declining despite levophed and vasopressin administration. Vasopressin started at increased rate of 0.04 units/min. Additionally, labs unable to be drawn nor an additional IV placed and no antibiotics currently ordered. Dr. Duran updated on BP, vasopressin rates and increases, as well as lack of additional Iv access. Orders received to obtain a central line, administer epinephrine IV per protocol, and physician to place orders for antibiotics if indicated.
--- NOTE | 2025-06-08 05:00 | PC.NURSE ---
Attempted Family Update Attempted to contact patient's or sister with phone number listed in the contacts; call went to voicemail. Message left to please contact [facility].
--- NOTE | 2025-06-08 05:20 | PC.NURSE ---
Blood Order received from Dr. Duran to transfuse 1 unit of PRBCs.
[2025-06-08] MEDS: EPINEPHrine 2.5 MG in sodium chloride 0.9% 250 ML 6.06 MG IV (05:26)
--- NOTE | 2025-06-08 06:18 | XRR_ITS ---
PROCEDURE INFORMATION: Exam: XR Chest Exam date and time: 06/08/2025 6:33 AM Age: 69 years old Clinical indication: Device placement; Other: Central line placement TECHNIQUE: Imaging protocol: Radiologic exam of the chest. Views: 1 view. COMPARISON: CR XR chest 1V portable [id number] 06/07/2025 7:37 PM FINDINGS: Tubes, catheters and devices: Right IJ catheter terminates in the SVC. Lungs: Unremarkable. No consolidation. Pleural spaces: Unremarkable. No pleural effusion. No pneumothorax. Heart/Mediastinum: Unremarkable. No cardiomegaly. Bones/joints: Unremarkable. XR/XR chest 1V portable [id number] IMPRESSION: No acute findings.
[2025-06-08] MEDS: norepinephrine 4 MG/250 ML BAG 75 MG IV ×4 (06:27→16:06)
[2025-06-08] MEDS: linezolid premix 600 MG/300 ML PREMIX 300 MG IV ×2 (06:47→18:13)
[2025-06-08] MEDS: hydrocortisone 100 mg/2 mL SDV IVP ×4 (06:51→23:44)
--- NOTE | 2025-06-08 06:51 | PM.CONSULT ---
Providers/Reason For Consult Consulting Physician/Specialty*: General Surgery Reason for Consult*: Suspected GI bleeding Attending Physician: Lanny Duran MD Primary Care Provider: Kourtney Almaguer MD History of Present Illness History of Present Illness Wang Castellon is a 69 year old male who presented to the hospital after being found down for a long period of time. He appeared to be in and the state of neglect and there was a bed bug infestation of his home. Noted to be hypotensive and tachycardic in the emergency room. He had a potassium of 2.3 which was replaced in the ER. He was admitted for observation during admission to the ICU he had 1 episode of vomiting the emesis was described as reddish with a metallic smell, this was not tested for blood. I was consulted for the possibility of upper GI bleed. Overnight patient has remained unstable had required 3 pressors to keep the blood pressure up, had no central venous access for the majority of the night and unfortunately no labs were able to be obtained as well as no follow-up hemoglobin or follow-up of the BMP to ensure improvement of the hypokalemia. This morning central line has been obtained by anesthesia team and laboratory workup is pending. Initial hemoglobin was 11.5 Review of Systems General: Reports: 10 or more systems reviewed and unremarkable except in HPI and below Medications/Allergies Home Medications ?Medication ?Instructions ?Recorded ?Confirmed ?Last Taken ?Type aspirin 81 mg chewable tablet 81 mg PO DAILY 09/02/22 09/20/24 09/16/24 History (Aspirin Childrens) cholecalciferol (vitamin D3) 50 50 mcg PO DAILY 09/02/22 09/20/24 09/20/24 History mcg (2,000 unit) capsule folic acid 1 mg tablet 1 mg PO DAILY 09/02/22 09/20/24 09/20/24 History tiotropium bromide 2.5 2 puff inhalation DAILY 09/02/22 09/20/24 09/20/24 History mcg/actuation mist for inhalation (Spiriva Respimat) duloxetine 60 mg capsule,delayed 60 mg PO DAILY #90 caps 09/11/22 09/20/24 09/20/24 Rx release fluticasone propionate 50 1 spray intranasal BID #16 grams 09/11/22 09/20/24 09/20/24 Rx mcg/actuation nasal spray,suspension (Flonase Allergy Relief) atorvastatin 40 mg tablet 20 mg PO QPM 01/22/23 09/20/24 09/19/24 History fluticasone 250 mcg-salmeterol 50 1 inh inhalation BID 01/22/23 09/20/24 09/20/24 History mcg/dose blistr powdr for inhalation tamsulosin 0.4 mg capsule 0.4 mg PO QPM 01/22/23 09/20/24 09/19/24 History nitroglycerin 0.4 mg sublingual 0.4 mg sublingual Q5M PRN chest 02/04/23 09/20/24 Unknown Rx tablet pain #25 tabs meclizine 25 mg tablet 25 mg PO BID PRN dizziness #14 tabs 02/16/23 09/20/24 01/15/24 08:00 Rx ascorbic acid (vitamin C) 1,000 mg 1 g PO DAILY 04/13/23 09/20/24 09/20/24 History capsule prazosin 2 mg capsule 2 mg PO BEDTIME 04/13/23 09/20/24 09/19/24 History citalopram 40 mg tablet 40 mg PO DAILY 10/14/23 09/20/24 09/20/24 History quetiapine 25 mg tablet 12.5 mg PO BID 10/14/23 09/20/24 09/20/24 History albuterol sulfate 90 mcg/actuation 2 puff inhalation Q4H PRN 11/06/23 09/20/24 01/15/24 08:00 History aerosol inhaler Shortness Of Breath Or Wheezing loratadine 10 mg tablet 10 mg PO DAILY 11/06/23 09/20/24 09/20/24 History vitamin A 2,400 mcg capsule 2,400 mcg PO DAILY 11/06/23 09/20/24 09/20/24 History gabapentin 300 mg capsule 900 mg PO BID 12/08/23 09/20/24 09/20/24 History cilostazol 100 mg tablet 100 mg PO BID #28 tabs 08/24/24 09/20/24 09/20/24 Rx dicyclomine 10 mg capsule 10 mg PO BID 09/16/24 09/20/24 09/20/24 History metoprolol tartrate 25 mg tablet 12.5 mg PO BID 09/20/24 09/20/24 09/20/24 History chlorzoxazone 500 mg tablet 250 mg (1/2 x 500 mg) PO TID PRN 09/28/24 Unknown Rx muscle spasm 7 days #21 tabs lacosamide 100 mg tablet 100 mg PO BID #180 tabs 12/06/24 Unknown Rx levetiracetam 500 mg tablet 1,500 mg (3 x 500 mg) PO Q12H #360 12/06/24 Unknown Rx (Keppra) tabs phenytoin sodium extended 100 mg 100 mg PO BID #180 caps 12/06/24 Unknown Rx capsule ropinirole 0.5 mg tablet 0.5 mg PO TID #30 tabs 12/06/24 Unknown Rx Allergies Allergy/AdvReac Type Severity Reaction Status Date / Time adhesive tape Allergy Unknown Verified 09/16/24 13:10 lithium Allergy Unknown Verified 09/16/24 13:10 naproxen Allergy Unknown Verified 09/16/24 13:10 nefazodone Allergy Unknown Verified 09/16/24 13:10 Current Medications Generic Name Dose Route Start Last Admin Trade Name Freq PRN Reason Stop Dose Admin Sodium Chloride 1,000 mls @ 125 mls/hr 06/07/25 23:15 06/08/25 00:28 Sodium Chloride 0.9% IV 125 mls/hr .Q8H SHARLENE Administration Norepinephrine Bitartrate 4 mg in 250 mls @ 0 mls/hr 06/08/25 02:30 06/08/25 06:27 Levophed IV 20 mcg/min .Q0M SHARLENE 75 mls/hr Protocol Administration Per Protocol Vasopressin 40 unit in 100 mls @ 0 mls/hr 06/08/25 03:30 06/08/25 05:22 Vasostrict IV 0.1 unit/min .Q0M SHARLENE 15 mls/hr Protocol Titration Per Protocol Epinephrine HCl 2.5 mg/ Sodium 252.5 mls @ 0 mls/hr 06/08/25 05:00 06/08/25 06:21 Chloride IV 2 mcg/min .Q0M SHARLENE 12.12 mls/hr Protocol Titration Per Protocol Linezolid 600 mg in 300 mls @ 300 mls/hr 06/08/25 05:45 06/08/25 06:47 Zyvox Premix IV 300 mls/hr Q12H SHARLENE Administration Protocol PFSH Acute PFSH: Medical History (Updated 06/08/25 @ 05:21 by Lanny Duran MD) Atherosclerosis of [place] coronary artery without angina pectoris Palpitations BPPV (benign paroxysmal positional vertigo) Left arm weakness Stroke-like symptoms COPD (chronic obstructive pulmonary disease) Dyslipidemia BPH (benign prostatic hyperplasia) Seizure disorder Surgical History (Updated 09/21/24 @ 00:00 by DIPTI Conrad) S/P AAA repair using bifurcation graft Social History Smoking and tobacco/nicotine status: current every day tobacco/nicotine user Alcohol intake: never Substance/Drug Use: never Vitals/I&O/Wt Last Vital Signs Temp 96.5 F L 06/08/25 04:15 Pulse 105 H 06/08/25 04:15 Resp 20 H 06/08/25 04:15 BP 89/64 06/08/25 04:15 Pulse Ox 96 06/08/25 03:45 O2 Del Method Room Air 06/08/25 03:45 06/07/25 06/07/25 06/08/25 14:59 22:59 06:59 Intake Total 2049 1365.880 / 3415.880 Balance 2049 1365.880 / 3415.880 Weight last 48 hrs Weight 98 lb 1.691 oz Weight 75 lb Physical Exam Narrative: Patient appears severely malnourished, frail and disoriented. ? Abdominal exam is benign abdomen soft nontender nondistended. Data 06/07/25 20:34 06/07/25 20:34 Micro: Microbiology 06/07/25 21:11 Blood Culture - Preliminary Blood SPECIMEN COLLECTED 06/07/25 20:34 Blood Culture - Preliminary Blood SPECIMEN COLLECTED A&P Assessment and plan 1. Adult failure to thrive: 2. Hypokalemia: 3. Dehydration: Plan: After complete history, physical examination and review of all available clinical data following is my assessment. Patient who presents in a state of neglect and noted to be hypotensive and tachycardic poorly responsive to fluids. He had 1 episode of vomiting and a bowel meant was reddish I was consulted for the possibility of upper GI bleeding. Patient had an hemoglobin of 11.5 upon arrival, there has not been any melena, there is no abdominal pain, his laboratory workup shows a BUN of 5 and a creatinine of 0.7. He also had severe hypokalemia. At this moment I am not convinced that the patient has an upper GI bleeding. I think the episode of vomit may have been a result of his metabolic derangement and severe hypokalemia or even a reaction to the rapid correction of the potassium. Unfortunately we do not have follow-up labs at this moment. He is low BUN also supports the fact that there is low likelihood for an acute GI bleeding. I think the majority of patient's symptoms at this point are more likely caused by metabolic derangement and fluid depletion. I will recommend a repeat set of labs that includes a CBC and CMP and a coagulation panel, he will also probably benefit from an arterial line for close monitoring of the blood pressure as there is questionable accuracy of the noninvasive blood pressure as the patient is alert and awake even though his blood pressure appears to be extremely low. After the repeat labs my next recommendation will be to obtain a CTA of the abdomen and pelvis for evaluation of any intra-abdominal pathology confirmation of the possibility of GI bleeding. I do expect that to be drop in the hemoglobin as the patient was hemoconcentrated and after receiving fluid there is likely going to be a decrease in the initial value. We will continue to monitor and if there is any additional evidence of GI bleeding I will proceed with a bedside endoscopy in the interim I recommend that we continue with maximal medical management per medical ICU team I will follow-up once we have the results of laboratory workup and the results of the CTA of the abdomen. PDMP PDMP Reviewed: Not Reviewed Coding Level of Care Code 25228 Diagnoses Adult failure to thrive R62.7 Hypokalemia E87.6 Dehydration E86.0
[2025-06-08 06:55] LABS: Hematocrit 28.5 % (37-53); Hemoglobin 9.90 g/dL (11.27-16.99); Mean Corpuscular HGB Conc 34.7 g/dL (30-55); Mean Corpuscular Hemoglobin 31.5 pg (27-33); Mean Corpuscular Volume 90.8 fl (82-101); Nucleated Red Blood Cells % 0 %; Platelet Count 201 10^3/cmm (157-399); Red Blood Count 3.14 10^6/uL (3.85-5.65); White Blood Count 15.68 10^3/uL (3.29-11.43)
--- NOTE | 2025-06-08 06:57 | ANES.PROC ---
Anesthesia Procedures Procedure/Date: 06/08/25 Central Venous Insert: Central Venous Line: Right IJ Time Out Performed: Yes Consent: requested by attending/covering physician, emergency procedure and other (Family unable to be reached) Central Line: New Anesthesia monitors: pulse oximetry, EKG, BP cuff and oxygen Vein cannulated: right internal jugular Ultrasound used: to identify patency to vessel Post procedure: Obtain Chest X-Ray Additional Comments: Patient tolerated procedure well. Patient appears very vascular depleted. No backflow through catheter. All 3 ports drawl well
--- NOTE | 2025-06-08 07:37 | PC.PHAR ---
[facility] is [facility] 7:37am 06/08/25
[2025-06-08 07:51] LABS: Alanine Aminotransferase 20 U/L (0-41); Albumin Level 2.0 g/dL (3.5-5.2); Alkaline Phosphatase 122 U/L (40-130); Anion Gap 14.8 (5-19); Aspartate Amino Transferase 40 U/L (0-40); Blood Urea Nitrogen 8 mg/dL (8-23); Calcium 7.0 mg/dL (8.5-10.5); Carbon Dioxide 27 mmol/L (22-29); Chloride 92 mmol/L (98-107); Creatinine Clr Calc Pharmacy 61.4670; Globulin 2.3 g/dL (1.3-4.6); Glucose 164 mg/dL (65-115); Osmolality Calculated 272 mOsm/kg (285-295); Potassium 3.8 mmol/L (3.5-5.1); Sodium 130 mmol/L (136-145); Total Protein 4.3 g/dL (6.6-8.7)
--- NOTE | 2025-06-08 08:07 | CT_ITS ---
WS: [id number] CTA ABDOMEN TECHNIQUE: Noncontrast plus contrast enhanced CTA of the abdominal aorta with coronal and sagittal reformatted images and additional MIP Images. CLINICAL INFORMATION: possible GI bleed COMPARISON: CTA 2023 DLP: 456.[address] scans at [facility] use at least one of these dose optimization techniques: automated exposure control; mA and/or kV adjustment per patient size (includes targeted exams where dose is matched to clinical indication); or iterative reconstruction. 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 LEFT iliac limb is patent. Excluded aneurysm sac measures 2.2 x 2.2 cm AP by transverse stable compared to previous. Celiac and SMA are patent. Proximal renal arteries are patent. Advanced emphysematous changes in the lung bases. Small LEFT pleural effusion with compressive atelectasis LEFT lower lobe. Adrenal glands are normal. No hydronephrosis in either kidney. Small esophageal hiatal hernia. Stomach is decompressed with diffuse gastric wall thickening. Recommend correlation for gastritis. This could followed up with endoscopy. Atrophic spleen is unchanged. Adrenal glands are normal. No hydronephrosis in either kidney. Normal gallbladder. Small amount of free fluid in the pelvis. Lawrence catheter. Dense rectosigmoid constipation. Dense fecal material in the RIGHT colon. Air distended transverse colon likely due to adynamic ileus. Fluid distended loops of small bowel in the midabdomen with a few air-fluid levels. No evidence of high-grade obstruction or transition point. CT/CT angio abdomen pelvis [id number] IMPRESSION: 1. 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 2. Excluded aneurysm sac is unchanged. 3. Small LEFT pleural effusion. 4. Diffuse gastric wall thickening. Small esophageal hiatal hernia. Recommend correlation for gastritis and duodenitis. This could followed up with endoscopy . 5. Gaseous distention of the RIGHT colon and transverse colon with some retain ed dense stool. Findings likely due to adynamic ileus. Dense rectosigmoid const ipation. 6. Lawrence catheter. 7. Small amount of free fluid in the pelvis. 8. A few fluid distended loops of small bowel with air-fluid levels although n o evidence of high-grade obstruction or transition point.
[2025-06-08] MEDS: pantoprazole 40 mg SDV IVP ×2 (08:55→20:04)
[2025-06-08] MEDS: vasopressin 40 UNIT/100 ML PREMIX 15 UNIT IV (09:02)
[2025-06-08 09:51] LABS: Glucose Urine UA 1+ (Normal); Nitrate Urine Negative (Negative); Specific Gravity, Urine 1.020 (1.005-1.030)
[2025-06-08 09:58] LABS: Add Urine Microscopic? YES
[2025-06-08 10:33] LABS: UA Slide Review UA Slide Review Perf
--- NOTE | 2025-06-08 11:41 | PC.OT ---
OT orders received and chart reviewed. Patient is currently awaiting workup for possible GI bleed and is critically ill. Will hold OT evaluation today until patient is more stable and therapeutically appropriate for evaluation.
[2025-06-08] MEDS: iohexol 350 mg/mL 500 mL Btl (per mL) IV (11:55)
--- NOTE | 2025-06-08 12:05 | P.PN_ITS ---
Subjective 2 Subjective: cont. to wean pressors as able 1 unit RBCs given Vitals/I&O/Wt Last Vital Signs Temp 97.7 F 06/08/25 10:00 Pulse 128 H 06/08/25 10:30 Resp 17 06/08/25 10:30 BP 125/80 06/08/25 10:30 Pulse Ox 97 06/08/25 10:30 O2 Del Method Nasal Cannula 06/08/25 10:30 O2 Flow Rate 2 06/08/25 10:30 06/07/25 06/08/25 06/08/25 22:59 06:59 14:59 Intake Total 2049 1365.880 / 3415.880 3118.736 / 3118.736 Output Total 300 / 300 Balance 2049 1365.880 / 3415.880 2818.736 / 2818.736 Weight last 48 hrs Weight 48.5 kg Weight 44.5 kg Weight 34.019 kg Physical Exam 2 Const: COMMON NORMALS: patient oriented x3 GENERAL APPEARANCE: disheveled and frail appearing NUTRITIONAL APPEARANCE: cachectic HENMT: COMMON NORMALS: normocephalic and atraumatic HEAD & SCALP: n ormocephalic and atraumatic Eye: COMMON NORMALS: Equal, round and reactive pupils present and EOMs intact bilaterally PUPIL: Yes Equal, round and reactive pupils present Lymph: LYMPHATIC: no lymphadenopathy noted Resp: COMMON NORMALS: normal respiratory effort and No use of accessory muscles Cardio: COMMON NORMALS: regular rate, regular rhythm, No gallops present (Cardio), No murmurs present (Cardio) and No rub (Cardio) RATE: regular rate RHYTHM: regular rhythm GI: COMMON NORMALS: Soft to palpation, non-tender and no masses PALPATION: Yes Soft to palpation Extremity: OTHER: passive movement of BL LE without pain Neuro: COMMON NORMALS: patient oriented x3 and CN's II-XII intact bilaterally Urinary Catheter Management: Lawrence: Cath Placed During This Visit: no Reason for Continuing Indwelling Catheter: Accurate Measurement of Urinary Output in Critically Ill Patients Data 06/08/25 06:43 06/08/25 06:42 Micro: Microbiology 06/07/25 21:11 Blood Culture - Preliminary Blood SPECIMEN COLLECTED 06/07/25 20:34 Blood Culture - Preliminary Blood SPECIMEN COLLECTED A&P Assessment and plan 1. Hematemesis: 2. Dehydration: 3. Adult failure to thrive: Plan: 69 year old male presenting from home is severely weakened state, report of hematemesis, neglect. 1. Hematemesis: - report that he vomited blood x 1 in the emergency room - Patient on PPI 40 mg IV BID - Surgery consulted, no plans for EGD as yet, doubt active bleeding - CTA abd/pelvis done, results pending. - patient was seen in November of 2023 for screening colonoscopy 2/2 findings of polys on prior colonoscopy 3 years ago, colonoscopy postponed until he could get cath, done in January. 2. Hypotension: - IV given 2 L normal saline - Supportive pressors with Levophed, vasopressin, epi, able to wean epi, wean vasopressin as able, then levophed as able - Patient with leukocytosis of 14 otherwise no other supporting ITN for sepsis - x-ray is clear - Received Zyvox and cefepime and will continue empiric antibiotics - cont. NS at 125 cc/h - hold anti-hypertensives Acute blood loss anemia on likely chronic anemia - likely 2/2 malnutrition - check iron panel, ferritin - given 1 unit RBC in ICU. 3. Dehydration: Patient had received at least 2 L of fluid - cont. IV NS - BUN/cr not elevated 4. Hypokalemia: - Potassium of 2.3 had been replaced with 80 mEq of potassium from the emergency room - now 3.8 - monitor and replace PRN 5. Adult failure to thrive: - severe protein calorie malnutrition, BMI 15.8 - consulting speech and nutrition services H/O epilepsy - cont. home antiepileptics H/O COPD - not in exacerbation - cont. home inhalers or eq. H/O AAA - s/p repair H/O PAD CAD CVA - Left and Right cath in 2023 with mild to moderate diffuse disease - cardiology recommending medical mgmt at that time - EF 65% 2023 Disposition - Continue ICU for now - PT/OT/CM for discharge planning - holding most home meds for now. Unsure if he was taking PDMP PDMP Reviewed: Not Reviewed Attestations 2 Medical Necessity Statement*: Anticipate > 2 midnights for hyptension, hematemesis in ICU care Time Spent in Patient Care: Greater than 35 minutes (>than 50% of time spent in counselling and/or direct pt care on unit) . Critical Care Time: > 30 minutes spent in critical care. The high probability of a clinically significant, sudden or life threatening deterioration of the patient's [] s ystem(s) required my full and direct attention, intervention and personal management. The critical care time is as shown. This time is in addition to time spent performing any reported procedures but includes the following: [x] Data and vital sign review and interpretation [x] Patient assessment, examination and intervention [x] Documentation [x] Medication orders and management Coding Level of Care Code Acute Code for Chg Fwd Diagnoses Hematemesis K92.0 Dehydration E86.0 Adult failure to thrive R62.7
[2025-06-08] MEDS: cefepime 2,000 mg SDV 2000 MG IVP ×2 (12:31→23:44)
[2025-06-08 13:20] LABS: Ferritin 911 ng/mL (30-400); Iron 28 ug/dL (59-158); Total Iron Binding Capacity 69 mcg/dl; Unsaturated Iron Binding 41 ug/dL (112-347)
--- NOTE | 2025-06-08 13:30 | PM.MISC ---
Miscellaneous Note Purpose of Documentation: Update on patient care Note: I have reevaluated the patient is afternoon, his mental status continues to be poor he appears neglected cachectic and in poor overall health. The CTA that was done this morning shows no evidence of active bleeding, there is gastroduodenitis but this appears to be diffuse and no actual contents in the stomach or blood residue that we can identified, he has a rather impressive fecal impaction and significant constipation. I was able to disimpact him at the bedside and once he is tolerating diet I will start him on strong bowel regimen. Will likely also do an enema later today or tomorrow morning depending on his hemodynamic status. I have discussed the findings with the medical team they are going to continue maximal medical management. At the moment there is no indication for acute upper endoscopy, I will consider proceeding with upper endoscopy in the case of a significant downtrend of the hemoglobin or additional evidence of upper GI bleeding. Family members at the bedside were informed of the findings agree with the plan. Overall prognosis is poor
[2025-06-08 13:54] LABS: Platelet Count 185 10^3/cmm (157-399)
[2025-06-08 14:13] LABS: INR 1.20 (0.8-1.2); Prothrombin Time 16.10 SECONDS (12.1-14.9)
[2025-06-08 14:14] LABS: Fibrinogen 190 mg/dL (174-498); Partial Thromboplastin Time 30.5 SECONDS (23.9-36.7)
--- NOTE | 2025-06-08 15:55 | PC.SLP ---
PARK WORKER SUPERVISOR attempted to assess patient, however, the patient is not alert enough and able to participate at this time. PARK WORKER SUPERVISOR will attempt to follow-up the patient tomorrow.
[2025-06-08] MEDS: norepinephrine 4 MG/250 ML BAG 71.25 MG IV ×2 (19:54→22:52)
--- NOTE | 2025-06-08 20:26 | CTR_ITS ---
PROCEDURE INFORMATION: Exam: CT Head Without Contrast Exam date and time: 06/08/2025 8:54 PM Age: 69 years old Clinical indication: Altered mental status/memory loss; Confusion or disorientation; Additional info: AMS TECHNIQUE: Imaging protocol: Computed tomography of the head without contrast. Radiation optimization: All CT scans at this facility use at least one of these dose optimization techniques: automated exposure control; mA and/or kV adjustment per patient size (includes targeted exams where dose is matched to clinical indication); or iterative reconstruction. COMPARISON: CT head wo con* [id number] 12/08/2023 12:19 PM RADIATION DOSE METRICS: Total DLP (mGy-cm): 1138.98 FINDINGS: Brain: No hemorrhage. No mass effect. Moderate global parenchymal volume loss.Patchy areas periventricular and subcortical white matter hypoattenuation, likely the sequela of microvascular ischemic changes. Encephalomalacia/gliosis in the right cerebellum. Cerebral ventricles: No ventriculomegaly. Paranasal sinuses: Visualized sinuses are unremarkable. No fluid levels. Mastoid air cells: Visualized mastoid air cells are well aerated. Bones: Unremarkable. No acute fracture. Soft tissues: Unremarkable. CT/CT head wo con* [id number] IMPRESSION: No acute intracranial hemorrhage.
--- NOTE | 2025-06-08 20:30 | PC.NURSE ---
Physician Communication Upon initial assessment when asked orientation questions, patient did not respond verbally or communicate physically. Patient looking consistently to the left side. When stimuli provided to right side of patient's face, patient did turn head to look to the right. Pupils equal, reactive to light but sluggish. Bilateral hand grinder outside diameter equal. Furthermore, patient's arms and legs noted to be increasingly edematous with NS administering at 125 ml/hr. Dr. Duran notified of all findings; orders received to obtain a head ct without contrast, decrease NS to 100 ml/hr, and administer one time dose of 25 gm albumin IV.
--- NOTE | 2025-06-08 21:30 | PC.NURSE ---
Insulin Patient's blood glucose 235. Dr. Duran notified; order received for low sliding scale insulin lispro subcut Q6H.
[2025-06-08] MEDS: albumin 25 G/100 ML BAG 60 G IV (21:54)
--- OUTSIDE RECORDS SUMMARY | 2025-06-08 22:09 | XMS_ITS | Continuity of Care Document ---
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 It does not include entries that were removed or entered in error. Problem Status Onset Date Problem Type Date of Resolution Comments Source Abdominal aortic aneurysm Active Condition Jun 23, 2023 Entered By: WESLY NAVARRO MMY Comment: UA 05/08/2023 2.5cm [place] [facility] Allergic Rhinitis (SCT 33899687) Active Condition [facility] [facility] Benign prostatic hyperplasia Active Condition [facility] [facility] Bipolar disorder Active Condition [place] [facility] Cerebral infarction Active Condition Sep 17, 2022 Entered By: WESLY NAVARRO Comment: right sided weakness, mostly resolved [facility] [facility] COPD - Chronic Obstructive Pulmonary Disease (SCT 65167101) Active Condition [facility] [facility] [facility] Degenerative joint disease of shoulder region Active Condition Jun 17, 2024 Entered By: WESLY NAVARRO Comment: Left [place] [facility] GERD - Gastro-Esophageal Reflux Disease (SCT 458984297) Active Condition [facility] Hyperlipidemia (SCT 39605875) Active Condition [facility] Low Back Pain (SCT 307786809) Active Condition [facility] Peripheral arterial occlusive disease Active Condition Jun 23, 2023 Entered By: WESLY NAVARRO MMY Comment: US 05/08/2023 patient aortic and iliac graft stents. [facility] Peripheral neuropathy Active Condition [facility] [facility] Polyp Colon (SCT 12273882) Active Condition [facility] [facility] [facility] Posttraumatic stress disorder Active Condition [facility] [facility] PTSD - Post-Traumatic Stress Disorder (SCT 45938095) Active Condition [facility] Seizure disorder Active Condition Nov 06, 2022 Entered By: WESLY NAVARRO MMY Comment: post CVA [place] [facility] Vitamin D Deficiency (SCT 8986523) Active Condition [place] [facility] Chronic hypoxemic respiratory failure Inactive Condition 12/11/2022 [place] [facility] Esophag. Reflx Inactive Condition 07/23/2020 [facility] Hyperlipidemia Inactive Condition 07/23/2020 [facility] Low Back Pain Inactive Condition 07/23/2020 [facility] Lymphadenopathy * (ICD-9-CM 785.6) Inactive Condition 07/23/2020 [facility] Opioid Dependence * (ICD-9-CM 304.00) Inactive Condition 07/23/2020 [facility] POPLITEAL SYNOVIAL CYST Inactive Condition [facility] Diagnosis: ICD-10-CM I77.9 Disorder of arteries and arterioles, unspecified Active Diagnosis [place] [facility] Diagnosis: ICD-10-CM B35.6 Tinea cruris Active Diagnosis [facility] Diagnosis: ICD-10-CM Z71.89 Other specified counseling Active Diagnosis [facility] Diagnosis: ICD-10-CM R06.02 Shortness of breath Active Diagnosis [facility] Diagnosis: ICD-10-CM M19.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, left shoulder Active Diagnosis [facility] Diagnosis: ICD-10-CM M25.512 Pain in left shoulder [facility] Diagnosis: ICD-10-CM K02.52 Dental caries on pit and fissure surfc penetrat into dentin [facility] Diagnosis: ICD-10-CM Z09 Encntr for f/u exam aft trtmt for cond oth than malig neoplm Active Diagnosis [facility] Diagnosis: ICD-10-CM 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 Medication Details Route Status Patient Instructions Prescription Expires Prescription Number Last Dispense Date Ordering Provider Order Date Order Qty Source ATORVASTATI N CA 40MG TAB TAKE ONE-HALF TABLET BY MOUTH EVERY EVENING TO LOWER CHOLESTE ROL ORAL ACTIVE 08/24/2025 [id number] 5 JR NAVARRO 2023 45 [place] [facility] ATORVASTATI N CA 40MG TAB TAKE ONE-HALF TABLET BY MOUTH EVERY EVENING TO LOWER CHOLESTE ROL ORAL DISCONT INUED 07/23/2024 [id number] 4 [facility] 2022 45 [facility] CHOLECALCIF CHALO 50MCG (2,000UNIT) TAB TAKE ONE TABLET BY MOUTH ONCE A DAY FOR VITAMIN D DEFICIEN CY. ORAL ACTIVE 08/24/2025 [id number] 5 RAMON, [facility] 2023 100 [facility] CHOLECALCIF CHALO 50MCG (2,000UNIT) TAB TAKE ONE TABLET BY MOUTH ONCE A DAY FOR VITAMIN D DEFICIEN CY. ORAL DISCONT INUED 07/23/2024 [id number] 4 [facility] 2022 90 [facility] CILOSTAZOL 100MG TAB TAKE ONE TABLET BY MOUTH TWICE A DAY TAKE 30 MINUTES BEFORE OR AT LEAST 2 HOURS AFTER FOOD. DO NOT TAKE WITH GRAPEFRU IT JUICE. ORAL DISCONT INUED 07/01/2024 [id number] Dariel PRUITT 2022 180 [place] [facility] CILOSTAZOL 100MG TAB TAKE ONE TABLET BY MOUTH TWICE A DAY TAKE 30 MINUTES BEFORE OR AT LEAST 2 HOURS AFTER FOOD. DO NOT TAKE WITH GRAPEFRU IT JUICE. ORAL 09/23/2024 [id number] 4 FAUSTO ART MD 2023 28 [place] [facility] CITALOPRAM HYDROBROMID E 40MG TAB TAKE ONE TABLET BY MOUTH EVERY MORNING FOR ANXIETY ORAL ACTIVE 05/11/2026 [id number] [facility] 2024 90 [facility] CITALOPRAM HYDROBROMID E 40MG TAB TAKE ONE TABLET BY MOUTH EVERY MORNING FOR ANXIETY ORAL DISCONT INUED 04/14/2024 [id number] RAMON, [facility] 2022 90 [facility] CITALOPRAM HYDROBROMID E 40MG TAB TAKE ONE TABLET BY MOUTH EVERY MORNING FOR ANXIETY ORAL 04/20/2025 [id number] 4 RAMON, JR 2023 90 [facility] DICYCLOMINE HCL 10MG CAP TAKE ONE CAPSULE BY MOUTH FOUR TIMES A DAY FOR IRRITABL E BOWEL SYNDROME PAIN ORAL ACTIVE 09/01/2025 [id number] 5 RAMON, JR 2023 360 [facility] DULOXETINE HCL 60MG CAP,EC TAKE ONE CAPSULE BY MOUTH ONCE A DAY DO NOT ABRUPTLY DISCONTI NUE MEDICATI ON. ORAL ACTIVE 08/24/2025 [id number] 4 RAMON, JR 2023 90 [facility] DULOXETINE HCL 60MG CAP,EC TAKE ONE CAPSULE BY MOUTH ONCE A DAY DO NOT ABRUPTLY DISCONTI NUE MEDICATI ON. ORAL DISCONT INUED 07/23/2024 [id number] 4 RAMON, JR 2022 90 [facility] FLUTICASONE 250MCG/SALM ETEROL 50MCG INHL,ORAL,D ISKUS,60 INHALE 1 INHALATI ON BY ORAL INHALATI ON TWICE A DAY FOR BREATHIN G (OPEN DISKUS; CLICK ONLY ONCE; MAY INHALE TWICE TO COMPLETE DOSE; CLOSE WHEN FINISHED ) RINSE MOUTH AND SPIT AFTER EACH USE. RESPIR ATORY (INHAL ATION) ACTIVE 08/24/2025 [id number] 5 RAMON, JR 2023 3 [facility] FLUTICASONE 250MCG/SALM ETEROL 50MCG INHL,ORAL,D ISKUS,60 INHALE 1 INHALATI ON BY ORAL INHALATI ON TWICE A DAY FOR BREATHIN G (OPEN DISKUS; CLICK ONLY ONCE; MAY INHALE TWICE TO COMPLETE DOSE; CLOSE WHEN FINISHED ) RINSE MOUTH AND SPIT AFTER EACH USE. RESPIR ATORY (INHAL ATION) DISCONT INUED 07/23/2024 [id number] 4 RAMON, JR 2022 3 [facility] FLUTICASONE PROPIONATE 50MCG/SPRAY SOLN,NASAL, 16GM INSTILL 2 SPRAYS IN NOSTRIL( S) ONCE A DAY FOR ALLERGIE S (MUST BE USED DIRECTED FOR MINIMUM OF 21 DAYS TO PROVIDE ADEQUATE BENEFITS ) NASAL ACTIVE 08/24/2025 [id number] 5 [facility] 2023 3 [place] [facility] FLUTICASONE PROPIONATE 50MCG/SPRAY SOLN,NASAL, 16GM INSTILL 2 SPRAYS IN NOSTRIL( S) ONCE A DAY FOR ALLERGIE S (MUST BE USED DIRECTED FOR MINIMUM OF 21 DAYS TO PROVIDE ADEQUATE BENEFITS ) NASAL DISCONT INUED 07/23/2024 [id number] 4 [facility] 2022 3 [facility] FOLIC ACID 1MG TAB TAKE ONE TABLET BY MOUTH ONCE A DAY ORAL ACTIVE 08/24/2025 [id number] 5 [facility] 2023 100 [facility] FOLIC ACID 1MG TAB TAKE ONE TABLET BY MOUTH ONCE A DAY ORAL DISCONT INUED 07/23/2024 [id number] 4 [facility] 2022 100 [facility] GABAPENTIN 300MG CAP TAKE THREE CAPSULES BY MOUTH THREE TIMES A DAY FOR NERVE PAIN ORAL ACTIVE 12/02/2025 [id number] Lashawn IBRAHIM Q 2024 810 [place] [facility] HYDROCODONE 7.5MG/ACETA MINOPHEN 325MG TAB TAKE 1 TABLET BY MOUTH EVERY 6 HOURS NEEDED FOR PAIN CAUTION: DO NOT EXCEED 4000MG PER DAY ACETAMIN OPHEN (APAP) FROM ALL MEDS. ORAL 05/06/2024 [id number] 4 [facility] 2023 30 [place] [facility] LACOSAMIDE 100MG TAB TAKE ONE TABLET BY MOUTH TWICE A DAY FOR SEIZURES ORAL DISCONT INUED 06/15/2024 [id number] RAMON, [facility] 2023 60 [facility] LACOSAMIDE 100MG TAB TAKE ONE TABLET BY MOUTH TWICE A DAY ORAL 11/25/2024 [id number] 4 TIFFANIE HANSEN 2023 60 [place] [facility] LEVETIRACET AM 500MG TAB TAKE THREE TABLETS BY MOUTH TWICE A DAY SWALLOW WHOLE, DO NOT CRUSH OR CHEW. ORAL DISCONT INUED 02/15/2025 [id number] 4 TIFFANIE HANSEN 2023 360 [place] [facility] LEVETIRACET AM 500MG TAB TAKE THREE TABLETS BY MOUTH TWICE A DAY SWALLOW WHOLE, DO NOT CRUSH OR CHEW. ORAL 05/26/2025 [id number] 5 TIFFANIE HANSEN 2023 360 [place] [facility] LORATADINE 10MG TAB TAKE ONE TABLET BY MOUTH ONCE A DAY FOR ALLERGIC RHINITIS ON EMPTY STOMACH ORAL ACTIVE 08/24/2025 [id number] 5 [facility] 2023 90 [place] [facility] LORATADINE 10MG TAB TAKE ONE TABLET BY MOUTH ONCE A DAY FOR ALLERGIC RHINITIS ON EMPTY STOMACH ORAL DISCONT INUED 03/26/2025 [id number] 4 [facility] 2023 90 [place] [facility] METOPROLOL TARTRATE 25MG TAB TAKE ONE TABLET BY MOUTH TWICE A DAY FOR HIGH BLOOD PRESSURE TAKE WITH OR IMMEDIAT LEIGHA FOLLOWIN G FOOD. ORAL ACTIVE 08/24/2025 [id number] 5 [facility] 2023 180 [place] [facility] METOPROLOL TARTRATE 25MG TAB TAKE ONE TABLET BY MOUTH TWICE A DAY FOR HIGH BLOOD PRESSURE TAKE WITH OR IMMEDIAT LEIGHA FOLLOWIN G FOOD. ORAL DISCONT INUED 04/13/2025 [id number] FAUSTO ART MD 2023 180 [place] [facility] MULTIVITAMI NS W/MINERALS CAP/TAB TAKE 1 CAP/TAB BY MOUTH ONCE A DAY FOR SUPPLEME NTATION. ORAL 11/11/2024 [id number] 4 [facility] 2023 130 [place] [facility] PHENYTOIN NA,EXTENDED 100MG CAP,SA TAKE ONE CAPSULE BY MOUTH TWICE A DAY FOR SEIZURES (GENERIC SUBSTITU TION FOR DILANTIN ) ORAL DISCONT INUED 10/21/2024 [id number] JR NAVARRO 2022 180 [facility] PHENYTOIN NA,EXTENDED 100MG CAP,SA TAKE ONE CAPSULE BY MOUTH TWICE A DAY (GENERIC SUBSTITU TION FOR DILANTIN ) ORAL 05/26/2025 [id number] 5 TIFFANIE HANSEN 2023 180 [place] [facility] PRAZOSIN HCL 2MG CAP TAKE ONE CAPSULE BY MOUTH AT BEDTIME MAY CAUSE DIZZINES S OR DROWSINE SS. ORAL ACTIVE 08/24/2025 [id number] 5 JR NAVARRO 2023 90 [facility] PRAZOSIN HCL 2MG CAP TAKE ONE CAPSULE BY MOUTH AT BEDTIME MAY CAUSE DIZZINES S OR DROWSINE SS. ORAL DISCONT INUED 07/23/2024 [id number] 4 JR NAVARRO 2022 90 [facility] QUETIAPINE FUMARATE 25MG TAB TAKE ONE-HALF TABLET BY MOUTH TWICE A DAY FOR MOOD ORAL ACTIVE 08/24/2025 [id number] 5 JR NAVARRO [address] [place] [address] [facility] QUETIAPINE FUMARATE 25MG TAB TAKE ONE-HALF TABLET BY MOUTH TWICE A DAY FOR MOOD ORAL DISCONT INUED 07/23/2024 [id number] 4 RJ NAVARRO [address] [place] [address] [facility] ROPINIROLE HCL 0.5MG TAB TAKE ONE TABLET BY MOUTH ONCE A DAY NEEDED AND TAKE TWO TABLETS AT BEDTIME ORAL 05/26/2025 [id number] 5 TIFFANIE HANSEN 2023 270 [place] [facility] TAMSULOSIN HCL 0.4MG CAP TAKE ONE CAPSULE BY MOUTH EVERY EVENING APPROXIM ATELY 30 MINUTES AFTER THE SAME MEAL EACH DAY (FOR PROSTATE ) ORAL ACTIVE 08/24/2025 [id number] 5 JR NAVARRO [address] [place] [address] [facility] TAMSULOSIN HCL 0.4MG CAP TAKE ONE CAPSULE BY MOUTH EVERY EVENING APPROXIM ATELY 30 MINUTES AFTER THE SAME MEAL EACH DAY (FOR PROSTATE ) ORAL DISCONT INUED 07/23/2024 [id number] 4 [facility] 2022 90 [facility] TIOTROPIUM 2.5MCG/ACTU AT INHL,ORAL,6 0D,4GM INHALE 2 INHALATI ONS BY ORAL INHALATI ON ONCE A DAY (ADMINIS TER AT SAME TIME EACH DAY) FOR BREATHIN G. RESPIR ATORY (INHAL ATION) ACTIVE 08/24/2025 [id number] 5 RAMON, [facility] 2023 3 [facility] TIOTROPIUM 2.5MCG/ACTU AT INHL,ORAL,6 0D,4GM INHALE 2 INHALATI ONS BY ORAL INHALATI ON ONCE A DAY (ADMINIS TER AT SAME TIME EACH DAY) FOR BREATHIN G. RESPIR ATORY (INHAL ATION) DISCONT INUED 07/23/2024 [id number] 4 [facility] 2022 3 [facility] Allergies, Adverse Reactions, Alerts Combined list of allergies from Department of Defense and Veterans Affairs facilities. It does not include entries that were removed or entered in error. Substance Category Reaction Severity Reaction type Status Date Reported Comments Source LITHIUM Propensity to adverse reactions to drug (finding) MEMORY LOSS active 3 [facility] NAPROXYN Propensity to adverse reactions to drug (finding) GI UPSET active 2 [facility] NEFAZODONE Propensity to adverse reactions to drug (finding) REUBEN active 3 [facility] OXYCODONE Propensity to adverse reactions to drug (finding) Eruption, ITCHING,WA TERING EYES active 0 [facility] Immunizations Combined list of available immunizations from the Department of Defense and Veterans Affairs facilities. Immunization Series Date Given Administered By Site Reaction Lot Number CVX Code Drug Pay Station Attendant Status Comments Source INFLUENZA, INJECTABLE, QUADRIVALENT, PRESERVATIVE FREE 2022 SIMI AVERY LEFT DELTO ID [id number] 150 complet ed [facility] ZOSTER RECOMBINANT 2022 SIMI AVERY RIGHT DELTO ID [id number] 187 complet ed Completed Series, [facility] PNEUMOCOCCAL CONJUGATE PCV20, POLYSACCHARID E [id number] CONJUGATE, ADJUVANT, PF 2022 PEDRITO RYENOSO LEFT DELTO ID [id number] 216 complet ed [facility] ZOSTER RECOMBINANT 2022 PEDRITO REYNOSO RIGHT DELTO ID [id number] 187 complet ed [facility] TDAP 2022 EZRA,GEOVANNANEELA Awad RIGHT DELTO ID [id number] 115 complet ed [facility] COVID-19 (MODERNA), MRNA, LNP-S, PF, 100 MCG/0.5 ML DOSE 2 2020 207 complet ed [facility] COVID-19 (MODERNA), MRNA, LNP-S, PF, 100 MCG/0.5 ML DOSE 1 2020 207 complet ed [facility] INFLUENZA, UNSPECIFIED FORMULATION 2004 88 complet ed [facility] INFLUENZA, UNSPECIFIED FORMULATION 2002 MARIO FUNEZ [place] 88 complet ed [facility] PNEUMOCOCCAL, UNSPECIFIED FORMULATION 2002 109 complet ed [facility] TD(ADULT) UNSPECIFIED FORMULATION 1992 139 complet ed [facility] TD(ADULT) UNSPECIFIED FORMULATION 1991 139 complet ed [facility] Results Combined list of recent chemistry, hematology and other laboratory results from Department of Defense and Veterans Affairs, ranging from 15 months to all on record, depending upon the facility. Order Name Results Value Reference Range Date Interpretation Specimen Comments Source BASIC METABOLIC PANEL CREATININE [MASS/VOLUME ] IN SERUM OR PLASMA 0.75 mg/dL 0.7 - 1.3 07/25 Specimen Type: PLASMA Comment: Re-order and Re-collect ion recommende d. 2+ Hemolysis present. ~Potassium 4.8mmol/L Ordering Provider: Jean NAVARRO Report Released Date/Time: Jul 25, 2024 01:19 PM Reporting Lab: [place] [facility] [address] [facility] [address] Performing Lab: [place] [facility] [address] [place] [id number] [facility] BASIC METABOLIC PANEL UREA NITROGEN [MASS/VOLUME ] IN SERUM OR PLASMA 10 mg/dL 9 - 25 07/25 Specimen Type: PLASMA Comment: Re-order and Re-collect ion recommende d. 2+ Hemolysis present. ~Potassium 4.8mmol/L Ordering Provider: Jean NAVARRO Report Released Date/Time: Jul 25, 2024 01:19 PM Reporting Lab: [place] [facility] [address] [place] [address] Performing Lab: [place] [facility] [address] [place] [address] [facility] BASIC METABOLIC PANEL GLUCOSE [MASS/VOLUME ] IN SERUM OR PLASMA 101 mg/dL 72 - 99 07/25 H Specimen Type: PLASMA Comment: Re-order and Re-collect ion recommende d. 2+ Hemolysis present. ~Potassium 4.8mmol/L Ordering Provider: Jean NAVARRO Report Released Date/Time: Jul 25, 2024 01:19 PM Reporting Lab: [place] [facility] [address] [place] [address] Performing Lab: [place] [facility] [address] [place] [address] [facility] BASIC METABOLIC PANEL SODIUM [MOLES/VOLUM E] IN SERUM OR PLASMA 136 meq/L 136 - 145 07/25 Specimen Type: PLASMA Comment: Re-order and Re-collect ion recommende d. 2+ Hemolysis present. ~Potassium 4.8mmol/L Ordering Provider: Jean NAVARRO Report Released Date/Time: Jul 25, 2024 01:19 PM Reporting Lab: [place] [facility] [address] [place] [address] Performing Lab: [place] [facility] [address] [place] [address] [facility] BASIC METABOLIC PANEL POTASSIUM [MOLES/VOLUM E] IN SERUM OR PLASMA commen tmeq/L 3.5 - 5 07/25 Specimen Type: PLASMA Comment: Re-order and Re-collect ion recommende d. 2+ Hemolysis present. ~Potassium 4.8mmol/L Ordering Provider: Jean NAVARRO Report Released Date/Time: Jul 25, 2024 01:19 PM Reporting Lab: [place] [facility] [address] [place] [address] Performing Lab: [place] [facility] [address] [place] [address] [facility] BASIC METABOLIC PANEL CHLORIDE [MOLES/VOLUM E] IN SERUM OR PLASMA 102 meq/L 98 - 107 07/25 Specimen Type: PLASMA Comment: Re-order and Re-collect ion recommende d. 2+ Hemolysis present. ~Potassium 4.8mmol/L Ordering Provider: Jean NAVARRO Report Released Date/Time: Jul 25, 2024 01:19 PM Reporting Lab: [place] [facility] [address] [place] [address] Performing Lab: [place] [facility] [address] [place] [address] [facility] BASIC METABOLIC PANEL CARBON DIOXIDE, TOTAL [MOLES/VOLUM E] IN SERUM OR PLASMA 22 meq/L 22 - 31 07/25 Specimen Type: PLASMA Comment: Re-order and Re-collect ion recommende d. 2+ Hemolysis present. ~Potassium 4.8mmol/L Ordering Provider: Jean NAVARRO Report Released Date/Time: Jul 25, 2024 01:19 PM Reporting Lab: [place] [facility] [address] [place] [address] Performing Lab: [place] [facility] [address] [place] [address] [facility] BASIC METABOLIC PANEL CALCIUM [MASS/VOLUME ] IN SERUM OR PLASMA 9.0 mg/dL 8.4 - 10.4 07/25 Specimen Type: PLASMA Comment: Re-order and Re-collect ion recommende d. 2+ Hemolysis present. ~Potassium 4.8mmol/L Ordering Provider: Jean NAVARRO Report Released Date/Time: Jul 25, 2024 01:19 PM Reporting Lab: [place] [facility] [address] [place] [address] Performing Lab: [place] [facility] [address] [place] [address] [facility] BASIC METABOLIC PANEL GLOMERULAR FILTRATION RATE/1.73 SQ M.PREDICTED [VOLUME RATE/AREA] IN SERUM, PLASMA OR BLOOD BY CREATININE-B ASED FORMULA (CKD-EPI 2020) 100 07/25 Specimen Type: PLASMA Comment: Re-order and Re-collect ion recommende d. 2+ Hemolysis present. ~Potassium 4.8mmol/L Ordering Provider: Jean NAVARRO Report Released Date/Time: Jul 25, 2024 01:19 PM Reporting Lab: [place] [facility] [address] [place] [address] Performing Lab: [place] [facility] [address] [place] [address] [facility] Vital Signs Combined list of inpatient and outpatient Vital Signs from Department of [facility] and [facility], ranging from 12 months to all on record, depending upon the facility. Vital Sign Value Date Comments Source SYSTOLIC BLOOD PRESSURE 132 07/25/2024 13:09:00 [facility] DIASTOLIC BLOOD PRESSURE 83 07/25/2024 13:09:00 [facility] PULSE OXIMETRY 97 07/25/2024 13:09:00 [facility] WEIGHT 136.3 07/25/2024 13:09:00 [facility] BMI 20 kg/m2 07/25/2024 13:09:00 [facility] PAIN 8 07/25/2024 13:09:00 [facility] HEIGHT 70.0 07/25/2024 13:09:00 [facility] TEMPERATURE 98.7 07/25/2024 13:09:00 [facility] PULSE 69 07/25/2024 13:09:00 [facility] RESPIRATION 18 07/25/2024 13:09:00 [facility] Encounters Combined list of: 1) Encounters from Department of Veterans Affairs facilities going backup to the last 18 months, not all [place] inpatient encounters are included; 2) Encounters from the Department of [facility] facilities going backup to 280 months. Location Location Details Encounter Type Encounter Number Reason For Visit Attending Provider ADM Date DC Date Status Disposition Source [facility] HC PRO PHONE CALL 5-10 MIN [id number] Diagnos is: ICD-10- CM F44.5 Convers ion disorde r with seizure s or convuls ions SANG MUNGUIA 12/14 [facility] Outpatient Encounter [id number] 12/18 [facility] Outpatient Encounter [id number] 01/05 [facility] Outpatient Encounter [id number] 01/06 [facility] N [facility] Outpatient Encounter [id number] 01/14 [facility] N [facility] O/P EST MOD 30 MIN [id number] Diagnos is: ICD-10- CM Z09 Encntr for f/u exam aft trtmt for cond oth than birgitig JOSE Kimball 01/19 [facility] [place] [id number] Diagnos is: ICD-10- CM K02.52 Dental caries on pit and fissure surfc penetra t into dentin CHARISSE MUNOZ H 01/27 [facility] En[facility] [id number] 01/31 [facility] En[facility] [id number] 02/23 [facility] HC PRO PHONE CALL 5-10 MIN [id number] Diagnos is: ICD-10- CM M25.512 Pain in left shoulde r EZRASANG Awad 02/23 [facility] OFFICE O/P EST LOW 20 MIN [id number] Diagnos is: ICD-10- CM 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 , left shoulde r Jean NAVARRO 02/24 [facility] Outpatient Encounter [id number] 03/09 [facility] [facility] Outpatient Encounter [id number] CISCO MCKEON 03/25 [facility] Outpatient Encounter [id number] 04/06 [facility] Outpatient Encounter [id number] 04/08 [facility] Outpatient Encounter [id number] 04/11 [facility] Outpatient Encounter [id number] 04/11 [facility] HC PRO PHONE CALL 5-10 MIN [id number] Diagnos is: ICD-10- CM R06.02 Shortne ss of breath SANG MUNGUIA 04/15 [facility] Outpatient Encounter [id number] YUKIJENNIFERARIEL Davis 04/18 [facility] Outpatient Encounter [id number] 04/20 [facility] Outpatient Encounter [id number] 04/29 [facility] Outpatient Encounter [id number] SANG MUNGUIA R 04/29 [facility] PRO PHONE CALL 5-10 MIN [id number] Diagnos is: ICD-10- CM Z71.89 Other specifi ed mental health counselor ing SANG MUNGUIA R 04/29 [facility] Outpatient Encounter [id number] 05/11 [facility] Outpatient Encounter [id number] 05/18 [facility] Outpatient Encounter [id number] 05/20 [facility] Outpatient Encounter [id number] 05/26 [facility] Outpatient Encounter [id number] 05/26 [facility] Outpatient Encounter [id number] 06/20 [facility] Outpatient Encounter [id number] 06/22 [facility] Outpatient Encounter [id number] 07/04 [facility] Outpatient Encounter [id number] 07/04 [facility] Outpatient Encounter [id number] 07/04 [facility] [id number] 07/06 [facility] Outpatient Encounter [id number] 07/12 [facility] [id number] 07/13 [facility] Encounter [id number] 07/13 [facility] Outpatient Encounter [id number] 07/14 [facility] Outpatient Encounter [id number] 07/15 [facility] Outpatient Encounter [id number] 07/20 [facility] Outpatient Encounter [id number] 07/22 [facility] Outpatient Encounter [id number] SANG MUNGUIA R 07/22 [facility] Outpatient Encounter [id number] 07/22 [facility] OFFICE O/P EST MOD 30 MIN [id number] Diagnos is: ICD-10- CM B35.6 Yaa templeJean Ren 07/25 [facility] Outpatient Encounter [id number] 07/29 [facility] Outpatient Encounter [id number] 07/29 [facility] [facility] Outpatient Encounter [id number] 08/05 [facility] En[facility] [id number] 08/08 [facility] Encounter [id number] 08/10 [facility] Outpatient Encounter [id number] 08/15 [facility] Encounter [id number] 08/19 [facility] [place] Outpatient Encounter [id number] 08/19 [facility] Outpatient Encounter [id number] 08/23 [facility] Outpatient Encounter [id number] 08/23 [facility] [place] QNHP OL DIG ASSMT&MGMT 5-10 [id number] Diagnos is: ICD-10- CM I77.9 Disorde r of arterie s and arterio les, unspeci fied ARIEL DICKINSON V 08/25 [place] [facility] Outpatient Encounter [id number] SNAG MUNGUIA R 08/29 [facility] [place] Outpatient Encounter [id number] 08/29 [place] Outpatient Encounter [id number] 08/29 [facility] En[facility] [id number] 08/30 [facility] Encounter [id number] 08/30 [facility] Outpatient Encounter [id number] 08/31 [facility] En[facility] [id number] 08/31 [facility] Encounter [id number] 09/02 [facility] [place] [facility] Outpatient Encounter [id number] 09/03 [place] [facility] [facility] Outpatient Encounter [id number] 09/03 [place] [facility] Outpatient Encounter [id number] 09/08 [facility] Outpatient Encounter [id number] 09/09 [facility] Outpatient Encounter [id number] 09/12 [facility] Outpatient Encounter [id number] 09/12 [facility] Outpatient Encounter [id number] 09/21 [facility] Outpatient Encounter [id number] 10/14 [facility] Outpatient Encounter [id number] 10/28 [facility] Outpatient Encounter [id number] 12/01 [facility] Outpatient Encounter [id number] 12/01 [facility] Outpatient Encounter [id number] 12/05 [facility] Outpatient Encounter [id number] NAMRATA BRUCE 01/19 [facility] Outpatient Encounter [id number] LITO GUILLORY 02/15 [facility] Outpatient Encounter [id number] NAMRATA BRUCE Vale 02/16 [facility] Outpatient Encounter [id number] 03/16 [facility] [place] [facility] Outpatient Encounter [id number] 05/09 [place] Outpatient Encounter [id number] ADAM RESENDEZ 06/08 [facility] Social History Combined list of available smoking, tobacco, and other social history from Department of Defense and Veterans Affairs facilities. Social History Type Response Date Comment Sour e Tobacco smoking status NHIS VA-TOBACCO USER EVERY DAY 01/20/2024 [facility] History of tobacco use VA-TOBACCO USE WI 30 MIN OF WAKEUP 01/20/2024 [facility] History of tobacco use VA-TOBACCO USER EVERY DAY 09/17/2022 [facility] History of tobacco use TOBACCO OFFERED PT MEDS (PROVIDER) 12/23/2006 [facility] History of tobacco use TOBACCO COUNSELING OFFERED 05/19/2006 [facility] History of tobacco use TOBACCO COUNSELING OFFERED (1) 01/13/2006 [facility] History of tobacco use TOBACCO COUNSELING OFFERED (1) 09/29/2005 [facility] History of tobacco use TOBACCO COUNSELING OFFERED (1) 07/16/2005 [facility] History of tobacco use TOBACCO COUNSELING OFFERED (1) 05/28/2005 [facility] History of tobacco use TOBACCO COUNSELING OFFERED (1) 05/21/2005 [facility] History of tobacco use CURRENT TOBACCO USER 01/08/2005 [facility] History of tobacco use CURRENT TOBACCO USER 12/18/2004 [facility] History of tobacco use TOBACCO COUNSELING OFFERED 09/27/2003 [facility] History of tobacco use CURRENT TOBACCO USER 12/19/2002 [facility] History of tobacco use TOBACCO COUNSELING OFFERED 06/30/2002 [facility] History of tobacco use CURRENT SMOKER 12/04/[address] [facility] [place] History of tobacco use CURRENT SMOKER 10/24/1999 [facility] Advance Directives List of completed, amended, or rescinded Advance Directives on record at Department of [facility] facilities. An actual copy of the Directive is not included. Date Advance Directive Provider Source 08/24/2017 ADVANCE DIRECTIVE DISCUSSION SHEKHAR MCCLAIN [facility]
[2025-06-09] VITALS (100 sets, daily range): BP systolic 86–126; BP diastolic 54–79; PULSE 118–149; RESP 16–47; TEMP 36.2–36.6; O2SAT 67–100
[2025-06-09] MEDS: norepinephrine 4 MG/250 ML BAG 33.75 MG IV (03:28)
--- NOTE | 2025-06-09 04:33 | PC.NURSE ---
Called Dr. Weeks in regards to patients blood sugar dropping from 86 to 73 in two hours, hypoglycemia protocol was discussed. Dr Weeks gave verbal orders to start D10 @30 mL/hour at this time
[2025-06-09] MEDS: linezolid premix 600 MG/300 ML PREMIX 300 MG IV ×2 (04:51→18:06)
[2025-06-09] MEDS: hydrocortisone 100 mg/2 mL SDV IVP ×3 (04:51→18:06)
[2025-06-09 05:24] LABS: Hematocrit 29.7 % (37-53); Hemoglobin 10.30 g/dL (11.27-16.99); Mean Corpuscular HGB Conc 34.7 g/dL (30-55); Mean Corpuscular Hemoglobin 31.3 pg (27-33); Mean Corpuscular Volume 90.3 fl (82-101); Platelet Count 143 10^3/cmm (157-399); Red Blood Count 3.29 10^6/uL (3.85-5.65); White Blood Count 8.61 10^3/uL (3.29-11.43)
[2025-06-09 05:47] LABS: Alanine Aminotransferase 17 U/L (0-41); Albumin Level 2.5 g/dL (3.5-5.2); Alkaline Phosphatase 101 U/L (40-130); Anion Gap 15.0 (5-19); Aspartate Amino Transferase 32 U/L (0-40); Blood Urea Nitrogen 5 mg/dL (8-23); Calcium 7.3 mg/dL (8.5-10.5); Carbon Dioxide 26 mmol/L (22-29); Chloride 103 mmol/L (98-107); Creatinine Clr Calc Pharmacy 62.7344; Globulin 2.3 g/dL (1.3-4.6); Glucose 92 mg/dL (65-115); Magnesium 1.5 mg/dL (1.7-2.3); Osmolality Calculated 291 mOsm/kg (285-295); Sodium 142 mmol/L (136-145); Total Protein 4.8 g/dL (6.6-8.7)
[2025-06-09 05:49] LABS: Potassium 2.0 mmol/L (3.5-5.1)
[2025-06-09 06:07] LABS: Slide Review Slide Review Perform
[2025-06-09 06:08] LABS: Absolute Segmented Neutrophil 6.5 10/cmm (1.6-7.1); Band Neutrophils Absolute 1.7 10^3/cmm (0.0-1.2); Total Cells Counted 100 (0-100)
[2025-06-09] MEDS: potassium chloride oral liq 20 mEq/15 mL UDC 40 MEQ PO (06:11)
[2025-06-09] MEDS: potassium chloride premix 100 ML 25 MEQ IV (06:16)
[2025-06-09] MEDS: magnesium sulfate premix 1 GM/100 ML PIGGYBACK IV (06:39)
--- NOTE | 2025-06-09 08:00 | P.PN_ITS ---
Subjective 2 Subjective: Very good progression over the last 24 hours, pressor requirement has dropped patient is alert he answers questions. Denies any significant abdominal pain. Vitals/I&O/Wt Last Vital Signs Temp 97.8 F 06/09/25 04:00 Pulse 126 H 06/09/25 07:40 Resp 20 H 06/09/25 07:26 BP 99/66 06/09/25 06:30 Pulse Ox 98 06/09/25 07:26 O2 Del Method Nasal Cannula 06/09/25 07:26 O2 Flow Rate 2 06/09/25 07:26 06/08/25 06/09/25 06/09/25 22:59 06:59 14:59 Intake Total 2700.630 / 6103.116 1194.897 / 7298.013 42.875 / 42.875 Output Total 1400 / 1700 1600 / 3300 Balance 1300.630 / 4403.116 -405.103 / 3998.013 42.875 / 42.875 Weight last 48 hrs Weight 109 lb 2.061 oz Weight 106 lb 14.787 oz Weight 98 lb 1.691 oz Weight 75 lb Physical Exam 2 GI: OTHER: Abdominal exam is benign the abdomen is soft and nontender Urinary Catheter Management: Lawrence: Cath Placed During This Visit: no Reason for Continuing Indwelling Catheter: Accurate Measurement of Urinary Output in Critically Ill Patients Data 06/09/25 04:55 06/09/25 04:55 Micro: Microbiology 06/07/25 21:11 Blood Culture - Preliminary Blood NEGATIVE TO DATE 06/07/25 20:34 Blood Culture - Preliminary Blood NEGATIVE TO DATE A&P Assessment and plan 1. Hypokalemia: 2. Dehydration: 3. Malnutrition: 4. Refeeding syndrome: Plan: Good progression from the surgical standpoint. No evidence of upper GI bleeding, there is a normal BUN and the hemoglobin has remained stable over the last 24 hours. No further vomit. No indication for upper endoscopy at this point. Yesterday patient was disimpacted as large amount of stool was noted to be retained in the rectosigmoid region. I did repeat digital rectal examination this morning shows a empty rectal vault. Patient still has severe electrolyte imbalances, he had a potassium of 2 this morning magnesium and phosphate were also severely decreased. He is receiving supplementation for this. The main concern from my standpoint is that he is a very high risk candidate for refeeding syndrome as he appears to be severely malnourished and already has significant electrolyte imbalances. I would recommend that we keep a very close eye on electrolytes with retesting immediately after replacement to ensure that he is not developing severe hypophosphatemia or severe hypokalemia that can worsen his clinical status. Ideally in the long-term the electrolytes should be replaced to a potassium of 4 magnesium of 2 and a phosphate of 3. Once the patient is tolerating diet I recommend that we start him on a strict bowel regimen including MiraLAX twice a day and I will order enema to facilitate evacuation of retained stool at the level of the sigmoid. No additional intervention expected from the general surgery standpoint. General surgery remains available as needed. All other management by medical ICU team is appreciated. Of note patient is also suspected to have vitamin deficiencies due to his nutritional and clinical state, consider vitamin testing during the next set of labs. PDMP PDMP Reviewed: Not Reviewed Attestations 2 Medical Necessity Statement*: Per medical team Coding Level of Care Code 57939 Diagnoses Hypokalemia E87.6 Dehydration E86.0 Malnutrition E46 Refeeding syndrome E87.8
[2025-06-09] MEDS: potassium phosphate (mEq K) 40 MEQ in sodium chloride 0.9% (100 ml) 100 ML 27.25 MEQ IV (08:05)
[2025-06-09] MEDS: pantoprazole 40 mg SDV IVP ×2 (08:05→21:00)
--- NOTE | 2025-06-09 10:47 | PC.SOCIAL ---
IMM Update pg 2 of IMM Updated and reviewed w/ patient. Copy provided and copy dated, initialed and placed in chart.
--- NOTE | 2025-06-09 10:51 | PC.PT ---
PT orders cx at this time. pt is not medically ready to begin PT until HR reduced and nutrition improves.
--- NOTE | 2025-06-09 11:16 | PC.OT ---
Hold OT evaluation per doctor's orders; will attempt again at a later time.
[2025-06-09 12:18] LABS: Potassium 3.4 mmol/L (3.5-5.1)
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
[2025-06-09] MEDS: ondansetron 2 mg/ML SDV 2 mL 4 MG IVP (12:46)
[2025-06-09] MEDS: morphine 4 mg/mL SDV 1 mL 2 MG IVP (12:49)
[2025-06-09] MEDS: cefepime 2,000 mg SDV 2000 MG IVP (12:50)
[2025-06-09] MEDS: ferric gluconate 125 MG in sodium chloride 0.9% (100 ml) 100 ML 110 MG IV (13:26)
[2025-06-09] MEDS: Fleet Enema 133 mL Enema PR (17:20)
[2025-06-09] MEDS: diclofenac 1% Topical Gel 100 gm 1 APPLIC TOPICAL (18:05)
--- NOTE | 2025-06-09 19:00 | PC.NURSE ---
Shift summary: Pt remains resting in bed. He is able to answer orientation questions correctly. Pt profoundly weak. He keeps his hands clenched unless he is trying to hold something. He has tremors when he tried to lift a glass to his mouth to drink. He yells when is feet are touched are moved. Ankles very stiff, appears he has foot drop. He does not like to be repositioned. He is edematous on his extremities. His ankles have pitting edema. His arms, bilat are bruised, as well as across his upper body. He has a central line with no peripheral IV sites. Previous peripheral sites and tiny skin tears ( bilat AC). X-large sacrum optifoam o is bottom to protect the bony prominence. He took 1 bite at lunch and ate pudding at dinner. He has drank a carton of milk and grape juice. That is the extent of his oral nutrition. Sinus tachycardia remains on monitor. Levophed at 7mcg/min, was able to wean off by mod afternoon. He has received K-Phos, KCL, mag and ferrous sulfae replacement IV today. He utilizes 2lpm/NC. He received an enema this evening. He was unable to retain fluid, majority flushed right back out. He had 1050 in urine output. He complains of foot pain frequently, Votaren started.
[2025-06-10] VITALS (58 sets, daily range): BP systolic 97–139; BP diastolic 55–101; PULSE 112–143; RESP 13–33; TEMP 36.6–36.8; O2SAT 94–100
[2025-06-10] MEDS: cefepime 2,000 mg SDV 2000 MG IVP ×3 (00:14→23:29)
[2025-06-10] MEDS: hydrocortisone 100 mg/2 mL SDV IVP ×5 (00:14→23:29)
[2025-06-10 03:45] LABS: Hematocrit 25.4 % (37-53); Hemoglobin 8.80 g/dL (11.27-16.99); Mean Corpuscular HGB Conc 34.6 g/dL (30-55); Mean Corpuscular Hemoglobin 32.1 pg (27-33); Mean Corpuscular Volume 92.7 fl (82-101); Nucleated Red Blood Cells % 0 %; Platelet Count 84 10^3/cmm (157-399); Red Blood Count 2.74 10^6/uL (3.85-5.65); White Blood Count 2.56 10^3/uL (3.29-11.43)
[2025-06-10 03:47] LABS: Alanine Aminotransferase 20 U/L (0-41); Albumin Level 2.1 g/dL (3.5-5.2); Alkaline Phosphatase 113 U/L (40-130); Anion Gap 14.4 (5-19); Aspartate Amino Transferase 35 U/L (0-40); Blood Urea Nitrogen 5 mg/dL (8-23); Calcium 6.8 mg/dL (8.5-10.5); Carbon Dioxide 25 mmol/L (22-29); Chloride 101 mmol/L (98-107); Creatinine Clr Calc Pharmacy 62.7344; Globulin 2.2 g/dL (1.3-4.6); Glucose 126 mg/dL (65-115); Magnesium 1.5 mg/dL (1.7-2.3); Osmolality Calculated 283 mOsm/kg (285-295); Potassium 3.4 mmol/L (3.5-5.1); Sodium 137 mmol/L (136-145); Total Protein 4.3 g/dL (6.6-8.7)
[2025-06-10 04:23] LABS: Slide Review Slide Review Perform
[2025-06-10] MEDS: linezolid premix 600 MG/300 ML PREMIX 300 MG IV ×2 (04:55→17:47)
[2025-06-10] MEDS: morphine 4 mg/mL SDV 1 mL 2 MG IVP ×3 (05:07→21:54)
[2025-06-10 06:14] LABS: Vitamin B12 850 pg/mL (232-1245)
[2025-06-10] MEDS: magnesium sulfate premix 2 GM/50 ML PIGGYBACK IV (08:45)
[2025-06-10] MEDS: potassium phosphate (mMol PO4) 30 MMOL in sodium chloride 0.9% (100 ml) 100 ML 25 MMOL IV (08:46)
[2025-06-10] MEDS: pantoprazole 40 mg SDV IVP ×2 (08:46→21:48)
--- NOTE | 2025-06-10 09:00 | PC.NURSE ---
Attempted to assist pt with breakfast. He stated he was not hungry. He did not like the OJ, yogurt, eggs or sausage and gravy. this nurse tried to coax pt into eating one bite. Pt emphatically yelled NO . He did agree/want chocolate milk, it was provided.
--- NOTE | 2025-06-10 09:31 | P.PN_ITS ---
Subjective 2 Subjective: Patient was seen and evaluated at bedside this morning. At the time of my exam, the patient was eating his lunch with the assistance of his nurse. The patient stated that he does not like eating very much and that his throat is sore. Patient's nurse stated that his family said he has not been eating very much over the last month. The patient denied nausea, vomiting, or abdominal pain. Vitals/I&O/Wt Last Vital Signs Temp 97.3 F L 06/09/25 14:00 Pulse 126 H 06/10/25 08:00 Resp 18 06/10/25 08:00 BP 111/68 06/10/25 06:00 Pulse Ox 96 06/10/25 08:00 O2 Del Method Nasal Cannula 06/10/25 08:00 O2 Flow Rate 2 06/10/25 08:00 06/09/25 06/10/25 06/10/25 22:59 06:59 14:59 Intake Total 584.562 / 2554.9659 1240 / 3794.9659 Output Total 1000 / 1100 375 / 1475 Balance -415.438 / 1454.9659 865 / 2319.9659 Weight last 48 hrs Weight 125 lb 7.088 oz Weight 109 lb 2.061 oz Physical Exam 2 Const: COMMON NORMALS: no acute distress; negative for well nourished OTHER: Frail and cachectic. Resp: COMMON NORMALS: normal respiratory effort and No retractions GI: COMMON NORMALS: Soft to palpation and non-tender PALPATION: Yes Soft to palpation OTHER: Nondistended. Again cachectic appearance. Urinary Catheter Management: Lawrence: Cath Placed During This Visit: no Reason for Continuing Indwelling Catheter: Accurate Measurement of Urinary Output in Critically Ill Patients Data 06/10/25 02:35 06/10/25 13:20 A&P Assessment and plan 1. Hypokalemia: 2. Dehydration: 3. Malnutrition: 4. Refeeding syndrome: Plan: Dr. Cordon disimpacted a large amount of stool from the rectal vault 2 days ago: Dr. Cordon also ordered an enema yesterday with some results: --Patient's diet has been advanced and we started MiraLAX twice daily today and continued the Colace twice daily. Dr. Cordon is concerned for refeeding syndrome. I definitely agree with this and I spoke with the hospitalist taking care of this patient. The hospitalist is actively monitoring and replating replacing phosphorus and potassium as needed. Per CT the patient has/had gastroduodenitis: The patient is relatively hemodynamicly normal with maps in the 80s, he was weaned off pressors today, although his heart rate is in the 110s. He remains afebrile and his abdominal exam is benign. I recommend Protonix twice daily, IV antibiotics, and recommended adding Carafate empirically. This patient has poor nutrition, vitamin deficiencies, and electrolyte imbalances. This patient definitely has failure to thrive arrive, decreased appetite, and is difficult to assess what the patient's goals of care might be. Patient still has severe electrolyte imbalances, he had a potassium of 2 this morning magnesium and phosphate were also severely decreased. He is receiving Ideally in the long-term the electrolytes should be replaced to a potassium of 4 magnesium of 2 and a phosphate of 3. Once the patient is tolerating diet I recommend that we start him on a strict bowel regimen including MiraLAX twice a day and I will order enema to facilitate evacuation of retained stool at the level of the sigmoid. No additional intervention expected from the general surgery standpoint. General surgery remains available as needed. All other management by medical ICU team is appreciated. Of note patient is also suspected to have vitamin deficiencies due to his nutritional and clinical state, consider vitamin testing during the next set of labs. PDMP PDMP Reviewed: Not Reviewed Attestations 2 Medical Necessity Statement*: Monitor hemodynamics, IV antibiotics, IV electrolytes. Coding Level of Care Code Acute Code for Chg Fwd Diagnoses Hypokalemia E87.6 Dehydration E86.0 Malnutrition E46 Refeeding syndrome E87.8
[2025-06-10] MEDS: calcium gluconate 0.9% NaCL 1 GM/50 ML PREMIX IV (10:04)
--- NOTE | 2025-06-10 10:21 | PC.OT ---
OT orders will remain on hold at this time. Chart reviewed today and patient continues to be critically ill and not at a therapeutic level for therapy. Will continue to monitor patient's status and evaluate if his condition improves.
[2025-06-10] MEDS: diclofenac 1% Topical Gel 100 gm 1 APPLIC TOPICAL (13:15)
[2025-06-10 14:02] LABS: Magnesium 2.3 mg/dL (1.7-2.3); Potassium 4.1 mmol/L (3.5-5.1)
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
--- NOTE | 2025-06-10 15:48 | PC.NURSE ---
Nurse called into room by pt. I'm just not doing well , he states. Nurse asked what was bothering him, pt became distracted staring off into space then started watching TV again. about 5 minutes later he looked straight at this nurse and said help me Mom Repositioning provided, he yelled for MOm to help him a couple more times then settled down. He stated that helped.
--- NOTE | 2025-06-10 18:32 | PC.NURSE ---
Shift summary: Pt continues to rest in bed with profound weakness. He has refused to eat breakfast. He did drink most of a chocolate milk. He only ate half a pudding at lunch, which he refused any liquids to drink. He refused dinner but drank the juice. He yells out now: Sometimes help me and sometimes just a yell. He has denied yelling. When asked what he needs help with, he says he does not know. For pain he has received IV morphine x 1, acetaminophen PO x1 and Voltaren ointment on his feet once. He remains edematous . Hss limbs are stiff to move. He prefers not to move. Miralax started this evening. He has a tiny smear of BM this evening. He only had 450 ml of urine output. He received a bath this afternoon.
[2025-06-10] MEDS: sucralfate 1 gm/10 mL Oral Liq UDC PO (21:48)
[2025-06-11] VITALS (49 sets, daily range): BP systolic 78–126; BP diastolic 51–94; PULSE 109–151; RESP 13–35; TEMP 36.8–37.1; O2SAT 83–100
--- NOTE | 2025-06-11 03:55 | PC.NURSE ---
Contacted physician about abdominal bruising and having trouble with constipation. Patient in pain yelling out Help me mom, help me. Received orders for 40 mg of lactulose PO and 10 mg dulcolax TX.
[2025-06-11] MEDS: lactulose oral liq 20 gm/30 mL UDC 40 GM PO (04:02)
[2025-06-11 04:03] LABS: Hematocrit 29.7 % (37-53); Hemoglobin 9.80 g/dL (11.27-16.99); Mean Corpuscular HGB Conc 33.0 g/dL (30-55); Mean Corpuscular Hemoglobin 31.8 pg (27-33); Mean Corpuscular Volume 96.4 fl (82-101); Nucleated Red Blood Cells % 0 %; Platelet Count 133 10^3/cmm (157-399); Red Blood Count 3.08 10^6/uL (3.85-5.65); White Blood Count 1.75 10^3/uL (3.29-11.43)
[2025-06-11 04:30] LABS: Alanine Aminotransferase 24 U/L (0-41); Albumin Level 2.3 g/dL (3.5-5.2); Alkaline Phosphatase 104 U/L (40-130); Anion Gap 12.5 (5-19); Aspartate Amino Transferase 35 U/L (0-40); Blood Urea Nitrogen 6 mg/dL (8-23); Calcium 7.3 mg/dL (8.5-10.5); Carbon Dioxide 25 mmol/L (22-29); Chloride 101 mmol/L (98-107); Creatinine Clr Calc Pharmacy 72.1128; Globulin 2.1 g/dL (1.3-4.6); Glucose 102 mg/dL (65-115); Magnesium 2.1 mg/dL (1.7-2.3); Osmolality Calculated 276 mOsm/kg (285-295); Potassium 4.5 mmol/L (3.5-5.1); Sodium 134 mmol/L (136-145); Total Protein 4.4 g/dL (6.6-8.7)
--- NOTE | 2025-06-11 04:34 | CTR_ITS ---
PROCEDURE INFORMATION: Exam: CT Abdomen And Pelvis With Contrast Exam date and time: 06/11/2025 4:53 AM Age: 69 years old Clinical indication: Abdominal pain; Generalized; Prior surgery; Surgery date: 6+ months; Surgery type: Aaa endograft; Sudden onset of severe abd pain with new ecchymosis to lower abd wall. TECHNIQUE: Imaging protocol: Computed tomography of the abdomen and pelvis with contrast. Radiation optimization: All CT scans at this facility use at least one of these dose optimization techniques: automated exposure control; mA and/or kV adjustment per patient size (includes targeted exams where dose is matched to clinical indication); or iterative reconstruction. Contrast material: OMNI 350; Contrast volume: 80 ml; Contrast route: INTRAVENOUS (IV); COMPARISON: 1. CT angio abdomen pelvis [id number] 08/06/2025 11:[address] angio abd aorta runof [id number] 09/18/2024 10:33 RADIATION DOSE METRICS: Total DLP (mGy-cm): 1657.16 FINDINGS: Lungs: There are bullous emphysematous changes at the lung bases. Bibasilar atelectatic changes. Pleural spaces: Bilateral pleural fluid collections, larger on the left. Liver: No hepatomegaly. There are no enhancing liver masses. Gallbladder and biliary ducts: Increased density in the gallbladder that may represent sludge or stones. No pericholecystic fluid. Pancreas: Normal in size and homogeneous enhancement. No ductal dilation. Spleen: Normal. No splenomegaly. Adrenal glands: Normal. No mass. Kidneys and ureters: There is no hydronephrosis. No renal or obstructing ureteral calculi. Stomach and bowel: There is moderate fecal burden throughout the colon suggestive of constipation. Appendix: No evidence of appendicitis. Intraperitoneal space: A moderate amount of pelvic ascites, slightly larger than on the comparison study. Vasculature: A bifurcated aortoiliac endograft is present for treatment of an abdominal aortic aneurysm. 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 Both common femoral arteries and veins appear patent. Lymph nodes: No enlarged retroperitoneal or mesenteric lymph nodes. Urinary bladder: The bladder is decompressed by Lawrence catheter. The bladder is mostly decompressed. There is a small urachal diverticulum. Reproductive: Brachytherapy implants in the prostate versus postoperative changes. Bones/joints: No acute fracture. No aggressive bone lesions. Soft tissues: Severe anasarca of the abdominopelvic wall. Some infiltrative hematoma may present a similar picture. Other findings: There are no para-aortic fluid collection to suggest leakage. CT/CT abdomen pelvis w con* [id number] IMPRESSION: 1. 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 2. Bilateral pleural fluid collections, larger on the left. These have developed since the comparison examination. 3. A moderate amount of pelvic ascites, slightly larger than on the comparison study. 4. Severe anasarca of the abdominopelvic wall. Some infiltrative hematoma may present a similar picture. 5. Given the above findings, consider fluid overload. 6. There is moderate fecal burden throughout the colon suggestive of constipation. 7. Findings were discussed with Mary Anne Davis RN at 06/11/2025 6:45 AM CDT. 8. Mary Anne Davis indicated that they would relay the critical findings to the patient's attending physician, who is currently unavailable for a phone conference.
[2025-06-11] MEDS: HYDROmorphone 0.5 MG/0.5 ML INJ IVP (04:38)
[2025-06-11] MEDS: iohexol 350 mg/mL 500 mL Btl (per mL) IV (05:00)
[2025-06-11] MEDS: linezolid premix 600 MG/300 ML PREMIX 300 MG IV ×2 (05:13→17:52)
[2025-06-11] MEDS: hydrocortisone 100 mg/2 mL SDV IVP ×3 (06:17→17:47)
[2025-06-11] MEDS: sucralfate 1 gm/10 mL Oral Liq UDC PO ×2 (06:19→11:47)
[2025-06-11] MEDS: pantoprazole 40 mg SDV IVP ×2 (08:41→21:47)
--- NOTE | 2025-06-11 08:45 | PC.NURSE ---
Pt yelling out for Momma this am. When asked if he needs anything, his reply is garbled. Morphine admin for comfort. Pt only took in partial does or phosphorus. He did not take in any Miralax this am.
[2025-06-11] MEDS: morphine 4 mg/mL SDV 1 mL 2 MG IVP ×2 (08:50→19:52)
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
--- NOTE | 2025-06-11 10:15 | PM.PN ---
Subjective Subjective: I saw and evaluated the patient today. His mentation is slightly worse than yesterday. He was unable to have a meaningful conversation with me. His nurse states that he still does not want to eat very much. The overnight hospitalist ordered a CT abdomen pelvis for abdominal pain, and she requested that I review the findings. Vitals/I&O/Wt Last Vital Signs Temp 98.2 F 06/10/25 13:30 Pulse 134 H 06/11/25 08:00 Resp 16 06/11/25 08:50 BP 108/75 06/11/25 06:00 Pulse Ox 100 06/11/25 08:50 O2 Del Method Nasal Cannula 06/11/25 08:00 O2 Flow Rate 2 06/10/25 20:06 FiO2 2 06/11/25 08:00 06/10/25 06/11/25 06/11/25 22:59 06:59 14:59 Intake Total 400 / 3014.5 1558.333 / 4572.833 300 / 300 Output Total 450 / 450 300 / 750 Balance -50 / 2564.5 1258.333 / 3822.833 300 / 300 Weight last 48 hrs Weight 125 lb 7.088 oz Weight 125 lb 7.088 oz Physical Exam Const: COMMON NORMALS: negative for patient oriented x3 OTHER: Frail and cachectic. Chest: COMMONS NORMALS: normal inspection of the chest Resp: COMMON NORMALS: normal respiratory effort and No use of accessory muscles GI: COMMON NORMALS: Soft to palpation and non-tender PALPATION: Yes Soft to palpation OTHER: No rebound tenderness or rigidity. Mild ecchymosis to the right lower flank. : OTHER: Significant edema in the suprapubic area, and genitals. Neuro: COMMON NORMALS: negative for patient oriented x3 Psych: COMMON NORMALS: negative for Normal thought process present and negative for cooperative APPEARANCE: Yes disheveled THOUGHT PROCESS: abnormal Urinary Catheter Management: Lawrence: Cath Placed During This Visit: no Reason for Continuing Indwelling Catheter: Accurate Measurement of Urinary Output in Critically Ill Patients Data 06/11/25 03:46 06/11/25 03:46 Other data: FINDINGS: Lungs: There are bullous emphysematous changes at the lung bases. Bibasilar atelectatic changes. Pleural spaces: Bilateral pleural fluid collections, larger on the left. Liver: No hepatomegaly. There are no enhancing liver masses. Gallbladder and biliary ducts: Increased density in the gallbladder that may represent sludge or stones. No pericholecystic fluid. Pancreas: Normal in size and homogeneous enhancement. No ductal dilation. Spleen: Normal. No splenomegaly. Adrenal glands: Normal. No mass. Kidneys and ureters: There is no hydronephrosis. No renal or obstructing ureteral calculi. Stomach and bowel: There is moderate fecal burden throughout the colon suggestive of constipation. Appendix: No evidence of appendicitis. Intraperitoneal space: A moderate amount of pelvic ascites, slightly larger than on the comparison study. Vasculature: A bifurcated aortoiliac endograft is present for treatment of an abdominal aortic aneurysm. 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 Both common femoral arteries and veins appear patent. Lymph nodes: No enlarged retroperitoneal or mesenteric lymph nodes. Urinary bladder: The bladder is decompressed by Lawrence catheter. The bladder is mostly decompressed. There is a small urachal diverticulum. Reproductive: Brachytherapy implants in the prostate versus postoperative changes. Bones/joints: No acute fracture. No aggressive bone lesions. Soft tissues: Severe anasarca of the abdominopelvic wall. Some infiltrative hematoma may present a similar picture. Other findings: There are no para-aortic fluid collection to suggest leakage. CT/CT abdomen pelvis w con* [id number] IMPRESSION: 1. 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 2. Bilateral pleural fluid collections, larger on the left. These have developed since the comparison examination. 3. A moderate amount of pelvic ascites, slightly larger than on the comparison study. 4. Severe anasarca of the abdominopelvic wall. Some infiltrative hematoma may present a similar picture. 5. Given the above findings, consider fluid overload. 6. There is moderate fecal burden throughout the colon suggestive of constipation. 7. Findings were discussed with Mary Anne Davis RN at 06/11/2025 6:45 AM CDT. 8. Mary Anne Davis indicated that they would relay the critical findings to the patient's attending physician, who is currently unavailable for a phone conference. A&P Assessment and plan 1. Abnormal finding on CT scan: -- I reviewed the CT findings myself and also called the [facility]'s radiologist and discussed the findings with him. There is no free air or evidence of any type of perforation. The gastroduodenitis seen on previous CTA has now since resolved. Stomach wall thickening has resolved. On the previous CTA, the mesenteric arteries are widely patent. There is no bowel wall thickening or mesenteric edema. The fluid in the pelvis is ascites per radiologist. The patient does have a large amount of right-sided stool within the colon. --The patient is not tolerating MiraLAX well, I ordered magnesium citrate which he has been sipping on, so I ordered a rectal suppository this afternoon x 3 days. -- May continue Protonix and Carafate, as we have seen improvement with gastroduodenitis per imaging. No peritoneal signs on physical examination. No acute need for surgical intervention. Surgery will sign off this case but be readily available if any additional questions, problems, or concerns arise. 2. Leukopenia: -- Leukopenia is concerning, may need hematology consultation. 3. Mental status alteration: -- Recommend empirically starting Thiamine and Vit B 4. Refeeding syndrome: -- Continue to check and replete electrolytes. Hypokalemia improved and hypophosphatemia, persistent. 5. Pleural effusion: -- Likely associated with anasarca, consider IR drain if symptomatic. 6. Malnutrition: -- See above. 7. Dehydration: 8. Hypokalemia: 9. Hyponatremia: PDMP PDMP Reviewed: Not Reviewed Attestations Medical Necessity Statement*: IV medications, monitoring of hemodynamics, and daily labs. Coding Level of Care Code Acute Code for Chg Fwd Diagnoses Abnormal finding on CT scan R93.89 Leukopenia D72.819 Mental status alteration R41.82 Refeeding syndrome E87.8 Pleural effusion J90 Malnutrition E46 Dehydration E86.0 Hypokalemia E87.6 Hyponatremia E87.1
[2025-06-11] MEDS: cefepime 2,000 mg SDV 2000 MG IVP (11:37)
--- NOTE | 2025-06-11 12:35 | PC.NURSE ---
Pt continues to yell out help me Momma . He does not reply with an answer when h asked what he needs help with. Magnesium Citrate on bedisde table , hopefully pt will start sipping it. Dr Lara is aware of this as it was discussed with her. As was pt not willing to eat or drinking and PO medication admin very difficult , if it happens at all.
--- NOTE | 2025-06-11 12:48 | PC.NURSE ---
Addendum entered by Cherry Romero RN 06/11/25 12:49: Re- check 56mg/dl. D10 started per protocol. Original Note: Blood sugar check at 1145 : 72 mg/dl. Thiamin and sucralfate admin with a little bit of apple sauce. Sugar packet sprinkled under pt's tongue.
--- NOTE | 2025-06-11 13:09 | PC.NURSE ---
Blood sugar rechecked: 120mg/dl. When asked if he felt better, Pt stated yes. Dr Hernández notified via secure messaging
--- NOTE | 2025-06-11 19:56 | PC.NURSE ---
Shift summary: Pt has yelled Momma! and Momma, help me!' throughout the shift. He is unable and/ or unwilling to tell staff what he needs help with. He is unable to be redirected. Sinus tach noted on monitor Other vital signs WNL. He is much more edematous this shift, it is pitting , 3+, up past his hip bones. He had penile and scrotal edema. His scrotum is reddened. More bruising noted today than yesterday. His skin tears on bilat arms are weeping a little. He has refused all oral intake but 2 bites of applesauce with a thiamine tablet today.. He refused magnesium citrate, miralax, seizure medications, etc. Iv medications have been administered. he has been hypoglycemic twice this shift, both times he received 125ml of D10 per protocol. Dr Gutierrez was notified both times. his arms and hands he holds clenched up next to his chest still. He continues to have stiff, hard to move legs. Today he has not reported any foot pain nor yelled when his feet where touched or his legs lifted up for repositioning. He has only had 275 ml of urine output. It is getting darker. He has two smears of BM this shift.
--- NOTE | 2025-06-11 21:38 | PC.NURSE ---
Patient severly agitated and hollering out continuously, disrupting other patients, and unable to calm via distraction, repositioning, and attempts to address other possible needs. Provider notified. Gave orders for 2mg Haldol IVP once and 0.5mg Ativan IVP once. Order placed. See MAR
[2025-06-11] MEDS: haloperidol inj 5 mg/mL INJ 1 mL 2 MG IVP (21:46)
[2025-06-11] MEDS: LORazepam 1 MG/0.5 ML injection 0.5 MG IVP (22:23)
[2025-06-12] VITALS (94 sets, daily range): BP systolic 71–121; BP diastolic 41–87; PULSE 110–155; RESP 12–40; TEMP 36.8–38.1; O2SAT 82–100
[2025-06-12] MEDS: hydrocortisone 100 mg/2 mL SDV IVP (00:07)
[2025-06-12] MEDS: cefepime 2,000 mg SDV 2000 MG IVP ×2 (00:07→12:03)
--- NOTE | 2025-06-12 01:50 | PC.NURSE ---
Addendum entered by LALO Gaxiola 06/12/25 05:43: Provider updated on results of EKG and most recent vitals. Gave verbal orders to begin Levophed before addressing heartrate due to blood pressure being soft. Order placed. See MAR Addendum entered by LALO Gaxiola 06/12/25 05:24: Provider notified again in regard to patients sustained heartrate of 150-160. Gave verbal orders to obtain EKG. Patient has had no complaints of chest pain. EKG order placed and performed. Addendum entered by LALO Gaxiola 06/12/25 03:52: No orders were given. Provider notified again of patient sustained heartrate, rise in blood pressure to appropriate MAP, and increasing agitation and restlessness. Original Note: Provider notified of patients heartrate sustaining closer to, and into, the 150s, decrease in blood pressure, and continued agitation.
--- NOTE | 2025-06-12 05:23 | ECG_ITS ---
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: : 1955 Requested By: Lanny Lara Order Number: [id number] Reading MD: [facility] Measurements Intervals [place] Rate: 148 P: 81 DC: 126 QRS: 77 QRSD: 70 T: 74 QT: 285 QTc: 448 Interpretive Statements SINUS TACHYCARDIA, POSSIBLE ATRIAL FLUTTER LOW QRS VOLTAGE [QRS DEFLECTION < 0.5/1.0 mV IN LIMB/CHEST LEADS] ANTEROSEPTAL MYOCARDIAL INFARCTION , PROBABLY indeterminate [40+ ms Q WAVE IN V1-V4] Compared to ECG 06/08/2025 03:04:55 Low QRS voltage now present Myocardial infarct finding still present Electronically Signed On 06-12-2025 13:54:43 CDT by [facility] [email or web address]
--- NOTE | 2025-06-12 06:31 | PC.NURSE ---
Patient refusing all PO meds. Hydrocortisone not available. Pharmacy notified.
[2025-06-12] MEDS: linezolid premix 600 MG/300 ML PREMIX 300 MG IV ×2 (07:46→17:13)
--- NOTE | 2025-06-12 09:10 | PC.NURSE ---
receive call from Dr cano at shift change. Ordered 2.5mg of IVP metoprolol to address heart rate. Nurse slowly push metoprolol, after only 0.5mg, his systolic pressures dropped into the low 80's. Nurse did not conitnue to administer, patient did not receive full dose. Nurse called Dr frye as he is the oncoming hospitalist. Alerted him to heart rate in the 140's. Unable to give metoprolol IVP. Received orders for oral metoprolol. Levophed is ordered should it be needed.
[2025-06-12] MEDS: polyethylene glycol 3350 Pkt 17 gm PO ×2 (09:20→17:13)
[2025-06-12] MEDS: pantoprazole 40 mg SDV IVP ×2 (09:21→21:02)
[2025-06-12 09:22] LABS: Anion Gap 15.5 (5-19); Blood Urea Nitrogen 7 mg/dL (8-23); Calcium 8.0 mg/dL (8.5-10.5); Carbon Dioxide 22 mmol/L (22-29); Chloride 102 mmol/L (98-107); Creatinine Clr Calc Pharmacy 72.0748; Glucose 129 mg/dL (65-115); Osmolality Calculated 280 mOsm/kg (285-295); Potassium 4.5 mmol/L (3.5-5.1); Sodium 135 mmol/L (136-145)
[2025-06-12 09:42] LABS: Hematocrit 32.1 % (37-53); Hemoglobin 10.50 g/dL (11.27-16.99); Mean Corpuscular HGB Conc 32.7 g/dL (30-55); Mean Corpuscular Hemoglobin 31.3 pg (27-33); Mean Corpuscular Volume 95.8 fl (82-101); Nucleated Red Blood Cells % 1.1 %; Platelet Count 189 10^3/cmm (157-399); Red Blood Count 3.35 10^6/uL (3.85-5.65); White Blood Count 1.77 10^3/uL (3.29-11.43)
[2025-06-12 09:55] LABS: Free T4 Free Thyroxine 0.80 ng/dL (0.82-1.77); Thyroid Stimulating Hormone 2.44 uIU/mL (0.27-4.20)
[2025-06-12] MEDS: sucralfate 1 gm/10 mL Oral Liq UDC PO ×2 (12:03→17:13)
[2025-06-12] MEDS: norepinephrine 4 MG/250 ML BAG 7.5 MG IV (12:15)
--- NOTE | 2025-06-12 17:23 | PC.OT ---
No OT eval attempted today per physician request. Will attempt when pt status warrents.
--- NOTE | 2025-06-12 17:50 | PC.NURSE ---
Shift Summary: Started on PO metoprolol, has reduced heart rate, but still remains tachy around 115-120 BPM. Mental status has been variable, but always altered. Sometimes able to answer birthday, and states that he lives in [facility]. But has almost always just been mumbling incoherently and saying mommy help me repeatedly. Levophed restarted, requirements have been variable between 2-6 mcg. IV fluids strted at 50ml/hr. Urine output only 150mL.
--- NOTE | 2025-06-12 19:41 | PM.PN ---
Subjective Subjective: Patient was seen in the morning and was agitated, confused having mild tachycardia and EKG showed sinus tachycardia. Patient looks dehydrated and started on normal saline hydration with 50 mL/h The patient need assisted feeding Vitals/I&O/Wt Last Vital Signs Temp 99.1 F 06/12/25 17:00 Pulse 111 H 06/12/25 18:00 Resp 22 H 06/12/25 18:00 BP 101/64 06/12/25 18:00 Pulse Ox 91 06/12/25 18:00 O2 Del Method Nasal Cannula 06/12/25 17:00 O2 Flow Rate 2 06/12/25 17:00 FiO2 2 06/11/25 08:00 06/12/25 06/12/25 06/12/25 06:59 14:59 22:59 Intake Total 363.75 / 363.75 322.75 / 686.50 Output Total 300 / 575 300 / 300 100 / 400 Balance -300 / 295 63.75 / 63.75 222.75 / 286.50 Weight last 48 hrs Weight 56.87 kg Weight 56.9 kg Physical Exam Narrative: The patient is uncooperative and exam is limited General: The patient is noncooperative, and also not oriented to time place and person However he is alert and moving all his limbs. Making incomprehensible words and sounds Severe signs of malnourishment appreciated, with deep sunken eyes and decreased muscle mass Cardio: Tachycardia, S1 and S2 was heard but cannot comment on murmurs due to tachycardia Respiratory: Good bilateral air entry, no wheezes no rhonchi appreciated GI: Abdomen soft, nontender, nondistended, normoactive bowel sounds present all 4 quadrants, Neuro: Disoriented Behavior: Uncooperative and mild agitation Extremities: Pulses 2+, Skin: Visible skin intact, with some bruises over the chest and the arms but no obvious source of bleeding Urinary Catheter Management: Lawrence: Cath Placed During This Visit: no Reason for Continuing Indwelling Catheter: Accurate Measurement of Urinary Output in Critically Ill Patients Data 06/12/25 05:12 06/12/25 05:12 A&P Assessment and plan 1. Neutropenia, unspecified type: Continue to monitor Continue on cefepime and linezolid for broad coverage of any suspected infection 2. Hyponatremia: Normal saline at 50 mL/h Monitor in the morning 3. Transient alteration of awareness: Reorientation and fall precaution Monitor electrolytes and correction accordingly 4. Refeeding syndrome: Dietitian consult and to follow the recommendation Correction of electrolytes accordingly 5. Severe protein-calorie malnutrition: Follow-up with the dietitian plan 6. Dehydration: Normal saline at 50 mL/h 7. Adult failure to thrive: Follow-up with the dietitian recommendation 8. Atherosclerosis of [place] coronary artery without angina pectoris, unspecified whether [place] or transplanted heart: Continue to monitor for any chest pain 9. Sinus tachycardia: Continue metoprolol 25 mg twice daily, and to monitor the heart rate 10. Peripheral arterial disease: Follow-up with the primary care physician 11. Dyslipidemia: Follow-up with the primary care physician 12. Trapezius muscle spasm: Analgesics as needed 13. Seizure disorder: Seizure precaution and to monitor for any seizures Keppra and phenytoin to continue PDMP PDMP Reviewed: Not Reviewed Attestations Medical Necessity Statement*: The patient required more than 2 midnights to stay and further optimization of his condition Time Spent in Patient Care: I spent 35 minutes on this encounter before, during and after the visit, examining the patient, reviewing labs, writing orders and documenting the note and discussing with nursing staff taking care of the patient. Critical Care Time: I spent 35 minutes on this encounter before, during and after the visit, examining the patient, reviewing labs, writing orders and documenting the note and discussing with nursing staff taking care of the patient. Coding Level of Care Code 16501 Diagnoses Neutropenia, unspecified type D70.9 Leukopenia type: neutropenia Neutropenia type: unspecified Hyponatremia E87.1 Transient alteration of awareness R40.4 Altered mental status type: transient alteration of awareness Refeeding syndrome E87.8 Severe protein-calorie malnutrition E43 Malnutrition type: protein-calorie malnutrition Protein-calorie malnutrition severity: severe Dehydration E86.0 Adult failure to thrive R62.7 Atherosclerosis of [place] coronary artery without angina pectoris, unspecified whether [place] or transplanted heart I25.10 [place] vs. transplanted heart: unspecified whether [place] or transplanted heart Sinus tachycardia R00.0 Peripheral arterial disease I73.9 Dyslipidemia E78.5 Trapezius muscle spasm M62.838 Seizure disorder G40.909
--- NOTE | 2025-06-12 20:38 | PC.NURSE ---
Provider updated on patients increased agitation and hollering out that is disruptive to other patients on unit. Gave verbal orders for 5mg IM Zyprexa once and to provide update to him after administration. Order placed See ERWIN
[2025-06-12] MEDS: norepinephrine 4 MG/250 ML BAG 45 MG IV (22:44)
[2025-06-13] VITALS (98 sets, daily range): BP systolic 68–186; BP diastolic 40–145; PULSE 109–143; RESP 12–43; TEMP 36.2–37; O2SAT 87–100; BMI 18.3
[2025-06-13] MEDS: cefepime 2,000 mg SDV 2000 MG IVP ×2 (00:12→13:03)
[2025-06-13] MEDS: linezolid premix 600 MG/300 ML PREMIX 300 MG IV ×2 (04:52→17:10)
[2025-06-13] MEDS: norepinephrine 4 MG/250 ML BAG 45 MG IV ×2 (04:52→23:11)
[2025-06-13 05:40] LABS: Hematocrit 28.8 % (37-53); Hemoglobin 9.80 g/dL (11.27-16.99); Mean Corpuscular HGB Conc 34.0 g/dL (30-55); Mean Corpuscular Hemoglobin 31.6 pg (27-33); Mean Corpuscular Volume 92.9 fl (82-101); Nucleated Red Blood Cells % 0.8 %; Platelet Count 225 10^3/cmm (157-399); Red Blood Count 3.10 10^6/uL (3.85-5.65); White Blood Count 2.61 10^3/uL (3.29-11.43)
[2025-06-13 06:06] LABS: Alanine Aminotransferase 26 U/L (0-41); Albumin Level 1.9 g/dL (3.5-5.2); Alkaline Phosphatase 124 U/L (40-130); Anion Gap 13.7 (5-19); Aspartate Amino Transferase 33 U/L (0-40); Blood Urea Nitrogen 6 mg/dL (8-23); Calcium 7.2 mg/dL (8.5-10.5); Carbon Dioxide 24 mmol/L (22-29); Chloride 104 mmol/L (98-107); Creatinine Clr Calc Pharmacy 71.2257; Globulin 2.2 g/dL (1.3-4.6); Glucose 173 mg/dL (65-115); Osmolality Calculated 288 mOsm/kg (285-295); Potassium 3.7 mmol/L (3.5-5.1); Sodium 138 mmol/L (136-145); Total Protein 4.1 g/dL (6.6-8.7)
[2025-06-13 06:07] LABS: Ammonia 30 umol/L (16-60)
[2025-06-13 07:16] LABS: Slide Review Slide Review Perform
[2025-06-13] MEDS: pantoprazole 40 mg SDV IVP ×2 (09:41→21:42)
[2025-06-13] MEDS: polyethylene glycol 3350 Pkt 17 gm PO (09:42)
--- NOTE | 2025-06-13 09:46 | PC.NURSE ---
Addendum entered by Salas De León RN 06/13/25 09:47: Patient's mouth is dry. Nurse attempted oral care, but patient refuses. Original Note: Patient has refused all oral meds this morning, Keppra, docusate, phenytoin, phosphorous, and thiamine. Oral metoprolol held due to contraindication with vitals. Dr frye notified.
[2025-06-13] MEDS: norepinephrine 4 MG/250 ML BAG 37.5 MG IV (10:30)
--- NOTE | 2025-06-13 12:00 | PC.OT ---
OT order cx at this time as patient continues to remain critically ill and not therapeutically appropriate. New orders required if condition improves.
--- NOTE | 2025-06-13 14:43 | PC.NURSE ---
Addendum entered by Salas De León RN 06/13/25 14:45: BLood sugar checked after d10% bolus. Only increased to 82. Nurse called Dr Dow and expressed concerns for blood sugar dropping in the future as the patient is not eating. Concerned if we continue to try and treat with PRN d10 boluses we willf luid overload him. Received orders to change NS maintenance fluids at 50ml/hr to D10% at 50ml/hr. Original Note: Blood sugar checked at 1252. BG is 71, Mental status is altered, though that is unchanged since this morning. Nurse gave prn d10%
[2025-06-13] MEDS: norepinephrine 4 MG/250 ML BAG 30 MG IV (17:13)
--- NOTE | 2025-06-13 18:58 | P.PN_ITS ---
Subjective 2 Subjective: Patient was seen in the morning and was agitated, confused having mild tachycardia and EKG showed sinus tachycardia. Patient looks dehydrated. He was also having mild episode of hypoglycemia and started on dextrose water 10% with 50 mL/h The patient need assisted feeding Thorough discussion with the Perla was made about his poor prognosis and further goals of life. Benefits and risk of escalation of care and management were discussed. The needs time further to think about it. Patient having poor prognosis, continue to manage as per the since the patient is having altered mentation and to proceed accordingly Vitals/I&O/Wt Last Vital Signs Temp 98 F 06/13/25 18:00 Pulse 134 H 06/13/25 18:00 Resp 33 H 06/13/25 18:00 BP 130/59 06/13/25 18:00 Pulse Ox 100 06/13/25 18:00 O2 Del Method Nasal Cannula 06/13/25 18:00 O2 Flow Rate 2 06/13/25 18:00 FiO2 2 06/11/25 08:00 06/13/25 06/13/25 06/13/25 06:59 14:59 22:59 Intake Total 550.00 / 3285.853 6793.5 / 1322.5 250 / 1572.5 Output Total 250 / 650 500 / 500 Balance 300 / 510.541 5451.5 / 1322.5 -250 / 1072.5 Weight last 48 hrs Weight 56.2 kg Weight 56.87 kg Physical Exam 2 Narrative: The patient is uncooperative and exam is limited General: The patient is noncooperative, and also not oriented to time place and person However he is alert and moving all his limbs. Making incomprehensible words and sounds Severe signs of malnourishment appreciated, with deep sunken eyes and decreased muscle mass Cardio: Tachycardia, S1 and S2 was heard but cannot comment on murmurs due to tachycardia Respiratory: Good bilateral air entry, no wheezes no rhonchi appreciated GI: Abdomen soft, nontender, nondistended, normoactive bowel sounds present all 4 quadrants, Neuro: Disoriented Behavior: Uncooperative and mild agitation Extremities: Pulses 2+, Skin: Visible skin intact, with some bruises over the chest and the arms but no obvious source of bleeding Urinary Catheter Management: Lawrence: Cath Placed During This Visit: no Reason for Continuing Indwelling Catheter: Accurate Measurement of Urinary Output in Critically Ill Patients Data 06/13/25 05:28 06/13/25 05:28 Micro: Microbiology 06/07/25 21:11 Blood Culture - Final Blood NO GROWTH AFTER 5 DAYS 06/07/25 20:34 Blood Culture - Final Blood NO GROWTH AFTER 5 DAYS A&P Assessment and plan 1. Neutropenia, unspecified type: Continue to monitor Continue on cefepime and linezolid for broad coverage of any suspected infection 2. Hyponatremia: Dextrose 10% water at 50 mL/h Monitor in the morning 3. Transient alteration of awareness: Reorientation and fall precaution Monitor electrolytes and correction accordingly 4. Refeeding syndrome: Dietitian consult and to follow the recommendation TPN started as an alternate route of feeding Correction of electrolytes accordingly 5. Severe protein-calorie malnutrition: Follow-up with the dietitian plan 6. Dehydration: 7. Adult failure to thrive: Follow-up with the dietitian recommendation 8. Atherosclerosis of [place] coronary artery without angina pectoris, unspecified whether [place] or transplanted heart: Continue to monitor for any chest pain 9. Sinus tachycardia: Secondary to norepinephrine, hold metoprolol due to contract to nor epi. And it is not improving patient's heart rate 10. Peripheral arterial disease: Follow-up with the primary care physician 11. Dyslipidemia: Follow-up with the primary care physician 12. Trapezius muscle spasm: Analgesics as needed 13. Seizure disorder: Seizure precaution and to monitor for any seizures Keppra and phenytoin to continue PDMP PDMP Reviewed: Not Reviewed Attestations 2 Medical Necessity Statement*: The patient will stay more than 2 midnights for further management and care Time Spent in Patient Care: I spent 75 minutes on this encounter before, during and after the visit, examining the patient, reviewing labs, writing orders and documenting the note and discussing with nursing staff taking care of the patient. Critical Care Time: 75 Other Attestations: The high probability of a clinically significant, sudden or life threatening deterioration of the patient's condition required my full and direct attention, intervention and personal management. The critical care time is as shown. This time is in addition to time spent performing any reported procedures but includes the following: [x] informing the family/ about goals of life, grim prognosis and critical condition of the patient, all benefits and risks were discussed and the complications. She understand without any language barrier and agreed with the plan of care [x] Data and vital sign review and interpretation [x] Patient assessment, examination and intervention [x] Documentation [x] Medication orders and management Coding Level of Care Code Critical Care >/= 30 minutes Diagnoses Neutropenia, unspecified type D70.9 Leukopenia type: neutropenia Neutropenia type: unspecified Hyponatremia E87.1 Transient alteration of awareness R40.4 Altered mental status type: transient alteration of awareness Refeeding syndrome E87.8 Severe protein-calorie malnutrition E43 Malnutrition type: protein-calorie malnutrition Protein-calorie malnutrition severity: severe Dehydration E86.0 Adult failure to thrive R62.7 Atherosclerosis of [place] coronary artery without angina pectoris, unspecified whether [place] or transplanted heart I25.10 [place] vs. transplanted heart: unspecified whether [place] or transplanted heart Sinus tachycardia R00.0 Peripheral arterial disease I73.9 Dyslipidemia E78.5 Trapezius muscle spasm M62.838 Seizure disorder G40.909
--- NOTE | 2025-06-13 19:27 | PC.NURSE ---
Shift SUmmary: Uneventful shift. SLow overall decline compared to yesterday. Continues to be confused, usually blankly staring straight ahead and intermittently yelling for mommy. But he has been much less vocal compared to yesterday, and at times hard to wake up. Levophed requirements variable between 6-10. maintenance fluids changed from NS to D10 due to hypoglycemia.
[2025-06-14] VITALS (69 sets, daily range): BP systolic 82–143; BP diastolic 48–98; PULSE 120–139; RESP 19–41; TEMP 36.4–36.7; O2SAT 90–100
[2025-06-14] MEDS: cefepime 2,000 mg SDV 2000 MG IVP ×2 (01:00→12:23)
[2025-06-14 02:47] LABS: Hematocrit 30.5 % (37-53); Hemoglobin 10.10 g/dL (11.27-16.99); Mean Corpuscular HGB Conc 33.1 g/dL (30-55); Mean Corpuscular Hemoglobin 31.2 pg (27-33); Mean Corpuscular Volume 94.1 fl (82-101); Nucleated Red Blood Cells % 0.5 %; Platelet Count 159 10^3/cmm (157-399); Red Blood Count 3.24 10^6/uL (3.85-5.65); White Blood Count 3.84 10^3/uL (3.29-11.43)
[2025-06-14 03:17] LABS: Alanine Aminotransferase 29 U/L (0-41); Albumin Level 1.9 g/dL (3.5-5.2); Alkaline Phosphatase 136 U/L (40-130); Anion Gap 13.1 (5-19); Aspartate Amino Transferase 36 U/L (0-40); Blood Urea Nitrogen 6 mg/dL (8-23); Calcium 7.1 mg/dL (8.5-10.5); Carbon Dioxide 23 mmol/L (22-29); Chloride 105 mmol/L (98-107); Creatinine Clr Calc Pharmacy 71.2257; Globulin 2.3 g/dL (1.3-4.6); Glucose 56 mg/dL (65-115); Osmolality Calculated 281 mOsm/kg (285-295); Potassium 3.1 mmol/L (3.5-5.1); Sodium 138 mmol/L (136-145); Total Protein 4.2 g/dL (6.6-8.7)
[2025-06-14 03:33] LABS: Slide Review Slide Review Perform
[2025-06-14] MEDS: norepinephrine 4 MG/250 ML BAG 37.5 MG IV ×3 (04:21→19:22)
[2025-06-14] MEDS: linezolid premix 600 MG/300 ML PREMIX 300 MG IV ×2 (04:21→17:46)
--- NOTE | 2025-06-14 07:26 | PM.PN ---
Subjective Subjective: Patient was seen in the morning and was agitated, confused having mild tachycardia and EKG showed sinus tachycardia. Patient looks dehydrated. He was also having mild episode of hypoglycemia and started on dextrose water 10% with 50 mL/h The patient need assisted feeding Thorough discussion with the Perla was made about his poor prognosis and further goals of life. Benefits and risk of escalation of care and management were discussed. The needs time further to think about it and the case management has been informed about the current situation, to consider further hospice team discussion which is appropriate and in the best interest of the patient considering his grim prognosis, deterioration of clinical condition Patient having poor prognosis, continue to manage as per the since the patient is having altered mentation and to proceed accordingly Vitals/I&O/Wt Last Vital Signs Temp 97.6 F 06/14/25 02:00 Pulse 126 H 06/14/25 06:00 Resp 31 H 06/14/25 06:00 BP 116/76 06/14/25 06:00 Pulse Ox 100 06/14/25 06:00 O2 Del Method Nasal Cannula 06/13/25 18:00 O2 Flow Rate 2 06/13/25 18:00 FiO2 2 06/11/25 08:00 06/13/25 06/14/25 06/14/25 22:59 06:59 14:59 Intake Total 957.125 / 2279.625 642.875 / 2922.500 Output Total 500 / 500 150 / 650 Balance 457.125 / 1779.625 492.875 / 2272.500 Weight last 48 hrs Weight 55.78 kg Weight 56.2 kg Physical Exam Narrative: The patient is uncooperative and exam is limited General: The patient is noncooperative, and also not oriented to time place and person However he is alert and moving all his limbs. Making incomprehensible words and sounds Severe signs of malnourishment appreciated, with deep sunken eyes and decreased muscle mass, visible temples and loss of muscles mass of the hands Cardio: Tachycardia, S1 and S2 was heard but cannot comment on murmurs due to tachycardia Respiratory: Good bilateral air entry, no wheezes no rhonchi appreciated GI: Abdomen soft, nontender, nondistended, normoactive bowel sounds present all 4 quadrants, Neuro: Disoriented Behavior: Uncooperative and mild agitation Extremities: Pulses 2+, Skin: Visible skin intact, with some bruises over the chest and the arms but no obvious source of bleeding Urinary Catheter Management: Lawrence: Cath Placed During This Visit: no Reason for Continuing Indwelling Catheter: Accurate Measurement of Urinary Output in Critically Ill Patients Data 06/14/25 02:02 06/14/25 02:02 A&P Assessment and plan 1. Neutropenia, unspecified type: 2. Hyponatremia: 3. Transient alteration of awareness: 4. Refeeding syndrome: 5. Severe protein-calorie malnutrition: 6. Dehydration: 7. Adult failure to thrive: 8. Atherosclerosis of twenty[place]nine [place] coronary artery without angina pectoris, unspecified whether [place]nine [place] or transplanted heart: 9. Sinus tachycardia: 10. Peripheral arterial disease: Follow-up with the primary care physician 11. Dyslipidemia: Follow-up with the primary care physician 12. Trapezius muscle spasm: Analgesics as needed 13. Seizure disorder: Plan: 69-year-old gentleman with past medical history of peripheral artery disease, seizure disorder, dyslipidemia, COPD, BPH severe malnourishment, presented with altered mentation severe malnourishment possible underlying sepsis and septic shock requiring vasopressors and further management with broad-spectrum antibiotics Currently patient having neutropenia and to continue on cefepime and linezolid broad-spectrum coverage at the moment started on 06/08/2025 for minimum 14 days and then to decide based upon clinical assessment to continue or de-escalate. Blood cultures did not show any growth since the day of admission Patient still requiring vasopressors norepinephrine and to titrate according to MAP above 65 Patient having sinus tachycardia due to high dose of nor epi, agitation, discomfort is the likely reason. Avoid any antihypertensive or beta-blockers for the sinus tachycardia since the patient is on nor epi and continue to monitor Patient having on and off mild episodes of hypoglycemia, due to decreased oral intake and severe malnourishment, continue with 10% dextrose water with 50 mL/h and dietitian recommendation for further alternative source of diet. Continue monitoring of electrolytes and correction, intake output and renal functions Continue with seizure precaution and Keppra and phenytoin home meds for seizures The patient carries grim prognosis due to multiple comorbidities and also the acuity of his condition underlying etiology of sepsis septic shock not improving with broad-spectrum antibiotics, requiring vasopressors, severe malnourishment, decreased immunity, neutropenia, and patient altered mentation that has not improved with further deterioration day by day. Patient family/ has been informed about his grim prognosis and critical illness at each step of his plan of management. And also have been informed about the lack/failure the current ongoing management secondary to his severe condition, and therefore was offered goals of life and hospice care with consideration of DNR as his status. The understands and agreed with the plan of medical management however wants to think about DNR/hospice and needs time to respond to the medical team Case management has been informed about the conversation with the and the patient grim prognosis due to his underlying critical condition, and the plan is to have hospice team discussion with the family member and further plan of care PDMP PDMP Reviewed: Not Reviewed Attestations Medical Necessity Statement*: The patient will stay more than 2 midnights for further management of his critical illness due to severe malnourishment, possible underlying sepsis and septic shock that requires vasopressors management, management of fluids, severe malnourishment, altered mentation Time Spent in Patient Care: 60 minutes Critical Care Time: The high probability of a clinically significant, sudden or life threatening deterioration of the patient's [] system(s) as mentioned above required my full and direct attention, intervention and personal management. The critical care time is as shown. This time is in addition to time spent performing any reported procedures but includes the following: [x] Data and vital sign review and interpretation [x] Patient assessment, examination and intervention [x] Documentation [x] Medication orders and management Other Attestations: This show operations supervisor is done through [employer] software and if there are any errors or omissions to be discussed by the author. Every effort has been made with the correct show operations supervisor of the note Coding Level of Care Code Critical Care >/= 30 minutes Diagnoses Neutropenia, unspecified type D70.9 Leukopenia type: neutropenia Neutropenia type: unspecified Hyponatremia E87.1 Transient alteration of awareness R40.4 Altered mental status type: transient alteration of awareness Refeeding syndrome E87.8 Severe protein-calorie malnutrition E43 Malnutrition type: protein-calorie malnutrition Protein-calorie malnutrition severity: severe Dehydration E86.0 Adult failure to thrive R62.7 Atherosclerosis of [place]nine [place] coronary artery without angina pectoris, unspecified whether [place] or transplanted heart I25.10 [place] vs. transplanted heart: unspecified whether [place]nine [place] or transplanted heart Sinus tachycardia R00.0 Peripheral arterial disease I73.9 Dyslipidemia E78.5 Trapezius muscle spasm M62.838 Seizure disorder G40.909
[2025-06-14] MEDS: pantoprazole 40 mg SDV IVP ×2 (09:32→21:26)
--- NOTE | 2025-06-14 17:00 | PC.NURSE ---
Addendum entered by Nirali Miguel RN 06/14/25 17:59: Code status changed to AND. Original Note: Code status discussed in detail with Perla. Kelechi WILKES witnessed and verified with .
[2025-06-14] MEDS: potassium chloride premix 100 ML 25 MEQ IV (17:46)
--- NOTE | 2025-06-14 17:53 | PC.NURSE ---
Glucose over 200 so fluids changed per 's verbal order.
[2025-06-15] VITALS (45 sets, daily range): BP systolic 90–109; BP diastolic 57–76; PULSE 118–134; RESP 17–36; TEMP 36.1; O2SAT 93–100
[2025-06-15] MEDS: cefepime 2,000 mg SDV 2000 MG IVP (00:30)
[2025-06-15] MEDS: norepinephrine 4 MG/250 ML BAG 22.5 MG IV (04:44)
[2025-06-15] MEDS: linezolid premix 600 MG/300 ML PREMIX 300 MG IV (06:11)
[2025-06-15] MEDS: pantoprazole 40 mg SDV IVP (08:33)
[2025-06-15 11:49] LABS: Vitamin B1 (Thiamine),Blood 69 nmol/L (78-185)
[2025-07-27 13:21] LABS: Vitamin B1 (Thiamine),Blood 137
== END 2025-06-15 10:23 | disposition hospice, inpatient (51) | DRG 871 ==
LOC: ER 06-08 01:10 → ICU 06-08 01:14
PROVIDERS: Internal Medicine; Surgery; Admitting Provider Internal Medicine; Emergency Provider Emergency Medicine; PCP Family Medicine; Visit Provider Student in an Organized Health Care Education/Training Program
DX: A41.9 Sepsis, unspecified organism (principal); E43 Unspecified severe protein-calorie malnutrition; K29.81 Duodenitis with bleeding; R65.21 Severe sepsis with septic shock; K29.71 Gastritis, unspecified, with bleeding; Z68.1 Body mass index [BMI] 19.9 or less, adult; T74.01XA Adult neglect or abandonment, confirmed, initial encounter; D62 Acute posthemorrhagic anemia; E87.1 Hypo-osmolality and hyponatremia; D61.818 Other pancytopenia; J91.8 Pleural effusion in other conditions classified elsewhere; R62.7 Adult failure to thrive; I95.9 Hypotension, unspecified; E87.6 Hypokalemia; E86.0 Dehydration; I25.10 Atherosclerotic heart disease of native coronary artery without angina pectoris; R07.9 Chest pain, unspecified; F41.9 Anxiety disorder, unspecified; J44.9 Chronic obstructive pulmonary disease, unspecified; I10 Essential (primary) hypertension; F17.200 Nicotine dependence, unspecified, uncomplicated; E78.5 Hyperlipidemia, unspecified; N40.0 Benign prostatic hyperplasia without lower urinary tract symptoms; Z66 Do not resuscitate; Z51.5 Encounter for palliative care; I73.9 Peripheral vascular disease, unspecified; K59.00 Constipation, unspecified; R41.82 Altered mental status, unspecified; E16.2 Hypoglycemia, unspecified; E87.70 Fluid overload, unspecified; M62.838 Other muscle spasm; M54.50 Low back pain, unspecified; E83.42 Hypomagnesemia; E83.39 Other disorders of phosphorus metabolism; G40.909 Epilepsy, unspecified, not intractable, without status epilepticus; Z79.82 Long term (current) use of aspirin; Z79.899 Other long term (current) drug therapy; Z88.8 Allergy status to other drugs, medicaments and biological substances; Z91.048 Other nonmedicinal substance allergy status; Z86.0100 Personal history of colon polyps, unspecified; Z86.73 Personal history of transient ischemic attack (TIA), and cerebral infarction without residual deficits
CPT/HCPCS: 36415; 36416; 36430; 36592; 70450; 71045; 74174; 74177; 80048; 80053; 80061; 80306; 81001; 82140; 82306; 82607; 82728; 82746; 82962; 83540; 83550; 83605; 83735; 84100; 84132; 84145; 84425; 84439; 84443; 84480; 84481; 84484; 85007; 85025; 85049; 85384; 85610; 85730; 86850; 86900; 86920; 87040; 92507; 92526; 92610; 93005; 94640; 96365; 96366; 96367; 96372; 96375; 96376; 97162; 99291; C1751; J0169; J0612; J0692; J1171; J1630; J1650; J1720; J1815; J2020; J2060; J2270; J2405; J2470; J2598; J2916; J3475; J3480; J3490; J7030; J7040; J7050; J7070; J7613; J7626; J7644; J7799; J9999; P9016; P9046

== ENCOUNTER 2025-06-15 10:24 | Inpatient (IN) | payer OTHER, MEDICARE, SELFPAY ==
--- OUTSIDE RECORDS SUMMARY | 2025-06-08 03:54 | XMS_ITS | Encounter Summary ---
Author Name [facility] Organization [facility] Address [address] [place] [address] Care Team Providers Care Basting Cleaner Name Role Phone JR NAVARRO Primary Care Provider Unavailzaynab e Insurance Providers: All historical and current [...] PART A Nov 09, 2023 PART A [id number] [phone] RIGOBERTO STARR PATIENT Selected Encounter This section includes the information on record at [place] for the Encounter. Date/Time Encounter Type Encounter Description Reason Provider Source Jun 08, 2025 08:54 AM Outpatient Encounter COMMUNITY CARE CONSULT [facility] Encounter Template Text not used by [facility] Advance Directives: All historical and current Section Date Range: From patient's date of to the date document was created. This section includes ALL of a patient's completed or amended [facility] Advance and Rescinded Directives. The entries below indicate that a directive exists for the patient, but an actual copy is not included with this document. The data comes from all [place] facilities. Date Advance Directives Provider Source Aug 24, 2017 ADVANCE DIRECTIVE DISCUSSION SHEKHAR MCCLAIN [facility] Encounter Notes: All associated encounter notes This section contains the clinical notes associated to the Encounter. Date/Time Encounter Note(s) Provider Source Jun 13, 2025 09:23 AM ADDENDUM: LOCAL TITLE: Addendum STANDARD TITLE: ADDENDUM DATE OF NOTE: JUN 13, 2025@09:23:49 ENTRY DATE: JUN 13, 2025@09:23:50 AUTHOR: APOLONIA LYNCH EXP COSIGNER: URGENCY: STATUS: COMPLETED Coordinator contacted by [facility] [place] alerting they have accepted [place] for short stay rehab. coordinator followed up with call to [facility]; [place] is ready for DC for short stay rehab. Alerting Transition Team with request for PB SOCIAL WORK CONSULT entry for short stay rehab. /mamie/ APOLONIA LYNCH SCREENER AND BLENDER Signed: 06/13/2025 09:25 Receipt Acknowledged By: 06/13/2025 10:38 /february Ryan YING RN --- Original Document --- 06/08/25 [facility] PRESENTING CARE COORD PLAN 657A4 PB: Emergency Notification Intake Date Presenting to the Facility: May Method of Contact: Provider Notification ID: [id number] [facility] Referral #: Portal Generated Hospital: [facility] City: [place] State: [place] Chief complaint: Hypotensive 1st MRR sent to [facility] /february Ryan YING RN Signed: 06/08/2025 08:56 06/12/2025 ADDENDUM STATUS: COMPLETED Discharge Disposition Date of discharge: Jun Disposition Admission: May Room/Bed: ICU01-1 Plan: After complete history, physical examination and review of all available clinical data following is my assessment. Patient who presents in a state of neglect and noted to be hypotensive and tachycardic poorly responsive to fluids. He had 1 episode of vomiting and a bowel meant was reddish I was consulted for the possibility of upper GI bleeding. Patient had an hemoglobin of 11.5 upon arrival, there has not been any melena, there is no abdominal pain, his laboratory workup shows a BUN of 5 and a creatinine of 0.7. He also had severe hypokalemia. At this moment I am not convinced that the patient has an upper GI bleeding. I think the episode of vomit may have been a result of his metabolic derangement and severe hypokalemia or even a reaction to the rapid correction of the potassium. Unfortunately we do not have follow-up labs at this moment. He is low BUN also supports the fact that there is low likelihood for an acute GI bleeding. I think the majority of patient's symptoms at this point are more likely caused by metabolic derangement and fluid depletion. I will recommend a repeat set of labs that includes a CBC and CMP and a coagulation panel, he will also probably benefit from an arterial line for close monitoring of the blood pressure as there is questionable accuracy of the noninvasive blood pressure as the patient is alert and awake even though his blood pressure appears to be extremely low. After the repeat labs my next recommendation will be to obtain a CTA of the abdomen and pelvis for evaluation of any intra-abdominal pathology confirmation of the possibility of GI bleeding. I do expect that to be drop in the hemoglobin as the patient was hemoconcentrated and after receiving fluid there is likely going to be a decrease in the initial value. We will continue to monitor and if there is any additional evidence of GI bleeding I will proceed with a bedside endoscopy in the interim I recommend that we continue with maximal medical management per medical ICU team I will follow-up once we have the results of laboratory workup and the results of the CTA of the abdomen. Diagnoses: Adult failure to thrive R62.7 Hypokalemia E87.6 Dehydration E86.0 (Provider: Davey Ramos) /february Ryan YING,RN Signed: 06/12/2025 08:56 06/08/2025 ADDENDUM STATUS: COMPLETED Vist[facility] Imaging Scanned Document - Addendum. [facility] SCANNED DOCUMENT SIGNATURE NOT REQUIRED Electronically Filed: 06/12/2025 by: CASEY Garay [facility] Jun 08, 2025 08:54 AM NONVA NOTE: LOCAL TITLE: COMMUNITY CARE-[place] SELF PRESENTING CARE COORD PLAN STANDARD TITLE: NONVA NOTE DATE OF NOTE: JUN 08, 2025@08:54 ENTRY DATE: JUN 08, 2025@08:54:46 AUTHOR: MILAGROS RESENDEZ EXP COSIGNER: URGENCY: STATUS: COMPLETED COMMUNITY CARE-[place] SELF PRESENTING CARE COORD PLAN 657A4 PB Has ADDENDA Emergency Notification Intake Date Presenting to the Facility: May Method of Contact: Provider Notification ID: [id number] [facility] Referral #: Portal Generated Hospital: [facility] City: [place] State: [place] Chief complaint: Hypotensive 1st MRR sent to [facility] // FEBRUARY Ryan YINGRN Signed: 06/08/2025 08:56 06/12/2025 ADDENDUM STATUS: COMPLETED Discharge Disposition Date of discharge: Jun Disposition Admission: May Room/Bed: ICU01-1 Plan: After complete history, physical examination and review of all available clinical data following is my assessment. Patient who presents in a state of neglect and noted to be hypotensive and tachycardic poorly responsive to fluids. He had 1 episode of vomiting and a bowel meant was reddish I was consulted for the possibility of upper GI bleeding. Patient had an hemoglobin of 11.5 upon arrival, there has not been any melena, there is no abdominal pain, his laboratory workup shows a BUN of 5 and a creatinine of 0.7. He also had severe hypokalemia. At this moment I am not convinced that the patient has an upper GI bleeding. I think the episode of vomit may have been a result of his metabolic derangement and severe hypokalemia or even a reaction to the rapid correction of the potassium. Unfortunately we do not have follow-up labs at this moment. He is low BUN also supports the fact that there is low likelihood for an acute GI bleeding. I think the majority of patient's symptoms at this point are more likely caused by metabolic derangement and fluid depletion. I will recommend a repeat set of labs that includes a CBC and CMP and a coagulation panel, he will also probably benefit from an arterial line for close monitoring of the blood pressure as there is questionable accuracy of the noninvasive blood pressure as the patient is alert and awake even though his blood pressure appears to be extremely low. After the repeat labs my next recommendation will be to obtain a CTA of the abdomen and pelvis for evaluation of any intra-abdominal pathology confirmation of the possibility of GI bleeding. I do expect that to be drop in the hemoglobin as the patient was hemoconcentrated and after receiving fluid there is likely going to be a decrease in the initial value. We will continue to monitor and if there is any additional evidence of GI bleeding I will proceed with a bedside endoscopy in the interim I recommend that we continue with maximal medical management per medical ICU team I will follow-up once we have the results of laboratory workup and the results of the CTA of the abdomen. Diagnoses: Adult failure to thrive R62.7 Hypokalemia E87.6 Dehydration E86.0 (Provider: Davey Ramos) /mamieFebruary Ryan YING,RN Signed: 06/12/2025 08:56 06/08/2025 ADDENDUM STATUS: COMPLETED VistA Imaging Scanned Document - Addendum. [facility] SCANNED DOCUMENT SIGNATURE NOT REQUIRED Electronically Filed: 06/12/2025 by: CASEY Worthington anival [facility] 06/13/2025 ADDENDUM STATUS: COMPLETED Coordinator contacted by [facility] [place] alerting they have accepted [place] for short stay rehab. coordinator followed up with call to [facility]; is ready for DC for short stay rehab. Alerting Transition Team with request for PB SOCIAL WORK CONSULT entry for short stay rehab. /mamie/ APOLONIA LYNCH LCSW Signed: 06/13/2025 09:25 Receipt Acknowledged By: 06/13/2025 10:38 /mamie MILAGROS YING,RN 06/13/2025 ADDENDUM STATUS: COMPLETED 06-12-25 Cont. stay review Patient was seen in the morning and was agitated, confused having mild tachycardia and EKG showed sinus tachycardia. Patient looks dehydrated and started on normal saline hydration with 50 mL/h The patient need assisted feeding Continue on cefepime and linezolid for broad coverage of any suspected infection (Provider: Yuval Welch MD) /mamieFebruary Ryan YING,RN Signed: 06/13/2025 16:36 MALFebruary [facility]
--- OUTSIDE RECORDS SUMMARY | 2025-06-14 05:22 | XMS_ITS ---
Author Name [facility] Organization [facility] [place] Address [address] [place] [address] Care Team Providers Care Sheet Roller Operator Name Role Phone JR NAVARRO Primary Care [...] PART A Nov 09, 2023 PART A [id number] RIGOBERTO STARR PATIENT Selected Encounter This section includes the information on record at [place] for the Encounter. Date/Time Encounter Type Encounter Description Reason Pro vider Source Jun 14, 2025 10:22 AM Outpatient Encounter TELEPHONE PRIMARY CARE IHE Encounter Template Text not used by [...] 24, 2017 ADVANCE DIRECTIVE DISCUSSION SHEKHAR MCCLAIN [facility] Encounter Notes: All associated encounter notes This section contains the clinical notes associated to the Encounter. Date/Time Encounter Note(s) Provider Source Jun 14, 2025 10:22 AM TELEPHONE ENCOUNTE R NOTE: LOCAL TITLE: TELEPHONE NOTE STANDARD TITLE: TELEPHONE ENCOUNTER NOTE DATE OF NOTE: JUN 14, 2025@10:22 ENTRY DATE: JUN 14, 2025@10:22:34 AUTHOR: INNA JULES EXP COSIGNER: URGENCY: STATUS: COMPLETED The [facility]. Let the 's know that there was a note showing that he went into the ER on 06/08/25. The 's reported that was correct and that he continues to be inpatient and is in ICU. The 's had no further questions at this time. /mamie/ Inna Jules RN,BSN CROW [place] Signed: 06/14/2025 10:24 INNA JULES [facility]
--- OUTSIDE RECORDS SUMMARY | 2025-06-15 08:31 | XMS_ITS | Continuity of Care Document ---
Author Name [facility] Organization [facility] Care Team Providers Care Blacksmith Assistant Name Role Phone [facility] Unavailable Unavailable Problems Combined list of problems from Department of Defense and Veterans Affairs facilities. It does not include entries that were removed or entered in error. Problem Status Onset Date Problem Type Date of Resolution Comments Source Abdominal aortic aneurysm Active Condition Jun 23, 2023 Entered By: WESLY NAVARRO MMY Comment: UA 05/08/2023 2.5cm [place] [facility] Allergic Rhinitis (SCT 77690797) Active Condition [place] [facility] Benign prostatic hyperplasia Active Condition [place] [facility] Bipolar disorder Active Condition [place] [facility] Cerebral infarction Active Condition Sep 17, 2022 Entered By: WESLY NAVARRO Comment: right sided weakness, mostly resolved [place] [facility] COPD - Chronic Obstructive Pulmonary Disease (SCT 22809415) Active Condition [place] [facility] Degenerative joint disease of shoulder region Active Condition Jun 17, 2024 Entered By: WESLY NAVARRO Comment: Left [place] [facility] GERD - Gastro-Esophageal Reflux Disease (SCT [id number]) Active Condition [facility] Hyperlipidemia (SCT 12357877) Active Condition [facility] Low Back Pain (SCT 523062019) Active Condition [facility] Peripheral arterial occlusive disease Active Condition Jun 23, 2023 Entered By: WESLY NAVARRO MMY Comment: US 05/08/2023 patient aortic and iliac graft stents. [place] [facility] Peripheral neuropathy Active Condition [place] [facility] Polyp Colon (SCT 12856946) Active Condition [place] [facility] Posttraumatic stress disorder Active Condition [place] [facility] PTSD - Post-Traumatic Stress Disorder (SCT 90304221) Active Condition [facility] Seizure disorder Active Condition Nov 06, 2022 Entered By: WESLY NAVARRO MMY Comment: post CVA [place] [facility] Vitamin D Deficiency (SCT 9936869) Active Condition [place] [facility] Chronic hypoxemic respiratory failure Inactive Condition 12/11/2022 [place] [facility] Esophag. Reflx Inactive Condition 07/23/2020 [facility] Hyperlipidemia Inactive Condition 07/23/2020 [facility] Low Back Pain Inactive Condition 07/23/2020 [facility] Lymphadenopathy * (ICD-9-CM 785.6) Inactive Condition 07/23/2020 [facility] Opioid Dependence * (ICD-9-CM 304.00) Inactive Condition 07/23/2020 [facility] POPLITEAL SYNOVIAL CYST Inactive Condition [facility] Diagnosis: ICD-10-CM I77.9 Disorder of arteries and arterioles, unspecified Active Diagnosis [place] [facility] Diagnosis: ICD-10-CM B35.6 Tinea cruris Active Diagnosis [facility] Diagnosis: ICD-10-CM Z71.89 Other specified counseling Active Diagnosis [facility] Diagnosis: ICD-10-CM R06.02 Shortness of breath Active Diagnosis [facility] Diagnosis: ICD-10-CM M19.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, left shoulder Active Diagnosis [facility] Diagnosis: ICD-10-CM M25.512 Pain in left shoulder [facility] Diagnosis: ICD-10-CM K02.52 Dental caries on pit and fissure surfc penetrat into dentin [facility] Diagnosis: ICD-10-CM Z09 Encntr for f/u exam aft trtmt for cond oth than malig neoplm Active Diagnosis [facility] Medications Combined list of outpatient medications from Department of Defense and [facility] Affairs facilities.Medications provided include 1) outpatient medications from the last 15 months, and 2) patient-reported medications. Medication Details Route Status Patient Instructions Prescription Expires Prescription Number Last Dispense Date Ordering Provider Order Date Order Qty Source ATORVASTATI N CA 40MG TAB TAKE ONE-HALF TABLET BY MOUTH EVERY EVENING TO LOWER CHOLESTE ROL ORAL ACTIVE 08/24/2025 [id number] JR NAVARRO 2023 45 [facility] ATORVASTATI N CA 40MG TAB TAKE ONE-HALF TABLET BY MOUTH EVERY EVENING TO LOWER CHOLESTE ROL ORAL DISCONT INUED 07/23/2024 [id number] 4 [facility] 2022 45 [place] [facility] CHOLECALCIF CHALO 50MCG (2,000UNIT) TAB TAKE ONE TABLET BY MOUTH ONCE A DAY FOR VITAMIN D DEFICIEN CY. ORAL ACTIVE 08/24/2025 [id number] 5 RAMON, JR 2023 100 [place] [facility] CHOLECALCIF CHALO 50MCG (2,000UNIT) TAB TAKE ONE TABLET BY MOUTH ONCE A DAY FOR VITAMIN D DEFICIEN CY. ORAL DISCONT INUED 07/23/2024 [id number] 4 [facility] [address] [place] [address] [facility] CILOSTAZOL 100MG TAB TAKE ONE TABLET BY MOUTH TWICE A DAY TAKE 30 MINUTES BEFORE OR AT LEAST 2 HOURS AFTER FOOD. DO NOT TAKE WITH GRAPEFRU IT JUICE. ORAL DISCONT INUED 07/01/2024 [id number] 4 Dariel PRUITT 2022 180 [place] [facility] CILOSTAZOL 100MG TAB TAKE ONE TABLET BY MOUTH TWICE A DAY TAKE 30 MINUTES BEFORE OR AT LEAST 2 HOURS AFTER FOOD. DO NOT TAKE WITH GRAPEFRU IT JUICE. ORAL 09/23/2024 [id number] 4 FAUSTO ART MD 2023 28 [place] [facility] CITALOPRAM HYDROBROMID E 40MG TAB TAKE ONE TABLET BY MOUTH EVERY MORNING FOR ANXIETY ORAL ACTIVE 05/11/2026 [id number] 5 [facility] [address] [place] [address] [facility] CITALOPRAM HYDROBROMID E 40MG TAB TAKE ONE TABLET BY MOUTH EVERY MORNING FOR ANXIETY ORAL DISCONT INUED 04/14/2024 [id number] 4 [facility], JR [address] [place] [address] [facility] CITALOPRAM HYDROBROMID E 40MG TAB TAKE ONE TABLET BY MOUTH EVERY MORNING FOR ANXIETY ORAL 04/20/2025 [id number] 4 [facility] [address] [place] [address] [facility] DICYCLOMINE HCL 10MG CAP TAKE ONE CAPSULE BY MOUTH FOUR TIMES A DAY FOR IRRITABL E BOWEL SYNDROME PAIN ORAL ACTIVE 09/01/2025 [id number] 5 [facility] [address] [place] [address] [facility] DULOXETINE HCL 60MG CAP,EC TAKE ONE CAPSULE BY MOUTH ONCE A DAY DO NOT ABRUPTLY DISCONTI NUE MEDICATI ON. ORAL ACTIVE 08/24/2025 [id number] 4 [facility] 2023 90 [facility] DULOXETINE HCL 60MG CAP,EC TAKE ONE CAPSULE BY MOUTH ONCE A DAY DO NOT ABRUPTLY DISCONTI NUE MEDICATI ON. ORAL DISCONT INUED 07/23/2024 [id number] 4 [facility] [address] [place] [address] [facility] FLUTICASONE 250MCG/SALM ETEROL 50MCG INHL,ORAL,D ISKUS,60 INHALE 1 INHALATI ON BY ORAL INHALATI ON TWICE A DAY FOR BREATHIN G (OPEN DISKUS; CLICK ONLY ONCE; MAY INHALE TWICE TO COMPLETE DOSE; CLOSE WHEN FINISHED ) RINSE MOUTH AND SPIT AFTER EACH USE. RESPIR ATORY (INHAL ATION) ACTIVE 08/24/2025 [id number] 5 [facility], [facility] [address] [place] [address] [facility] FLUTICASONE 250MCG/SALM ETEROL 50MCG INHL,ORAL,D ISKUS,60 INHALE 1 INHALATI ON BY ORAL INHALATI ON TWICE A DAY FOR BREATHIN G (OPEN DISKUS; CLICK ONLY ONCE; MAY INHALE TWICE TO COMPLETE DOSE; CLOSE WHEN FINISHED ) RINSE MOUTH AND SPIT AFTER EACH USE. RESPIR ATORY (INHAL ATION) DISCONT INUED 07/23/2024 [id number] 4 [facility] [address] [place] [address] [facility] FLUTICASONE PROPIONATE 50MCG/SPRAY SOLN,NASAL, 16GM INSTILL 2 SPRAYS IN NOSTRIL( S) ONCE A DAY FOR ALLERGIE S (MUST BE USED DIRECTED FOR MINIMUM OF 21 DAYS TO PROVIDE ADEQUATE BENEFITS ) NASAL ACTIVE 08/24/2025 [id number] 5 [facility] 2023 3 [facility] FLUTICASONE PROPIONATE 50MCG/SPRAY SOLN,NASAL, 16GM INSTILL 2 SPRAYS IN NOSTRIL( S) ONCE A DAY FOR ALLERGIE S (MUST BE USED DIRECTED FOR MINIMUM OF 21 DAYS TO PROVIDE ADEQUATE BENEFITS ) NASAL DISCONT INUED 07/23/2024 [id number] 4 [facility] 2022 3 [facility] FOLIC ACID 1MG TAB TAKE ONE TABLET BY MOUTH ONCE A DAY ORAL ACTIVE 08/24/2025 [id number] 5 [facility] 2023 100 [facility] FOLIC ACID 1MG TAB TAKE ONE TABLET BY MOUTH ONCE A DAY ORAL DISCONT INUED 07/23/2024 [id number] 4 RAMON JR 2022 100 [facility] GABAPENTIN 300MG CAP TAKE THREE CAPSULES BY MOUTH THREE TIMES A DAY FOR NERVE PAIN ORAL ACTIVE 12/02/2025 [id number] 5 Lashawn IBRAHIM OHDonte Q 2024 810 [facility] HYDROCODONE 7.5MG/ACETA MINOPHEN 325MG TAB TAKE 1 TABLET BY MOUTH EVERY 6 HOURS NEEDED FOR PAIN CAUTION: DO NOT EXCEED 4000MG PER DAY ACETAMIN OPHEN (APAP) FROM ALL MEDS. ORAL 05/06/2024 [id number] 4 [facility] JR 2023 30 [facility] LACOSAMIDE 100MG TAB TAKE ONE TABLET BY MOUTH TWICE A DAY FOR SEIZURES ORAL DISCONT INUED 06/15/2024 [id number] 4 RAMON JR 2023 60 [place] [facility] LACOSAMIDE 100MG TAB TAKE ONE TABLET BY MOUTH TWICE A DAY ORAL 11/25/2024 [id number] 4 TIFFANIE HANSEN 2023 60 [place] [facility] LEVETIRACET AM 500MG TAB TAKE THREE TABLETS BY MOUTH TWICE A DAY SWALLOW WHOLE, DO NOT CRUSH OR CHEW. ORAL DISCONT INUED 02/15/2025 [id number] TIFFANIE HANSEN 2023 360 [place] [facility] LEVETIRACET AM 500MG TAB TAKE THREE TABLETS BY MOUTH TWICE A DAY SWALLOW WHOLE, DO NOT CRUSH OR CHEW. ORAL 05/26/2025 [id number] 5 TIFFANIE HANSEN 2023 360 [place] [facility] LORATADINE 10MG TAB TAKE ONE TABLET BY MOUTH ONCE A DAY FOR ALLERGIC RHINITIS ON EMPTY STOMACH ORAL ACTIVE 08/24/2025 [id number] 5 JR NAVARRO 2023 90 [facility] LORATADINE 10MG TAB TAKE ONE TABLET BY MOUTH ONCE A DAY FOR ALLERGIC RHINITIS ON EMPTY STOMACH ORAL DISCONT INUED 03/26/2025 [id number] 4 JR NAVARRO 2023 90 [facility] METOPROLOL TARTRATE 25MG TAB TAKE ONE TABLET BY MOUTH TWICE A DAY FOR HIGH BLOOD PRESSURE TAKE WITH OR IMMEDIAT LEIGHA FOLLOWIN G FOOD. ORAL ACTIVE 08/24/2025 [id number] 5 RJ NAVARRO 2023 180 [facility] METOPROLOL TARTRATE 25MG TAB TAKE ONE TABLET BY MOUTH TWICE A DAY FOR HIGH BLOOD PRESSURE TAKE WITH OR IMMEDIAT LEIGHA FOLLOWIN G FOOD. ORAL DISCONT INUED 04/13/2025 [id number] FAUSTO ART MD 2023 180 [place] [facility] MULTIVITAMI NS W/MINERALS CAP/TAB TAKE 1 CAP/TAB BY MOUTH ONCE A DAY FOR SUPPLEME NTATION. ORAL 11/11/2024 [id number] 4 JR NAVARRO 2023 130 [place] [facility] PHENYTOIN NA,EXTENDED 100MG CAP,SA TAKE ONE CAPSULE BY MOUTH TWICE A DAY FOR SEIZURES (GENERIC SUBSTITU TION FOR DILANTIN ) ORAL DISCONT INUED 10/21/2024 [id number] JR NAVARRO 2022 180 [facility] PHENYTOIN NA,EXTENDED 100MG CAP,SA TAKE ONE CAPSULE BY MOUTH TWICE A DAY (GENERIC SUBSTITU TION FOR DILANTIN ) ORAL 05/26/2025 [id number] JADE TIFFANIE 2023 180 [place] [facility] PRAZOSIN HCL 2MG CAP TAKE ONE CAPSULE BY MOUTH AT BEDTIME MAY CAUSE DIZZINES S OR DROWSINE SS. ORAL ACTIVE 08/24/2025 [id number] 5 RAMON, JR [address] [place] [address] [facility] PRAZOSIN HCL 2MG CAP TAKE ONE CAPSULE BY MOUTH AT BEDTIME MAY CAUSE DIZZINES S OR DROWSINE SS. ORAL DISCONT INUED 07/23/2024 [id number] 4 [facility] 2022 90 [facility] QUETIAPINE FUMARATE 25MG TAB TAKE ONE-HALF TABLET BY MOUTH TWICE A DAY FOR MOOD ORAL ACTIVE 08/24/2025 [id number] 5 RAMON, JR [address] [place] [address] [facility] QUETIAPINE FUMARATE 25MG TAB TAKE ONE-HALF TABLET BY MOUTH TWICE A DAY FOR MOOD ORAL DISCONT INUED 07/23/2024 [id number] 4 [facility], JR [address] [place] [address] [facility] ROPINIROLE HCL 0.5MG TAB TAKE ONE TABLET BY MOUTH ONCE A DAY NEEDED AND TAKE TWO TABLETS AT BEDTIME ORAL 05/26/2025 [id number] TIFFANIE HANSEN 2023 270 [place] [facility] TAMSULOSIN HCL 0.4MG CAP TAKE ONE CAPSULE BY MOUTH EVERY EVENING APPROXIM ATELY 30 MINUTES AFTER THE SAME MEAL EACH DAY (FOR PROSTATE ) ORAL ACTIVE 08/24/2025 [id number] 5 RAMON, JR [address] [place] [address] [facility] TAMSULOSIN HCL 0.4MG CAP TAKE ONE CAPSULE BY MOUTH EVERY EVENING APPROXIM ATELY 30 MINUTES AFTER THE SAME MEAL EACH DAY (FOR PROSTATE ) ORAL DISCONT INUED 07/23/2024 [id number] 4 RAMON, JR 2022 90 [facility] TIOTROPIUM 2.5MCG/ACTU AT INHL,ORAL,6 0D,4GM INHALE 2 INHALATI ONS BY ORAL INHALATI ON ONCE A DAY (ADMINIS TER AT SAME TIME EACH DAY) FOR BREATHIN G. RESPIR ATORY (INHAL ATION) ACTIVE 08/24/2025 [id number] 5 [facility], [facility] 2023 3 [facility] TIOTROPIUM 2.5MCG/ACTU AT INHL,ORAL,6 0D,4GM INHALE 2 INHALATI ONS BY ORAL INHALATI ON ONCE A DAY (ADMINIS TER AT SAME TIME EACH DAY) FOR BREATHIN G. RESPIR ATORY (INHAL ATION) DISCONT INUED 07/23/2024 [id number] 4 [facility] 2022 3 [facility] Allergies, Adverse Reactions, Alerts Combined list of allergies from Department of Defense and Veterans Affairs facilities. It does not include entries that were removed or entered in error. Substance Category Reaction Severity Reaction type Status Date Reported Comments Source LITHIUM Propensity to adverse reactions to drug (finding) MEMORY LOSS active 3 [facility] NAPROXYN Propensity to adverse reactions to drug (finding) GI UPSET active 2 [facility] NEFAZODONE Propensity to adverse reactions to drug (finding) REUBEN active 3 [facility] OXYCODONE Propensity to adverse reactions to drug (finding) Eruption, ITCHING,WA TERING EYES active 0 [facility] Immunizations Combined list of available immunizations from the Department of Defense and Veterans Affairs facilities. Immunization Series Date Given Administered By Site Reaction Lot Number CVX Code Drug Medical Registrar Status Comments Source INFLUENZA, INJECTABLE, QUADRIVALENT, PRESERVATIVE FREE 2022 SIMI AVERY LEFT DELTO ID [id number] 150 complet ed [facility] ZOSTER RECOMBINANT 2022 SIMI AVERY RIGHT DELTO ID [id number] 187 complet ed Completed Series, [facility] PNEUMOCOCCAL CONJUGATE PCV20, POLYSACCHARID E [id number] CONJUGATE, ADJUVANT, PF 2022 PEDRITO REYNOSO LEFT DELTO ID [id number] 216 complet ed [facility] ZOSTER RECOMBINANT 2022 PEDRITO REYNOSO RIGHT DELTO ID [id number] 187 complet ed [facility] TDAP 2022 EZRAGEOVANNA Awad RIGHT DELTO ID [id number] 115 complet ed [facility] COVID-19 (MODERNA), MRNA, LNP-S, PF, 100 MCG/0.5 ML DOSE 2 2020 207 complet ed [facility] COVID-19 (MODERNA), MRNA, LNP-S, PF, 100 MCG/0.5 ML DOSE 1 2020 207 complet ed [facility] INFLUENZA, UNSPECIFIED FORMULATION 2004 88 complet ed [facility] INFLUENZA, UNSPECIFIED FORMULATION 2002 MARIO FUNEZ 88 complet ed [facility] PNEUMOCOCCAL, UNSPECIFIED FORMULATION 2002 109 complet ed [facility] TD(ADULT) UNSPECIFIED FORMULATION 1992 139 complet ed [facility] TD(ADULT) UNSPECIFIED FORMULATION 1991 139 complet ed [facility] Results Combined list of recent chemistry, [...] 2024 01:19 PM Reporting Lab: [place] [facility] [address] [place] [address] Performing Lab: [place] [facility] [address] [place] [address] [facility] BASIC METABOLIC PANEL UREA NITROGEN [MASS/VOLUME ] IN SERUM OR PLASMA 10 mg/dL 9 - 25 07/25 Specimen Type: PLASMA Comment: Re-order and Re-collect ion recommende d. 2+ Hemolysis present. ~Potassium 4.8mmol/L Ordering Provider: Jean NAVARRO Report Released Date/Time: Jul 25, 2024 01:19 PM Reporting Lab: [place] [facility] [address] [place] [address] Performing Lab: [place] [facility] [address] [place] [address] [facility] BASIC METABOLIC PANEL GLUCOSE [MASS/VOLUME ] IN SERUM OR PLASMA 101 mg/dL 72 - 99 07/25 H Specimen Type: PLASMA Comment: Re-order and Re-collect ion recommende d. 2+ Hemolysis present. ~Potassium 4.8mmol/L Ordering Provider: Jean NAVARRO Report Released Date/Time: Jul 25, 2024 01:19 PM Reporting Lab: [place] [facility] [address] [place] [address] Performing Lab: [place] [facility] [address] [place] [address] [facility] BASIC METABOLIC PANEL SODIUM [MOLES/VOLUM E] IN SERUM OR PLASMA 136 meq/L 136 - 145 07/25 Specimen Type: PLASMA Comment: Re-order and Re-collect ion recommende d. 2+ Hemolysis present. ~Potassium 4.8mmol/L Ordering Provider: Jean NAVARRO Report Released Date/Time: Jul 25, 2024 01:19 PM Reporting Lab: [place] [facility] [address] [place] [address] Performing Lab: [place] [facility] [address] [place] [address] [facility] BASIC METABOLIC PANEL POTASSIUM [MOLES/VOLUM E] IN SERUM OR PLASMA commen tmeq/L 3.5 - 5 07/25 Specimen Type: PLASMA Comment: Re-order and Re-collect ion recommende d. 2+ Hemolysis present. ~Potassium 4.8mmol/L Ordering Provider: Jean NAVARRO Report Released Date/Time: Jul 25, 2024 01:19 PM Reporting Lab: [place] [facility] [address] [place] [address] Performing Lab: [place] [facility] [address] [place] [address] [facility] BASIC METABOLIC PANEL CHLORIDE [MOLES/VOLUM E] IN SERUM OR PLASMA 102 meq/L 98 - 107 07/25 Specimen Type: PLASMA Comment: Re-order and Re-collect ion recommende d. 2+ Hemolysis present. ~Potassium 4.8mmol/L Ordering Provider: Jean NAVARRO Report Released Date/Time: Jul 25, 2024 01:19 PM Reporting Lab: [place] [facility] [address] [place] [address] Performing Lab: [place] [facility] [address] [place] [address] [facility] BASIC METABOLIC PANEL CARBON DIOXIDE, TOTAL [MOLES/VOLUM E] IN SERUM OR PLASMA 22 meq/L 22 - 31 07/25 Specimen Type: PLASMA Comment: Re-order and Re-collect ion recommende d. 2+ Hemolysis present. ~Potassium 4.8mmol/L Ordering Provider: Jean NAVARRO Report Released Date/Time: Jul 25, 2024 01:19 PM Reporting Lab: [place] [facility] [address] [place] [address] Performing Lab: [place] [facility] [address] [place] [address] [facility] BASIC METABOLIC PANEL CALCIUM [MASS/VOLUME ] IN SERUM OR PLASMA 9.0 mg/dL 8.4 - 10.4 07/25 Specimen Type: PLASMA Comment: Re-order and Re-collect ion recommende d. 2+ Hemolysis present. ~Potassium 4.8mmol/L Ordering Provider: Jean NAVARRO Report Released Date/Time: Jul 25, 2024 01:19 PM Reporting Lab: [place] [facility] [address] [place] [address] Performing Lab: [place] [facility] [address] [place] [address] [facility] BASIC METABOLIC PANEL GLOMERULAR FILTRATION RATE/1.73 SQ M.PREDICTED [VOLUME RATE/AREA] IN SERUM, PLASMA OR BLOOD BY CREATININE-B ASED FORMULA (CKD-EPI 2020) 100 07/25 Specimen Type: PLASMA Comment: Re-order and Re-collect ion recommende d. 2+ Hemolysis present. ~Potassium 4.8mmol/L Ordering Provider: Jean NAVARRO Report Released Date/Time: Jul 25, 2024 01:19 PM Reporting Lab: [place] [facility] [address] [place] [address] Performing Lab: [place] [facility] [address] [place] [address] [facility] Vital Signs Combined list of inpatient and outpatient Vital Signs from Department of [facility] and [facility] Affairs, ranging from 12 months to all on record, depending upon the facility. Vital Sign Value Date Comments Source SYSTOLIC BLOOD PRESSURE 132 07/25/2024 13:09:00 [facility] DIASTOLIC BLOOD PRESSURE 83 07/25/2024 13:09:00 [facility] PULSE OXIMETRY 97 07/25/2024 13:09:00 [facility] WEIGHT 136.3 07/25/2024 13:09:[address] [facility] BMI 20 kg/m2 07/25/2024 13:09:[address] [facility] PAIN 8 07/25/2024 13:09:[address] [facility] HEIGHT 70.0 07/25/2024 13:09:[address] [facility] TEMPERATURE 98.7 07/25/2024 13:09:[address] [facility] PULSE 69 07/25/2024 13:09:[address] [facility] RESPIRATION 18 07/25/2024 13:09:[address] [facility] Encounters Combined list of: 1) Encounters from Department of Veterans Affairs facilities going backup to the last 18 months, not all [place] inpatient encounters are included; 2) Encounters from the Department of [facility] facilities going backup to 280 months. Location Location Details Encounter Type Encounter Number Reason For Visit Attending Provider ADM Date DC Date Status Disposition Source [facility] Outpatient Encounter [id number] 12/18 [facility] Outpatient Encounter [id number] 01/05 [facility] Outpatient Encounter [id number] 01/06 [facility] Outpatient Encounter [id number] 01/14 [facility] OFFICE O/P EST MOD 30 MIN [id number] Diagnos is: ICD-10- CM Z09 Encntr for f/u exam aft trtmt for cond oth than malig JOSE Kimball G 01/19 [facility] [place] [id number] Diagnos is: ICD-10- CM K02.52 Dental caries on pit and fissure surfc penetra t into dentin CHARISSE MUNOZ H 01/27 [facility] Outpatient Encounter [id number] 01/31 [facility] Outpatient Encounter [id number] [facility]23 [facility] HC PRO PHONE CALL 5-10 MIN [id number] Diagnos is: ICD-10- CM M25.512 Pain in left shoulde r SANG MUNGUIA R 02/23 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 , left shoulde r Jean NAVARRO NUHA 02/24 [facility] Outpatient Encounter [id number] 03/09 [facility] Outpatient Encounter [id number] CISCO MCKEON 03/25 [facility] Outpatient Encounter [id number] 04/06 [facility] Outpatient Encounter [id number] 04/08 [facility] Outpatient Encounter [id number] 04/11 [facility] Outpatient Encounter [id number] 04/11 [facility] HC PRO PHONE CALL 5-10 MIN [id number] Diagnos is: ICD-10- CM R06.02 Shortne ss of breath SANG MUNGUIA 04/15 [facility] Outpatient Encounter [id number] 222 ARIEL CABRALES 04/18 [facility] Outpatient Encounter [id number] 04/20 [facility] Outpatient Encounter [id number] 04/29 [facility] Outpatient Encounter [id number] SANG MUNGUIA 04/29 [facility] PRO PHONE CALL 5-10 MIN [id number] Diagnos is: ICD-10- CM Z71.89 Other specifi ed personal counselor tony CARREONJeanSANG MARTINEZ R 04/29 [facility] Outpatient Encounter [id number] 05/11 [facility] Outpatient Encounter [id number] 05/18 [facility] Outpatient Encounter [id number] 05/20 [facility] Outpatient Encounter [id number] 05/26 [facility] Outpatient Encounter [id number] 05/26 [facility] Outpatient Encounter [id number] 06/20 [facility] Outpatient Encounter [id number] 06/22 [facility] Outpatient Encounter [id number] 07/04 [facility] Outpatient Encounter [id number] 07/04 [facility] Outpatient Encounter [id number] 07/04 [facility] Outpatient Encounter [id number] 07/06 [facility] Outpatient Encounter [id number] 07/12 [facility] Outpatient Encounter [id number] 07/13 [facility] Outpatient Encounter [id number] 07/13 [facility] Outpatient Encounter [id number] 07/14 [facility] Outpatient Encounter [id number] 07/15 [facility] Outpatient Encounter [id number] 07/20 [facility] Outpatient Encounter [id number] 07/22 [facility] Outpatient Encounter [id number] SANG MUNGUIA 07/22 [facility] Outpatient Encounter [id number] 07/22 [facility] EST MOD 30 MIN [id number] Diagnos is: ICD-10- CM B35.6 Jean Ureña 07/25 [facility] Outpatient Encounter [id number] 07/29 [facility] En[facility] [id number] 07/29 [place] [facility] Outpatient Encounter [id number] 08/05 [facility] Outpatient Encounter [id number] 08/08 [facility] Outpatient Encounter [id number] 08/10 [facility] Outpatient Encounter [id number] [id number] 08/15 [facility] Outpatient Encounter [id number] 08/19 [facility] Encounter [id number] 08/19 [facility] Encounter [id number] 08/23 [place] [facility] Outpatient Encounter [id number] 08/23 [facility] QNHP OL DIG ASSMT&MGMT 5-10 [id number] Diagnos is: ICD-10- CM I77.9 Disorde r of arterie s and arterio les, unspeci fied ARIEL DICKINSON V 08/25 [place] [facility] Outpatient Encounter [id number] SANG MUNGUIA 08/29 [facility] [place] [facility] Outpatient Encounter [id number] 08/29 [place] [facility] [place] [facility] Outpatient Encounter [id number] 08/29 [place] [facility] Outpatient Encounter [id number] 08/30 [facility] En[facility] [id number] 08/30 [facility] Outpatient Encounter [id number] 08/31 [facility] En[facility] [id number] 08/31 [facility] En[facility] [id number] 09/02 [facility] [place] [facility] Outpatient Encounter [id number] 09/03 [place] [facility] [place] [facility] Outpatient Encounter [id number] 09/03 [place] [facility] Outpatient Encounter [id number] 09/08 [facility] Encounter [id number] 09/09 [facility] Encounter [id number] 09/12 [facility] Outpatient Encounter [id number] 09/12 [facility] Outpatient Encounter [id number] 09/21 [facility] Encounter [id number] 10/14 [facility] Encounter [id number] 10/28 [facility] Outpatient Encounter [id number] 12/01 [facility] Outpatient Encounter [id number] 12/01 [facility] Outpatient Encounter [id number] 12/05 [facility] Outpatient Encounter [id number] NAMRATA BRUCE 01/19 [facility] Outpatient Encounter [id number] LITO GUILLORY 02/15 [facility] En[facility] [id number] NAMRATA BRUCE 02/16 [facility] Outpatient Encounter [id number] 03/16 [facility] [place] [facility] Outpatient Encounter [id number] 05/09 [place] [facility] [place] [facility] Outpatient Encounter [id number] 05/26 [place] [facility] Outpatient Encounter [id number] ADAM RESENDEZ 06/08 [facility] Outpatient Encounter [id number] 06/14 [facility] Social History Combined list of available smoking, tobacco, and other social history from Department of Defense and Veterans Affairs facilities. Social History Type Response Date Comment Sour e Tobacco smoking status NHIS VA-TOBACCO USE 30 YEARS OR MORE 01/20/2024 [facility] History of tobacco use VA-TOBACCO USE MED NO 01/20/2024 [facility] History of tobacco use UT-TOBACCO USER EVERY DAY 09/17/2022 [facility] History of tobacco use TOBACCO OFFERED PT MEDS (PROVIDER) 12/23/2006 [facility] History of tobacco use TOBACCO COUNSELING OFFERED 05/19/2006 [facility] History of tobacco use TOBACCO COUNSELING OFFERED (1) 01/13/2006 [facility] History of tobacco use TOBACCO COUNSELING OFFERED (1) 09/29/2005 [facility] History of tobacco use TOBACCO COUNSELING OFFERED (1) 07/16/2005 [facility] History of tobacco use TOBACCO COUNSELING OFFERED (1) 05/28/2005 [facility] History of tobacco use TOBACCO COUNSELING OFFERED (1) 05/21/2005 [facility] History of tobacco use CURRENT TOBACCO USER 01/08/2005 [facility] History of tobacco use CURRENT TOBACCO USER 12/18/2004 [facility] History of tobacco use TOBACCO COUNSELING OFFERED 09/27/2003 [facility] History of tobacco use TOBACCO COUNSELING OFFERED 12/19/2002 [facility] History of tobacco use TOBACCO COUNSELING OFFERED 06/30/2002 [facility] History of tobacco use CURRENT SMOKER 12/04/1999 [facility] History of tobacco use CURRENT SMOKER 10/24/1999 [facility] Advance Directives List of completed, amended, or rescinded Advance Directives on record at Department of [facility] facilities. An actual copy of the Directive is not included. Date Advance Directive Provider Source 08/24/2017 ADVANCE DIRECTIVE DISCUSSION SHEKHAR MCCLAIN [facility]
[2025-06-15 15:14] VITALS: RESP 30
[2025-06-15] MEDS: morphine 4 mg/mL SDV 1 mL IVP ×3 (15:14→23:31)
[2025-06-15] MEDS: LORazepam 1 MG/0.5 ML injection IVP (19:27)
--- NOTE | 2025-06-15 20:15 | P.PN_ITS ---
Subjective Subjective: Patient was seen in the morning and was agitated, confused having mild tachycardia and EKG showed sinus tachycardia. Patient looks dehydrated. The patient agreed for DNR status of the patient and currently for hospice care Vitals/I&O/Wt Last Vital Signs Resp 30 H 06/15/25 15:14 Physical Exam Narrative: The patient is uncooperative and exam is limited General: The patient is noncooperative, and also not oriented to time place and person However he is alert and moving all his limbs. Making incomprehensible words and sounds Severe signs of malnourishment appreciated, with deep sunken eyes and decreased muscle mass, visible temples and loss of muscles mass of the hands Cardio: Tachycardia, S1 and S2 was heard but cannot comment on murmurs due to tachycardia Respiratory: Good bilateral air entry, no wheezes no rhonchi appreciated GI: Abdomen soft, nontender, nondistended, normoactive bowel sounds present all 4 quadrants, Neuro: Disoriented Behavior: Uncooperative and mild agitation Extremities: Pulses 2+, Skin: Visible skin intact, with some bruises over the chest and the arms but no obvious source of bleeding A&P Assessment and plan 1. CAD (coronary artery disease): 2. COPD (chronic obstructive pulmonary disease) with emphysema: 3. Pleural effusion: 4. Transient alteration of awareness: 5. Refeeding syndrome: 6. Severe protein-calorie malnutrition: 7. Adult failure to thrive: 8. Dehydration: 9. Atherosclerosis of [place] coronary artery without angina pectoris, unspecified whether [place] or transplanted heart: 10. Abdominal aortic aneurysm: 11. Neutropenia, unspecified type: Plan: 69-year-old gentleman with past medical history of peripheral artery disease, seizure disorder, dyslipidemia, COPD, BPH severe malnourishment, presented with altered mentation severe malnourishment possible underlying sepsis and septic shock requiring vasopressors and further management with broad-spectrum antibiotics discontinue cefepime and linezolid broad-spectrum coverage at the moment started on 06/08/2025 as patient is afebrile and blood cultures did not show any growth Keep patient comfortable as per hospice protocol The patient carries grim prognosis due to multiple comorbidities and also the acuity of his condition underlying etiology of sepsis septic shock not improving with broad-spectrum antibiotics, requiring vasopressors, severe malnourishment, decreased immunity, neutropenia, and patient altered mentation that has not improved with further deterioration day by day. Patient family/ has been informed about his grim prognosis and critical illness at each step of his plan of management. And also have been informed about the lack/failure the current ongoing management secondary to his severe condition, and therefore was offered goals of life and hospice care with consideration of DNR as his status. The understands and agreed with the plan of medical management and to keep the patient DNR with hospice care. Case management informed and further management taken according to the 's wishes after thorough discussion of the all the risk and benefits and counseling PDMP PDMP Reviewed: Not Reviewed Attestations Medical Necessity Statement*: The patient will stay for the management of his altered mentation, severe malnourishment, peripheral artery disease, seizure disorder and other comorbidities and as hospice care Time Spent in Patient Care: Greater than 35 minutes (>than 50% of time spent in counselling and/or direct pt care on unit) . Critical Care Time: The high probability of a clinically significant, sudden or life threatening deterioration, as referenced in this documentation, required my full and direct attention, intervention and personal management. The critical care time shown is in addition to time spent performing any reported separately billable procedures and includes the following: [x] Data and vital sign review and interpretation [x ] Patient assessment, examination and intervention [x] Medication orders and management [x] Patient/Family updates as able [x] Care Coordination and Documentation. Critical Care Time (min): 60 Coding Level of Care Code Critical Care >/= 30 minutes Diagnoses CAD (coronary artery disease) I25.10 COPD (chronic obstructive pulmonary disease) with emphysema J43.9 Pleural effusion J90 Transient alteration of awareness R40.4 Altered mental status type: transient alteration of awareness Refeeding syndrome E87.8 Severe protein-calorie malnutrition E43 Malnutrition type: protein-calorie malnutrition Protein-calorie malnutrition severity: severe Adult failure to thrive R62.7 Dehydration E86.0 Atherosclerosis of [place] coronary artery without angina pectoris, unspecified whether [place] or transplanted heart I25.10 [place] vs. transplanted heart: unspecified whether [place] or transplanted heart Abdominal aortic aneurysm I71.40 Neutropenia, unspecified type D70.9 Leukopenia type: neutropenia Neutropenia type: unspecified
[2025-06-15] MEDS: atropine 1% op soln 2 mL Btl 3 DROP SUBLINGUAL (23:31)
[2025-06-15] MEDS: glycopyrrolate 0.2 mg/mL SDV 2 mL IV (23:43)
[2025-06-16] MEDS: morphine 4 mg/mL SDV 1 mL IVP ×5 (02:40→20:03)
[2025-06-16] MEDS: blistex lip oint 7 gm Tube 1 APPLIC TOPICAL (06:20)
[2025-06-16] MEDS: glycopyrrolate 0.2 mg/mL SDV 2 mL IV (06:20)
[2025-06-16 08:50] VITALS: RESP 22; O2SAT 92
[2025-06-16] MEDS: LORazepam 1 MG/0.5 ML injection IVP (11:38)
[2025-06-16 11:39] VITALS: RESP 18; O2SAT 82
--- NOTE | 2025-06-16 12:20 | PM.PN ---
Subjective Subjective: Patient was seen in morning. Still altered and confused however seems comfortable not very agitated in comparison to the previous days. The patient agreed for DNR status of the patient and currently for hospice care Vitals/I&O/Wt Last Vital Signs Resp 18 06/16/25 11:39 Pulse Ox 82 L 06/16/25 11:39 Physical Exam Narrative: The patient is uncooperative and exam is limited General: The patient is noncooperative, and also not oriented to time place and person However he is alert and moving all his limbs. Making incomprehensible words and sounds Severe signs of malnourishment appreciated, with deep sunken eyes and decreased muscle mass, visible temples and loss of muscles mass of the hands Cardio: Tachycardia, S1 and S2 was heard but cannot comment on murmurs due to tachycardia Respiratory: Good bilateral air entry, no wheezes no rhonchi appreciated GI: Abdomen soft, nontender, nondistended, normoactive bowel sounds present all 4 quadrants, Neuro: Disoriented Behavior: Uncooperative and mild agitation Extremities: Pulses 2+, Skin: Visible skin intact, with some bruises over the chest and the arms but no obvious source of bleeding Urinary Catheter Management: Lawrence: Cath Placed During This Visit: no Reason for Continuing Indwelling Catheter: Hospice/Comfort/Palliative Care A&P Assessment and plan 1. CAD (coronary artery disease): 2. COPD (chronic obstructive pulmonary disease) with emphysema: 3. Pleural effusion: 4. Transient alteration of awareness: 5. Refeeding syndrome: 6. Severe protein-calorie malnutrition: 7. Adult failure to thrive: 8. Dehydration: 9. Atherosclerosis of [place] coronary artery without angina pectoris, unspecified whether [place] or transplanted heart: 10. Infrarenal abdominal aortic aneurysm (AAA) without rupture: 11. Neutropenia, unspecified type: Plan: 69-year-old gentleman with past medical history of peripheral artery disease, seizure disorder, dyslipidemia, COPD, BPH severe malnourishment, presented with altered mentation severe malnourishment possible underlying sepsis and septic shock requiring vasopressors and further management with broad-spectrum antibiotics discontinue cefepime and linezolid broad-spectrum coverage at the moment started on 06/08/2025 as patient is afebrile and blood cultures did not show any growth Keep patient comfortable as per hospice protocol The patient carries grim prognosis due to multiple comorbidities and also the acuity of his condition underlying etiology of sepsis septic shock not improving with broad-spectrum antibiotics, requiring vasopressors, severe malnourishment, decreased immunity, neutropenia, and patient altered mentation that has not improved with further deterioration day by day. Patient family/ has been informed about his grim prognosis and critical illness at each step of his plan of management. And also have been informed about the lack/failure the current ongoing management secondary to his severe condition, and therefore was offered goals of life and hospice care with consideration of DNR as his status. The understands and agreed with the plan of medical management and to keep the patient DNR with hospice care. Case management informed and further management taken according to the 's wishes after thorough discussion of the all the risk and benefits and counseling PDMP PDMP Reviewed: Not Reviewed Attestations Medical Necessity Statement*: The patient will continue to stay as per hospice care and DNR status Coding Level of Care Code Acute Code for Chg Fwd Diagnoses CAD (coronary artery disease) I25.10 COPD (chronic obstructive pulmonary disease) with emphysema J43.9 Pleural effusion J90 Transient alteration of awareness R40.4 Altered mental status type: transient alteration of awareness Refeeding syndrome E87.8 Severe protein-calorie malnutrition E43 Malnutrition type: protein-calorie malnutrition Protein-calorie malnutrition severity: severe Adult failure to thrive R62.7 Dehydration E86.0 Atherosclerosis of [place] coronary artery without angina pectoris, unspecified whether [place] or transplanted heart I25.10 [place] vs. transplanted heart: unspecified whether [place] or transplanted heart Infrarenal abdominal aortic aneurysm (AAA) without rupture I71.43 Abdominal aorta location: infrarenal aorta Presence of rupture: without rupture Neutropenia, unspecified type D70.9 Leukopenia type: neutropenia Neutropenia type: unspecified
--- NOTE | 2025-06-16 18:24 | PC.NURSE ---
Shift summary: Bathing provided this shift. Oral care provided, pt does not like it, he tries to clamp his mouth closed. Sinus tachycardia in 120's noted this sift. His O2 sats have stayed between 69-82% this shift. He has been repositioned at least eery two hours. Pt now has a blister and another area near with skin sloughing off on his posterior lower leg. Optifoam applied. morphine 4mg admin twice this sift for discomfort. Ativan admin once for agitation. Family has called for updates today.
[2025-06-16 20:03] VITALS: RESP 18
[2025-06-17] VITALS (8 sets, daily range): PULSE 82; RESP 16–31; TEMP 36.5; O2SAT 87; BMI 17.9
[2025-06-17] MEDS: LORazepam 1 MG/0.5 ML injection IVP ×2 (00:16→08:48)
[2025-06-17] MEDS: morphine 4 mg/mL SDV 1 mL IVP ×6 (03:44→21:53)
--- NOTE | 2025-06-17 07:09 | PC.PHAR ---
Pt gets his medications from the [facility] has changed in the last 8 days.
--- NOTE | 2025-06-17 14:10 | PM.PN ---
Subjective Subjective: Patient was seen in morning. He was lying comfortably and was sleeping. Upon taking his name he opened his eyes but he was making some nonpurposeful eye movements and some incomprehensible sounds. The patient agreed for DNR status of the patient and currently for hospice care Vitals/I&O/Wt Last Vital Signs Temp 97.7 F 06/17/25 08:00 Resp 16 06/17/25 12:34 Pulse Ox 87 L 06/17/25 08:12 Weight last 48 hrs Weight 54.885 kg Physical Exam Narrative: General: The patient is noncooperative, and also not oriented to time place and person However he is alert when taking his name making incomprehensible words and sounds Severe signs of malnourishment appreciated, with deep sunken eyes and decreased muscle mass, visible temples and loss of muscles mass of the hands Cardio: Tachycardia, S1 and S2 was heard but cannot comment on murmurs due to tachycardia Respiratory: Good bilateral air entry, no wheezes no rhonchi appreciated GI: Abdomen soft, nontender, nondistended, normoactive bowel sounds present all 4 quadrants, Neuro: Disoriented Behavior: Uncooperative and mild agitation Extremities: Pulses 2+, bilateral lower limb and upper limb with edema secondary to hypoalbuminemia Skin: Visible skin intact, with some bruises over the chest and the arms but no obvious source of bleeding Urinary Catheter Management: Lawrence: Cath Placed During This Visit: no Reason for Continuing Indwelling Catheter: Hospice/Comfort/Palliative Care A&P Assessment and plan 1. CAD (coronary artery disease): 2. COPD (chronic obstructive pulmonary disease) with emphysema: 3. Pleural effusion: 4. Transient alteration of awareness: 5. Refeeding syndrome: 6. Severe protein-calorie malnutrition: 7. Adult failure to thrive: 8. Dehydration: 9. Atherosclerosis of [place] coronary artery without angina pectoris, unspecified whether [place] or transplanted heart: 10. Infrarenal abdominal aortic aneurysm (AAA) without rupture: 11. Neutropenia, unspecified type: Plan: 69-year-old gentleman with past medical history of peripheral artery disease, seizure disorder, dyslipidemia, COPD, BPH severe malnourishment, presented with altered mentation severe malnourishment possible underlying sepsis and septic shock requiring vasopressors and further management with broad-spectrum antibiotics and currently on hospice care Keep patient comfortable as per hospice protocol The patient carries grim prognosis due to multiple comorbidities and also the acuity of his condition underlying etiology of sepsis septic shock not improving with broad-spectrum antibiotics, requiring vasopressors, severe malnourishment, decreased immunity, neutropenia, and patient altered mentation that has not improved with further deterioration day by day. Patient family/ has been informed about his grim prognosis and critical illness at each step of his plan of management. And also have been informed about the lack/failure the current ongoing management secondary to his severe condition, and therefore was offered goals of life and hospice care with consideration of DNR as his status. The understands and agreed with the plan of medical management and to keep the patient DNR with hospice care. Case management informed and further management taken according to the 's wishes after thorough discussion of the all the risk and benefits and counseling. Hospice care and DNR status as per the wishes for the patient. The patient's wishes are respected and carried down as per protocol PDMP PDMP Reviewed: Not Reviewed Attestations Medical Necessity Statement*: The patient will stay further for his management as hospice care Time Spent in Patient Care: Greater than 35 minutes (>than 50% of time spent in counselling and/or direct pt care on unit). Critical Care Time: Critical Care Time (min): 40 Other Attestations: The high probability of a clinically significant, sudden or life threatening deterioration, as referenced in this documentation, required my full and direct attention, intervention and personal management. The critical care time shown is in addition to time spent performing any reported separately billable procedures and includes the following: [x] Data and vital sign review and interpretation [x] Patient assessment, examination and intervention [x] Medication orders and management [x] Patient/Family updates as able [x] Care Coordination and Documentation. Coding Level of Care Code Critical Care >/= 30 minutes Diagnoses CAD (coronary artery disease) I25.10 COPD (chronic obstructive pulmonary disease) with emphysema J43.9 Pleural effusion J90 Transient alteration of awareness R40.4 Altered mental status type: transient alteration of awareness Refeeding syndrome E87.8 Severe protein-calorie malnutrition E43 Malnutrition type: protein-calorie malnutrition Protein-calorie malnutrition severity: severe Adult failure to thrive R62.7 Dehydration E86.0 Atherosclerosis of [place] coronary artery without angina pectoris, unspecified whether [place] or transplanted heart I25.10 [place] vs. transplanted heart: unspecified whether [place] or transplanted heart Infrarenal abdominal aortic aneurysm (AAA) without rupture I71.43 Abdominal aorta location: infrarenal aorta Presence of rupture: without rupture Neutropenia, unspecified type D70.9 Leukopenia type: neutropenia Neutropenia type: unspecified
[2025-06-18] MEDS: LORazepam 1 MG/0.5 ML injection IVP ×2 (01:55→08:29)
[2025-06-18] MEDS: morphine 4 mg/mL SDV 1 mL IVP ×3 (04:57→13:50)
[2025-06-18 08:28] VITALS: RESP 29
[2025-06-18] MEDS: atropine 1% op soln 2 mL Btl 3 DROP SUBLINGUAL (09:20)
--- NOTE | 2025-06-18 11:53 | P.PN_ITS ---
Subjective Subjective: Patient was seen in morning. He was lying comfortably and was sleeping. Making some incomprehensible sounds on and off while taking his name. He was calm and had comfort Vitals/I&O/Wt Last Vital Signs Temp 97.7 F 06/17/25 08:00 Pulse 82 06/17/25 15:02 Resp 29 H 06/18/25 08:28 Pulse Ox 87 L 06/17/25 08:12 Weight last 48 hrs Weight 54.885 kg Physical Exam Narrative: General: The patient lying comfortably not agitated and sleeping, and also not oriented to time place and person However he is alert while taking his name making incomprehensible words and sounds Severe signs of malnourishment appreciated, with deep sunken eyes and decreased muscle mass, visible temples and loss of muscles mass of the hands Cardio: Tachycardia, S1 and S2 was heard but cannot comment on murmurs due to tachycardia Respiratory: Good bilateral air entry, no wheezes no rhonchi appreciated GI: Abdomen soft, nontender, nondistended, normoactive bowel sounds present all 4 quadrants, Neuro: Disoriented Behavior: Uncooperative and mild agitation Extremities: Pulses 2+, bilateral lower limb and upper limb with edema secondary to hypoalbuminemia Skin: Visible skin intact, with some bruises over the chest and the arms but no obvious source of bleeding Urinary Catheter Management: Lawrence: Cath Placed During This Visit: no Reason for Continuing Indwelling Catheter: Accurate Measurement of Urinary Output in Critically Ill Patients A&P Assessment and plan 1. CAD (coronary artery disease): 2. COPD (chronic obstructive pulmonary disease) with emphysema: 3. Pleural effusion: 4. Transient alteration of awareness: 5. Refeeding syndrome: 6. Severe protein-calorie malnutrition: 7. Adult failure to thrive: 8. Dehydration: 9. Atherosclerosis of [place] coronary artery without angina pectoris, unspecified whether [place] or transplanted heart: 10. Infrarenal abdominal aortic aneurysm (AAA) without rupture: 11. Neutropenia, unspecified type: 12. Hospice care: Plan: 69-year-old gentleman with past medical history of peripheral artery disease, seizure disorder, dyslipidemia, COPD, BPH severe malnourishment, presented with altered mentation severe malnourishment possible underlying sepsis and septic shock requiring vasopressors and further management with broad-spectrum antibiotics and currently on hospice care Keep patient comfortable as per hospice protocol, currently stable in terms of his comfort. Vitally he is unstable The patient carries grim prognosis due to multiple comorbidities and also the acuity of his condition underlying etiology of sepsis septic shock not improving with broad-spectrum antibiotics, requiring vasopressors, severe malnourishment, decreased immunity, neutropenia, and patient altered mentation that has not improved with further deterioration day by day. Patient family/ has been informed about his grim prognosis and critical illness at each step of his plan of management. And also have been informed about the lack/failure the current ongoing management secondary to his severe condition, and therefore was offered goals of life and hospice care with consideration of DNR as his status. The understands and agreed with the plan of medical management and to keep the patient DNR with hospice care. Case management informed and further management taken according to the 's wishes after thorough discussion of the all the risk and benefits and counseling. Hospice care and DNR status as per the wishes for the patient. The patient's wishes are respected and carried down as per protocol PDMP PDMP Reviewed: Not Reviewed Attestations Medical Necessity Statement*: Wang Castellon's hospital stay will require greater than 2 midnights for continuation of hospice protocol Time Spent in Patient Care: 16 - 35 minutes (>than 50% of time sp ent in counselling and/or direct pt care on unit) . 30 Critical Care Time: The high probability of a clinically significant, sudden or life threatening deterioration of the patient's [] system(s) required my full and direct attention, intervention and personal management. The critical care time is as shown. This time is in addition to time spent performing any reported procedures but includes the following: [x] Data and vital sign review and interpretation [x] Patient assessment, examination and intervention [x] Documentation [x] Medication orders and management Critical Care Time (min): 30 Other Attestations: Patient condition has been discussed at length with the patient/family, I have independently reviewed the chart labs imaging and diagnostics and EKG. I have discussed the goals of care and code status with the patient/family/NOK/legal provider service representative, and documented accordingly. The patient/family has been informed about the current condition and further plan of care. Agreed with the plan of care and understood without any language barrier. This documentation was created by [employer] fusing machine operator software. Every effort was made to ensure accuracy of fusing machine operator. Any obvious errors or omissions should be clarified with the author of the document. Coding Level of Care Code Critical Care >/= 30 minutes Diagnoses CAD (coronary artery disease) I25.10 COPD (chronic obstructive pulmonary disease) with emphysema J43.9 Pleural effusion J90 Transient alteration of awareness R40.4 Altered mental status type: transient alteration of awareness Refeeding syndrome E87.8 Severe protein-calorie malnutrition E43 Malnutrition type: protein-calorie malnutrition Protein-calorie malnutrition severity: severe Adult failure to thrive R62.7 Dehydration E86.0 Atherosclerosis of [place] coronary artery without angina pectoris, unspecified whether [place] or transplanted heart I25.10 [place] vs. transplanted heart: unspecified whether [place] or transplanted heart Infrarenal abdominal aortic aneurysm (AAA) without rupture I71.43 Abdominal aorta location: infrarenal aorta Presence of rupture: without rupture Neutropenia, unspecified type D70.9 Leukopenia type: neutropenia Neutropenia type: unspecified Hospice care Z51.5
[2025-06-18 13:50] VITALS: RESP 20
[2025-06-18 16:08] VITALS: PULSE 140
--- NOTE | 2025-06-18 22:37 | PC.NURSE ---
Patient heart rate dropped significantly. Went to room to assess. Patient without breath sounds, or heart tones. PEA on monitor. Verified with second RN. Dr. Jones notified of TOD, [id number]. notified by phone.
[2025-06-18 22:59] VITALS: BP 0/0; PULSE 0; O2SAT 0
--- NOTE | 2025-06-18 23:57 | PC.NURSE ---
Pt was placed in a body bag and [place] [facility] at [place]. Pt was released from [facility] and is awaiting saving site at this time. Pts is unsure about which home she would like for him to go to.
--- NOTE | 2025-06-19 00:16 | PC.NURSE ---
Saving site called and released the pts body at this time.
--- NOTE | 2025-06-25 00:52 | P.DES_ITS ---
Discharge Providers DDS Date of Admission: 06/15/25 10:24 Date Summary Completed: 06/25/25 Attending Provider at Admission: Yuval Welch MD Time of : 22:10 Attending Provider at Discharge: Yuval Welch MD Primary Care Provider: MD NANETTE Whittaker Diagnoses Hospital Diagnoses 1. CAD (coronary artery disease): 2. COPD (chronic obstructive pulmonary disease) with emphysema: 3. Pleural effusion: 4. Transient alteration of awareness: Qualifiers: Altered mental status type: transient alteration of awareness 5. Refeeding syndrome: 6. Severe protein-calorie malnutrition: Qualifiers: Malnutrition type: protein-calorie malnutrition Protein- calorie malnutrition severity: severe 7. Adult failure to thrive: 8. Dehydration: 9. Atherosclerosis of [place] coronary artery without angina pectoris, unspecified whether [place] or transplanted heart: Qualifiers: [place] vs. transplanted heart: unspecified whether [place] or transplanted heart Qualified Code(s): I25.10 - Atherosclerotic heart disease of [place] coronary artery without angina pectoris 10. Infrarenal abdominal aortic aneurysm (AAA) without rupture: Qualifiers: Abdominal aorta location: infrarenal aorta Presence of rupture: without rupture Qualified Code(s): I71.43 - Infrarenal abdominal aortic aneurysm, without rupture 11. Neutropenia, unspecified type: Qualifiers: Leukopenia type: neutropenia Neutropenia type: unspecified 12. Hospice care: 13. Hypovolemia dehydration: 14. Septic shock: Reason for Visit Reason for Visit HOSPICE ADMIT 3 JUNIOR Brief History: As per the previous notes and further documentations: Wang Castellon is a 69 year old male with medical history significant for hyperlipidemia anxiety disorder seizure disorder who presented to the emergency room via EMS after their had called 911 on the account that the who is the patient cannot get out of bed and cannot walk.. EMS stated that when they got to the patient's home everywhere was covered with filthy sense in the environment and the area bagged bugs everywhere. Patient lies in bed and does not get out of bed because of profound weakness cannot stand and has not walked for months. Patient said he had not worked for years. the patient. He appeared to be in and the state of neglect and there was a bed bug infest ation of his home as per the previous chart review and documents of this visit. Noted to be hypotensive and tachycardic in the emergency room. He had a potassium of 2.3 which was replaced in the ER. He was admitted for observation during admission to the ICU he had 1 episode of vomiting the emesis was described as reddish with a metallic smell, this was not tested for blood. Surgery consulted for the possibility of upper GI bleed. Overnight patient has remained unstable had required 3 pressors to keep the blood pressure up, and had central line placed for further management. He had also stool burden that was disimpacted this admission. CT abd pelvis was done and showed gastroduodenitis. He was also being managed as a case of severe hypovolemic shock, septic shock, dehydration, severe electrolyte imbalance secondary to likely refeeding syndrome. However even with the best measures as per protocol the patient response was not adequate and he was deteriorating day by day progressing to altered mentation, non resolving shock secondary to multiple etiologies. considering overall grim prognosis of the patient due to multiple comorbidities and also the acuity of his condition underlying etiology of sepsis, hypovolemic, septic shock not improving with broad-spectrum antibiotics, requiring vasopressors, severe malnourishment, decreased immunity, neutropenia, and patient altered mentation that has not improved with optimum medical care. Patient family/ was informed about his grim prognosis and critical illness at each step of his plan of management. And also have been informed about the lack/failure the current ongoing management secondary to his severe clinical condition, and therefore was offered goals of life and hospice care with consideration of DNR as his status. The understood without any language barrier and agreed with the plan of medical management and to keep the patient DNR with hospice care. Case management was informed and further management t aken according to the 's wishes after thorough discussion of the all the risk and benefits and counseling. the patient was managed as per the protocol of hospice care as per patients wishes respectfully. the patient vitals became unstable as per the documentation at the time near to his , ultimately PEA, and EKG was performed. Night physician fabiola was made aware ( refer to the nursing note ) and the patient on 06.18.25 at 22:10. was informed and condolences were given. Summary Date and Time of Date of : 06/18/25 Time of : 22:10 Additional Data Advance directives?: No Discharge Plan Discharge Patient Disposition: DS Attestations Time Spent in /Discharge Care*: critical care time Quality - AMI: AMI present?: No Clinical Trial Participant: No Quality - Stroke: CVA present?: No Quality - VTE: VTE present?: Yes Coding Level of Care Code Critical Care >/= 30 minutes Diagnoses CAD (coronary artery disease) I25.10 COPD (chronic obstructive pulmonary disease) with emphysema J43.9 Pleural effusion J90 Transient alteration of awareness R40.4 Altered mental status type: transient alteration of awareness Refeeding syndrome E87.8 Severe protein-calorie malnutrition E43 Malnutrition type: protein-calorie malnutrition Protein-calorie malnutrition severity: severe Adult failure to thrive R62.7 Dehydration E86.0 Atherosclerosis of [place] coronary artery without angina pectoris, unspecified whether [place] or transplanted heart I25.10 [place] vs. transplanted heart: unspecified whether [place] or transplanted heart Infrarenal abdominal aortic aneurysm (AAA) without rupture I71.43 Abdominal aorta location: infrarenal aorta Presence of rupture: without rupture Neutropenia, unspecified type D70.9 Leukopenia type: neutropenia Neutropenia type: unspecified Hospice care Z51.5 Hypovolemia dehydration E86.1 Septic shock A41.9; R65.21
== END 2025-06-18 22:10 | disposition expired | DRG 951 ==
PROVIDERS: Admitting Provider Student in an Organized Health Care Education/Training Program; PCP Family Medicine; Visit Provider Student in an Organized Health Care Education/Training Program
DX: Z51.5 Encounter for palliative care (principal); E43 Unspecified severe protein-calorie malnutrition; A41.9 Sepsis, unspecified organism; R65.21 Severe sepsis with septic shock; J90 Pleural effusion, not elsewhere classified; Z68.1 Body mass index [BMI] 19.9 or less, adult; I25.10 Atherosclerotic heart disease of native coronary artery without angina pectoris; J44.9 Chronic obstructive pulmonary disease, unspecified; R40.4 Transient alteration of awareness; R62.7 Adult failure to thrive; E86.0 Dehydration; I71.43 Infrarenal abdominal aortic aneurysm, without rupture; D70.9 Neutropenia, unspecified; E86.1 Hypovolemia; E78.5 Hyperlipidemia, unspecified; F41.9 Anxiety disorder, unspecified; G40.909 Epilepsy, unspecified, not intractable, without status epilepticus; B88.2 Other arthropod infestations; E87.6 Hypokalemia; I73.9 Peripheral vascular disease, unspecified; I46.9 Cardiac arrest, cause unspecified; Z66 Do not resuscitate; R57.1 Hypovolemic shock; K29.90 Gastroduodenitis, unspecified, without bleeding; K59.00 Constipation, unspecified
CPT/HCPCS: J2060; J2270; J3490; J9999